=== PATIENT | female | born 1995 | race Caucasian/White ===

== ENCOUNTER 2024-02-06 14:45 | Outpatient (OUT) | payer BC, MEDICAID, SELFPAY ==
--- NOTE | 2024-02-06 14:53 | US_ITS ---
[address] [address] Patient Name: NICHO DOHERTY MRN: [id number] date: 1995 Sex: F Assigned Patient Location: Current Patient Location: Accession/Order Number: [id number] Exam Date: 02/06/2024 15:00 Report Date: 02/07/2024 05:15 At the request of: JULIET KELLY Procedure: US OB transvaginal EXAMINATION: US OB transvaginal HISTORY: Amenorrhea COMPARISON: No relevant comparison available. FINDINGS: GESTATIONAL SAC: Present and normal appearing. YOLK SAC: Present and normal appearing. POLE: Present and normal appearing. CARDIAC: Present. UTERUS: Normal size and appearance. OVARIES: Right: Normal. Left: Not seen. CERVIX: Not evaluated. CUL-DE-SAC: Normal. OTHER: None. AGE BY LMP: 8 weeks 3 days DARLYN BY LMP: 09/14/2024 AGE BY US CRL: 8 weeks 3 days DARLYN BY US CRL: 09/14/2024 US/US OB transvaginal IMPRESSION: 1. Single live intrauterine . Electronically authenticated by: BISI LARA Date: 02/07/2024 05:15
== END 2024-02-06 14:46 | disposition home or self-care (01) ==
PROVIDERS: Visit Provider Midwife
DX: Z34.01 Encounter for supervision of normal first pregnancy, first trimester (principal); Z3A.08 8 weeks gestation of pregnancy; N91.2 Amenorrhea, unspecified
CPT/HCPCS: 76817

== ENCOUNTER 2024-05-01 16:03 | Outpatient (OUT) | payer MEDICAID, SELFPAY ==
--- NOTE | 2024-05-01 16:06 | US_ITS ---
[address] [address] Patient Name: NICHO DOHERTY MRN: [id number] date: 1995 Sex: F Assigned Patient Location: US Current Patient Location: Accession/Order Number: [id number] Exam Date: 05/01/2024 16:12 Report Date: 05/02/2024 07:54 At the request of: JULIET KELLY Procedure: US OB anatomy EXAMINATION: US OB anatomy, US OB cervical length HISTORY: RELATED CONDITION IN SECOND TRIMESTER O26.92 COMPARISON: No relevant comparison available. TECHNIQUE: Transabdominal sonographic examination was performed for obstetrical and evaluation. FINDINGS: Number: 1 Heart Rate: 152.54 bpm H.B. /min Amniotic Fluid Volume: Subjectively normal position: Cephalic presentation, longitudinal lie Placental Location: POSTERIOR, grade 0. The placental edge is 2.7 cm from the internal cervical os Cervix Length: 3.36 cm , closed Normal anatomy: Lateral ventricles, cerebellum, posterior fossa, nose, lips, orbits, four-chamber heart, RVOT, LVOT, diaphragm, stomach, kidneys, abdominal cord insertion, bladder, umbilical arteries, three-vessel cord, spine, extremities BIOMETRY: BPD: 5.01 cm; 21 weeks 1 day; 78.10 % HC: 18.69 cm; 21 weeks 0 days; 68.30 % AC: 16.53 cm; 21 weeks 4 days; 79.60 % FL: 3.61 cm; 21 weeks 3 days; 76.60 % EFW:425.30 g; 92.80 % FL/AC: 21.84 FL/BPD: 72.11 HC/AC: 1.13 GESTATIONAL AGE: Age by EDC: 20 weeks 3 days DARLYN by EDC: 2024-09-15 Age by current US: 21 weeks 2 days DARLYN by current US: 2024-09-09 US/US OB anatomy IMPRESSION: Low lying placenta, otherwise normal anatomy scan Closed cervix measuring 3.4 cm length *Reference: [employer] Practice Guideline for the performance of Obstetric Ultrasound Examinations, December 16, 2006. Electronically authenticated by: BRUCE QIU Date: 05/02/2024 07:54
--- NOTE | 2024-05-01 16:08 | US_ITS ---
[address] [address] Patient Name: NICHO DOHERTY MRN: [id number] date: 1995 Sex: F Assigned Patient Location: US Current Patient Location: Accession/Order Number: [id number] Exam Date: 05/01/2024 16:12 Report Date: 05/02/2024 07:54 At the request of: JULIET KELLY Procedure: US OB cervical length EXAMINATION: US OB anatomy, US OB cervical length HISTORY: RELATED CONDITION IN SECOND TRIMESTER O26.92 COMPARISON: No relevant comparison available. TECHNIQUE: Transabdominal sonographic examination was performed for obstetrical and evaluation. FINDINGS: Number: 1 Heart Rate: 152.54 bpm H.B. /min Amniotic Fluid Volume: Subjectively normal position: Cephalic presentation, longitudinal lie Placental Location: POSTERIOR, grade 0. The placental edge is 2.7 cm from the internal cervical os Cervix Length: 3.36 cm , closed Normal anatomy: Lateral ventricles, cerebellum, posterior fossa, nose, lips, orbits, four-chamber heart, RVOT, LVOT, diaphragm, stomach, kidneys, abdominal cord insertion, bladder, umbilical arteries, three-vessel cord, spine, extremities BIOMETRY: BPD: 5.01 cm; 21 weeks 1 day; 78.10 % HC: 18.69 cm; 21 weeks 0 days; 68.30 % AC: 16.53 cm; 21 weeks 4 days; 79.60 % FL: 3.61 cm; 21 weeks 3 days; 76.60 % EFW:425.30 g; 92.80 % FL/AC: 21.84 FL/BPD: 72.11 HC/AC: 1.13 GESTATIONAL AGE: Age by EDC: 20 weeks 3 days DARLYN by EDC: 2024-09-15 Age by current US: 21 weeks 2 days DARLYN by current US: 2024-09-09 US/US OB cervical length IMPRESSION: Low lying placenta, otherwise normal anatomy scan Closed cervix measuring 3.4 cm length *Reference: [employer] Practice Guideline for the performance of Obstetric Ultrasound Examinations, December 16, 2006. Electronically authenticated by: BRUCE QIU Date: 05/02/2024 07:54
--- OUTSIDE RECORDS SUMMARY | 2024-05-01 16:13 | XMS_ITS | CCD ---
Author Organization [facility] Care Team Providers Care Meter Repair Shop Supervisor Name Role Phone MISC, DOCTOR Consulting Unavailable MILENA WINTER Primary Care Unavailable MISC, DOCTOR Attending Unavailable MISC, DOCTOR Admitting Unavailable MAGGYMILENA LYMAN Primary Care Unavailable MAGGYMILENA LYMAN Consulting Unavailable MILENA WINTER Attending Unavailable MAGGY, MILENA Admitting Unavailable ROSIPEDGARDO VILCHISIN Consulting Unavailable ROSEDGARDO CALLAWAYIN Attending Unavailable ROSIPKO, JUAN CARLOS Admitting Unavailable Hedy Reyna DO Unavailable Marika Gudino MD Primary Care Provider NO PCP, NO PCP Primary Care Unavailable FABIOLA FRIAS Attending Unavailable Luci Arellano NP Unavailable LUCI ARELLANO Attending Unavailable LUCI ARELLANO Attending Unavailable JULIET CEE Attending Unavailable FLORJULIET Lovelace Attending Unavailable JULIET CEE Attending Unavailable JULIET CEE L Attending Unavailable Allergies Allergy Classification Reported Allergen(s) Allergy Type Date of Onset Reaction(s) Facility (15 sources) Penicillins; Translations: [PENICILLINS] Drug Intolerance 8 Fever, Hives, Itching, Swelling, Rash [facility] (14 sources) Sulfonamides (Antibiotic) Drug Intolerance 8 Hives [facility] (1 source) Sulfonamides (Antibiotic); Translations: [SULFA (SULFONAMIDE ANTIBIOTICS)] Propensity to adverse reactions to drug (disorder) 8 [facility] Medications Current Medications Medication Drug Class(es) Dates Sig (Normalized) Sig (Original) ferrous sulfate (11 sources) Start: 02-03-2024 take 1 tablet by mouth in the morning Ferrous Sulfate (IRON PO) Take 1 tablet by mouth in the morning. 02/03/2024 Active nitrofurantoin, macrocrystals 25 mg / nitrofurantoin, monohydrate 75 mg oral capsule (7 sources) Nitrofuran Antibacterial Start: 03-16-2024 End: 04-06-2024 take 1 capsule by mouth in the morning nitrofurantoin, macrocrystal-monohy drate, (Macrobid) 100 MG capsule Indications: Dysuria Take 1 capsule (100 mg) by mouth in the morning and 1 capsule (100 mg) before bedtime. Do all this for 7 days. 14 capsule 03/30/2024 04/06/2024 Active ondansetron 8 mg disintegrating oral tablet (11 sources) Serotonin-3 Receptor Antagonist Start: 03-05-2024 End: 04-04-2024 take 1 tablet by mouth every eight hours for nausea ondansetron ODT (Zofran-ODT) 8 MG disintegrating tablet Indications: Nausea/vomiting in Take 1 tablet (8 mg) by mouth every 8 (eight) hours if needed for nausea or vomiting 20 tablet 2 03/05/2024 04/04/2024 Active Start: 02-05-2024 End: 03-06-2024 take 1 tablet by mouth every eight hours for nausea ondansetron (Zofran) 8 MG tablet Indications: Nausea/vomiting in Take 1 tablet (8 mg) by mouth every 8 (eight) hours if needed for nausea or vomiting 20 tablet 2 02/05/2024 03/06/2024 Active phenazopyridine hydrochloride 100 mg oral tablet (2 sources) Start: 03-16-2024 End: 03-18-2024 phenazopyridine (Pyridium) 100 MG tablet Indications: Dysuria Take 1 tablet (100 mg) by mouth in the morning and 1 tablet (100 mg) at noon and 1 tablet (100 mg) in the evening. Take with meals. Do all this for 2 days. 6 tablet 03/16/2024 03/18/2024 Active promethazine hydrochloride 25 mg oral tablet (11 sources) Phenothiazine take 1 tablet by mouth every six hours as needed for nausea and vomiting promethazine (Phenergan) 25 MG tablet Take 25 mg by mouth every 6 (six) hours if needed for nausea or vomiting Active Completed/Discontinued Medications Medication Drug Class(es) Dates Sig (Normalized) Sig (Original) citalopram 40 mg oral tablet (3 sources) Serotonin Reuptake Inhibitor Start: 07-16-2023 End: 12-24-2023 take 1 tablet by mouth once daily citalopram (CeleXA) 40 MG tablet Indications: 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/HCC) Take 1 tablet (40 mg) by mouth Daily 90 tablet 07/16/2023 12/24/2023 Discontinued (Side effects) 24 hr venlafaxine 37.5 mg extended release oral capsule (4 sources) Serotonin and Norepinephrine Reuptake Inhibitor Start: 12-24-2023 End: 02-05-2024 take 1 capsule by mouth once daily venlafaxine XR (Effexor XR) 37.5 MG 24 hr capsule Indications: Generalized anxiety disorder (CMS/HCC) , 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/HCC) Take 1 capsule (37.5 mg) by mouth Daily Do not crush or chew. 90 capsule 12/24/2023 02/05/2024 Discontinued (Therapy completed) Problems Active Problems Problem Classification Problem Date Documented Da te Episodic/Chronic Anxiety disorders (20 sources) Anxiety; Translations: [Anxiety disorder, unspecified] Onset: 07-16-2023 07-16-2023 Chronic Genitourinary symptoms and ill-defined conditions (5 sources) Dysuria; Translations: [Dysuria] 03-16-2024 Episodic Immunizations and screening for infectious disease (4 sources) Contact with and (suspected) exposure to other viral communicable diseases; Translations: [CONTCT EXPS OTH VIRL COMMUNICABL DZ] Onset: 01-30-2020 Episodic Menstrual disorders (2 sources) Amenorrhea; Translations: [Amenorrhea, unspecified] 02-05-2024 Chronic Mood disorders (2 sources) Moderate recurrent major depression; Translations: [Major depressive disorder, recurrent, moderate] 12-24-2023 Chronic Other complications of (3 sources) Vomiting of , unspecified; Translations: [Unspecified vomiting of , unspecified as to episode of care or not applicable] Onset: 02-03-2024 02-05-2024 Episodic Other complications of (2 sources) Finding related to ; Translations: [ related conditions, unspecified, second trimester] 04-02-2024 Episodic Other and delivery including normal (6 sources) test positive; Translations: [Encounter for test, result positive] 02-05-2024 Episodic Unclassified (4 sources) CONTACT W/AND (SUSP) EXPOS COVID-19; Translations: [CONTACT W/AND (SUSP) EXPOS COVID-19] Onset: 04-19-2020 Unclassified (1 source) Vomiting During Onset: 02-03-2024 Unclassified (1 source) Vomiting, Early Onset: 02-03-2024 Urinary tract infections (2 sources) Escherichia coli urinary tract infection; Translations: [Urinary tract infection, site not specified] 03-16-2024 Episodic Past or Other Problems Problem Classification Problem Date Documented Da te Episodic/Chronic Mood disorders (14 sources) Mood disorders Onset: 07-16-2023 Resolved: 12-24-2023 07-16-2023 Unclassified (2 sources) Nausea/vomiting in 02-05-2024 Results Test Name Value Interpretation Reference Range Facility Urinalysis macro (dipstick) panel (U)on 03-16-2024 Bilirubin, UA Negative Negative - 4(70) +++ mg/dL [facility] Blood, UA Positive Negative - 50 Chau/mcL [facility] Clarity, UA Cloudy [facility] re Color, UA Yellow [facility] e Glucose, UA Negative Negative - 1999(110) ++++ mg/dL [facility] Interpretation and review of laboratory results Abnormal [facility] Ketones, UA Negative Negative - 160(16) ++++ mg/dL [facility] Leukocytes, UA Trace Negative - 500+++ Ceci/mcL [facility] Nitrite, UA Negative Negative - Positive [facility] pH, UA 7 5 - 9 [facility] Protein, UA Negative Negative - 1999(20) ++++ mg/dL [facility] Spec Grav, UA 1.01 1 - 1.03 [facility] Urobilinogen, UA 0.2 0.2 - 12 mg/dL [facility] HCG ( test) Ql (U)o n 02-05-2024 Interpretation and review of laboratory results Abnormal [facility] Preg Test, Ur Positive Negative [facility] CBC AND AUTO DIFFon 02-03-20 24 ABSOLUTE BASOPHIL 0.0 X10E9/L Normal 0.0-0.2 [facility] Comment on above: Performed By: #### C SCOTT HUERTA, , #### [facility] ([id number]) [address] [place] [address] 18559 ABSOLUTE NEUTROPHIL 7.3 X10E9/L High 1.5-6.6 [facility] Comment on above: Performed By: #### C DEANNA CMP, , #### [facility] ([id number]) [address] [place] [address] 83105 Basophils/100 WBC (Bld) 0.2 % Normal [facility] Comment on above: Performed By: #### C DEANNA CMP, , #### [facility] ([id number]) [address] [place] [address] 31443 Eosinophils (Bld) [#/Vol] 0.0 10*3/uL Normal 0.0-0.4 [facility] Comment on above: Performed By: #### C SCOTT HUERTA, , #### [facility] ([id number]) [address] [place] [address] 93579 Eosinophils/100 WBC (Bld) 0.1 % Normal [facility] Comment on above: Performed By: #### Erasmo HUERTA CMP, , #### [facility] ([id number]) [address] [place] [address] 41318 Erythrocyte distribution width (RBC) [Ratio] 13.0 % Normal 11.5-15.0 [facility] Comment on above: Performed By: #### C DEANNA CMP, , #### [facility] ([id number]) [address] [place] [address] 14166 Hematocrit (Bld) [Volume fraction] 43.3 % Normal 35-47 [facility] Comment on above: Performed By: #### C DEANNA CMP, , #### [facility] ([id number]) [address] [place] [address] 40020 Hemoglobin (Bld) [Mass/Vol] 15.0 g/dL Normal 11.7-15.5 [facility] Comment on above: Performed By: #### C DEANNA CMP, , #### [facility] ([id number]) [address] [place] [address] 62353 Lymphocytes (Bld) [#/Vol] 0.9 10*3/uL Low 1.0-3.5 [facility] Comment on above: Performed By: #### C DEANNA CMP, , #### [facility] ([id number]) [address] [place] [address] 42918 Lymphocytes/100 WBC (Bld) 9.9 % Normal [facility] Comment on above: Performed By: #### Erasmo HUERTA CMP, , #### [facility] ([id number]) [address] [place] [address] 54128 MCH (RBC) [Entitic mass] 30.9 pg Normal 27-34 [facility] Comment on above: Performed By: #### Erasmo HUERTA CMP, , #### [facility] ([id number]) [address] [place] [address] 13831 MCHC (RBC) [Mass/Vol] 34.7 g/dL Normal 32-36 [facility] Comment on above: Performed By: #### C DEANNA, CMP, , #### [facility] ([id number]) [address] [place] [address] 82098 MCV (RBC) [Entitic vol] 89 fL Normal 80-100 [facility] Comment on above: Performed By: #### C BCA, CMP, , #### [facility] ([id number]) [address] [place] [address] 76538 Monocytes (Bld) [#/Vol] 0.7 10*3/uL Normal 0-0.9 [facility] Comment on above: Performed By: #### C BCA, CMP, , #### [facility] ([id number]) [address] [place] [address] 74253 Monocytes/100 WBC (Bld) 8.0 % Normal [facility] Comment on above: Performed By: #### Erasmo BCA, CMP, , #### [facility] ([id number]) [address] [place] [address] 98563 Neutrophils/100 WBC (Bld) 81.8 % Normal [facility] Comment on above: Performed By: #### Erasmo BCA, CMP, , #### [facility] ([id number]) [address] [place] [address] 91971 Platelet mean volume (Bld) [Entitic vol] 10.4 fL Normal 7-12 [facility] Comment on above: Performed By: #### Erasmo BCA, CMP, , #### [facility] ([id number]) [address] [place] [address] 59717 Platelets (Bld) [#/Vol] 188 10*3/uL Normal 150-450 [facility] Comment on above: Performed By: #### Erasmo BCA, CMP, , #### [facility] ([id number]) [address] [place] [address] 73873 RBC COUNT 4.85 X10E12/L Normal 3.80-5.20 [facility] Comment on above: Performed By: #### C BCA, CMP, , #### [facility] ([id number]) [address] [place] [address] 91590 WBC (Bld) [#/Vol] 8.9 10*3/uL Normal 4.0-11.0 [facility] Comment on above: Performed By: #### C BCA, CMP, , #### [facility] ([id number]) [address] [place] [address] 18018 COMPREHENSIVE METABOLIC PANE Cedric 02-03-2024 Albumin [Mass/Vol] 4.8 g/dL Normal 3.2-5.3 [facility] Comment on above: Performed By: #### C BCA, CMP, , #### [facility] ([id number]) [address] [place] [address] 54166 ALP [Catalytic activity/Vol] 40 U/L Normal 39-130 [facility] Comment on above: Performed By: #### C BCA, CMP, , #### [facility] ([id number]) [address] [place] [address] 11765 ALT [Catalytic activity/Vol] 17 U/L Normal 0-31 [facility] Comment on above: Performed By: #### C BCA, CMP, , #### [facility] ([id number]) [address] [place] [address] 92644 Anion gap [Moles/Vol] 17 mmol/L High 5-15 [facility] Comment on above: Performed By: #### C BCA, CMP, , #### [facility] ([id number]) [address] [place] [address] 21271 AST [Catalytic activity/Vol] 18 U/L Normal 0-41 [facility] Comment on above: Performed By: #### C DEANNA, CMP, , #### [facility] ([id number]) [address] [place] [address] 17547 Bilirubin [Mass/Vol] 1.6 mg/dL High 0.3-1.2 [facility] Comment on above: Performed By: #### C BCA, CMP, , #### [facility] ([id number]) [address] [place] [address] 02916 Calcium [Mass/Vol] 9.7 mg/dL Normal 8.5-10.5 [facility] Comment on above: Performed By: #### C DEANNA, CMP, , #### [facility] ([id number]) [address] [place] [address] 89407 Chloride [Moles/Vol] 98 mmol/L Normal 98-109 [facility] Comment on above: Performed By: #### C DEANNA, CMP, , #### [facility] ([id number]) [address] [place] [address] 61695 CO2 [Moles/Vol] 18 mmol/L Low 22-32 [facility] Comment on above: Performed By: #### C BCA, CMP, , #### [facility] ([id number]) [address] [place] [address] 85369 Creatinine [Mass/Vol] 0.72 mg/dL Normal 0.40-1.00 [facility] Comment on above: Result Comment: METH OD TRACEABLE TO IDMS STANDARD Performed By: #### C BCA, CMP, , #### [facility] ([id number]) [address] [place] [address] 65191 eGFR (CKD-EPI) NON-RACE DEPENDENT >90 Normal >59 [facility] Comment on above: Result Comment: Reported eGFR is based on the CKD-EPI 2020 equation that does not use a race coefficient. Performed By: #### C SCOTT HUERTA, , #### [facility] ([id number]) [address] [place] [address] 92585 Glucose [Mass/Vol] 106 mg/dL High 65-99 [facility] Comment on above: Performed By: #### C SCOTT HUERTA, , #### [facility] ([id number]) [address] [place] [address] 26475 Potassium [Moles/Vol] 3.0 mmol/L Low 3.5-5.0 [facility] Comment on above: Performed By: #### C DEANNA, CMP, , #### [facility] ([id number]) [address] [place] [address] 75672 Protein [Mass/Vol] 8.3 g/dL High 6.0-8.0 [facility] Comment on above: Performed By: #### C DEANNA, CMP, , #### [facility] ([id number]) [address] [place] [address] 46647 Sodium [Moles/Vol] 133 mmol/L Low 134-146 [facility] Comment on above: Performed By: #### C DEANNA, CMP, , #### [facility] ([id number]) [address] [place] [address] 04897 Urea nitrogen [Mass/Vol] 14 mg/dL Normal 5-23 [facility] Comment on above: Performed By: #### C DEANNA, CMP, , #### [facility] ([id number]) [address] [place] [address] 05924 HCG ( test) Ql (U)o n 02-03-2024 Beta HCG ( test) Ql (U) Positive Abnormal NEG [facility] Comment on above: Performed By: #### 2 106-3 #### [facility] ([id number]) [address] [place] [address] 81408 HCG.beta subunit IA 3rd IS Q non 02-03-2024 HCG.beta subunit Qn 357700 m[IU]/mL Normal [facility] Comment on above: Result Comment: NEW REFERENCE RANGE WEEKS (SINCE LMP) MIU/mL 3 WEEKS 5 - 50 4 WEEKS 5 - 426 5 WEEKS 18 - 7,340 6 WEEKS 1,080 - 56,500 7-8 WEEKS 7,650 - 229,000 9-12 WEEKS 25,700 - 288,000 13-16 WEEKS 13,300 - 254,000 17-24 WEEKS 4,060 - 165,400 25-40 WEEKS 3,640 - 117,000 MALES AND NON- FEMALES - <5 MIU/mL This test has been FDA approved for use in only. Elevated levels are not necessarily diagnostic for trophoblastic or nontrophoblastic neoplasms. Performed By: #### C SCOTT HUERTA, , #### [facility] ([id number]) [address] [place] [address] 41394 MAGNESIUMon 02-03-2024 Magnesium [Mass/Vol] 1.8 mg/dL Normal 1.8-2.6 [facility] Comment on above: Performed By: #### C SCOTT HUERTA, , #### [facility] ([id number]) [address] [place] [address] 56285 URN MACROSCOPIC NURon 2023 BILIRUBIN SHARRI Small Abnormal NEG [facility] Comment on above: Performed By: #### N UM #### [facility] ([id number]) [address] [place] [address] 71930 BLOOD/HGB SHARRI Trace Abnormal NEG [facility] Comment on above: Performed By: #### N UM #### [facility] ([id number]) [address] [place] [address] [place] [address] GLUCOSE SHARRI Negative Normal NEG [facility] Comment on above: Performed By: #### N UM #### [facility] ([id number]) [address] [place] [address] [place] [address] KETONES SHARRI 80 mg/dL Abnormal NEG [facility] Comment on above: Performed By: #### N UM #### [facility] ([id number]) [address] [place] [address] 34588 LEUKOCYTE ESTERASE SHARRI Negative Normal NEG [facility] Comment on above: Performed By: #### N UM #### [facility] ([id number]) [address] [place] [address] [place] [address] NITRITE SHARRI Negative Normal NEG [facility] Comment on above: Performed By: #### N UM #### [facility] ([id number]) [address] [place] [address] 86124 PH SHARRI 5.5 Normal 5.0-8.5 [facility] Comment on above: Performed By: #### N UM #### [facility] ([id number]) [address] [place] [address] [place] [address] PROTEIN SHARRI >=300 Abnormal NEG [facility] Comment on above: Performed By: #### N UM #### [facility] ([id number]) [address] [place] [address] [place] [address] SPECIFIC GRAVITY SHARRI >=1.030 Normal 1.003-1.035 [facility] Comment on above: Performed By: #### N UM #### [facility] ([id number]) [address] [facility] [place] [address] UROBILINOGEN SHARRI 0.2 eu/dL Normal <1.1 [facility] Comment on above: Performed By: #### N UM #### [facility] ([id number]) [address] [facility] [place] [address] Cov[facility] PCR ([facility]on Covid-19 PCR NOT DETECTED Normal NOT DETECTED [facility] Comment on above: Result Comment: This test is not yet approved or cleared by the [place] FDA. When there are no FDA-approved or cleared tests available, and other criteria are met, FDA can make tests available under an emergency access mechanism called an Emergency Use Authorization (EUA). The EUA for this test is supported by the Sr. [employer] of Health and Human Service's (HHS's) declaration that circumstances exist to justify the emergency use of in vitro diagnostics for the detection and/or diagnosis of the virus that causes COVID-19. This EUA will remain in effect (meaning this test can be used) for the duration of the COVID-19 declaration justifying emergency of IVDs, unless it is terminated or revoked by FDA (after which the test may no longer be used). Performed By: #### C VDTB #### [facility] [address] [address] Itzel Cooper EUA Statement SEE BELOW Normal [facility] Comment on above: Result Comment: This test is not yet approved or cleared by the [place] FDA. When there are no FDA-approved or cleared tests available, and other criteria are met, FDA can make tests available under an emergency access mechanism called an Emergency Use Authorization (EUA). The EUA for this test is supported by the [place] of Health and Human Service?s (HHS?s) declaration that circumstances exist to justify the emergency use of in vitro diagnostics for the detection and/or diagnosis of the virus that causes COVID-19. This EUA will remain in effect (meaning this test can be used) for the duration of the COVID-19 declaration justifying emergency of IVDs, unless it is terminated or revoked by FDA (after which the test may no longer be used). When diagnostic testing is negative, the possibility of a false negative should be considered in the context of a patients recent exposures and the presence of clinical signs and symptoms consistent with SARS-CoV-2. Performed By: #### C VDTBH #### [facility] [address] [place] [address] Itzel Cooper COVID-19 PCRon 02-02-2020 SARS-CoV-2, SANDRA Not Detected Normal Not Detected [facility] Comment on above: Result Comment: This nucleic acid amplification test was developed and its performance characteristics determined by [employer]. Nucleic acid amplification tests include PCR and TMA. This test has not been FDA cleared or approved. This test has been authorized by FDA under an Emergency Use Authorization (EUA). This test is only authorized for the duration of time the declaration that circumstances exist justifying the authorization of the emergency use of in vitro diagnostic tests for detection of SARS-CoV-2 virus and/or diagnosis of COVID-19 infection under section 564(b)(1) of the Act, 21 U.S.C. 360bbb-3(b) (1), unless the authorization is terminated or revoked sooner. When diagnostic testing is negative, the possibility of a false negative result should be considered in the context of a patient's recent exposures and the presence of clinical signs and symptoms consistent with COVID-19. An individual without symptoms of COVID-19 and who is not shedding SARS-CoV-2 virus would expect to have a negative (not detected) result in this assay. Performed By: #### C VDPCR #### [facility] [address] [place] [address] Itzel Cooper COVID-19 PCRon 10-03-2019 SARS-CoV-2, SANDRA Not Detected Normal Not Detected [facility] Comment on above: Result Comment: This test was developed and its performance characteristics determined by [employer]. This test has not been FDA cleared or approved. This test has been authorized by FDA under an Emergency Use Authorization (EUA). This test is only authorized for the duration of time the declaration that circumstances exist justifying the authorization of the emergency use of in vitro diagnostic tests for detection of SARS-CoV-2 virus and/or diagnosis of COVID-19 infection under section 564(b)(1) of the Act, 21 U.S.C. 360bbb-3(b)(1), unless the authorization is terminated or revoked sooner. When diagnostic testing is negative, the possibility of a false negative result should be considered in the context of a patient's recent exposures and the presence of clinical signs and symptoms consistent with COVID-19. An individual without symptoms of COVID-19 and who is not shedding SARS-CoV-2 virus would expect to have a negative (not detected) result in this assay. Performed By: #### C VDPCR #### [facility] [address] [place] [address] Itzel Cooper Vital Signs Date Time Vital Sign Value Performing Clinician Hans hickman 04-02-2024 15:26-0500 Body mass index (BMI) [Ratio] 31.24 kg/m2 Juliet Floro CNM Work Phone: [facility] [facility] 04-02-2024 15:26-0500 Body weight 82.56 kg Juliet Floro CNM Work Phone: [facility] 04-02-2024 15:26-0500 Diastolic blood pressure 80 mm[Hg] Juliet Floro CNM Work Phone: [facility] 04-02-2024 15:26-0500 Systolic blood pressure 122 mm[Hg] Juliet Floro CNM Work Phone: [facility] 03-16-2024 15:53-0500 Body mass index (BMI) [Ratio] 30.38 kg/m2 Juliet Floro CNM Work Phone: [facility] 03-16-2024 15:53-0500 Body weight 80.29 kg Juliet Floro CNM Work Phone: [facility] 03-16-2024 15:53-0500 Diastolic blood pressure 80 mm[Hg] Juliet Floro CNM Work Phone: [facility] 03-16-2024 15:53-0500 Systolic blood pressure 130 mm[Hg] Juliet Floro CNM Work Phone: [facility] 02-05-2024 14:07-0500 Body mass index (BMI) [Ratio] 28.49 kg/m2 Juliet Cee CNM Work Phone: [facility] 02-05-2024 14:07-0500 Body weight 75.3 kg Juliet Cee CNM Work Phone: [facility] 02-05-2024 14:07-0500 Diastolic blood pressure 70 mm[Hg] Juliet Cee CNM Work Phone: [facility] 02-05-2024 14:07-0500 Systolic blood pressure 120 mm[Hg] Juliet Cee CNM Work Phone: [facility] 12-24-2023 17:32-0400 Body height 162.6 cm Luci Adan [employer] Work Phone: [facility] 12-24-2023 17:32-0400 Body mass index (BMI) [Ratio] 30.62 kg/m2 Luci Bocanegraesdras [employer] Work Phone: [facility] 12-24-2023 17:32-0400 Body weight 80.92 kg Luci Bocanegraesdras [employer] Work Phone: [facility] 12-24-2023 17:32-0400 Diastolic blood pressure 70 mm[Hg] Luci Adan [employer] Work Phone: [facility] 12-24-2023 17:32-0400 Heart rate 97 /min Luci Adan [employer] Work Phone: [facility] 12-24-2023 17:32-0400 SaO2% (BldA) [Mass fraction] 98 % Luci Adan [employer] Work Phone: [facility] 12-24-2023 17:32-0400 Systolic blood pressure 110 mm[Hg] Luci Bocanegraesdras [employer] Work Phone: [facility] Encounters Encounter Date Encounter Type Care Provider Facility Start: 04-02-2024 End: 04-02-2024 Subsequent care visit Juliet L Floro CNM Work Phone: [facility] Comment on above: Encounter for superv ision of other normal , second trimester (Primary Dx); History of section; related condition in second trimester Start: 04-02-2024 End: 04-02-2024 ambulatory JULIET L FLORO Not Available Start: 04-02-2024 End: 04-02-2024 Bamboo flowsheet Juliet L Floro CNM Work Phone: [facility] Start: 04-02-2024 End: 04-02-2024 Bamboo flowsheet Juliet L Floro CNM Work Phone: [facility] Start: 03-30-2024 End: 03-30-2024 Telephone encounter Juliet Polly Floro CNM Work Phone: [facility] Comment on above: Dysuria Start: 03-16-2024 End: 03-16-2024 Office outpatient visit 15 minutes Juliet L Floro CNM Work Phone: [facility] Comment on above: Dysuria (Primary Dx) ; E-coli UTI; Other microscopic hematuria Start: 03-16-2024 End: 03-16-2024 ambulatory JULIET L FLORO Not Available Start: 03-16-2024 End: 03-16-2024 Bamboo flowsheet Juliet L Floro CNM Work Phone: [facility] Start: 03-16-2024 End: 03-16-2024 Bamboo flowsheet Juliet L Floro CNM Work Phone: [facility] Start: 03-05-2024 End: 03-05-2024 ambulatory JULIET L FLORO Not Available Start: 03-05-2024 End: 03-05-2024 Bamboo flowsheet Juliet L Floro CNM Work Phone: [facility] Start: 03-05-2024 End: 03-05-2024 Bamboo flowsheet Juliet L Floro CNM Work Phone: [facility] Start: 02-05-2024 End: 02-05-2024 Office outpatient visit 15 minutes Juliet Cee CNM Work Phone: [facility] Comment on above: GA: 8w1d Start: 02-05-2024 End: 02-05-2024 ambulatory JULIETChen CEE Not Available Start: 02-03-2024 End: 02-03-2024 Emergency department patient visit NO PCP NO PCP [facility] Start: 12-24-2023 End: 12-24-2023 Office outpatient visit 25 minutes Luci Arellano [employer] Work Phone: [facility] Comment on above: Generalized anxiety disorder (CMS/HCC) (Primary Dx); 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/HCC) Start: 12-24-2023 End: 12-24-2023 ambulatory LUCI ARELLANO Not Available Start: 12-24-2023 End: 12-24-2023 Bamboo flowsheet Luci Arellano [employer] Work Phone: [facility] Start: 12-24-2023 End: 12-24-2023 Bamboo flowsheet Luci Arellano [employer] Work Phone: [facility] Start: 07-16-2023 End: 07-16-2023 ambulatory LUCI ARELLANO Not Available Start: 04-19-2020 End: 04-19-2020 Patient encounter procedure [facility] [place] Facility:[facility] Start: 01-30-2020 End: 01-31-2020 Patient encounter procedure MILENA WINTER Facility:[facility] Start: 10-01-2019 End: 10-02-2019 Patient encounter procedure JUAN CARLOS TA Facility:[facility] Procedures Date Procedure Procedure Detail Performing Clinician Start: 03-16-2024 Urnls dip stick/tabl et rgnt non-auto w/o micrscp Juliet Cee CNM Work Phone: Start: 02-05-2024 Urine test visual color cmprsn meths Juliet Cee CNM Work Phone: H/O: section History of section Juliet Cee [facility] Work Phone: Plan of Treatment Date Care Activity Detail Author Start: 04-27-2024 End: 04-27-2024 Patient encounter procedure 04/27/2024 3:30 PM EST Routine [facility] [address] [facility] [place] [id number] Juliet Cee, CNM [address] [place] [address] [facility] Start: 04-02-2024 End: 04-02-2024 Patient encounter procedure [facility] Comment on above: Arrived Start: 04-02-2024 End: 04-02-2025 US for US OB ANATOMY SINGLE W US OB CERVICAL LENGTH Imaging Routine related condition in second trimester Expected: 04/02/2024, Expires: 04/02/2025 [facility] Work Phone: Comment on above: Expected: 04/02/2024 , Expires: 04/02/2025 Start: 03-16-2024 End: 03-16-2024 Patient encounter procedure 03/16/2024 4:00 PM EST Routine [facility] [address] [place] [id number] Juliet Cee, CN [address] [place] [address] Arrived [facility] Comment on above: Arrived Start: 03-05-2024 End: 03-05-2024 Patient encounter procedure [facility] Comment on above: Arrived Start: 12-24-2023 End: 12-24-2023 Patient encounter procedure 12/24/2023 5:30 PM EDT Office Visit [facility] [address] [place] [id number] Luci Arellano, ESTHER [address] [place] [address] Arrived [facility] Comment on above: Arrived Start: 11-17-2023 Influenza vaccination Influenz a Vaccine (#1) [facility] Immunizations Immunization Date Immunization Notes Care Provider Gali kilpatrick 01-24-2018 tetanus toxoid, redu iraida diphtheria toxoid, and acellular pertussis vaccine, adsorbed Luci Arellano [employer] Work Phone: [facility] 11-14-2017 RHO(D) immune globul in- IV or IM Luci Arellano [employer] Work Phone: [facility] 07-26-2006 varicella virus vaccine Leidy h Adan [employer] Work Phone: [facility] 06-21-2000 diphtheria, tetanus toxoids and acellular pertussis vaccine, unspecified formulation Luci Arellano [employer] Work Phone: [facility] 06-21-2000 measles, mumps and rubella virus vaccine Luci Arellano [employer] Work Phone: [facility] 06-21-2000 poliovirus vaccine, inactivated Luci Arellano [employer] Work Phone: [facility] 09-21-1996 diphtheria, tetanus toxoids and acellular pertussis vaccine, unspecified formulation Luci Arellano [employer] Work Phone: [facility] 09-21-1996 haemophilus influenz ae type b vaccine, conjugate unspecified formulation Luci Arellano [employer] Work Phone: [facility] 09-21-1996 measles, mumps and rubella virus vaccine Luci Arellano [employer] Work Phone: [facility] 1995 DTP-Haemophilus influenzae type b conjugate vaccine Luci Arellano [employer] Work Phone: [facility] 1995 hepatitis B vaccine, pediatric or pediatric/adolescent dosage Luci Arellano [employer] Work Phone: [facility] 1995 trivalent poliovirus vaccine, live, oral Luci Arellano [employer] Work Phone: [facility] 1995 DTP-Haemophilus influenzae type b conjugate vaccine Luci Arellano [employer] Work Phone: [facility] 1995 trivalent poliovirus vaccine, live, oral Luci Arellano [employer] Work Phone: [facility] 1995 DTP-Haemophilus influenzae type b conjugate vaccine Luci Arellano [employer] Work Phone: [facility] 1995 hepatitis B vaccine, pediatric or pediatric/adolescent dosage Luci Arellano [employer] Work Phone: [facility] 1995 trivalent poliovirus vaccine, live, oral Luci Arellano [employer] Work Phone: [facility] 1995 hepatitis B vaccine, pediatric or pediatric/adolescent dosage Luci Arellano [employer] Work Phone: [facility] Healthcare Payers Date Payer Category Payer Medicaid [place]ICAID [id number] 2024 Medicaid [id number] 2022 [facility] [id number] 2022 Unknown BCBS BCBS [id number] 2022-Present [phone] [address] [place] [address] [id number] 1995 Unknown [id number] 593 1995 Unknown [id number] 593 1995 Unknown [id number] 593 1995 Unknown [id number] 1286 1995 Unknown [id number]. 1259 1995 Unknown [id number] [id number]. 1259 1995 Unknown [id number] [id number]. 1259 1995 Unknown [id number]. 1259 1995 Unknown [id number] [id number]. 1259 1995 Unknown [id number] 1259 1959 Unknown [id number] Social History Date Type Detail Facility Start: 07-16-2023 End: 02-05-2024 Tobacco smoking status ARIS Ex-smoker [facility] End: 03-18-2021 History of tobacco use Current smoker [facility] End: 03-18-2021 History of tobacco use Cigarette Smoker [facility] Start: 07-16-2023 Tobacco use and exposure Smoke less tobacco non-user [facility] Start: 07-16-2023 End: 02-05-2024 Alcoholic beverage intake Ex-drinker (finding) [facility] Start: 07-08-2023 End: 12-24-2023 History of Social function [facility] Start: 07-08-2023 End: 12-24-2023 Social connection and isolation panel [facility] Do you belong to any clubs or organizations such as zoroastrian groups, unions, fraternal or athletic groups, or school groups? No [facility] Are you now , , , , never or living with a partner? [facility] How often to you hav e a drink containing alcohol? Never [facility] How many standard dr inks containing alcohol do you have on a typical day? Patient does not drink [facility] How hard is it for y ou to pay for the very basics like food, housing, medical care, and heating Not very hard [facility] Do you feel stress - tense, restless, nervous, or anxious, or unable to sleep at night because your mind is troubled all the time - these days [OSQ] Very much [facility] (I/We) worried wheth er (my/our) food would run out before (I/we) got money to buy more. Never true [facility] Start: 07-16-2023 Tobacco Comment Vapes daily [facility] Start: 07-16-2023 Alcohol Comment caffiene intak e: 2 cans of soda daily [facility] Start: 1995 Sex assigned at Female [facility] Start: 07-08-2023 Gender identity Identifies as female gender (finding) [facility] Start: 07-08-2023 Sexual orientation Heterosexual (fin ding) [facility] Start: 02-05-2024 Tobacco use and exposure User of smo keless tobacco [facility] Start: 12-24-2023 [facility] Notes 12-24-2023 to 04-02-2024 Juliet Cee CNM - 04/02/2024 3:30 PM Harjit Cee CNM - 03/30/2024 5:11 PM ESTTelephone Encounter - Shanon Russell - 03/30/2024 8:11 AM Harjit Cee CNM - 03/16/2024 4:00 PM EST Note Date & Type Note Facility 04-02-2024 History of Presen t illness Narrative Subjective No chief complaint on file. Karlos Doherty is a 28 y.o. at 16w2d with a working estimated date of delivery of 09/15/2024, by Last Menstrual Period who presents for a routine visit. She denies vaginal bleeding, leakage of fluid, decreased movements, or contractions. OB History Para Term AB Living 3 1 1 1 1 SAB IAB Ectopic Multiple Live Births 1 1 # Outcome Date GA Lbr Campos/2nd Weight Sex Type Anes PTL Lv 3 Current 2 Term 02/05/18 39w5d 9 lb F Spinal N GERSON 1 SAB Her is complicated by: The following portions of the chart were reviewed this encounter and updated as appropriate: Objective Physical Exam weight: 182 lb Expected Total Weight Gain: 15 lb-25 lb Pregravid BMI: 28.48 BP: 122/80 Urine protein Urine glucose Labs: reviewed Imaging Assessment/Plan Diagnoses and all orders for this visit: Encounter for supervision of other normal , second trimester History of section related condition in second trimester - US OB ANATOMY SINGLE W US OB CERVICAL LENGTH; Future Continue vitamin. Labs reviewed. Rhogam GTT at 28 weeks Follow up in 4 weeks for a routine visit. documented in this encounter [facility] 03-30-2024 History of Presen t illness Narrative Patient has recurrent symptoms of UTI and had culture in February for enterococcus fecalis. Sent in RX for macrobid for 100 mg 1 po BID x10 days . Reculture 14 days after she finishes the antibiotic. documented in this encounter [facility] 03-30-2024 Telephone encount er Note Javier 8:07 Vm left request to have Neal Singh nurse return call. Attempted to call patient and had to lmom for patient to callback with more information. [facility] 03-30-2024 Miscellaneous Notes Formattin g of this note might be different from the original. Vm 8:07 Vm left request to have Neal Singh nurse return call. Attempted to call patient and had to lmom for patient to callback with more information. documented in this encounter [facility] 03-16-2024 History of Presen t illness Narrative Subjective No chief complaint on file. Karlos Doherty is a 28 y.o. at 13w6d with a working estimated date of delivery of 09/15/2024, by Last Menstrual Period who presents for a routine visit. She denies vaginal bleeding, leakage of fluid, decreased movements, or contractions. OB History Para Term AB Living 3 1 1 1 1 SAB IAB Ectopic Multiple Live Births 1 1 # Outcome Date GA Lbr Campos/2nd Weight Sex Type Anes PTL Lv 3 Current 2 Term 02/05/18 39w5d 9 lb F Spinal N GERSON 1 SAB Her is complicated by: burning with urination, spotting The following portions of the chart were reviewed this encounter and updated as appropriate: Objective Physical Exam weight: 177 lb Expected Total Weight Gain: 15 lb-25 lb Pregravid BMI: 28.48 BP: 130/80 Urine protein-negative Urine glucose-negative Labs: reviewed Imaging Assessment/Plan Diagnoses and all orders for this visit: Acute cystitis without hematuria - nitrofurantoin, macrocrystal-monohydrate, (Macrobid) 100 MG capsule; Take 1 capsule (100 mg) by mouth in the morning and 1 capsule (100 mg) before bedtime. Do all this for 7 days. - phenazopyridine (Pyridium) 100 MG tablet; Take 1 tablet (100 mg) by mouth in the morning and 1 tablet (100 mg) at noon and 1 tablet (100 mg) in the evening. Take with meals. Do all this for 2 days. Dysuria - nitrofurantoin, macrocrystal-monohydrate, (Macrobid) 100 MG capsule; Take 1 capsule (100 mg) by mouth in the morning and 1 capsule (100 mg) before bedtime. Do all this for 7 days. - phenazopyridine (Pyridium) 100 MG tablet; Take 1 tablet (100 mg) by mouth in the morning and 1 tablet (100 mg) at noon and 1 tablet (100 mg) in the evening. Take with meals. Do all this for 2 days. E-coli UTI Continue vitamin. Urine + positive for e coli on labs Dysuria, pain with urinating Follow up in 2 weeks for a routine visit. documented in this encounter [facility] 02-05-2024 History of Presen t illness Narrative Subjective Karlos Doherty is a 28 y.o. at 8w1d with a working estimated date of delivery of 09/15/2024, by Last Menstrual Period who presents for an initial visit. This is unplanned. Patient Care Team: Marika Gudino MD as PCP - General (Family Medicine) Luci Arellano NP as PCP - Briana Badillo OB History Para Term AB Living 3 1 1 1 1 SAB IAB Ectopic Multiple Live Births 1 1 # Outcome Date GA Lbr Campos/2nd Weight Sex Type Anes PTL Lv 3 Current 2 Term 02/05/18 39w5d 9 lb F Spinal N GERSON 1 SAB Her is complicated by: nausea and vomiting, previous C/S Patient referred by Gynecology History Last Pap 2017 The following portions of the chart were reviewed this encounter and updated as appropriate: Review of Systems Objective Physical Exam weight: 166 lb Expected Total Weight Gain: 15 lb-25 lb Pregravid BMI: 28.48 Urine protein Urine glucose Labs Assessment/Plan Diagnoses and all orders for this visit: Nausea/vomiting in - ondansetron (Zofran) 8 MG tablet; Take 1 tablet (8 mg) by mouth every 8 (eight) hours if needed for nausea or vomiting Amenorrhea - POCT , urine Patient came in today for extreme nausea and vomiting with . She has not has a dating US yet or w nurse new OB visit. I wanted to see her before sending in meds at the pharmacy for her. She is tearful and very stressed. She is going through a separation with her and has been estranged for several months. He is not the FOB of this baby. Support given and patient is reassured. She is vomiting several times a day and is very nauseated. She does desire some Zofran to help. RX sent to her pharmacy and she will also try remedies at home such as sprite, 7-up, teresa vanesa, crackers, soup, bouillon She is scheduled for dating US at [place] tomorrow and then will follow up with me in 4 weeks. documented in this encounter [facility] 12-24-2023 History of Presen t illness Narrative Images from the original note were not included. Karlos Doherty is a 28 y.o. female presents with chief complaint of Medication Problem HPI: HPI Presents to the office today, at last visit celexa was increased, she reports increased fatigue and feeling like she just wanted to sleep all the time so she went back to the 20mg dosage. She reports she still feels like she has a shorter fuse than usual. She does have a lot going on at home right. She and er are . She just got her own place, she does have two young kids, coparenting with him. Over the past 2 weeks, how often have you been bothered by any of the following problems? Little interest or pleasure in doing things: Not at all Feeling down, depressed, or hopeless: Several days Trouble falling or staying asleep, or sleeping too much: Nearly every day Feeling tired or having little energy: Nearly every day Poor appetite or overeating: Not at all Feeling bad about yourself - or that you are a failure or have let yourself or your family down: Nearly every day Trouble concentrating on things, such as reading the newspaper or watching television: Nearly every day Moving or speaking so slowly that other people could have noticed? Or the opposite - being so fidgety or restless that you have been moving around a lot more than usual.: Nearly every day Thoughts that you would be better off or hurting yourself in some way: Not at all Patient Health Questionnaire-9 Score: 16 Over the last 2 weeks, how often have you been bothered by any of the following problems? Feeling nervous, anxious, or on edge: Nearly every day Not being able to stop or control worrying: Nearly every day Worrying too much about different things: Nearly every day Trouble relaxing: Nearly every day Being so restless that it is hard to sit still: Nearly every day Becoming easily annoyed or irritable: Nearly every day Feeling afraid as if something awful might happen: Nearly every day ROGER-7 Total Score: 21 SUBJECTIVE: MEDICATIONS: Current Outpatient Medications Medication Instructions citalopram (CELEXA) 40 mg, Oral, Daily REVIEW OF SYMPTOMS: Review of Systems Psychiatric/Behavioral: Positive for sleep disturbance. The patient is nervous/anxious. OBJECTIVE: Visit Vitals BP 110/70 (BP Location: Left arm, Patient Position: Sitting, BP Cuff Size: Large adult) Pulse 97 Ht 5' 4 Wt 178 lb 6.4 oz SpO2 98% BMI 30.62 kg/m Smoking Status Former BSA 1.91 m Physical Exam Vitals reviewed. Constitutional: Appearance: Normal appearance. HENT: Head: Normocephalic and atraumatic. Mouth/Throat: Mouth: Mucous membranes are moist. Eyes: Pupils: Pupils are equal, round, and reactive to light. Cardiovascular: Rate and Rhythm: Normal rate and regular rhythm. Pulses: Normal pulses. Heart sounds: Normal heart sounds. Pulmonary: Effort: Pulmonary effort is normal. Breath sounds: Normal breath sounds. Musculoskeletal: Cervical back: Normal range of motion and neck supple. Right lower leg: No edema. Left lower leg: No edema. Skin: General: Skin is warm and dry. Capillary Refill: Capillary refill takes less than 2 seconds. Findings: No rash. Neurological: General: No focal deficit present. Mental Status: She is alert and oriented to person, place, and time. Psychiatric: Mood and Affect: Mood is depressed. Affect is tearful. ASSESSMENT AND PLAN: Assessment/Plan Diagnoses and all orders for this visit: Generalized anxiety disorder (CMS/HCC) - venlafaxine XR (Effexor XR) 37.5 MG 24 hr capsule; Take 1 capsule (37.5 mg) by mouth Daily Do not crush or chew. -Switch to effexor. Would like to get better control of her anxiety and she couldn't tolerate the higher doses of SSRI's. Recommend counseling, she is going to look into it at her work. Reviewed importance of healthy diet and exercise, stress management, and social support. 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/HCC) - venlafaxine XR (Effexor XR) 37.5 MG 24 hr capsule; Take 1 capsule (37.5 mg) by mouth Daily Do not crush or chew. documented in this encounter [facility] Evaluation note Diagnosis Generalized anxiety disorder (CMS/HCC)- Primary Generalized anxiety disorder 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/HCC) [facility] Diagnosis Nausea/vomiting in - Primary Unspecified vomiting of , unspecified as to episode of care Amenorrhea Absence of menstruation examination or test, positive result [facility]* Diagnosis Dysuria- Primary E-coli UTI Other microscopic hematuria [facility] Diagnosis Dysuria [facility] Diagnosis Encounter for supervision of other normal , second trimester- Primary History of section Other postprocedural status related condition in second trimester documented in this encounter [facility] Summary Purpose Family History No Family History Records FoundNo Family History Records FoundNo Family History Records Found Advance Directives No Advanced Directives Records FoundNo Advanced Directives Records FoundNo Advanced Directives Records Found Additional Source Comments INFORMATION SOURCE (unrecogn ized section and content) DATE CREATED AUTHOR 04/23/2020 [facility] DATE CREATED AUTHOR AUTHOR'S ORGANIZ ATION 02/05/2024 [facility] DATE CREATED AUTHOR AUTHOR'S ORGANIZ ATION 04/07/2024 [facility] d[facility] Specialists [facility] Care Teams (unrecognized sec tion and content) [employer] Super[employer] Relationship Specialty Start Date End Date Hedy Reyna DO [address] [place] [address] PCP - [place] Commercial 04/18/21 Marika Gudino MD [address] [place] [address] PCP - General Family Medicine 07/08/23 [employer] Supervisor Relationship Specialty Start Date End Date Hedy Reyna DO [address] [place] [address] PCP - [place] Commercial 04/18/21 Marika Gudino MD [address] [place] [address] PCP - General Family Medicine 07/08/23 [employer] Supervisor Relationship Specialty Start Date End Date Marika Gudino MD [address] [place] [address] PCP - General Family Medicine 07/08/23 Luci Arellano NP [address] [place] [address] PCP - [place] [employer] 12/17/23 [employer] Supervisor Relationship Specialty Start Date End Date Marika Gudino MD [address] [place] [address] PCP - General Family Medicine 07/08/23 Luci Arellano NP [address] [place] [address] PCP - [place] Commercial 12/17/23 [employer] Supervisor Relationship Specialty Start Date End Date Marika Gudino MD [address] [place] [address] PCP - General Family Medicine 07/08/23 Luci Arellano NP [address] [place] [address] PCP - [place] [employer] 12/17/23 [employer] Supervisor Relationship Specialty Start Date End Date Marika Gudino MD [address] [place] [address] PCP - General Family Medicine 07/08/23 Luci Arellano NP [address] [place] [address] PCP - [place] [employer] 12/17/23 [employer] Supervisor Relationship Specialty Start Date End Date Marika Gudino MD [address] [place] [address] PCP - General Family Medicine 07/08/23 Luci Arellano NP [address] [place] [address] PCP - [place] [employer] 12/17/23 [employer] Supervisor Relationship Specialty Start Date End Date Marika Gudino MD [address] [place] [address] PCP - General Family Medicine 07/08/23 Luci Arellano NP [address] [place] [address] PCP - [place] [employer] 12/17/23 [employer] Supervisor Relationship Specialty Start Date End Date Marika Gudino MD [address] [place] [address] PCP - General Family Medicine 07/08/23 Luci Arellano NP [address] [place] [address] PCP - Briana Badillo 12/17/23 Reason for Visit (unrecogniz ed section and content) Reason Comments Medication Problem Reason Comments Initial Visit FOR RECORDS PERTAINING TO PATIENTS WHO ARE OR HAVE BEEN ENROLLED IN A CHEMICAL DEPENDENCY/SUBSTANCEABUSE PROGRAM, SOME INFORMATION MAY BE OMITTED. This clinical summary was aggregated from multiple sources. Caution should be exercised in using it in the provision of clinical care. This summary normalizes information from multiple sources, and as a consequence, information in this document may materially change the coding, format and clinical context of patient data. In addition, data may be omitted in some cases. CLINICAL DECISIONS SHOULD BE BASED ON THE PRIMARY CLINICAL RECORDS. [employer] provides no warranty or guarantee of the accuracy or completeness of information in this document.
== END 2024-05-01 16:04 | disposition home or self-care (01) ==
LOC: US 16:03
PROVIDERS: PCP Nurse Practitioner Family; Visit Provider Midwife
DX: O44.42 Low lying placenta NOS or without hemorrhage, second trimester (principal); O26.92 Pregnancy related conditions, unspecified, second trimester; Z3A.20 20 weeks gestation of pregnancy
CPT/HCPCS: 76805; 76817

== ENCOUNTER 2024-07-16 07:38 | Outpatient (RCR) | payer OTHER, SELFPAY ==
[2024-07-16] MEDS: RHO(D) IMMUNE GLOBULIN 1,500 UNIT SYRINGE 1500 UNIT IM (09:43)
[2024-07-16 09:54] VITALS: BP 131/87; PULSE 103; TEMP 36.1; O2SAT 97
== END 2024-07-16 13:30 | disposition home or self-care (01) ==
LOC: LAB 07:38
PROVIDERS: PCP Nurse Practitioner Family; Visit Provider Midwife
DX: O26.893 Other specified pregnancy related conditions, third trimester (principal); Z67.91 Unspecified blood type, Rh negative
CPT/HCPCS: 36415; 86850; 86900; 86901; 96372; J2791

== ENCOUNTER 2024-08-25 16:06 | Outpatient (OUT) | payer OTHER, SELFPAY ==
[2024-08-25 16:30] LABS: Basophils Percent Auto 0.3 % (0.2-2.0); Eosinophils Percent Auto 0.1 % (0.9-7.0); Hematocrit 29.2 % (36.0-48.0); Hemoglobin 9.2 g/dL (12.0-16.0); Immature Granulocytes Abs Auto 0.08 10^3/uL (0.00-0.03); Immature Granulocytes Pct Auto 1.1 % (0.0-0.5); Lymphocytes Absolute Auto 1.1 10^3/uL (1.2-3.8); Lymphocytes Percent Auto 15.1 % (20.5-60.0); Mean Corpuscular HGB Conc 31.5 g/dL (29.9-35.2); Mean Corpuscular Volume 85.6 fL (81.0-99.0); Mean Platelet Volume 12.8 fL (9.5-13.5); Monocytes Absolute Auto 0.8 10^3/uL (0.3-0.8); Monocytes Percent Auto 10.9 % (1.7-12.0); Neutrophils Absolute Auto 5.4 10^3/uL (1.4-6.5); Neutrophils Percent Auto 72.5 % (43.0-75.0); Platelet Count 147 10^3/uL (150-450); Red Blood Count 3.41 10^6/uL (4.20-5.40); Red Cell Distribution Width 16.3 % (11.0-15.0); White Blood Count 7.4 10^3/uL (4.0-11.0)
[2024-08-25 16:34] LABS: Creatinine Urine Random 125.74 mg/dL (20.00-300.00); Total Protein Urine Random 50.4 mg/dL (<=11.9)
[2024-08-25 16:37] VITALS: BP 121/80; PULSE 114
[2024-08-25 16:46] VITALS: BP 122/85; PULSE 107
[2024-08-25 16:46] LABS: Alanine Aminotransferase 26 U/L (14-59); Albumin Globulin Ratio 0.6; Albumin Level 2.3 g/dL (3.4-5.0); Alkaline Phosphatase 200 U/L (46-116); Anion Gap 15.4; Aspartate Amino Transferase 22 U/L (15-37); BUN Creatinine Ratio 15.1; Bilirubin Total 0.2 mg/dL (0.2-1.0); Calcium 8.5 mg/dL (8.5-10.1); Carbon Dioxide 22.7 mmol/L (21.0-32.0); Chloride 103 mmol/L (98-107); Estimated GFR (African America >60 (>=60 mL/min/1.73m^2); Estimated GFR (Non-African Ame >60 (>=60 mL/min/1.73m^2); Globulin 3.8 g/dL; Glucose 84 mg/dL (74-106); Lactate Dehydrogenase 173 U/L (81-234); Potassium 4.1 mmol/L (3.5-5.1); Sodium 137 mmol/L (136-145); Total Protein 6.1 g/dL (6.4-8.2)
[2024-08-25 16:56] VITALS: BP 114/77; PULSE 115
[2024-08-25 17:06] VITALS: BP 119/70; PULSE 97
== END 2024-08-25 17:50 | disposition home or self-care (01) ==
LOC: FBCO 16:11 → FBC 16:12
PROVIDERS: PCP Nurse Practitioner Family; Visit Provider Midwife
DX: O26.893 Other specified pregnancy related conditions, third trimester (principal); Z3A.37 37 weeks gestation of pregnancy
CPT/HCPCS: 36415; 59025; 76818; 80053; 82570; 83615; 84156; 84550; 85025

== ENCOUNTER 2024-09-01 15:23 | Observation (INO) | payer OTHER, SELFPAY ==
--- OUTSIDE RECORDS SUMMARY | 2024-08-18 15:30 | XMS_ITS | Encounter Summary ---
Author Organization [facility] Address [address] [place] [address] Care Team Providers Care Field Care Coordinator Name Role Phone Marika Gudino MD Primary Care Provider [phone] Encounter Details Date Type Department Care Team (Latest Contact Info) Description 08/18/2024 3:30 PM EDT Routine [facility] [address] [place] [address] Joanie Cee, CNM [address] [place] [address] Encounter for supervision of other normal , third trimester ([facility]) (Primary Dx); screening for streptococcus B ([facility]); History of section; Vaping nicotine dependence, non-tobacco product Social History Tobacco Use Types Packs/Day Years Used Date Smoking Tobacco: Former Cigarettes Q uit: 2021 Smokeless Tobacco: Current Comments:Vapes daily Alcohol Use Standard Drinks/Week Comments Not Currently 0 (1 standard drink = 0.6 oz pure alcohol) caffiene intake: 2 cans of soda daily Social Connection and Isolat ion Panel [NHANES] Answer Date Recorded In a typical week, how many times do you talk on the phone with family, friends, or neighbors? More than three times a week 07/08/2023 How often do you get togethe r with friends or relatives? Once a week 07/08/2023 How often do you attend [facility] or restoration services? Never 07/08/2023 Do you belong to any clubs o r organizations such as evangelical groups, unions, fraternal or athletic groups, or school groups? No 07/08/2023 How often do you attend meet ings of the clubs or organizations you belong to? Never 07/08/2023 Are you , , di vorced, , never , or living with a partner? 07/08/2023 AUDIT-C Answer Date Recorded Q1: How often do you have a drink containing alcohol? Never 07/08/2023 Q2: How many drinks containi ng alcohol do you have on a typical day when you are drinking? Patient does not drink Q3: How often do you have si x or more drinks on one occasion? Never 07/08/2023 Overall Financial Resource Strain (CARDIA) Answe r Date Recorded How hard is it for you to pa y for the very basics like food, housing, medical care, and heating? Not very hard 07/08/2023 PHQ-2 Answer Date Recorded Patient Health Questionnaire-2 Score 1 12/24/2023 [facility] - Occupational Stress Questionnaire Answer Date Recorded Do you feel stress - tense, restless, nervous, or anxious, or unable to sleep at night because your mind is troubled all the time - these days? Very much 07/08/2023 Exercise Vital Sign Answer Date Recorde d On average, how many days pe r week do you engage in moderate to strenuous exercise (like a brisk walk)? 2 days 07/08/2023 On average, how many minutes do you engage in exercise at this level? 20 min 07/08/2023 Hunger Vital Sign Answer Date Recorded Within the past 12 months, y ou worried that your food would run out before you got the money to buy more. Never true 07/08/19 24 Within the past 12 months, t he food you bought just didn't last and you didn't have money to get more. Never true 07/08/2023 PRAPARE - Transportation Answer Date Re corded In the past 12 months, has l ack of transportation kept you from medical appointments or from getting medications? No 06/17 In the past 12 months, has l ack of transportation kept you from meetings, work, or from getting things needed for daily living? No 07/08/2023 Housing Stability Vital Sign Answer Robbi e Recorded In the last 12 months, was t here a time when you were not able to pay the mortgage or rent on time? No 07/08/2023 In the last 12 months, how many places have you lived? 1 07/08/2023 In the last 12 months, was t here a time when you did not have a steady place to sleep or slept in a senior living (including now)? No 07/08/2023 Estimated Date of Delivery Comme nts Yes 09/15/2024 Based on last me nstrual period of 12/10/2023 (Exact Date) Sex and Gender Information Value Date Recorded Sex Assigned at Female 07/08/2023 2:48 PM EDT Legal Sex Female 7:39 PM EDT Gender Identity Female 07/08/2023 2:48 PM EDT Sexual Orientation Straight 07/08/2023 2: 48 PM EDT documented as of this encounter Last Filed Vital Signs Vital Sign Reading Time Taken Comments Blood Pressure 120/80 08/18/2024 3:41 PM EDT Pulse - - Temperature - - Respiratory Rate - - Oxygen Saturation - - Inhaled Oxygen Concentration - - Weight 107 kg (236 lb) 08/18/2024 3:41 PM EDT Height - - Body Mass Index 40.51 12/24/2023 5:32 PM EDT documented in this encounter Progress Notes * Joanie Cee CNM - 08/18/2024 3:30 PM EDT Subjective No chief complaint on file. Karlos Guillen is a 29 y.o. at 36w0d with a working estimated date of delivery [...] GERSON 1 SAB Her is complicated by: No problems Objective Physical Exam Weight: 236 lb Expected Total Weight Gain: 15 lb-25 lb Pregravid BMI: 28.48 BP: 120/80 Urine protein-negative Urine glucose-negative Assessment/Plan Diagnoses and all orders for this visit: Encounter for supervision of other normal , third trimester screening for streptococcus B - CULTURE, GROUP B STREP WITH SUSCEPTIBLITY; Future History of section Vaping nicotine dependence, non-tobacco product Patient states she is vaping but she has cut down a lot Continue vitamin. Labs reviewed. GBS done today Expected mode of delivery Follow up in 1 week for a routine visit. documented in this encounter Plan of Treatment Upcoming Encounters Date Type Department Care Team (Late st Contact Info) Description 09/07/2024 2:30 PM EDT Routine [facility] [address] [place] [address] Joanie Cee CNM [address] [place] [address] documented as of this encounter Goals Goal Patient Goal Type Associated Problems Recent Progress Patient-Stated? Author Reminders Care Plan OB Reminders No Open Scheduling, Background documented as of this encounter Procedures Procedure Name Priority Date/Time Associated Diagnosis Comments CULTURE, GROUP B STREP WITH SUSCEPTIBLITY Routine 08/18/2024 4:45 PM EDT screening for streptococcus B ([facility]) documented in this encounter Results * CULTURE, GROUP B STREP WITH SUSCEPTIBLITY (08/18/2024 4:45 PM EDT) MICRO NUMBER [id number] [facility] SPECIMEN QUALITY Adequate [facility] SOURCE VAGINAL/ANOR ECTAL [facility] STATUS FINAL [facility] RESULT SEE NOTE [facility] Comment: No group B Streptococcus isolated COMMENT SEE NOTE [facility] Comment: Note per CDC guidelines optimal recovery is achieved by swabbing both the lower vagina and rectum (through the anal sphincter). 08/18/2024 4:45 PM EDT 08/18/2024 4:45 PM EDT Narrative Resulting Agency Comment Performing Organization Information Site ID: QPT Name: [facility] Address: [address] [place] [address] Director: Gianluca Cadet MD Joanie Cee CNM LAB BLOOD ORDERABLES Final R esult [facility] documented in this encounter Visit Diagnoses Diagnosis Encounter for supervision of other normal , third trimester ([facility])- Primary screening for streptococcus B ([facility]) screening for Streptococcus B History of section Other postprocedural status Vaping nicotine dependence, non-tobacco product documented in this encounter Additional Health Concerns Active Problems Noted Date Diagnosed Date OB Reminders 07/14/2024 Assessment Noted Time PHQ-9 Depression Total Score: 16 024 5:00 PM EDT documented as of this encounter Care Teams Field Care Coordinator Relationship Specialty Start Date End Date Marika Gudino MD [address] [place] [address] PCP - General Family Medicine 07/08/23 documented as of this encounter
--- OUTSIDE RECORDS SUMMARY | 2024-08-25 14:30 | XMS_ITS | Encounter Summary ---
Author Organization [facility] Address [address] [place] [address] Care Team Providers Care Occupational Therapist Rehab Manager Name Role Phone Marika Gudino MD Primary Care Provider [phone] Encounter Details Date Type Department Care Team (Latest Contact Info) Description 08/25/2024 2:30 PM EDT Routine [facility] [address] [place] [address] Joanie Cee, CNM [address] [place] [address] History of section (Primary Dx); Low hemoglobin; Encounter for supervision of other normal , third trimester ([facility]); Elevated blood pressure affecting in third trimester, antepartum ([facility]) Social History Tobacco Use Types Packs/Day Years [...] week 07/08/2023 How often do you attend [facility] or buddhism services? Never 07/08/2023 Do you belong to any clubs o r organizations such as christian groups, unions, fraternal or athletic groups, or [...] Recorded Patient Health Questionnaire-2 Score 1 12/24/2023 [facility] - Occupational [...] place to sleep or slept in a fci (including now)? No 07/08/2023 Estimated Date of [...] Sign Reading Time Taken Comments Blood Pressure 160/100 08/25/2024 2:29 PM EDT BP recheck 150/90 Pulse - - Temperature - - Respiratory Rate - - Oxygen Saturation - - Inhaled Oxygen Concentration - - Weight 110 kg (242 lb) 08/25/2024 2:29 PM EDT Height - - Body Mass Index 41.54 12/24/2023 5:32 PM EDT documented in this encounter Progress Notes * Joanie Cee CNM - 08/25/2024 2:30 PM EDT Subjective No chief complaint on file. Karlos Guillen is a 29 y.o. at 37w0d with a working estimated date of delivery [...] GERSON 1 SAB Her is complicated by: Leg/feet swelling, eye twitching, and high blood pressure Objective Physical Exam Weight: 242 lb Expected Total Weight Gain: 15 lb-25 lb Pregravid BMI: 28.48 BP: (!) 160/100, repeat BP 150/90 Patient denies headache, visual changes and no epigastric/flank pain, does have some lower extremity swelling. Will send her to [facility] for pre- eclampsia work up. Called hospital and spoke with WESLEY Casas and orders given. CBC, CMP, uric acid, LDH, urine protein creatinine ratio, uric acid, NST, BPP Dr [place] notified and report given. She is also a repeat C/S and we will evaluate blood pressure and labs. Urine protein Urine glucose Assessment/Plan Diagnoses and all orders for this visit: History of section Low hemoglobin Encounter for supervision of other normal , third trimester Elevated blood pressure affecting in third trimester, antepartum Continue vitamin. Labs reviewed. GBS taken. Expected mode of delivery Follow up in 1 week for a routine visit. documented in this encounter Plan of Treatment Upcoming Encounters Date Type Department Care Team (Late st Contact Info) Description 09/07/2024 2:30 PM EDT Routine [facility] [address] [place] [address] Joanie Cee CNM [address] [place], [place] [id number] documented as of this encounter Goals Goal Patient Goal Type Associated Problems Recent Progress Patient-Stated? Author Reminders Care Plan OB Reminders No Open Scheduling, Background documented as of this encounter Visit Diagnoses Diagnosis History of section- Primary Other postprocedural status Low hemoglobin Encounter for supervision of other normal , third trimester ([facility]) Elevated blood pressure affecting in third trimester, antepartum ([facility]) documented in this encounter Additional Health Concerns Active Problems Noted Date Diagnosed Date OB Reminders 07/14/2024 Assessment Noted Time PHQ-9 Depression Total Score: 16 12/23/ 024 5:00 PM EDT documented as of this encounter Care Teams Occupational Therapist Rehab Manager Relationship Specialty Start Date End Date Marika Gudino MD [address] [place] [address] PCP - General Family Medicine 07/08/23 documented as of this encounter
--- OUTSIDE RECORDS SUMMARY | 2024-09-01 14:30 | XMS_ITS | Encounter Summary ---
Author Organization [facility] Address [address] [place] [address] Care Team Providers Care Machine Welder Name Role Phone Marika Gudino MD Primary Care Provider [phone] Encounter Details Date Type Department Care Team (Latest Contact Info) Description 09/01/2024 2:30 PM EDT Routine [facility] [address] [place] [address] Joanie Cee, CNM [address] [place] [address] Elevated blood pressure affecting in third trimester, antepartum ([facility]) (Primary Dx) Social History Tobacco Use Types Packs/Day Years [...] week 07/08/2023 How often do you attend chur ch or denominational services? Never 07/08/2023 Do you belong to any clubs o r organizations such as advent groups, unions, fraternal or athletic groups, or [...] Recorded Patient Health Questionnaire-2 Score 1 12/24/2023 [facility] - Occupational Stress Questionnaire Answer Date [...] place to sleep or slept in a fpc (including now)? No 07/08/2023 Estimated Date of [...] PM EDT Routine [facility] [address] [place] [address] Joanie Cee, CNM [address] [place] [address] documented as of this encounter Goals Goal Patient Goal Type Associated Problems Recent Progress Patient-Stated? Author Reminders Care Plan OB Reminders No Open Scheduling, Background documented as of this encounter Visit Diagnoses Diagnosis Elevated blood pressure affecting in third trimester, antepartum ([facility])- Primary documented in this encounter Additional Health Concerns Active Problems Noted Date Diagnosed Date OB Reminders 07/14/2024 Assessment Noted Time PHQ-9 Depression Total Score: 16 024 5:00 PM EDT documented as of this encounter Care Teams Machine Welder Relationship Specialty Start Date End Date Marika Gudino MD [address] [place] [address] PCP - General Family Medicine 07/08/23 documented as of this encounter
--- OUTSIDE RECORDS SUMMARY | 2024-09-01 15:27 | XMS_ITS | Encounter Summary ---
Author Organization [facility] Address [address] [place] [address] Care Team Providers Care Flag Decorator Name Role Phone Marika Gudino MD Primary Care Provider [phone] Encounter Details Date Type Department Care Team (Late st Contact Info) Description 07/20/2024 Results Follow-Up [facility] [address] [place] [address] Joanie Cee, CNM [address] [place] [address] Social History Tobacco Use Types Packs/Day Years [...] often do you attend chur ch or yarsani services? Never 07/08/2023 Do you belong to any clubs o r organizations such as christianity groups, unions, fraternal or athletic groups, or [...] Recorded Patient Health Questionnaire-2 Score 1 12/24/2023 [facility] - Occupational Stress [...] place to sleep or slept in a chcf (including now)? No 07/08/2023 Estimated Date of Delivery Comme nts Yes 09/15/2024 Based on last me nstrual period of 12/10/2023 (Exact Date) Sex and Gender Information Value Date Recorded Sex Assigned at Female 07/08/2023 2:48 PM EDT Legal Sex Female 7:39 PM EDT Gender Identity Female 07/08/2023 2:48 PM EDT Sexual Orientation Straight 07/08/2023 2: 48 PM EDT documented as of this encounter Plan of Treatment Upcoming Encounters Date Type Department Care Team (Late st Contact Info) Description 09/07/2024 2:30 PM EDT Routine [facility] [address] [place] [address] Joanie Cee CNM [address] [place], [place] [id number] documented as of this encounter Goals Goal Patient Goal Type Associated Problems Recent Progress Patient-Stated? Author Reminders Care Plan OB Reminders No Open Scheduling, Background documented as of this encounter Visit Diagnoses Not on filedocumented in this encounter Additional Health Concerns Active Problems Noted Date Diagnosed Date OB Reminders 07/14/2024 Assessment Noted Time PHQ-9 Depression Total Score: 16 024 5:00 PM EDT documented as of this encounter Care Teams Flag Decorator Relationship Specialty Start Date End Date Marika Gudino MD [address] [place], [place] [id number] PCP - General Family Medicine 07/08/23 documented as of this encounter
--- OUTSIDE RECORDS SUMMARY | 2024-09-01 15:27 | XMS_ITS | Encounter Summary ---
Author Organization [facility] Address [address] [place] [address] Care Team Providers Care Camp Housekeeper Name Role Phone Marika Gudino MD Primary Care Provider [phone] Encounter Details Date Type Department Care Team (Late st Contact Info) Description 08/18/2024 Dannyo flowsheet [facility] [address] [place] [address] Joanie Cee, CNM [address] [place] [address] Social History Tobacco Use Types [...] often do you attend chur ch or pentecostalism services? Never 07/08/2023 Do you belong to any clubs o r organizations such as uatsdin groups, unions, fraternal or athletic groups, or [...] Patient Health Questionnaire-2 Score 1 12/24/2023 [facility] - Occupational [...] place to sleep or slept in a long term (including now)? No 07/08/2023 Estimated Date of [...] PM EDT Routine [facility] [address] [place] [address] Joanie Cee CNM [address] [place] [address] documented as of this encounter Goals Goal [...] documented as of this encounter Care Teams Camp Housekeeper Relationship Specialty Start Date End Date Marika Gudino MD [address] [place], [place] [id number] PCP - General Family Medicine 07/08/23 documented as of this encounter
--- OUTSIDE RECORDS SUMMARY | 2024-09-01 15:27 | XMS_ITS | Encounter Summary ---
Author Organization [facility] Address [address] [place] [address] Care Team Providers Care Tipple Supervisor Name Role Phone Marika Gudino MD Primary Care Provider [phone] Encounter Details Date Type Department Care Team (Late st Contact Info) Description 09/01/2024 Dannyo flowsheet [facility] OB [address] [place] [address] Joanie Cee, CNM [address] [place] [address] Social History Tobacco Use Types [...] often do you attend chur ch or buddhism services? Never 07/08/2023 Do you belong to any clubs o r organizations such as yarsani groups, unions, fraternal or athletic groups, or [...] Recorded Patient Health Questionnaire-2 Score 1 12/24/2023 [facility] of Occupat ional Health - Occupational Stress [...] in a correction (including now)? No 07/08/2023 Estimated Date of [...] PM EDT Routine [facility] OB [address] [place] [address] Joanie Cee CNM [address] [place] [address] documented as of this encounter Goals Goal [...] documented as of this encounter Care Teams Tipple Supervisor Relationship Specialty Start Date End Date Marika Gudino MD [address] [place], [place] [id number] PCP - General Family Medicine 07/08/23 documented as of this encounter
--- OUTSIDE RECORDS SUMMARY | 2024-09-01 15:27 | XMS_ITS | Encounter Summary ---
Author Organization [facility] Address [address] [place] [address] Care Team Providers Care Education Site Manager Name Role Phone Marika Gudino MD Primary Care Provider [phone] Encounter Details Date Type Department Care Team (Late st Contact Info) Description 08/25/2024 Clinisync Result Encounter [facility] External Department Unsolicited Joanie Cee, CNM [address] [place] [address] Social History Tobacco Use Types Packs/Day Years [...] often do you attend chur ch or orthodox services? Never 07/08/2023 Do you belong to any clubs o r organizations such as zoroastrian groups, unions, fraternal [...] Recorded Patient Health Questionnaire-2 Score 1 12/24/2023 [facility] of Occupat ional [facility] - Occupational Stress Questionnaire Answer Date Recorded [...] place to sleep or slept in a retirement (including now)? No 07/08/2023 Estimated Date of [...] PM EDT Routine [facility] OB [address] [place] [address] Joanie Cee, CNM [address] [place], [place] [id number] documented as of this encounter Goals Goal Patient Goal Type Associated Problems Recent Progress Patient-Stated? Author Reminders Care Plan OB Reminders No Open Scheduling, Background documented as of this encounter Procedures Procedure Name Priority Date/Time Associated Diagnosis Comments [facility] CMP (CMP) (FOR REMOTE [facility] USE) Routine 08/25/2024 4:23 PM EDT ALL URIC ACID Routine 08/25/2024 4:23 PM EDT ALL LDH Routine 08/25/2024 4:23 PM EDT ALL CBC WITH AUTO DIFF Routine 08/25/2024 4:23 PM EDT TBH URINE T PROTEIN CREAT RATIO Routine 08/25/2024 4:15 PM EDT documented in this encounter Results * ALL LDH (08/25/2024 4:23 PM EDT) LACTATE DEHYDROGENASE 173 81 - 234 U/L TBH 08/25/2024 4:23 PM EDT 08/25/2024 4:27 PM EDT Narrative CLINISYNC - 08/25/2024 4:51 PM EDT Joanie Polly Caroo CN CLINISYNC Final Result CLINISYNC [facility] * ALL URIC ACID (08/25/2024 4:23 PM EDT) URIC ACID 5.0 2.6 - 6.0 mg/dL TB 08/25/2024 4:23 PM EDT 08/25/2024 4:27 PM EDT Narrative CLINISYNC - 08/25/2024 4:51 PM EDT [facility] Final Result CLINISYNC [facility] * (ABNORMAL) [facility] CMP (CMP) (FOR REMOTE [facility] USE) (08/25/2024 4:23 PM EDT) SODIUM 137 136 - 145 mmol/L TBH POTASSIUM 4.1 3.5 - 5.1 mmol/L TBH CHLORIDE 103 98 - 107 mmol/L TBH CARBON DIOXIDE 22.7 21.0 - 32.0 mmol/L TBH ANION GAP 15.4 TBH GLUCOSE 84 74 - 106 mg/dL TBH BLOOD UREA NITROGEN 8.0 7.0 - 18.0 mg/dL TBH CREATININE 0.53(L) 0.55 - 1.02 mg/dL TBH TBH EGFR-AF [place] >60 >=60 mL/min/1. 73m 2 TBH TBH EGFR-NON AF [place] >60 >=60 mL/min/1. 73m 2 TBH BUN CREATININE RATIO 15.1 TBH CALCIUM 8.5 8.5 - 10.1 mg/dL TBH BILIRUBIN TOTAL 0.2 0.2 - 1.0 mg/dL TBH ASPARTATE AMINO TRANSFERASE 22 15 - 37 U/L TBH ALANINE AMINOTRANSFERASE 26 14 - 59 U/L TBH ALKALINE PHOSPHATASE 200(H) 46 - 116 U/L TBH TOTAL PROTEIN 6.1(L) 6.4 - 8.2 g/dL TBH ALBUMIN LEVEL 2.3(L) 3.4 - 5.0 g/dL TBH GLOBULIN 3.8 g/dL TBH ALBUMIN GLOBULIN RATIO 0.6 TBH 08/25/2024 4:23 PM EDT 08/25/2024 4:27 PM EDT Narrative CLINISYNC - 08/25/2024 4:51 PM EDT us Joanie Cee CNM CLINISYNC Final Result CLINISYNC [facility] * (ABNORMAL) ALL CBC WITH AUTO DIFF (08/25/2024 4:23 PM EDT) TB WBC 7.4 4.0 - 11.0 10 3/uL TBH TBH RBC 3.41(L) 4.20 - 5.40 10 6/uL TBH TBH HGB 9.2(L) 12.0 - 16.0 g/dL TBH TBH HCT 29.2(L) 36.0 - 48.0 % TBH TBH MCV 85.6 81.0 - 99.0 fL TBH TBH MCH 27.0 26.7 - 34.0 pg TBH TBH MCHC 31.5 29.9 - 35.2 g/dL TBH TBH RDW 16.3(H) 11.0 - 15.0 % TBH TBH PLT 147(L) 150 - 450 10 3/uL TBH TBH MPV 12.8 9.5 - 13.5 fL TBH NEUTROPHILS PERCENT AUTO 72.5 43.0 - 75.0 % TBH LYMPHOCYTES PERCENT AUTO 15.1(L) 20.5 - 60.0 % TBH MONOCYTES PERCENT AUTO 10.9 1.7 - 12.0 % TBH TBH EO % 0.1(L) 0.9 - 7.0 % TBH BASOPHILS PERCENT AUTO 0.3 0.2 - 2.0 % TBH IMMATURE GRANULOCYTES PCT AUTO 1.1(H) 0.0 - 0.5 % TBH NEUTROPHILS ABSOLUTE AUTO 5.4 1.4 - 6.5 10 3/uL TBH LYMPHOCYTES ABSOLUTE AUTO 1.1(L) 1.2 - 3.8 10 3/uL TBH MONOCYTES ABSOLUTE AUTO 0.8 0.3 - 0.8 10 3/uL TBH TBH EO # 0.0 0.0 - 0.7 10 3/uL TBH BASOPHILS ABSOLUTE AUTO 0.0 0.0 - 0.1 10 3/uL TBH IMMATURE GRANULOCYTES ABS AUTO 0.08(H) 0.00 - 0.03 10 3/uL TBH 08/25/2024 4:23 PM EDT 08/25/2024 4:27 PM EDT Narrative CLINISYNC - 08/25/2024 4:36 PM EDT Joanie LAZARO CLINISYNC Final Result CLINISYNC TBH * (ABNORMAL) TBH URINE T PROTEIN CREAT RATIO (08/25/2024 4:15 PM EDT) TOTAL PROTEIN URINE RANDOM 50.4(H) <=11.9 mg/dL TBH CREATININE URINE RANDOM 125.74 20.00 - 300.00 mg/dL TBH PROTEIN CREATININE RATIO URINE 0.40 TBH 08/25/2024 4:15 PM EDT 08/25/2024 4:27 PM EDT Narrative CLINISYNC - 08/25/2024 4:43 PM EDT Joanie LAZARO CLINISYNC Final Result CLINISYNC TBH documented in this encounter Visit Diagnoses Not on filedocumented in this encounter Additional Health Concerns Active Problems Noted Date Diagnosed Date OB Reminders 07/14/2024 Assessment Noted Time PHQ-9 Depression Total Score: 16 024 5:00 PM EDT documented as of this encounter Care Teams Education Site Manager Relationship Specialty Start Date End Date Marika Gudino MD [address] [place] [address] PCP - General Family Medicine 07/08/23 documented as of this encounter
--- OUTSIDE RECORDS SUMMARY | 2024-09-01 15:27 | XMS_ITS | Encounter Summary ---
Author Organization [facility] Address [address] [place] [address] Care Team Providers Care Folder Machine Adjuster Name Role Phone Marika Gudino MD Primary Care Provider [phone] Encounter Details Date Type Department Care Team (Late st Contact Info) Description 07/20/2024 Results Follow-Up [facility] [address] [place] [address] Joanie Cee, CNM [address] [place] [address] Social History Tobacco Use Types [...] any clubs o r organizations such as mu-ism groups, unions, fraternal or athletic groups, or [...] Recorded Patient Health Questionnaire-2 Score 1 12/24/2023 [facility] of Occupat ional Health - Occupational Stress [...] place to sleep or slept in a mcc (including now)? No 07/08/2023 Estimated Date of [...] PM EDT Routine [facility] OB [address] [place] [address] Joanie Cee CNM [address] [place], [place] [id number] documented as of this encounter Goals Goal [...] documented as of this encounter Care Teams Folder Machine Adjuster Relationship Specialty Start Date End Date Marika Gudino MD [address] [place], [place] [id number] PCP - General Family Medicine 07/08/23 documented as of this encounter
--- OUTSIDE RECORDS SUMMARY | 2024-09-01 15:27 | XMS_ITS | Encounter Summary ---
Author Organization [facility] Address [address] [place] [address] Care Team Providers Care Corporate Real Estate Specialist Name Role Phone Marika Gudino MD Primary Care Provider [phone] Encounter Details Date Type Department Care Team (Late st Contact Info) Description 08/25/2024 Dannyo flowsheet [facility] [address] [place] [address] Joanie Cee, CNM [address] [place] [address] Social History Tobacco Use Types [...] often do you attend chur ch or yazdanism services? Never 07/08/2023 Do you belong to any clubs o r organizations such as restorationism groups, unions, fraternal or athletic groups, or [...] Recorded Patient Health Questionnaire-2 Score 1 12/24/2023 [facility] of Occupat ional Health - Occupational [...] place to sleep or slept in a alf (including now)? No 07/08/2023 Estimated Date of [...] PM EDT Routine [facility] OB [address] [place] [address] Joanie Cee CNM [address] [place] [address] documented as of this encounter Goals Goal [...] documented as of this encounter Care Teams Corporate Real Estate Specialist Relationship Specialty Start Date End Date Marika Gudino MD [address] [place], [place] [id number] PCP - General Family Medicine 07/08/23 documented as of this encounter
--- OUTSIDE RECORDS SUMMARY | 2024-09-01 15:27 | XMS_ITS | Encounter Summary ---
Author Organization [facility] Address [address] [place] [address] Care Team Providers Care No Bake Molder Name Role Phone Marika Gudino MD Primary Care Provider [phone] Encounter Details Date Type Department Care Team (Late st Contact Info) Description 08/25/2024 Results Follow-Up [facility] OB [address] [place] [address] Joanie Cee, CNM [address] [place] [address] Social History Tobacco Use Types [...] often do you attend chur ch or methodist services? Never 07/08/2023 Do you belong to any clubs o r organizations such as bahai groups, unions, fraternal or athletic groups, or [...] place to sleep or slept in a custodial (including now)? No 07/08/2023 Estimated Date of [...] PM EDT Routine [facility] OB [address] [place] [address] Joanie Cee CNM [address] [place], [place] [phone] documented as of this encounter Goals Goal [...] documented as of this encounter Care Teams No Bake Molder Relationship Specialty Start Date End Date Marika Gudino MD [address] [place], [place] [phone] PCP - General Family Medicine 07/08/23 documented as of this encounter
--- OUTSIDE RECORDS SUMMARY | 2024-09-01 15:27 | XMS_ITS | Encounter Summary ---
Author Organization [facility] Address [address] [place] [address] Care Team Providers Care Rolled Oats Mill Operator Name Role Phone Marika Gudino MD Primary Care Provider [phone] Encounter Details Date Type Department Care Team (Late st Contact Info) Description 06/29/2024 Results Follow-Up [facility] OB [address] [place] [address] Marika Malloy MA Social History Tobacco Use Types Packs/Day Years [...] often do you attend chur ch or anabaptist services? Never 07/08/2023 Do you belong to any clubs o r organizations such as alevism groups, unions, fraternal or athletic groups, or [...] Recorded Patient Health Questionnaire-2 Score 1 12/24/2023 [facility] of Occupat ional Health - Occupational Stress [...] place to sleep or slept in a long-term (including now)? No 07/08/2023 Estimated Date of [...] PM EDT Routine [facility] OB [address] [place] [address] Joanie Cee, CNM [address] [place], [place] [id number] documented as of this encounter Visit Diagnoses Not on filedocumented in this encounter Additional Health Concerns Assessment Noted Time PHQ-9 Depression Total Score: 16 024 5:00 PM EDT documented as of this encounter Care Teams Rolled Oats Mill Operator Relationship Specialty Start Date End Date Marika Gudino MD [address] [place], [place] [id number] PCP - General Family Medicine 07/08/23 documented as of this encounter
--- OUTSIDE RECORDS SUMMARY | 2024-09-01 15:27 | XMS_ITS | Encounter Summary ---
Author Organization [facility] Address [address] [place] [address] Care Team Providers Care Roll Up Guider Operator Name Role Phone Marika Gudino MD Primary Care Provider [phone] Encounter Details Date Type Department Care Team (Late st Contact Info) Description 07/16/2024 Orders Only [facility] [address] [place] [address] Unallocated, Noms Provider, [address] [place], [place] [address] Social History Tobacco Use Types Packs/Day Years [...] often do you attend chur ch or mandaeism services? Never 07/08/2023 Do you belong to any clubs o r organizations such as protestant groups, unions, fraternal or athletic groups, or [...] Recorded Patient Health Questionnaire-2 Score 1 12/24/2023 [facility] of Occupat ional [facility] - Occupational Stress Questionnaire Answer Date [...] place to sleep or slept in a residential (including now)? No 07/08/2023 Estimated Date of [...] PM EDT Routine [facility] OB [address] [place] [address] Joanie Cee CNM [address] [place], [place] [phone] documented as of this encounter Goals Goal Patient Goal Type Associated Problems Recent Progress Patient-Stated? Author Reminders Care Plan OB Reminders No Open Scheduling, Background documented as of this encounter Procedures Procedure Name Priority Date/Time Associated Diagnosis Comments SCANNED LABS Routine 07/16/2024 11:28 AM EDT documented in this encounter Results * SCANNED LABS (07/16/2024 11:28 AM EDT) us Noms Provider Unallocated LAB CHG PERFORMABLE S Final Result documented in this encounter Visit Diagnoses Not on filedocumented in this encounter Additional Health Concerns Active Problems Noted Date Diagnosed Date OB Reminders 07/14/2024 Assessment Noted Time PHQ-9 Depression Total Score: 16 024 5:00 PM EDT documented as of this encounter Care Teams Roll Up Guider Operator Relationship Specialty Start Date End Date Marika Gudino MD [address] [place], [place] [phone] PCP - General Family Medicine 07/08/23 documented as of this encounter
--- OUTSIDE RECORDS SUMMARY | 2024-09-01 15:28 | XMS_ITS | Encounter Summary ---
Author Organization [facility] Address [address] [place] [address] Care Team Providers Care Wholesale Diamond Broker Name Role Phone Marika Gudino MD Primary Care Provider [phone] Encounter Details Date Type Department Care Team (Late st Contact Info) Description 07/08/2024 Orders Only [facility] OB [address] [place] [address] Joanie Cee, CNM [address] [place] [address] Social History Tobacco Use Types [...] often do you attend chur ch or restorationist services? Never 07/08/2023 Do you belong to any clubs o r organizations such as anabaptism groups, unions, fraternal or athletic groups, or [...] Recorded Patient Health Questionnaire-2 Score 1 12/24/2023 [facility] of Occupat ional [facility] - Occupational Stress Questionnaire Answer Date [...] PM EDT Routine [facility] OB [address] [place] [address] Joanie Cee CNM [address] [place] [address] documented as of this encounter Visit Diagnoses Not on filedocumented in this encounter Additional Health Concerns Assessment Noted Time PHQ-9 Depression Total Score: 16 024 5:00 PM EDT documented as of this encounter Care Teams Wholesale Diamond Broker Relationship Specialty Start Date End Date Marika Gudino MD [address] [place], [place] [phone] PCP - General Family Medicine 07/08/23 documented as of this encounter
--- OUTSIDE RECORDS SUMMARY | 2024-09-01 15:28 | XMS_ITS | Encounter Summary ---
Author Organization [facility] Address [address] [facility] [place] [address] Care Team Providers Care Psychiatric Mental Health Nurse Name Role Phone Hedy Reyna DO Unavailable [phone] Marika Gudino MD Primary Care Provider [phone] Maria Arellano NP Unavailable [phone] Encounter Details Date Type Department Care Team (Late st Contact Info) Description 08/05/2023 Abstract [facility] [address] [place] [address] Maria Arellano NP [address] [place] [address] Social History Tobacco Use Types Packs/Day Years Used Date Smoking Tobacco: Former Cigarettes Q uit: 2021 Smokeless Tobacco: Never Comments:Vapes daily Alcohol Use Standard Drinks/Week Comments [...] 07/08/2023 How often do you attend chur or tenriism services? Never 07/08/2023 Do you belong to any clubs o r organizations such as voodoo groups, unions, fraternal or athletic groups, or [...] Answer Date Recorded Patient Health Questionnaire-2 Score 3 07/16/2023 [facility] of Occupat ional [facility] - Occupational Stress Questionnaire Answer [...] in a fpc (including now)? No 07/08/2023 Comments Unknown Sex and Gender Information Value Date Recorded [...] PM EDT Routine [facility] OB [address] [place] [address] Joanie Cee, CNM [address] [place] [address] documented as of this encounter Visit Diagnoses Not on filedocumented in this encounter Additional Health Concerns Assessment Noted Time PHQ-9 Depression Total Score: 14 024 6:00 PM EDT documented as of this encounter Care Teams Psychiatric Mental Health Nurse Relationship Specialty Start Date End Date Hedy Reyna DO [address] [address] PCP - [facility] 04/18/21 Marika Gudino MD [facility] [place], [place] [id number] PCP - General Family Medicine 07/08/23 Maria Arellano NP [address] [place] [id number] PCP - [facility] 12/17/2303/17 documented as of this encounter
--- OUTSIDE RECORDS SUMMARY | 2024-09-01 15:28 | XMS_ITS | Encounter Summary ---
Author Organization [facility] Address [address] [place] [address] Care Team Providers Care Automobiles Salesperson Name Role Phone Marika Gudino MD Primary Care Provider [phone] Encounter Details Date Type Department Care Team (Late st Contact Info) Description 07/08/2024 Results Follow-Up [facility] OB [address] [place] [address] Joanie Cee, CNM [address] [place] [address] Social History Tobacco Use Types [...] often do you attend chur ch or jainism services? Never 07/08/2023 Do you belong to any clubs o r organizations such as gnosticist groups, unions, fraternal or athletic groups, or [...] Recorded Patient Health Questionnaire-2 Score 1 12/24/2023 [facility] of Occupat ional Health - Occupational [...] PM EDT Routine [facility] OB [address] [place] [address] Joanie Cee CNM [address] [place] [address] documented as of this encounter Visit Diagnoses Not on filedocumented in this encounter Additional Health Concerns Assessment Noted Time PHQ-9 Depression Total Score: 16 024 5:00 PM EDT documented as of this encounter Care Teams Automobiles Salesperson Relationship Specialty Start Date End Date Marika Gudino MD [address] [place], [place] [phone] PCP - General Family Medicine 07/08/23 documented as of this encounter
--- OUTSIDE RECORDS SUMMARY | 2024-09-01 15:28 | XMS_ITS | Encounter Summary ---
Author Organization [employer] Address [id number] [address] [place] [address] Care Team Providers Care Emergency Medical Technician Basic Name Role Phone No Pcp, No Pcp Primary Care Provider Unavailabl e Encounter Details Date Type Department Care Team (Late st Contact Info) Description 06/28/2020 Orders Only [facility] [address] [place] [address] Franchesca Kelly MA Social History Tobacco Use Types Packs/Day Years Used Date Smoking Tobacco: Every Day Cigarettes 0.5 10 Smokeless Tobacco: Never Alcohol Use Standard Drinks/Week Comments No 0 (1 standard drink = 0.6 oz pur e alcohol) Social Connection and Isolat ion Panel [NHANES] Answer Date Recorded In a typical week, how many times do you talk on the phone with family, friends, or neighbors? More than three times a week 04/25/2020 How often do you get togethe r with friends or relatives? More than three times a week 04/25/2020 How often do you attend chur ch or samaritan services? More than 4 times per year 04/25/2020 Do you belong to any clubs o r organizations such as yarsani groups, unions, fraternal or athletic groups, or school groups? No 04/25/2020 How often do you attend meet ings of the clubs or organizations you belong to? Never 04/25/2020 Are you , , di vorced, , never , or living with a partner? 04/25/2020 Overall Financial Resource Strain (CARDIA) Answe r Date Recorded How hard is it for you to pa y for the very basics like food, housing, medical care, and heating? Not hard at all 04/25/2020 PHQ-2 Answer Date Recorded Total Score 0 04/25/2020 [facility] of Occupat ional Health - Occupational Stress Questionnaire Answer Date Recorded Do you feel stress - tense, restless, nervous, or anxious, or unable to sleep at night because your mind is troubled all the time - these days? Not at all 04/25/2020 Exercise Vital Sign Answer Date Recorde d On average, how many days pe r week do you engage in moderate to strenuous exercise (like a brisk walk)? 5 days 04/25/2020 On average, how many minutes do you engage in exercise at this level? 60 min 04/25/2020 PRAPARE - Transportation Answer Date Re corded In the past 12 months, has l ack of transportation kept you from medical appointments or from getting medications? No 10/2020 In the past 12 months, has l ack of transportation kept you from meetings, work, or from getting things needed for daily living? No 04/25/2020 Childcare Answer Date Recorded Childcare Unknown 08/27/2018 Employment Answer Date Recorded Employment Unknown 08/27/2018 Purpose - Life Answer Date Recorded I have a purpose and direction in my life. Stron gly Agree 04/25/2020 Comments No Sex and Gender Information Value Date Recorded Sex Assigned at Not on file Legal Sex Female 11:51 AM EDT Gender Identity Not on file Sexual Orientation Not on file COVID-19 Exposure Response Date Recorded In the last month, have you been in contact with someone who was confirmed or suspected to have Coronavirus / COVID-19? No / Unsure 06/21/2020 9:26 AM EDT documented as of this encounter Plan of Treatment Not on file documented as of this encounter Goals Goal Patient Goal Type Associated Problems Recent Progress Patient-Stated? Author Discharge to home General Yes Hedy Hess, RN Note: Evaluation of progress towards goal: Discharge to home with and self care documented as of this encounter Visit Diagnoses Not on filedocumented in this encounter Additional Health Concerns Assessment Noted Time PHQ-9 Depression Total Score: 0 04/25/19 21 12:36 PM EST documented as of this encounter Care Teams Emergency Medical Technician Basic Relationship Specialty Start Date End Date No Pcp, [place] [address] PCP - General Family Medicine 02/03/24 documented as of this encounter
--- OUTSIDE RECORDS SUMMARY | 2024-09-01 15:28 | XMS_ITS | Clinical Summary ---
Author Organization [employer] Address [facility] [place]-[id number] [address] [place] [address] Care Team Providers Care Slate Splitter Name Role Phone No Pcp, No Pcp Primary Care Provider Unavailabl e Allergies Active Allergy Reactions Criticality Noted Date Comments Penicillins Hives Medium 06/11/2017 Sulfa (Sulfonamide Antibiotics) Hives Medium 05/17 Medications citalopram (CeleXA) 20 mg tablet Take 20 mg by mouth daily as needed (anxiety). Active promethazine (PHENERGAN) 25 mg tablet Take 1 tablet (25 mg total) by mouth every 6 (six) hours as needed for nausea or vomiting. 15 tablet 1 Active Additional Information Patient not taking.Reported on 02/03/2024 21-iron fu-folic acid ( COMPLETE) 14 mg iron- 400 mcg tablet Take 1 tablet by mouth in the morning. 30 tablet 4 Active promethazine (PHENERGAN) 25 mg tablet Take 1 tablet (25 mg total) by mouth every 6 (six) hours as needed for nausea or vomiting. 10 tablet 4 Active Active Problems Problem Noted Date Diagnosed Date Bilateral pulmonary infiltrates on CXR 1 Overview (04/25/2020): Added automatically from request for surgery [id number] Estimated Date of Delivery Comme nts Yes 09/08/2024 Resolved Problems Problem Noted Date Diagnosed Date Resolved Date Atypical pneumonia 04/24/2020 1 02/04/2018 06/02/2020 Hyperemesis gravidarum 06/11/201706/02 Immunizations Immunization Administration Dates Next Due Rho (D) Immune Globulin 02/07/2018(Deferred: - B jigna is B-),11/14/2017 Tdap 02/07/2018() Family History Medical History Relation Name Comments Crohn's disease Cousin Ulcerative colitis Mother Colon cancer Paternal Grandfather Colon cancer Paternal Uncle Relation Name Status Comments Cousin Mother Paternal Grandfather Paternal Uncle Social History Tobacco Use Types Packs/Day Years [...] often do you attend chur ch or muslim services? More than 4 times per year 04/25/2020 Do you belong to any clubs o r organizations such as faith groups, unions, fraternal or athletic groups, or [...] Answer Date Recorded Total Score 0 04/25/2020 [facility] - Occupational Stress [...] Employment Answer Date Recorded Employment Unknown 08/27/2018 Hunger Screening Answer Date Recorded Within the past 12 months we worried whether our food would run out before we got money to buy more. Never True 02/03/2024 Within the past 12 months th e food we bought just didn't last and we didn't have money to get more. Never True 02/03/2024 Purpose - Life Answer Date Recorded I have a purpose and direction in my life. Stron gly Agree 04/25/2020 Estimated Date of Delivery Comme nts Yes 09/08/2024 Sex and Gender Information Value Date Recorded Sex Assigned at Not on file Legal Sex Female 11:51 AM EDT Gender Identity Not on file Sexual Orientation Not on file Last Filed Vital Signs Vital Sign Reading Time Taken Comments Blood Pressure 130/88 02/03/2024 1:28 PM EST Pulse 100 02/03/2024 1:28 PM EST Temperature 36.8 C (98.2 F) 02/03/2024 9:34 AM EST Respiratory Rate 16 02/03/2024 1:28 PM EST Oxygen Saturation 100% 02/03/2024 1:28 PM EST Inhaled Oxygen Concentration - - Weight 72.8 kg (160 lb 9.6 oz) 02/03/2024 9:34 A M EST Height 160 cm (5' 3 ) 02/03/2024 9:34 AM EST Body Mass Index 28.45 02/03/2024 9:34 AM EST Plan of Treatment Health Maintenance Due Date Last Done Comments Tobacco Counseling 1995 Depression Screening 2007 Adult BMI Follow Up Plan 06/14/2013 Pap Smear 06/14/2016 COVID-19 Vaccine (2 - 4-2 5 season) 2023 08/08/2020 Influenza Vaccine 11/16/2024 02/29/2012 Adult BMI Screening 02/02/2025 02/03/2024 Tobacco Screening 02/02/2025 02/03/2024 DTaP,Tdap and Td Vaccines (7 - Td or Tdap) 01/25/2028 01/24/2018, 06/21/2000, 09/21/1996, Additional history exists Goals Goal Patient Goal Type Associated Problems Recent Progress Patient-Stated? Author Discharge to home General Yes Hedy Hess, RN Note: Evaluation of progress towards goal: Discharge to home with and self care Medical Devices Not on file Insurance [employer] MEDICAID [place] Advance Directives * Full Code (Latest Code Status on File) Date Activated Date Inactivated Comments 04/25/2020 2:02 AM 04/28/2020 3:34 PM * Full Code Date Activated Date Inactivated Comments 02/05/2018 9:54 AM 02/07/2018 7:02 PM * Full Code Date Activated Date Inactivated Comments 02/04/2018 8:48 PM 02/05/2018 9:54 AM * Full Code Date Activated Date Inactivated Comments 02/04/2018 8:20 PM 02/04/2018 8:48 PM * Full Code Date Activated Date Inactivated Comments 06/11/2017 6:17 PM 06/12/2017 6:41 PM Care Teams Slate Splitter Relationship Specialty Start Date End Date No Pcp, No Pcp JOJO [place] [id number] PCP - General Family Medicine 02/03/24
--- OUTSIDE RECORDS SUMMARY | 2024-09-01 15:28 | XMS_ITS | Encounter Summary ---
Author Organization [facility] Address [address] [facility] [place] [address] Care Team Providers Care Gasoline Truck Crane Operator Name Role Phone Hedy Reyna DO Unavailable [phone] Marika Gudino MD Primary Care Provider [phone] Maria Arellano NP Unavailable [phone] Encounter Details Date Type Department Care Team (Late st Contact Info) Description 07/17/2023 Abstract [facility] [address] [place] [address] Maria Arellano NP [address] [place] [address] Social History Tobacco Use Types [...] How often do you attend chur or holiness services? Never 07/08/2023 Do you belong to [...] Recorded Patient Health Questionnaire-2 Score 3 07/16/2023 [facility] ional [facility] - Occupational Stress Questionnaire Answer Date [...] place to sleep or slept in a half-way (including now)? No 07/08/2023 Comments Unknown Sex [...] PM EDT Routine [facility] OB [address] [place] [id number] Joanie Cee, CNM [address] [place] [address] documented as of this encounter Visit Diagnoses Not on filedocumented in this encounter Additional Health Concerns Assessment Noted Time PHQ-9 Depression Total Score: 14 024 6:00 PM EDT documented as of this encounter Care Teams Gasoline Truck Crane Operator Relationship Specialty Start Date End Date Hedy Reyna DO [address] [address] PCP - [place] [employer] 04/18/21 Marika Gudino MD [facility] [place], [place] [id number] PCP - General Family Medicine 07/08/23 Maria Arellano NP [address] [place] [id number] PCP - [place] [employer] 12/17/2303/17 documented as of this encounter
--- OUTSIDE RECORDS SUMMARY | 2024-09-01 15:28 | XMS_ITS | Encounter Summary ---
Author Organization [facility] Address [address] [facility] [place] [address] Care Team Providers Care Manager Of Investigations Name Role Phone Hedy Reyna DO Unavailable Marika Gudino MD Primary Care Provider [phone] Maria Arellano NP Unavailable [phone] Encounter Details Date Type Department Care Team (Late st Contact Info) Description 07/19/2023 Abstract [facility] [address] [place] [address] Maria Arellano NP [address] [place] [address] Social History Tobacco Use Types [...] How often do you attend chur or episcopal services? Never 07/08/2023 Do you belong to any clubs o r organizations such as oriental orthodox groups, unions, fraternal or athletic groups, or [...] Recorded Patient Health Questionnaire-2 Score 3 07/16/2023 [facility] Occupat ional [facility] - Occupational Stress Questionnaire Answer Date Recorded [...] place to sleep or slept in a group home (including now)? No 07/08/2023 Comments Unknown Sex [...] PM EDT Routine [facility] OB [address] [place] [id number] Joanie Cee, CNM [address] [place] [address] documented as of this encounter Visit Diagnoses Not on filedocumented in this encounter Additional Health Concerns Assessment Noted Time PHQ-9 Depression Total Score: 14 024 6:00 PM EDT documented as of this encounter Care Teams Manager Of Investigations Relationship Specialty Start Date End Date Hedy Reyna DO [address] [address] PCP - [place] [employer] 04/18/21 Marika Gudino MD [facility] [place], [place] [id number] PCP - General Family Medicine 07/08/23 Maria Arellano NP [address] [place] [id number] PCP - [place] [employer] 12/17/2303/17 documented as of this encounter
--- OUTSIDE RECORDS SUMMARY | 2024-09-01 15:28 | XMS_ITS | Encounter Summary ---
Author Organization [facility] Address [address] [place] [address] Care Team Providers Care Rigging Slinger Name Role Phone Marika Gudino MD Primary Care Provider [phone] Encounter Details Date Type Department Care Team (Late st Contact Info) Description 07/08/2024 Results Follow-Up [facility] OB [address] [place] [address] Joanie Cee, CNM [address] [place] [address] Social History Tobacco Use Types [...] often do you attend chur ch or sabianism services? Never 07/08/2023 Do you belong to any clubs o r organizations such as mandaeism groups, unions, fraternal or athletic groups, or [...] Recorded Patient Health Questionnaire-2 Score 1 12/24/2023 [facility]at ional [facility] - Occupational [...] PM EDT Routine [facility] OB [address] [place] [address] Joanie Cee CNM [address] [place] [address] documented as of this encounter Visit Diagnoses Not on filedocumented in this encounter Additional Health Concerns Assessment Noted Time PHQ-9 Depression Total Score: 16 024 5:00 PM EDT documented as of this encounter Care Teams Rigging Slinger Relationship Specialty Start Date End Date Marika Gudino MD [address] [place], [place] [phone] PCP - General Family Medicine 07/08/23 documented as of this encounter
--- OUTSIDE RECORDS SUMMARY | 2024-09-01 15:28 | XMS_ITS | Encounter Summary ---
Author Organization [facility] Address [address] [place] [address] Care Team Providers Care Type Rolling Machine Operator Name Role Phone Mariak Gudino MD Primary Care Provider [phone] Maria Arellano NP Unavailable [phone] Encounter Details Date Type Department Care Team (Late st Contact Info) Description 02/07/2024 Clinisync Result Encounter [facility] External Department Unsolicited Juliet Cee, CNM [address] [place] [address] Social History Tobacco Use Types Packs/Day Years [...] often do you attend chur ch or voodoo services? Never 07/08/2023 Do you belong to any clubs o r organizations such as latter day groups, unions, fraternal or athletic groups, or [...] Recorded Patient Health Questionnaire-2 Score 1 12/24/2023 [facility] Occupat ional Health - [...] Description 09/07/2024 2:30 PM EDT Routine [facility] [address] [place] [address] Juliet Cee CNM [address] [place] [address] documented as of this encounter Procedures Procedure Name Priority Date/Time Associated Diagnosis Comments US OB TRANSVAGINAL 02/07/2024 5: 15 AM EST documented in this encounter Results * US OB TRANSVAGINAL (02/07/2024 5:15 AM EST) Anatomical Region Laterality Modality Other 02/07/2024 5:15 AM EST Narrative 02/07/2024 5:18 [place] [address] Ultrasound Report Signed Patient: NICHO DOHERTY MR#: [id number] : 1995 Acct:[id number] Age/Sex: 28 / F ADM Date: 02/06/24 Loc: US Attending Dr: JULIET CEE APRN, CNM Ordering Physician: JULIET CEE APRN, CNM Date of Service: 02/06/24 Procedure(s): US OB transvaginal Accession Number(s): [id number] cc: JULIET CEE APRN, CNM; Physician,Non-Staff Rama The [address] [id number] Patient Name: NICHO DOHERTY MRN: [id number] date: 1995 Sex: F Assigned Patient Location: US Current Patient Location: Accession/Order Number: [id number] Exam Date: 02/06/2024 15:00 Report Date: 02/07/2024 05:15 At the request of: JULIET CEE Procedure: US OB transvaginal EXAMINATION: US OB transvaginal HISTORY: Amenorrhea COMPARISON: No relevant comparison available. FINDINGS: GESTATIONAL SAC: Present and normal appearing. YOLK SAC: Present and normal appearing. POLE: Present and normal appearing. CARDIAC: Present. UTERUS: Normal size and appearance. OVARIES: Right: Normal. Left: Not seen. CERVIX: Not evaluated. CUL-DE-SAC: Normal. OTHER: None. AGE BY LMP: 8 weeks 3 days DARLYN BY LMP: 09/14/2024 AGE BY US CRL: 8 weeks 3 days DARLYN BY US CRL: 09/14/2024 US/US OB transvaginal IMPRESSION: 1. Single live intrauterine . Electronically authenticated by: RENAN DURAN Date: 02/07/2024 05:15 Dictated By: Renan Duran M.D. Signed By: 02/07/24517 DD/ 4 TD/TT: Sales Promotion Coordinator: Procedure Note Radiology, Radiologist, MD - 02/07/[address] [address] Ultrasound Report Signed Patient: NICHO DOHERTY JMR#: [id number] : 1995Acct:[id number] Age/Sex: 28 / FADM Date: 02/06/24 Loc: US Attending Dr: JULIET CEE APRN, CNM Ordering Physician: JULIET CEE APRN, CNM Date of Service: 02/06/24 Procedure(s): US OB transvaginal Accession Number(s): [id number] cc: JULIET CEE APRN, CNM; Physician,Non-Staff Rama [address] [address] Patient Name: NICHO DOHERTY MRN: [id number] date: 1995 Sex: F Assigned Patient Location: US Current Patient Location: Accession/Order Number: [id number] Exam Date: 02/06/2024 15:00 Report Date: 02/07/2024 05:15 At the request of: JULIET CEE Procedure: US OB transvaginal EXAMINATION: US OB transvaginal HISTORY: Amenorrhea COMPARISON: No relevant comparison available. FINDINGS: GESTATIONAL SAC: Present and normal appearing. YOLK SAC: Present and normal appearing. POLE: Present and normal appearing. CARDIAC: Present. UTERUS: Normal size and appearance. OVARIES: Right: Normal. Left: Not seen. CERVIX: Not evaluated. CUL-DE-SAC: Normal. OTHER: None. AGE BY LMP: 8 weeks 3 days DARLYN BY LMP: 09/14/2024 AGE BY US CRL: 8 weeks 3 days DARLYN BY US CRL: 09/14/2024 US/US OB transvaginal IMPRESSION: 1. Single live intrauterine . Electronically authenticated by: RENAN DURAN Date: 02/07/2024 05:15 Dictated By: Renan Duran M.D. Signed By:02/07/24517 DD/ 4 TD/TT: Sales Promotion Coordinator: us Juliet Cee CNM [facility] Final Resu lt documented in this encounter Visit Diagnoses Not on filedocumented in this encounter Additional Health Concerns Assessment Noted Time PHQ-9 Depression Total Score: 16 024 5:00 PM EDT documented as of this encounter Care Teams Type Rolling Machine Operator Relationship Specialty Start Date End Date Marika Gudino MD [address] [place] [address] PCP - General Family Medicine 4/22/24 Maria Arellano NP [address] [place] [address] PCP - Briana Badillo 12/17/2303/17 documented as of this encounter
--- OUTSIDE RECORDS SUMMARY | 2024-09-01 15:28 | XMS_ITS | Encounter Summary ---
Author Organization [facility] Address [address] [place] [address] Care Team Providers Care Pellet Preparation Operator Name Role Phone Marika Gudino MD Primary Care Provider [phone] Encounter Details Date Type Department Care Team (Late st Contact Info) Description 07/08/2024 Results Follow-Up [facility] OB [address] [place] [address] Joanie Cee, CNM [address] [place] [address] Social History Tobacco Use Types [...] often do you attend chur ch or taoist services? Never 07/08/2023 Do you belong to [...] a group home (including now)? No 07/08/2023 Estimated Date of [...] PM EDT Routine [facility] OB [address] [place] [address] Joanie Cee CNM [address] [place] [address] documented as of this encounter Visit Diagnoses Not on filedocumented in this encounter Additional Health Concerns Assessment Noted Time PHQ-9 Depression Total Score: 16 024 5:00 PM EDT documented as of this encounter Care Teams Pellet Preparation Operator Relationship Specialty Start Date End Date Marika Gudino MD [address] [place], [place] [phone] PCP - General Family Medicine 07/08/23 documented as of this encounter
[2024-09-01 15:56] VITALS: BP 144/89; PULSE 104
[2024-09-01 15:59] LABS: Basophils Percent Auto 0.3 % (0.2-2.0); Eosinophils Percent Auto 0.3 % (0.9-7.0); Hematocrit 27.7 % (36.0-48.0); Hemoglobin 8.8 g/dL (12.0-16.0); Immature Granulocytes Pct Auto 1.4 % (0.0-0.5); Lymphocytes Percent Auto 13.8 % (20.5-60.0); Mean Corpuscular HGB Conc 31.8 g/dL (29.9-35.2); Mean Corpuscular Hemoglobin 27.2 pg (26.7-34.0); Mean Corpuscular Volume 85.8 fL (81.0-99.0); Mean Platelet Volume 12.6 fL (9.5-13.5); Monocytes Absolute Auto 0.8 10^3/uL (0.3-0.8); Monocytes Percent Auto 10.6 % (1.7-12.0); Neutrophils Absolute Auto 5.2 10^3/uL (1.4-6.5); Neutrophils Percent Auto 73.6 % (43.0-75.0); Platelet Count 143 10^3/uL (150-450); Red Blood Count 3.23 10^6/uL (4.20-5.40); Red Cell Distribution Width 16.4 % (11.0-15.0); White Blood Count 7.1 10^3/uL (4.0-11.0)
--- NOTE | 2024-09-01 16:04 | US_ITS ---
[address] [address] Patient Name: NICHO DOHERTY MRN: [id number] date: 1995 Sex: F Assigned Patient Location: [facility] Current Patient Location: [facility] Accession/Order Number: [id number] Exam Date: 09/01/2024 17:24 Report Date: 09/01/2024 17:26 At the request of: JULIET KELLY APRN, CNM Procedure: US OB BPP w non-stress US OB BPP w non-stress 09/01/2024 5:17 PM SIGNS AND SYMPTOMS: ^12/10/23 ^elevated BP \S.br\ PROTOCOL: Transabdominal sonographic images of the gravid uterus COMPARISON: 08/25/2024 FINDINGS: Estimated gestational age is 38 weeks and 0 days. heart rate is at 141 bpm. Amniotic fluid index is 22.7 cm with the deepest vertical pocket measuring 6.3 cm. Biophysical profile: movement: 2/2 tone: 2/2 breathing movements: 2/2 Amniotic fluid volume: 2/2 US/US OB BPP w non-stress IMPRESSION: Biophysical profile: 8/8 heart rate is at 141 bpm. Amniotic fluid index is 22.7 cm with the deepest vertical pocket measuring 6.3 cm. Impression dictated by: Obey James M.D. 09/01/2024 5:26 PM Dictation Location: [place] Electronically authenticated by: [id number] Y Date: 09/01/2024 17:26
[2024-09-01 16:16] LABS: Alanine Aminotransferase 30 U/L (14-59); Albumin Level 2.2 g/dL (3.4-5.0); Alkaline Phosphatase 202 U/L (46-116); Anion Gap 15.7; Aspartate Amino Transferase 27 U/L (15-37); BUN Creatinine Ratio 16.7; Bilirubin Total 0.2 mg/dL (0.2-1.0); Calcium 8.3 mg/dL (8.5-10.1); Carbon Dioxide 23.4 mmol/L (21.0-32.0); Chloride 101 mmol/L (98-107); Estimated GFR (African America >60 (>=60 mL/min/1.73m^2); Estimated GFR (Non-African Ame >60 (>=60 mL/min/1.73m^2); Glucose 85 mg/dL (74-106); Potassium 4.1 mmol/L (3.5-5.1); Sodium 136 mmol/L (136-145); Total Protein 5.9 g/dL (6.4-8.2)
[2024-09-01 16:17] LABS: Albumin Globulin Ratio 0.6; Globulin 3.7 g/dL
[2024-09-01 16:21] LABS: Lactate Dehydrogenase 189 U/L (81-234); Partial Thromboplastin Time 24.9 sec (22.3-36.2); Prothrombin Time 9.7 sec (9.0-11.6); Uric Acid 5.2 mg/dL (2.6-6.0)
[2024-09-01 16:25] LABS: INR <0.93
[2024-09-01 16:50] VITALS: BP 127/71; PULSE 89
[2024-09-01 16:57] VITALS: TEMP 36.7
[2024-09-01 17:43] VITALS: BP 132/73; PULSE 92
--- NOTE | 2024-09-01 18:26 | PC.NURSE ---
Mary Caro cnm in and talks with pt who begins to cry
--- NOTE | 2024-09-01 19:28 | PC.NURSE ---
Mary Cee speaks with ABIMAEL Longoria of [facility] regarding pt transfer
== END 2024-09-01 21:40 | disposition short-term general hospital (02) ==
PROVIDERS: Admitting Provider Midwife; PCP Nurse Practitioner Family; Visit Provider Midwife
DX: O16.3 Unspecified maternal hypertension, third trimester (principal); Z3A.38 38 weeks gestation of pregnancy
CPT/HCPCS: 36415; 76818; 80053; 83615; 84550; 85025; 85610; 85730; 86850; 86900; 86901; G0378; G0379

== ENCOUNTER 2024-09-09 16:17 | Observation (INO) | payer OTHER, SELFPAY ==
--- OUTSIDE RECORDS SUMMARY | 2024-09-01 14:30 | XMS_ITS | Encounter Summary ---
Author Organization [facility] Address [address] [place] [address] Care Team Providers Care Customer Service Leader Name Role Phone Marika Gudino MD Primary Care Provider [phone] Encounter Details Date Type Department Care Team (Latest Contact Info) Description 09/01/2024 2:30 PM EDT Routine [facility] [address] [place] [address] Joanie Cee, CNM [address] [place] [address] Elevated blood pressure affecting in third trimester, antepartum ([facility]) (Primary Dx); Edema of both lower extremities; History of section; Encounter for supervision of other normal , third trimester ([facility]) Social History Tobacco Use Types Packs/Day Years [...] week 07/08/2023 How often do you attend [facility] or confucianist services? Never 07/08/2023 Do you belong to any clubs o r organizations such as druze groups, unions, fraternal or athletic groups, or [...] Recorded Patient Health Questionnaire-2 Score 1 12/24/2023 [facility] - Occupational Stress Questionnaire Answer Date Recorded [...] place to sleep or slept in a correction (including now)? No 07/08/2023 Comments Yes Sex and Gender Information Value Date Recorded Sex Assigned at Female 07/08/2023 2:48 PM EDT Legal Sex Female 7:39 PM EDT Gender Identity Female 07/08/2023 2:48 PM EDT Sexual Orientation Straight 07/08/2023 2: 48 PM EDT documented as of this encounter Last Filed Vital Signs Vital Sign Reading Time Taken Comments Blood Pressure 140/84 09/01/2024 2:24 PM EDT Pulse - - Temperature - - Respiratory Rate - - Oxygen Saturation - - Inhaled Oxygen Concentration - - Weight 117 kg (257 lb) 09/01/2024 2:24 PM EDT Height - - Body Mass Index 44.11 12/24/2023 5:32 PM EDT documented in this encounter Plan of Treatment Upcoming Encounters Date Type Department Care Team (Late st Contact Info) Description 09/14/2024 12:30 PM EDT Office Visit [facility] [address] [place] [address] Maria Arellano NP [address] [place], [place] [id number] documented as of this encounter Goals Goal Patient Goal Type Associated Problems Recent Progress Patient-Stated? Author Reminders Care Plan OB Reminders No Open Scheduling, Background documented as of this encounter Visit Diagnoses Diagnosis Elevated blood pressure affecting in third trimester, antepartum ([facility])- Primary Edema of both lower extremities History of section Other postprocedural status Encounter for supervision of other normal , third trimester ([facility]) documented in this encounter Additional Health Concerns Active Problems Noted Date Diagnosed Date OB Reminders 07/14/2024 Assessment Noted Time PHQ-9 Depression Total Score: 16 024 5:00 PM EDT documented as of this encounter Care Teams Customer Service Leader Relationship Specialty Start Date End Date Marika Gudino MD [address] [place] [address] PCP - General Family Medicine 07/08/23 documented as of this encounter
--- OUTSIDE RECORDS SUMMARY | 2024-09-01 22:48 | XMS_ITS | Encounter Summary ---
Author Organization [facility] [employer] [facility] tem Address [facility] [id number] [address] [place] [address] Care Team Providers Care Sausage Tier Name Role Phone No Pcp, No Pcp Primary Care Provider Unavailabl e Reason for Referral * Misc (Routine) - Pending Review Specialty Diagnoses / Procedures Referred By Tobi swain Referred To Contact Procedures Discharge Follow-Up Doni Gray [facility] [address] [facility] [address] [address] Phone: tel: fax: Referral ID Status Reason Start Date Expiration Date V isits Requested Visits Authorized [id number] Pending Review 09/04/2024 09/04/2025 1 1 Reason for Visit * Auth/Cert (Routine) Specialty Diagnoses / Procedures Referred By Tobi swain Referred To Contact Diagnoses Elevated blood pressure reading Pre eclampsia Regulo Jain MD [address] [place] [address], [place] [address] Phone: tel: fax: Referral ID Status Reason Start Date Expiration Date Visits Re quested Visits Authorized [id number] 1 1 Encounter Details Date Type Department Care Team (Latest Contact Info) Description 09/01/2024 10:48 PM EDT - 09/04/2024 6:05 PM EDT Hospital Encounter [facility] [address] [place] [address] Regulo Jain MD [facility], [address] [address] Acute post-operative pain (Primary Dx) Discharge Disposition: Home Social History Tobacco Use Types Packs/Day Years Used Date Smoking Tobacco: Every Day Smokeless Tobacco: Never Tobacco Cessation:Ready to Q uit: Not Asked; Counseling Given: Not Answered Alcohol Use Standard Drinks/Week Comments No 0 [...] often do you attend chur ch or latter-day services? More than 4 times per year 04/25/2020 Do you belong to any clubs o r organizations such as restorationist groups, unions, fraternal or athletic groups, or [...] Answer Date Recorded Total Score 0 04/25/2020 [facility] [place] [facility] [employer] - Occupational Stress [...] on file Sexual Orientation Not on file documented as of this encounter Last Filed Vital Signs Vital Sign Reading Time Taken Comments Blood Pressure 136/87 09/04/2024 3:48 PM EDT Pulse 92 09/04/2024 3:48 PM EDT Temperature 37.1 C (98.8 F) 09/04/2024 3:48 PM EDT Respiratory Rate 17 09/04/2024 3:48 PM EDT Oxygen Saturation 96% 09/02/2024 6:00 PM EDT Inhaled Oxygen Concentration - - Weight 110.8 kg (244 lb 4.3 oz) 025 12:32 AM EDT Height 160 cm (5' 3 ) 09/01/2024 11:02 PM EDT Body Mass Index 43.27 09/01/2024 11:02 PM EDT documented in this encounter Discharge Summaries * Amena Joy MD - 09/04/2024 5:15 PM EDT Discharge Summary Reason for admission: RLTCS Principal diagnosis: Intrauterine at 38w1d Secondary diagnosis: 1. Aortic ductus diverticulum 2. ROGER/MDD 3. Ankylosing spondylitis 4. Vaping 5. Failed 1h, passed 3h 6. Rh neg s/p Rhogam 07/16/24 7. ALISA 8. Thrombocytopenia 9. H/o x1 (suspected macrosomia) c/b PPH d/t atony Procedures: RLTCS Hospital course: Karlos Guillen is a 29 y.o. who presented at 38w1d as a transfer from [place] dueto repeat CS with complicated by preE w/o SF, Aortic ductus diverticulum, Ankylosing spondylitis, Thrombocytopenia, ALISA, h/o CS complicated by PPH. Vascular surgery was consulted d/t the aortic ductus diverticulum and they recommended CTA chest, BP parameters of <140/90, and outpatientfollow up. She underwent a RLTCS. She delivered a viable female fetus weighing 4340 grams with apgars of 8 and9 at one and five minutes respectively. She underwent an uncomplicated post operative course and was discharged home on post operative day number 2 when she was tolerating a regular diet, ambulating without difficulty, passing flatus, voiding spontaneously, and pain was controlled using oral pain medications. Care treatment provided: 1. Surgery as outlined above. 2. Pain management. 3. Stool softeners. Laboratory Results: Hgb 9.1>8.1>8.2>7.7 PLT 122>109>115>126 Otherwise HELLP labs wnl UPCR 0.4 >0.51 Lab Results Component Value Date WBC 6.8 09/04/2024 HGB 7.0 (L) 09/04/2024 HCT 21.4 (L) 09/04/2024 MCV 84 09/04/2024 PLT 96 (L) 09/04/2024 Lab Results Component Value Date GLU 106 (H) 09/03/2024 CALCIUM 8.0 (L) 09/03/2024 K 4.1 09/03/2024 CO2 26 09/03/2024 BUN 10 09/03/2024 CREATININE 0.67 09/03/2024 Imaging: CTA chest 09/02/24: Redemonstration of the focal outpouching of the aorta, 1.7 cm in diameter and 0.7 cm in thickness, consistent with a ductus diverticulum; no evidence of acute aortic syndrome CTA chest 05/2020: ascending aorta is nonaneurysmal, previously identified focal outpouching of the aortic arch just distal to the subclavian artery, likely thought to be a prominent ductus diverticulum CTA chest 04/2020: small age indeterminate ulcer like projection along the lateral aspect of the aortic arch distal to the subclavian takeoff. 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 Condition of patient at discharge: Stable, good. Special instructions to the patient family: 1. Pelvic rest for 6 weeks. 2. Please call if fever greater than 100.4, chills, malodorous vaginal discharge, or other signs ofinfection. 3. Please call if chest pain, shortness of breath, asymmetrical leg swelling or calf tenderness develops. 4. Please call if bleeding through more than 1 pad per hour. 5. No driving while taking narcotic pain medications. Recommendations for follow-up care: 1. Please follow up with OB in 1 week for incision check. 2. Please follow up with OB in 4-6 weeks for routine visit. Disposition: Home Amena Joy MD 09/04/24 5:15 PM ObGyn Resident, PGY-2 Cosigned by Cindy Soto MD at 09/05/2024 10:25 AM EDT Associated attestation - Cindy Soto MD - 09/05/2024 10:25 AM EDT Attending Attestation: I saw the patient. I participated and was physically present during the critical/peters portions of the service. I was directly involved in the management and treatment plan of the patient. I reviewed the resident's note. Additional Notes/Findings: I am administratively signing this discharge summary. Cindy Soto MD MPH 09/05/2024 10:25 AM documented in this encounter Discharge Instructions * Discharge Instructions* Lakisha Wayne RN - 09/04/2024 5:26 PM EDT Discharge Instructions Vaginal Bleeding Vaginal drainage, lochia , will last 2-3 weeks after your baby was born Use the bandar bottle filled with warm water each time you use the bathroom, pat dry. Continue this until your drainage stops. Always wipe from front to back after you urinate or have a bowel movement Change your sanitary pad every 2-4 hours Notify your doctor/CNM if you experience any of the following: Clots larger than a plum If you are saturating a bandar pad greater than one pad an hour Any foul smelling vaginal drainage Abdominal Cramping Cramping gets stronger with each baby. You may try a heating pad Bathing/Showering Take a shower each day unless you were told not to To help with episiotomy discomfort you may sit in a clean tub of warm water Stitches in your perineum will dissolve over 6 weeks, for comfort you may: Use a sitz bath Bandar bottle Dermoplast (use each time after bandar care) Tucks (use each time after bandar care) Tucks and Dermoplast spray may also help with hemorrhoid discomfort (use each time after bandar care) Sexual [place] No tampons, douching, or sexual intercourse until after you see your doctor You may need to use a water-soluble lubricant such as KY Jelly for dryness Talk to your doctor/CNM regarding control and which method would be best for you Talk to your doctor/CNM regarding the use of a long acting, but reversible, control method It is recommended to space pregnancies apart by at least 18 months, this is for the safety of future outcomes Notify your doctor if you have: Any vaginal burning or itching Any burning or pain when urinating, or inability to urinate A temperature greater than 100.4 degrees Fahrenheit or severe chills Pain in calf or leg Nausea or vomiting, dizziness or fainting If you have not had a bowel movement in 5 days Diet: Drink 8-12 glasses of water each day Make sure you eat a balanced diet, especially high in fiber (whole grains, raw vegetables, etc.) If drink 8 oz. of liquid every time you nurse your baby Continue to take your vitamins as prescribed by your doctor Abdominal Incision / Tubal Ligation Care: Wash your incision with soap and water and be sure to rinse and dry well If you had allen they will be removed by your doctor/CNM If you had sutures they will dissolve on their own For ease of movement hold a pillow against the incision: When you get up from a lying or sitting position When you laugh or cough Notify your doctor/CNM for any of the following: Redness Drainage Open areas around your incision Breast Care: To help with discomfort: Feed your baby frequently to avoid engorgement Apply warm compresses to breast before feeding Apply cold compresses to breast after feeding Wear a supportive nursing bra 24 hours a day Do not put soap on your nipples Allow nipples to air dry after feeding Bottle feeding: To help with discomfort: Use cold compresses Wear a tight fitting bra 24 hours a day Notify your doctor/CNM: For swelling, redness, or tenderness in one area of your breast Blues / Depression: Blues : Usually occurs within 3-5 days after delivery Normally goes away on its own Depression: Can also occur within days of delivery, or within a year Warning Signs: Increased crying for no obvious reason Lack of patience Being irritable Being restless Not being able to sleep Not wanting to eat Anxiety Notify your doctor/CNM: If you experience any of the warning signs If you are having any violent thoughts If you are having thoughts of harming yourself or your baby Sibling / Family Adjustment: Each family member will take different amounts of time to adjust to the new baby Be patient and offer lots of love and comfort Offer some individual attention to other children Exercise / Activity: Get plenty of rest Take catnaps while baby is sleeping during the day No heavy cleaning or other housework for the first couple of weeks Lift nothing heavier than your baby for 2 weeks No driving for one week Do not drive while taking narcotics You may start walking and stretching in 2 weeks No strenuous exercises like jogging, aerobics, etc. until after you have seen your doctor/CNM You may start Kegel exercises now * Attachments The following attachments cannot be sent through Care Everywhere. * Opioids for Short-Term Treatment of Pain ED ([place]an) * Preeclampsia ([place]) documented in this encounter Medications at Time of Discharge 21-iron fu-folic acid ( COMPLETE) 14 mg iron- 400 mcg tablet Take 1 tablet by mouth in the morning. 30 tablet 02/03/2024 acetaminophen (TYLENOL EXTRA STRENGTH) 500 mg tablet Take 2 tablets (1,000 mg total) by mouth every 8 (eight) hours. 60 tablet 09/04/2024 citalopram (CeleXA) 20 mg tablet Take 20 mg by mouth daily as needed (anxiety). docusate sodium (COLACE) 100 mg capsule Take 1 capsule (100 mg total) by mouth in the morning and 1 capsule (100 mg total) before bedtime. 60 capsule 09/04/2024 ferrous sulfate 325 (65 FE) mg EC tablet Take 1 tablet (325 mg total) by mouth in the morning and 1 tablet (325 mg total) at noon and 1 tablet (325 mg total) in the evening. Take with meals. 30 tablet 1 09/04/2024 ibuprofen (MOTRIN) 800 mg tabletIndications :Acute post-operative pain Take 1 tablet (800 mg total) by mouth every 8 (eight) hours. 30 tablet 09/04/2024 oxyCODONE (ROXICODONE) 5 mg immediate release tabletIndications :Acute post-operative pain Take 1 tablet (5 mg total) by mouth every 6 (six) hours as needed for pain for up to 5 days. Max Daily Amount: 20 mg 20 tablet 09/04/2024 09/09/2024 documented as of this encounter Progress Notes * Amena Joy MD - 09/04/2024 6:21 AM EDT [facility] Daily Progress Note Subjective: Karlos Guillen is a 29 y.o. POD#2 Repeat low transverse ceserean section @ 38w1d. Patient reports she is doing well. Pain is controlled with oral medications. Lochia minimal. Pimentel catheter removed, urinating without difficulty. She has had flatus, and has not had a BM. She is ambulating without difficulty. She is . Baby doing well. Pt has been sleeping off and on, but sleep is improving. Denies fever, chills, nausea, vomiting, headache, changes in vision, or RUQ pain. Objective: Temp: [36.6 ??C (97.9 ??F)-37.3 ??C (99.1 ??F)] 36.9 ??C (98.4 ??F) Pulse: [74-96] 96 Resp: [16-20] 20 Blood Pressure : (122-146)/(75-94) 146/94 O2 Device: None (Room air) Vitals: 09/03/24 1933 09/04/24 0025 09/04/24 0032 09/04/24 0434 BP: 140/75 134/88 146/94 Pulse: 90 89 96 Resp: 17 18 20 Temp: 36.6 ??C (97.9 ??F) 36.8 ??C (98.2 ??F) 36.9 ??C (98.4 ??F) TempSrc: Oral Oral Oral SpO2: Weight: 110.8 kg (244 lb 4.3 oz) Height: Intake/Output Summary (Last 24 hours) at 09/04/2024 0641 Last data filed at 09/03/2024 1500 Gross per 24 hour Intake 250 ml Output -- Net 250 ml Lab Results Component Value Date WBC 9.8 09/03/2024 HGB 7.7 (L) 09/03/2024 HCT 23.4 (L) 09/03/2024 MCV 83 09/03/2024 PLT 126 (L) 09/03/2024 Lab Results Component Value Date GLU 106 (H) 09/03/2024 CALCIUM 8.0 (L) 09/03/2024 SODIUM 133 (L) 09/03/2024 K 4.1 09/03/2024 CO2 26 09/03/2024 BUN 10 09/03/2024 CREATININE 0.67 09/03/2024 Rubella: No results found for: RUBELLAIMMU Physical Exam: General: alert, well appearing, in no apparent distress Abdomen: soft and appropriately tender Incision: clean, dry, intact Ext: no redness or tenderness in the calves or thighs, +2 edema Assessment/Plan: Karlos Guillen is a 29 y.o. female POD#1 RLTCS @ 38w1d. Recovering well. Anticipate discharge today. complications 1. Aortic ductus diverticulum -s/p vascular sx recs: BP<140/90, f/u outpatient - most recent BP 146/96* 2. ROGER/MDD 3. Ankylosing spondylitis 4. Vaping 5. Failed 1h, passed 3h 6. Rh neg s/p Rhogam 07/16/24 7. ALISA -Hgb 9.1>8.1>8.2>7.7 8. Thrombocytopenia -PLT 122>109>115>126 9. H/o x1 (suspected macrosomia) c/b PPH d/t atony 10.preE w/o SF -BP mostly <140/90 - not on meds - PLT 122>109>115>126 - HELLP labs otherwise wnl UPCR 0.4 >0.51 Routine post op care: - Encourage incentive spirometry and ambulating with assistance. Continue regular diet. INT IV. Continue PO Roxicodone prn for pain control. - B negative - PP contraception: plans to follow up with primary Director Financial Analysis for counseling - DVT ppx: Jordyn Barrios, MPH MS3 09/04/24 Resident Attestation I have seen and evaluated the patient, and have also reviewed the documentation above. I have repeated and performed the peters portions of the physical exam and concur with the student's findings. I agree with the plan as noted above with any changes made as necessary. Amena Joy MD Director Financial Analysis Resident PGY-2 09/04/24 7:23 AM Cosigned by Cindy Soto MD at 09/04/2024 3:06 PM EDT Associated attestation - Cindy Soto MD - 09/04/2024 3:06 PM EDT Attending Attestation: I saw the patient. I participated and was physically present during the critical/peters portions of the service. I was directly involved in the management and treatment plan of the patient. I reviewed the resident's note. Additional Notes/Findings: 29 y.o. POD#2 s/p RLTCS at 38w1d for preeclampsia without severe features. Patient Vitals for the past 24 hrs: BP Temp Temp src Pulse Resp Weight 09/04/24 1155 133/86 36.4 ??C (97.5 ??F) Oral 97 17 -- 09/04/24 0817 131/80 37 ??C (98.6 ??F) Oral 82 18 -- 09/04/24 0434 146/94 36.9 ??C (98.4 ??F) Oral 96 20 -- 09/04/24 0032 -- -- -- -- -- 110.8 kg (244 lb 4.3 oz) 09/04/24 0025 134/88 36.8 ??C (98.2 ??F) Oral 89 18 -- 09/03/24 1933 140/75 36.6 ??C (97.9 ??F) Oral 90 17 -- 09/03/24 1520 132/87 37.3 ??C (99.1 ??F) Oral 93 18 -- Routine postop care. BP is elevated today. Will continue to monitor. Cindy Soto MD MPH 09/04/2024 3:06 PM * Amena Joy MD - 09/03/2024 6:48 AM EDT [facility] Daily Progress Note Subjective: Karlos Guillen is a 29 y.o. POD#1 Repeat low transverse ceserean section @ 38w1d. Patient reports doing well. Pain is controlled with oral medications. Lochia minimal. Pimentel catheterremoved, urinating without difficulty.. She has not had flatus, and has not had a BM. She is ambulating without difficulty. She is . Baby doing well. Denies fever, chills, nausea, vomiting, headache, changes in vision, or RUQ pain. Objective: Temp: [36.3 ??C (97.3 ??F)-37.4 ??C (99.3 ??F)] 36.5 ??C (97.7 ??F) Pulse: [67-102] 89 Resp: [14-23] 18 Blood Pressure : (113-142)/(66-93) 133/80 SpO2: [93 %-97 %] 96 % O2 Device: None (Room air) Vitals: 09/02/24 1950 09/03/24 0020 09/03/24 0334 09/03/24 033 BP: 128/80 128/82 133/80 Pulse: 75 76 89 Resp: Temp: 36.4 ??C (97.5 ??F) 36.4 ??C (97.5 ??F) 36.5 ??C (97.7 ??F) TempSrc: Oral Oral Oral SpO2: Weight: 110.1 kg (242 lb 11.6 oz) Height: Intake/Output Summary (Last 24 hours) at 09/03/2024 0649 Last data filed at 09/03/2024 0500 Gross per 24 hour Intake 5090.42 ml Output 2825 ml Net 2265.42 ml Lab Results Component Value Date WBC 5.2 09/02/2024 HGB 8.2 (L) 09/02/2024 HCT 24.5 (L) 09/02/2024 MCV 81 09/02/2024 PLT 115 (L) 09/02/2024 Lab Results Component Value Date GLU 85 09/02/2024 CALCIUM 8.0 (L) 09/02/2024 SODIUM 136 09/02/2024 K 4.1 09/02/2024 CO2 21 (L) 09/02/2024 BUN 9 09/02/2024 CREATININE 0.55 09/02/2024 Rubella: No results found for: RUBELLAIMMU Physical Exam: General: alert, well appearing, in no apparent distress Abdomen: soft and appropriately tender Incision: clean, dry, intact Ext: no redness or tenderness in the calves or thighs, +2 edema Assessment/Plan: Karlos Guillen is a 29 y.o. female POD#1 RLTCS @ 38w1d. Doing well. complications 1. Aortic ductus diverticulum -s/p vascular sx recs: BP<140/90, f/u outpatient 2. ROGER/MDD 3. Ankylosing spondylitis 4. Vaping 5. Failed 1h, passed 3h 6. Rh neg s/p Rhogam 07/16/24 7. ALISA -Hgb 9.1>8.1>8.2>7.7 8. Thrombocytopenia -PLT 122>109>115>126 9. H/o x1 (suspected macrosomia) c/b PPH d/t atony 10.preE w/o SF -BP <140/90 - not on meds - PLT 122>109>115>126 - HELLP labs otherwise wnl UPCR 0.4 >0.51 Routine post op care: - Encourage incentive spirometry and ambulating with assistance. Continue regular diet. INT IV. Continue PO Roxicodone prn for pain control. - B negative - PP contraception: plans to follow up with primary Director Financial Analysis for counseling - DVT ppx: SCDs Amena Joy MD 09/03/24 6:49 AM ObGyn Resident, PGY-2 Cosigned by Regulo Jain MD at 09/03/2024 3:27 PM EDT Associated attestation - Regulo Jain MD - 09/03/2024 3:27 PM EDT Attending Attestation: I saw the patient. I performed the critical/peters portions of the service. I was directly involved inthe management and treatment plan of the patient. I reviewed the resident's note. . Additional Notes/Findings: Results from last 7 days Lab Units 09/03/24 0622 09/02/24 1237 09/02/24 0602 WBC x10E9/L 9.8 5.2 5.7 HEMOGLOBIN g/dL 7.7* 8.2* 8.1* HEMATOCRIT % 23.4* 24.5* 24.8* PLATELETS X10E9/L 126* 115* 109* Results from last 7 days Lab Units 09/03/24 0622 09/02/24 1237 09/02/24 0602 POTASSIUM mmol/L 4.1 4.1 3.5 CHLORIDE mmol/L 101 105 103 CO2 mmol/L 26 21* 23 BUN mg/dL 10 9 10 CREATININE mg/dL 0.67 0.55 0.58 CALCIUM mg/dL 8.0* 8.0* 8.1* ALK PHOS U/L 156* 165* 165* ALT U/L 18 15 18 AST U/L 23 21 22 No issues overnight Assessment 1. Postop day 1 repeat 38 weeks doing well 2. Anemia secondary to acute blood loss stable 3. Preeclampsia severe features blood pressures less than 140/90 Plan Treat blood pressures greater than 140/90 Trend hemoglobin Possible discharge tomorrow * Michael Shoemaker PA-C - 09/02/2024 12:[address] Surgery Note Contacted regarding recommendations for further imaging and clearance for vaginal delivery in a 29 y/o female at 39 weeks gestation with pre-eclampsia having history of abnormal aorta in 05/2020. Radiology report from imaging at that time demonstrated abnormal finding of outpouching distal to the subclavian artery. From my review, she was seen by Dr. Fonseca at that time for monitoring of this. Case briefly discussed with Dr. Arita and given the location of the abnormality and prior evaluation, recommendation is for Vascular Surgery evaluation with regard to any additional imaging and comment on clearance for delivery. Discussed with to Dr. Justice with PROPOSAL REVIEW ANALYST. Michael Shoemaker PA-C 09/02/24 0033 documented in this encounter H&P Notes * Carla Justice MD - 09/02/2024 12:01 AM EDT OBSTETRICS HISTORY AND PHYSICAL [place] Guill[place] is a 29 y.o.female. Estimated Date of Delivery: 09/15/24 38w1d who presents as a transport from [place] for management of preeclampsia without severe features and aortic ductus diverticulum. Briefly, patient presents to the outside hospital for rule out of preeclampsia due to elevated blood pressures in the office and UPCR 0.4. She states she did not have any blood pressure issues this until last week. She had an elevated blood pressure in the office on 08/25/24 and again yesterday. Due to new protein in her urine, she was evaluated in OB triage and per patient, her blood pressures were all less than 140/90. Patient also has this history of aortic ulcer/ductus diverticulumnoted in 2020. Therefore, she was transferred to [facility] for further evaluation and management. Upon arrival to [facility], patient was hemodynamically stable. Her initial blood pressures were in the 140s over 90s systolic followed by normotensive blood pressures. Patient reports she has amild headache but denies any visual changes, chest pain, shortness of breath, palpitations, right upper quadrant/epigastric pain. Denies contractions, leakage of fluid, vaginal bleeding. Reports active movement. Per patient, she has not seen vascular surgery since May 2020. Per chart review, an aortic ulcer was incidentally found on CTA of chest in April 2020 during her admission for pneumonia. Repeat CTA chest in May 2020 showed a focal outpouching of the aortic arch distal to the subclavian arterythat was thought to be a prominent ductus diverticulum. Patient was lost to follow-up after that. She states she has been asymptomatic. is complicated by: 1. Aortic ductus diverticulum 2. ROGER/MDD 3. Ankylosing spondylitis 4. Vaping 5. Failed 1h, passed 3h 6. Rh neg s/p Rhogam 07/16/24 7. ALISA 8. Thrombocytopenia 9. H/o x1 (suspected macrosomia) c/b PPH d/t atony OB History Para Term AB Living 3 1 1 1 1 SAB IAB Ectopic Multiple Live Births 1 0 1 # Outcome Date GA Lbr Campos/2nd Weight Sex Type Anes PTL Lv 3 Current 2 Term 02/05/18 39w5d 4.082 kg F Spinal N GERSON 1 SAB Patient Active Problem List Diagnosis Date Noted Elevated blood pressure reading 09/01/2024 Bilateral pulmonary infiltrates on CXR 04/24/2020 Medications Prior to Admission Medication Sig Dispense Refill Last Dose/Taking 21-iron fu-folic acid ( COMPLETE) 14 mg iron- 400 mcg tablet Take 1 tablet by mouth in the morning. 30 tablet 0 09/01/2024 citalopram (CeleXA) 20 mg tablet Take 20 mg by mouth daily as needed (anxiety). (Patient not taking: Reported on 09/01/2024) More than a month promethazine (PHENERGAN) 25 mg tablet Take 1 tablet (25 mg total) by mouth every 6 (six) hours as needed for nausea or vomiting. (Patient not taking: Reported on 02/03/2024) 15 tablet 0 promethazine (PHENERGAN) 25 mg tablet Take 1 tablet (25 mg total) by mouth every 6 (six) hours as needed for nausea or vomiting. (Patient not taking: Reported on 09/01/2024) 10 tablet 0 More than a month MEDICAL HX Past Medical History: Diagnosis Date Ankylosing spondylitis (CMS-HCC) Anxiety Ulcer of aorta SURGICAL HX Past Surgical History: Procedure Laterality Date N/A 02/05/2018 Performed by Julia Dunbar MD at [facility] OR COLONOSCOPY with bx's N/A 06/21/2020 Performed by Sterling Champion MD at [facility] ENDOSCOPY GANGLION CYST EXCISION Left MEDS Current Facility-Administered Medications Medication Dose Route Frequency Provider Last Rate Last Admin acetaminophen (TYLENOL) tablet 650 mg 650 mg oral Q4H PRN Carla Q MD Vinh carboprost (HEMABATE) injection 250 mcg 250 mcg intramuscular Once PRN Carla Q MD Vinh lactated ringers bolus 500 mL intravenous PRN Carla Q MD Vinh lactated ringers bolus 500 mL intravenous PRN Carla Q MD Vinh lactated ringers infusion 999 mL/hr intravenous Continuous PRN Carla Q MD Vinh lactated ringers infusion 125 mL/hr intravenous Continuous Carla Q MD Vinh lactated ringers infusion 250 mL/hr intravenous Continuous PRN Carla Q MD Vinh oxytocin (PITOCIN) infusion 30 units/500 mL in lactated ringers (0.06 units/mL premix) 42 gena-units/min intravenous Continuous PRN Carla Q MD Vinh And lactated ringers infusion 83 mL/hr intravenous Continuous PRN Carla Q MD Vinh lactated ringers infusion 125 mL/hr intravenous Continuous Carla Q MD Vinh lidocaine PF (XYLOCAINE) 10 mg/mL (1 %) injection 100 mg 10 mL infiltration PRN Carla Q MD Vinh methylergonovine (METHERGINE) injection 200 mcg 200 mcg intramuscular Once PRN Carla Jazmine Justice MD miSOPROStoL (CYTOTEC) tablet 800 mcg 800 mcg sublingual Once PRN Acrla Q MD Vinh ondansetron (PF) (ZOFRAN) injection 4 mg 4 mg intravenous Q4H PRN Carla Jazmine Justice MD oxytocin (PITOCIN) bolus from bag solution 10 Units 10 Units intravenous Once PRN Carla Jazmine Justice MD oxytocin (PITOCIN) injection 10 Units 10 Units intramuscular Once PRN Carla Q MD Vinh sodium chloride 0.9 % flush 3 mL 3 mL intravenous PRN Carla Q MD Vinh sodium chloride 0.9 % flush 3 mL 3 mL intravenous Q12H ANGÉLICA Carla Q MD Vinh 3 mL at 09/01/24 2300 tranexamic acid (CYKLOKAPRON) injection 1,000 mg 1,000 mg intravenous Q30 Min PRN Carla Q MD Vinh ALLERGIES Allergies Allergen Reactions Penicillins Hives Sulfa (Sulfonamide Antibiotics) Hives FAMILY HX Family History Problem Relation Age of Onset Ulcerative colitis Mother Colon cancer Paternal Uncle Colon cancer Paternal Grandfather Crohn's disease Cousin SOCIAL HX Social History Tobacco Use Smoking status: Every Day Smokeless tobacco: Never Vaping Use Vaping status: Every Day Substances: Nicotine Substance Use Topics Alcohol use: No Drug use: Yes Types: Marijuana Comment: none today Vital signs in last 24 hours: Vitals: 09/02/24 0200 BP: 133/81 Pulse: 112 Resp: 16 Temp: SpO2: PHYSICAL EXAM General: alert, appears stated age, and cooperative HEENT: Normocephalic, atraumatic Lungs: CTAB Heart: RRR Abdomen: Ext: Soft, nontender to palpation over RUQ/epigastric pain, nondistended, gravid 1+ pitting edema BLE, DTR 2+, no clonus FHT: Baseline Rate A: 135 bpm, moderate variability, accels present, decels absent LABS Recent Results (from the past 36 hours) [facility] Collection Time: 09/01/24 11:11 PM Result Value Ref Range Extra Tube Auto Resulted CBC auto differential Collection Time: 09/01/24 11:13 PM Result Value Ref Range WBC 6.8 4 - 11 x10E9/L RBC Count 3.35 (L) 3.8 - 5.2 X10E12/L Hemoglobin 9.1 (L) 11.7 - 15.5 g/dL Hematocrit 27.6 (L) 35 - 47 % MCV 82 80 - 100 fL MCH 27.1 27 - 34 pg MCHC 32.9 32 - 36 g/dL RDW 17.3 (H) 11.5 - 15 % Platelet Count 122 (L) 150 - 450 X10E9/L MPV 10.6 7 - 12 fL Neutrophils Relative 76.1 % Lymphocytes Relative 14.9 % Monocytes Relative 8.7 % Eosinophils Relative 0.1 % Basophils Relative 0.2 % Neutrophils Absolute (A) 5.2 1.5 - 6.6 10*3/uL Lymphocytes Absolute 1.0 1.0 - 3.5 10*3/uL Monocytes Absolute 0.6 0.0 - 0.9 10*3/uL Eosinophils Absolute 0.0 0.0 - 0.4 10*3/uL Basophils Absolute 0.0 0.0 - 0.2 10*3/uL Differential Type AUTOMATED DIFFERENTIAL Comprehensive metabolic panel Collection Time: 09/01/24 11:13 PM Result Value Ref Range SODIUM 137 134 - 146 mmol/L POTASSIUM 4.0 3.5 - 5.0 mmol/L CHLORIDE 104 98 - 109 mmol/L CARBON DIOXIDE 24 22 - 32 mmol/L ANION GAP 9 5 - 15 mmol/L BLOOD UREA NITROGEN 8 5 - 23 mg/dL CREATININE 0.62 0.40 - 1.00 mg/dL GLUCOSE 72 65 - 99 mg/dL CALCIUM 8.4 (L) 8.5 - 10.5 mg/dL TOTAL PROTEIN 5.3 (L) 6.0 - 8.0 g/dL ALBUMIN 3.1 (L) 3.2 - 5.3 g/dL ALKALINE PHOSPHATASE 176 (H) 39 - 130 U/L AST 23 <=41 U/L ALT 19 <=31 U/L BILIRUBIN,TOTAL 0.5 0.3 - 1.2 mg/dL EGFR Non-Race Dependent >90 >=60 ml/min/1.73sq.m LDH Collection Time: 09/01/24 11:13 PM Result Value Ref Range LDH 167 100 - 235 U/L Uric acid Collection Time: 09/01/24 11:13 PM Result Value Ref Range URIC ACID 5.8 2.6 - 7.2 mg/dL Type and screen(includes indirect trupti) Collection Time: 09/01/24 11:13 PM Result Value Ref Range ABO B RH Negative Antibody Screen Positive Antibody ID Collection Time: 09/01/24 11:13 PM Result Value Ref Range Antibody ID Passive D Antibody, Patient Received RHIG ASSESSMENT/PLAN Karlos Guillen is a 29 y.o.female. Estimated Date of Delivery: 09/15/24 38w1d who presents as a transport from [place] for management of preeclampsia without severe features and aortic ductus diverticulum. Preeclampsia without Severe Features - New diagnosis, UPCR 0.4 @ OSH - Repeat HELLP labs - Admission BP: 140/82, 140/82, 137/86, 136/83, 124/83, 133/81 - MALDONADO improved with Tylenol - Maternal medicine consulted for transport - Given gestational age and new diagnosis of preeclampsia without severe features, would recommend proceeding with delivery today after evaluation of aortic ductus diverticulum 2. Thrombocytopenia - New diagnosis - PLT 122 - Repeat CBC in AM 3. Aortic Ductus Diverticulum - Diagnosed incidentally in 2020 on CTA chest, initially thought to be aortic ulcer - Lost to follow-up in 2020 - Pt has been asymptomatic - Vascular surgery consulted for evaluation - Will obtain stat repeat CTA chest prior to delivery per vascular surg recs 4. H/o Section c/b PPH d/t atony - In G2 for suspected macrosomia, required 2U pRBC - Desires delivery via repeat section, scheduled for 1400 today 5. Routine antepartum care - Continuous monitoring overnight - NPO at 0600 for - Rh neg s/p Rhogam 07/16/24 Carla Justice MD ObGyn Resident, PGY-3 Cosigned by Juana Griffin DO at 09/02/2024 7:20 AM EDT Associated attestation - Juana Griffin DO - 09/02/2024 7:20 AM EDT Attending Attestation: I saw the patient. I participated and was physically present during the critical/peters portions of the service. I was directly involved in the management and treatment plan of the patient. I reviewed the resident's note. Additional Notes/Findings: 20 y/o at 38w1d who presents as a transport from [place] for management of preeclampsia without severe features and aortic ductus diverticulum. Delivery is indicated and she desires repeat Will consult vascular surgery for recommendations for imaging prior to Juana Griffin DO documented in this encounter Consult Notes * Gisella Smalls DO - 09/02/2024 7:59 AM EDTAssociated Order(s): IP CONSULT TO MATERNAL MEDICINE MATERNAL MEDICINE CONSULT No chief complaint on file. Subjective: Karlos Guillen is a 29 y.o.female. Estimated Date of Delivery: 09/15/24 38w1d . She is being admitted for preeclampsia without severe features complicated by aortic ductus diverticulum.She presented for routine visit found to have elevated blood pressures any UPCR 0.4. She reported blood pressures at home of 140s over 90s And was asymptomatic. She was transported for preeclampsia without severe features complicated by aortic ulcer/ ductus diverticulum noted since 2020. CTA chest in May 2020 showed a focal outpouching of the aortic arch distal to the subclavian arterythat was thought to be a prominent ductus diverticulum. Patient was lost to follow-up with vascularsurgery since 2020. Patient had mild headache on arrival to [facility], otherwise hemodynamically stable. This morning she reports her headache was improved. Pt denies blurry vision, shortness of breath, chest pain, RUQ pain, lower extremity swelling. She reports movement, denies contractions, leakage of fluid, vaginal bleeding. Her current obstetrical history is significant for: 1. Aortic ductus diverticulum 2. ROGER/MDD 3. Ankylosing spondylitis 4. Vaping 5. Failed 1h, passed 3h 6. Rh neg s/p Rhogam 07/16/24 7. Iron-deficiency anemia 8. Thrombocytopenia 9. H/o x1 10. Preeclampsia without severe features REVIEW OF SYSTEMS: 14 point ROS is negative except as noted above. Patient Active Problem List Diagnosis Date Noted Elevated blood pressure reading 09/01/2024 Bilateral pulmonary infiltrates on CXR 04/24/2020 Medications Prior to Admission Medication Sig Dispense Refill Last Dose/Taking 21-iron fu-folic acid ( COMPLETE) 14 mg iron- 400 mcg tablet Take 1 tablet by mouth in the morning. 30 tablet 0 09/01/2024 citalopram (CeleXA) 20 mg tablet Take 20 mg by mouth daily as needed (anxiety). (Patient not taking: Reported on 09/01/2024) More than a month promethazine (PHENERGAN) 25 mg tablet Take 1 tablet (25 mg total) by mouth every 6 (six) hours as needed for nausea or vomiting. (Patient not taking: Reported on 02/03/2024) 15 tablet 0 promethazine (PHENERGAN) 25 mg tablet Take 1 tablet (25 mg total) by mouth every 6 (six) hours as needed for nausea or vomiting. (Patient not taking: Reported on 09/01/2024) 10 tablet 0 More than a month OB History Para Term AB Living 3 1 1 1 1 SAB IAB Ectopic Multiple Live Births 1 0 1 # Outcome Date GA Lbr Campos/2nd Weight Sex Type Anes PTL Lv 3 Current 2 Term 02/05/18 39w5d 4.082 kg F Spinal N GERSON 1 SAB MEDICAL HX Past Medical History: Diagnosis Date Ankylosing spondylitis (CMS-HCC) Anxiety Ulcer of aorta SURGICAL HX Past Surgical History: Procedure Laterality Date N/A 02/05/2018 Performed by Julia Dunbar MD at [facility] OR COLONOSCOPY with bx's N/A 06/21/2020 Performed by Sterling Champion MD at [facility] ENDOSCOPY GANGLION CYST EXCISION Left MEDS Current Facility-Administered Medications Medication Dose Route Frequency Provider Last Rate Last Admin acetaminophen (TYLENOL) tablet 650 mg 650 mg oral Q4H PRN Carla Q MD Vinh carboprost (HEMABATE) injection 250 mcg 250 mcg intramuscular Once PRN Carla Q MD Vinh lactated ringers bolus 500 mL intravenous PRN Carla Q MD Vinh lactated ringers bolus 500 mL intravenous PRN Carla Q MD Vinh lactated ringers infusion 999 mL/hr intravenous Continuous PRN Carla Q MD Vinh lactated ringers infusion 125 mL/hr intravenous Continuous Carla Q MD Vinh lactated ringers infusion 250 mL/hr intravenous Continuous PRN Carla Q MD Vinh oxytocin (PITOCIN) infusion 30 units/500 mL in lactated ringers (0.06 units/mL premix) 42 gena-units/min intravenous Continuous PRN Carla Q MD Vinh And lactated ringers infusion 83 mL/hr intravenous Continuous PRN Carla Q MD Vinh lactated ringers infusion 125 mL/hr intravenous Continuous Carla Q MD Vinh 125 mL/hr at 09/02/24 0700 Rate Verify at 09/02/24 0700 lidocaine PF (XYLOCAINE) 10 mg/mL (1 %) injection 100 mg 10 mL infiltration PRN Carla Q MD Vinh methylergonovine (METHERGINE) injection 200 mcg 200 mcg intramuscular Once PRN Carla Jazmine Justice MD miSOPROStoL (CYTOTEC) tablet 800 mcg 800 mcg sublingual Once PRN Carla Q MD Vinh ondansetron (PF) (ZOFRAN) injection 4 mg 4 mg intravenous Q4H PRN Carla Jazmine Justice MD oxytocin (PITOCIN) bolus from bag solution 10 Units 10 Units intravenous Once PRN Carla Q MD Vinh oxytocin (PITOCIN) injection 10 Units 10 Units intramuscular Once PRN Carla Q MD Vinh sodium chloride 0.9 % flush 10 mL 10 mL intravenous PRN Regulo Jain MD 10 mL at 09/02/24 0454 sodium chloride 0.9 % flush 3 mL 3 mL intravenous PRN Carla Jazmine Justice MD sodium chloride 0.9 % flush 3 mL 3 mL intravenous Q12H ANGÉLICA Carla Jazmine Justice MD 3 mL at 09/01/24 2300 tranexamic acid (CYKLOKAPRON) injection 1,000 mg 1,000 mg intravenous Q30 Min PRN Carla Q MD Vinh ALLERGIES Allergies Allergen Reactions Penicillins Hives Sulfa (Sulfonamide Antibiotics) Hives FAMILY HX Family History Problem Relation Age of Onset Ulcerative colitis Mother Colon cancer Paternal Uncle Colon cancer Paternal Grandfather Crohn's disease Cousin SOCIAL HX Social History Tobacco Use Smoking status: Every Day Smokeless tobacco: Never Vaping Use Vaping status: Every Day Substances: Nicotine Substance Use Topics Alcohol use: No Drug use: Yes Types: Marijuana Comment: none today VITAL SIGNS IN LAST 24H Vitals: 09/02/24 0700 BP: 133/90 Pulse: 102 Resp: 16 Temp: 36.9 ??C (98.4 ??F) SpO2: Temp: [36.9 ??C (98.4 ??F)-37 ??C (98.6 ??F)] 36.9 ??C (98.4 ??F) Pulse: [85-113] 102 Resp: [16] 16 Blood Pressure : (119-140)/(74-90) 133/90 SpO2: [99 %] 99 % LABS Recent Results (from the past 36 hours) [facility] Collection Time: 09/01/24 11:11 PM Result Value Ref Range Extra Tube Auto Resulted CBC auto differential Collection Time: 09/01/24 11:13 PM Result Value Ref Range WBC 6.8 4 - 11 x10E9/L RBC Count 3.35 (L) 3.8 - 5.2 X10E12/L Hemoglobin 9.1 (L) 11.7 - 15.5 g/dL Hematocrit 27.6 (L) 35 - 47 % MCV 82 80 - 100 fL MCH 27.1 27 - 34 pg MCHC 32.9 32 - 36 g/dL RDW 17.3 (H) 11.5 - 15 % Platelet Count 122 (L) 150 - 450 X10E9/L MPV 10.6 7 - 12 fL Neutrophils Relative 76.1 % Lymphocytes Relative 14.9 % Monocytes Relative 8.7 % Eosinophils Relative 0.1 % Basophils Relative 0.2 % Neutrophils Absolute (A) 5.2 1.5 - 6.6 10*3/uL Lymphocytes Absolute 1.0 1.0 - 3.5 10*3/uL Monocytes Absolute 0.6 0.0 - 0.9 10*3/uL Eosinophils Absolute 0.0 0.0 - 0.4 10*3/uL Basophils Absolute 0.0 0.0 - 0.2 10*3/uL Differential Type AUTOMATED DIFFERENTIAL Comprehensive metabolic panel Collection Time: 09/01/24 11:13 PM Result Value Ref Range SODIUM 137 134 - 146 mmol/L POTASSIUM 4.0 3.5 - 5.0 mmol/L CHLORIDE 104 98 - 109 mmol/L CARBON DIOXIDE 24 22 - 32 mmol/L ANION GAP 9 5 - 15 mmol/L BLOOD UREA NITROGEN 8 5 - 23 mg/dL CREATININE 0.62 0.40 - 1.00 mg/dL GLUCOSE 72 65 - 99 mg/dL CALCIUM 8.4 (L) 8.5 - 10.5 mg/dL TOTAL PROTEIN 5.3 (L) 6.0 - 8.0 g/dL ALBUMIN 3.1 (L) 3.2 - 5.3 g/dL ALKALINE PHOSPHATASE 176 (H) 39 - 130 U/L AST 23 <=41 U/L ALT 19 <=31 U/L BILIRUBIN,TOTAL 0.5 0.3 - 1.2 mg/dL EGFR Non-Race Dependent >90 >=60 ml/min/1.73sq.m LDH Collection Time: 09/01/24 11:13 PM Result Value Ref Range LDH 167 100 - 235 U/L Uric acid Collection Time: 09/01/24 11:13 PM Result Value Ref Range URIC ACID 5.8 2.6 - 7.2 mg/dL Syphilis Total (Unknown Syphilis Status) Collection Time: 09/01/24 11:13 PM Result Value Ref Range SYPHILIS TOTAL <0.2 <=0.8 AI Type and screen(includes indirect trupti) Collection Time: 09/01/24 11:13 PM Result Value Ref Range ABO B RH Negative Antibody Screen Positive Ferritin Collection Time: 09/01/24 11:13 PM Result Value Ref Range FERRITIN 4 (L) 11 - 307 ng/mL Vitamin B12 Collection Time: 09/01/24 11:13 PM Result Value Ref Range VITAMIN B12 165 (L) 180 - 914 pg/mL Folate Collection Time: 09/01/24 11:13 PM Result Value Ref Range FOLIC ACID 8.4 >5.8 ng/mL Antibody ID Collection Time: 09/01/24 11:13 PM Result Value Ref Range Antibody ID Passive D Antibody, Patient Received RHIG Passive D Antibody, Patient Received RHIG Drug Screen, Urine Collection Time: 09/02/24 1:23 AM Specimen: Urine Result Value Ref Range AMPHETAMINE/METHAMP Negative Negative COCAINE METABOLITE Negative Negative ECSTASY Negative Negative METHADONE Negative Negative OPIATES Negative Negative OXYCODONE Negative Negative PHENCYCLIDINE Negative Negative CANNABINOIDS Negative Negative Urine Barbiturates Negative Negative BENZODIAZEPINES Negative Negative Fentanyl, Urine Qualitative Collection Time: 09/02/24 1:23 AM Specimen: Urine Result Value Ref Range FENTANYL, URINE QUAL. Negative Negative Urinalysis Collection Time: 09/02/24 1:23 AM Specimen: Urine Result Value Ref Range COLOR Yellow Yellow, Colorless TURBIDITY Hazy (A) Clear SPECIFIC GRAVITY 1.019 1.003 - 1.035 NITRITE Negative Negative PH,URINE 6.5 5.0 - 8.5 LEUKOCYTE ESTERASE Large (A) Negative PROTEIN 50 mg/dL (A) Negative KETONES (URINE) 60 mg/dL (A) Negative UROBILINOGEN <1.1 eu/dL <1.1 eu/dL BILIRUBIN (URINE) Negative Negative BLOOD/HGB Negative Negative MUCOUS Present (A) None R.B.CELLS 1 0 - 5 SQUAMOUS EPITHELIUM 7 (H) 0 - 5 TRANSITIONAL EPITH <1 (H) <=0 W.B.CELLS 5 0 - 5 GLUCOSE (URINE) Negative Negative Protein creat ratio Collection Time: 09/02/24 1:23 AM Specimen: Urine Result Value Ref Range URINE PROTEIN, RANDOM (MG/L) 640 (HH) <120 mg/L URINE CREATININE,RDM 125.69 mg/dL U/PRO/HEAD BUTLER RATIO CALC 0.51 (H) <=0.20 CBC auto differential Collection Time: 09/02/24 6:02 AM Result Value Ref Range WBC 5.7 4 - 11 x10E9/L RBC Count 2.98 (L) 3.8 - 5.2 X10E12/L Hemoglobin 8.1 (L) 11.7 - 15.5 g/dL Hematocrit 24.8 (L) 35 - 47 % MCV 83 80 - 100 fL MCH 27.2 27 - 34 pg MCHC 32.8 32 - 36 g/dL RDW 17.4 (H) 11.5 - 15 % Platelet Count 109 (L) 150 - 450 X10E9/L MPV 10.7 7 - 12 fL Neutrophils Relative 72.6 % Lymphocytes Relative 17.6 % Monocytes Relative 9.2 % Eosinophils Relative 0.3 % Basophils Relative 0.3 % Neutrophils Absolute (A) 4.2 1.5 - 6.6 10*3/uL Lymphocytes Absolute 1.0 1.0 - 3.5 10*3/uL Monocytes Absolute 0.5 0.0 - 0.9 10*3/uL Eosinophils Absolute 0.0 0.0 - 0.4 10*3/uL Basophils Absolute 0.0 0.0 - 0.2 10*3/uL Differential Type AUTOMATED DIFFERENTIAL Comprehensive metabolic panel Collection Time: 09/02/24 6:02 AM Result Value Ref Range SODIUM 134 134 - 146 mmol/L POTASSIUM 3.5 3.5 - 5.0 mmol/L CHLORIDE 103 98 - 109 mmol/L CARBON DIOXIDE 23 22 - 32 mmol/L ANION GAP 8 5 - 15 mmol/L BLOOD UREA NITROGEN 10 5 - 23 mg/dL CREATININE 0.58 0.40 - 1.00 mg/dL GLUCOSE 117 (H) 65 - 99 mg/dL CALCIUM 8.1 (L) 8.5 - 10.5 mg/dL TOTAL PROTEIN 5.4 (L) 6.0 - 8.0 g/dL ALBUMIN 2.9 (L) 3.2 - 5.3 g/dL ALKALINE PHOSPHATASE 165 (H) 39 - 130 U/L AST 22 <=41 U/L ALT 18 <=31 U/L BILIRUBIN,TOTAL 0.3 0.3 - 1.2 mg/dL EGFR Non-Race Dependent >90 >=60 ml/min/1.73sq.m Immunization History Administered Date(s) Administered COVID-19 Vaccine, vector-nr, [id number], PF, 0.5mL 08/08/2020 Rho (D) Immune Globulin 11/14/2017 LAB REVIEW ABO/Rh: Lab Results Component Value Date ABOINTEP B 09/01/2024 RHINTEP Negative 09/01/2024 Group B Strep: Lab Results Component Value Date EXTGBS Negative 01/10/2018 Rubella: No results found for: RUBELLAIMMU Hepatitis B Surface Antigen: No results found for: HEPBSAG HIV:No results found for: HIV1X2 RPR (VDRL): No results found for: SYPHILIS One hour GTT:No results found for: LABGLUC Three Hour GTT: Lab Results Component Value Date GLUF 78 11/20/2017 [id number] 184 (H) 11/20/2017 [id number] 150 (H) 11/20/2017 [id number] 119 (H) 11/20/2017 PHYSICAL EXAM Physical Exam Constitutional: Appearance: Normal appearance. Eyes: Extraocular Movements: Extraocular movements intact. Cardiovascular: Rate and Rhythm: Normal rate and regular rhythm. Heart sounds: Normal heart sounds. Pulmonary: Effort: Pulmonary effort is normal. Breath sounds: Normal breath sounds. No rales. Abdominal: Palpations: Abdomen is soft. Tenderness: There is no abdominal tenderness. Comments: Gravid Musculoskeletal: General: Normal range of motion. Cervical back: Normal range of motion. Right lower leg: Edema present. Left lower leg: Edema present. Comments: DTR 2+, +2 edema bilaterally up to knees Neurological: Mental Status: She is alert and oriented to person, place, and time. Psychiatric: Mood and Affect: Mood normal. Behavior: Behavior normal. FHT: Baseline Rate A: 135 bpm Mimbres: irregular Imaging: CTA chest 09/02/24: Redemonstration of the focal outpouching of the aorta, 1.7 cm in diameter and 0.7 cm in thickness, consistent with a ductus diverticulum; no evidence of acute aortic syndrome CTA chest 05/2020: ascending aorta is nonaneurysmal, previously identified focal outpouching of the aortic arch just distal to the subclavian artery, likely thought to be a prominent ductus diverticulum CTA chest 04/2020: small age indeterminate ulcer like projection along the lateral aspect of the aortic arch distal to the subclavian takeoff. 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 female with Estimated Date of Delivery: 09/15/24 at 38w1d who presents with preeclampsia without severe features in the setting of aortic ductus diverticulum Patient Active Problem List Diagnosis Bilateral pulmonary infiltrates on CXR Elevated blood pressure reading Preeclampsia with/without severe features - BP: overall normotensive overnight - asymptomatic - BP meds: none indicated at this time - plt 122>101, HELLP labs wnl 2. Aortic ductus diverticulum - CTA chest 09/02: IMPRESSION: No acute thoracic findings. Redemonstration of the focal outpouching of the aorta, consistent with a ductus diverticulum. No evidence of acute aortic syndrome - cardiology and vascular surgery consulted, appreciate recommendations 3. ROGER/MDD - continue Celexa 4. Ankylosing spondylitis - no medications - we will make anesthesia aware 5. Failed 1h, passed 3h 6. Iron-deficiency anemia - ferritin 4 - Restart PO iron after delivery 7. Gestational Thrombocytopenia - plt 122>101 8. H/o x1 - plan for delivery today 9. Routine antepartum care - Rh neg s/p Rhogam 07/16/24 Plan for delivery today for preeclampsia without severe features. Gisella Smalls DO Director Financial Analysis Resident, PGY-1 Cosigned by Dav Hall MD at 09/02/2024 10:26 AM EDT Associated attestation - Dav Hall MD - 09/02/2024 10:26 AM EDT Maternal- Medicine Attending: We discussed Karlos Guillen case at morning resident checkout and OB inpatient attending round. I have reviewed the patient's records then I have seen and examined this patient and discussed her history, physical exam, and assessment/plan with the residents, as well as coordination of care with her care team. I was directly involved in the management and treatment plan of the patient. I reviewed the resident's note. Additional Notes/Findings: Results from last 7 days Lab Units 09/02/24 0602 09/01/24 2313 WBC x10E9/L 5.7 6.8 HEMOGLOBIN g/dL 8.1* 9.1* HEMATOCRIT % 24.8* 27.6* PLATELETS X10E9/L 109* 122* Results from last 7 days Lab Units 09/02/24 0602 09/01/24 2313 POTASSIUM mmol/L 3.5 4.0 CHLORIDE mmol/L 103 104 CO2 mmol/L 23 24 BUN mg/dL 10 8 CREATININE mg/dL 0.58 0.62 CALCIUM mg/dL 8.1* 8.4* ALK PHOS U/L 165* 176* ALT U/L 18 19 AST U/L 22 23 Preeclampsia without severe features Aortic ductus diverticulum stable appearance on CT angiogram Ankylosing spondylitis not on medications Iron-deficiency anemia with a history of hemorrhage Thrombocytopenia History of 1 prior Appreciate cardiology and vascular surgery recommendations We will review with the vascular team recommendations for blood pressure goal less than 140/90 or less than 130/80. Due to the presence of aortic ductus diverticulum beta malathi medications such as labetalol should be considered for blood pressure control The patient is scheduled for a section 2:00 p.m. today Monitors strictly intake and output and trend her HELLP labs Reviewed with the patient long-term risks of aortic ductus diverticulum and she will need to have close follow-up Risk of preeclampsia recurrence also discussed and increased risk of future complications in another Save spacing reviewed the patient is undecided regarding contraception She is at risk of hemorrhage please ensure the patient is cross- matched and has 2 IVs Please repeat HELLP labs if the patient develops signs and symptoms of severe preeclampsia initiatemagnesium sulfate for seizure prophylaxis All questions and concerns the patient had were answered I personally spent over half of a total 80 minutes in counseling and discussion with the patient and coordination of care as described above. Dav Hall MD, FACOG (she/hers) Maternal- Medicine [facility] [address] [place] [address] This document was created with Voiceit technology. Though I make every effort to review the dictation as it is transcribed, on occasion the spoken word can be misinterpreted by the technology leading to inappropriate words, phrases, or sentences. This note is addressed to the requesting provider as a consultation for clinical guidance. Specificmedical abbreviations are occasionally used and those are generally approved by the [place]?Board of?Obstetrics and?Gynecology?as well as?[place]???s abbreviations. The above plan of care was based solely on the diagnoses for which a consultation was requested. ?More frequent testing may be indicated based on her other medical/obstetrical conditions. The management of other or medical conditions is beyond the scope of requested consultation and will c ontinue to be followed by the primary media production manager or primary care provider. * Abhishek Keyes MD - 09/02/2024 1:01 AM EDTAssociated Order(s): IP CONSULT TO VASCULAR SURGERY Images from the original note were not included. Vascular Consultation Note Chief Complaint Known ductus diverticulum Assessment/Plan Karlos Guillen is a 29 y.o. White or female who w/ PMH of ankylosing spondylitis, prior and known ductus diverticulum who presents to rule out pre-eclampsia. Vascular Surgery consulted for evaluation of previously noted ductus diverticulum. Would ideally obtain repeat CTA Chest to evaluate previously noted ductus diverticulum, however, given that patient is and asymptomatic at this time, would defer decision to OBGYN service Will discuss further plan of care once imaging completed History and Present Illness Karlos Guillen is a 29 y.o. White or female who w/ PMH of ankylosing spondylitis, prior and known ductus diverticulum who presents to rule out pre-eclampsia. She wasnoted to be hypertensive at her recent office visit with elevated urine protein. Patient had an incidental finding on CTA Chest in 2020 of ductus diverticulum during workup for pneumonia. She was scheduled for outpatient follow-up for monitoring but this was not completed. Vascular Surgery was consulted for evaluation of this finding from 2020. On evaluation, patient denies any current or recent chest, abdominal or back pain. She states that her blood pressure is generally well controlled, however, it has intermittently been elevated during her . She is planned for later today. Noted to be vitally stable with SBP below 140. SpO2 99% on RA. Denies any changes to upper or lower extremity motor or sensory function. Past Medical History Past Medical History: Diagnosis Date Ankylosing spondylitis ([facility]) Anxiety Ulcer of aorta Past Surgical History Past Surgical History: Procedure Laterality Date N/A 02/05/2018 Performed by Julia Dunbar MD at [facility] OR COLONOSCOPY with bx's N/A 06/21/2020 Performed by Sterling Champion MD at [facility] ENDOSCOPY GANGLION CYST EXCISION Left Allergies Allergies Allergen Reactions Penicillins Hives Sulfa (Sulfonamide Antibiotics) Hives Current Medications sodium chloride, 3 mL, intravenous, Q12H [facility] Current Infusions lactated ringer's, 999 mL/hr lactated ringer's, 125 mL/hr lactated ringer's, 250 mL/hr oxytocin, 42 gena-units/min AND lactated ringer's, 83 mL/hr Home Medications Medications Prior to Admission Medication Sig Dispense Refill Last Dose/Taking 21-iron fu-folic acid ( COMPLETE) 14 mg iron- 400 mcg tablet Take 1 tablet by mouth in the morning. 30 tablet 0 09/01/2024 citalopram (CeleXA) 20 mg tablet Take 20 mg by mouth daily as needed (anxiety). (Patient not taking: Reported on 09/01/2024) More than a month promethazine (PHENERGAN) 25 mg tablet Take 1 tablet (25 mg total) by mouth every 6 (six) hours as needed for nausea or vomiting. (Patient not taking: Reported on 02/03/2024) 15 tablet 0 promethazine (PHENERGAN) 25 mg tablet Take 1 tablet (25 mg total) by mouth every 6 (six) hours as needed for nausea or vomiting. (Patient not taking: Reported on 09/01/2024) 10 tablet 0 More than a month Social History Social History Socioeconomic History Marital status: Spouse name: Not on file Number of children: Not on file Years of education: Not on file Highest education level: Not on file Occupational History Not on file Tobacco Use Smoking status: Every Day Smokeless tobacco: Never Vaping Use Vaping status: Every Day Substances: Nicotine Substance and Sexual Activity Alcohol use: No Drug use: Yes Types: Marijuana Comment: none today Sexual activity: Defer Other Topics Concern Not on file Social History Narrative Not on file Social Drivers of Health Financial Resource Strain: Low Risk (07/08/2023) Received from [facility] Overall Financial Resource Strain (CARDIA) Difficulty of Paying Living Expenses: Not very hard Food Insecurity: No Food Insecurity (02/03/2024) Hunger Screening Food Insecurity - Worry: Never True Food Insecurity - Inability: Never True Transportation Needs: No Transportation Needs (07/08/2023) Received from [facility] PRAPARE - Transportation Lack of Transportation (Medical): No Lack of Transportation (Non-Medical): No Physical Activity: Insufficiently Active (07/08/2023) Received from [facility] Exercise Vital Sign Days of Exercise per Week: 2 days Minutes of Exercise per Session: 20 min Stress: Stress Concern Present (07/08/2023) Received from [facility] [place] [employer] - Occupational Stress Questionnaire Feeling of Stress : Very much Social Connections: Moderately Isolated (07/08/2023) Received from [facility] Social Connection and Isolation Panel [NHANES] Frequency of Communication with Friends and Family: More than three times a week Frequency of Social Gatherings with Friends and Family: Once a week Attends Nondenominational Services: Never Active Member of Clubs or Organizations: No Attends Club or Organization Meetings: Never Marital Status: Interpersonal Safety: Unknown (05/09/2023) Received from [facility] [place] Safety & Environment Fear of Current or Ex-Partner: Not on file Emotionally Abused: Not on file Physically Abused: Not on file Sexually Abused: Not on file Physically or Sexually Abused: Not on file Housing Instability: Low Risk (07/08/2023) Received from [facility] Housing Stability Vital Sign Unable to Pay for Housing in the Last Year: No Number of Places Lived in the Last Year: 1 Unstable Housing in the Last Year: No Primary Care Physician NO PCP, NO PCP Family Histroy Family History Problem Relation Age of Onset Ulcerative colitis Mother Colon cancer Paternal Uncle Colon cancer Paternal Grandfather Crohn's disease Cousin Review Of Systems All 14 points were reviewed and were negative except for what mentioned in the history of presenting illness. Objective Vital signs: Vitals: 09/01/24 2300 09/01/24 2302 09/01/24 2315 09/01/24 2330 BP: 140/82 137/86 136/83 Pulse: 90 Resp: Temp: TempSrc: SpO2: Weight: 116.1 kg (256 lb) Height: 160 cm (5' 3 ) Temperature Range Last 24 Hours : Temp: 37 ??C (98.6 ??F) Temp Av ??C (98.6 ??F) Min: 37 ??C (98.6 ??F) Max: 37 ??C (98.6 ??F) Admit Weight: 116.1 kg (256 lb) Body mass index is 45.35 kg/m??. Last Weights: Wt Readings from Last 3 Encounters: 09/01/24 116.1 kg (256 lb) 02/03/24 72.8 kg (160 lb 9.6 oz) 07/29/22 79.4 kg (175 lb) I/O's:No intake or output data in the 24 hours ending 09/02/24 0001 Physical Exam General: Alert, NAD HEENT: NC, atraumatic Neck: supple, no tracheal deviation CV: Normotensive, no tachycardia Lungs: Nonlabored, maintaining saturation on room air Abd: Soft, nontender, nondistended Skin: Warm, dry, capillary refill < 2 sec Neuro / MSK: b/l LE edema Vascular Exam Vascular: RLE Pulses: DP: 2+, palpable PT: 2+, palpable LLE Pulses: DP: 2+, palpable PT: 2+, palpable Labs Results from last 7 days Lab Units 09/01/24 2313 WBC x10E9/L 6.8 HEMOGLOBIN g/dL 9.1* HEMATOCRIT % 27.6* PLATELETS X10E9/L 122* MONOS PCT AUTO % 8.7 EOS PCT AUTO % 0.1 Results from last 7 days Lab Units 09/01/24 2313 SODIUM mmol/L 137 POTASSIUM mmol/L 4.0 CO2 mmol/L 24 BUN mg/dL 8 CREATININE mg/dL 0.62 GLUCOSE mg/dL 72 Cultures Microbiology Results (last 21 days) Procedure Component Value - Date/Time Urine Culture Urine, Clean Catch Midstream [[id number]] Lab Status: No result Specimen: Urine, Clean Catch Midstream Recent Studies No results found. Abhishek Keyes, PGY2 Vascular Surgery Cosigned by Alfredo Payton DO at 09/07/2024 7:27 AM EDT Associated attestation - Alfredo Payton DO - 09/07/2024 7:27 AM EDT I reviewed the resident's note and discussed the case with the resident. This specific service willnot be billed. Additional findings/notes: Patient will follow up post hospitalization as an outpatient. documented in this encounter Nursing Notes * Lakisha Wayen RN - 09/04/2024 7:06 PM EDT AVS and discharge instructions reviewed with the patient. AVS signed and copy given to patient. Shedenies further questions at time of discharge. Declines wheelchair, escorted downstairs by RN. Discharged to home in stable condition at 1805 documented in this encounter Miscellaneous Notes * Plan of Care - Amie Rdz RN - 09/03/2024 9:09 PM EDT Problem: Pain Goal: Patient goal is pain score less than 4, able to rest, and participant in treatment plan as appropriate Description: INTERVENTIONS: 1. Encourage patient or legal communications representative to report early pain and ask for pain medicine when needed 2. Assess pain using appropriate pain scale and include the scale used when documenting 3. Administer analgesics based on type and severity of pain and evaluate response within appropriate time frame 4. Implement non-pharmacological measures as appropriate and evaluate response 5. Consider cultural and social influences on pain and pain management 6. Notify LIP if interventions ineffective or patient reports new pain 7. Monitor vital signs including pulse ox, end-tidal CO2 based on pain intervention 8. Reassess pain per policy 9. Teach patient or legal communications representative interventions for comforting Outcome: Progressing Note: Evaluation of progress towards goal: Patient verbalizes pain maintained with pain medication ordered. Problem: Safety Goal: Patient will be injury free during hospitalization Description: INTERVENTIONS: 1. Assess patient's risk for falls and implement fall prevention plan of care per policy 2. Provide and maintain a safe environment 3. Proper use of double Identifiers 4. Medication administration using the 5 rights 5. Hand hygiene 6. Specimens are labeled at the bedside 7. Instruct patient/ patient communications representative about use of safety devices 8. Include patient/ patient communications representative in decisions related to safety Outcome: Progressing Note: Evaluation of progress towards goal: Safety maintained. Medications given using five rights. Fall risk precautions in place. Problem: Infection Goal: Absence of infection during hospitalization Description: INTERVENTIONS 1. Assess and monitor for signs and symptoms of infection. 2. Monitor lab/diagnostic results. 3. Monitor all insertion sites i.e., indwelling lines, tubes and drains. 4. Monitor endotracheal (as able) and nasal secretions for changes in amount and color. 5. Administer medications as ordered. 6. Instruct and encourage patient and family to use good hand hygiene technique. 7. Identify and instruct patient/patient communications representative in use of appropriate isolation precautionsfor identified infection/symptoms. 8. Provide and discuss with patient/patient communications representative on educational MDRO sheet. 9. Encourage and monitor nutritional status daily and consult logistics solution manager if indicated. 10. Implement neutropenic guidelines as needed. Outcome: Progressing Note: Evaluation of progress towards goal: No signs/symptoms of infection noted. Please see vitals in flowsheet. Problem: Knowledge Deficit Goal: Patient/patient communications representative demonstrates understanding of disease process, treatment plan,medications, and discharge instructions Description: INTERVENTIONS 1. Complete learning assessment and assess knowledge base 2. Provide teaching at level of understanding 3. Provide teaching via preferred learning method(s) Outcome: Progressing Note: Evaluation of progress towards goal: Patient voices and demonstrates understanding of self care. Asks appropriate questions as they arise. Problem: Discharge Planning Goal: Discharge to post-acute care, other facility, or home with appropriate resources Description: Patient's goal is: INTERVENTIONS 1. Conduct assessment to determine patient/family and health care team treatment goals, and need for post-acute services based on payer coverage, community resources, and patient preferences, and barriers to discharge 2. Coordinate with Social work, Care Navigation, and Utilization Review to arrange appropriate level of services according to patient's needs based on patient preference and payer coverage in collaboration with the physician and health care team 3. Address psychosocial, clinical, and financial barriers to discharge as identified in assessment in conjunction with the patient/family and health care team 4. Consult appropriate ancillary services (i.e.. PT/OT/ST, etc) as needed 5. Communicate with and update the patient/family, physician, and health care team regarding progress on the discharge plan 6. Identify discharge learning needs (meds, wound care, etc). 7. Arrange for needed discharge transportation as appropriate Outcome: Progressing Note: Evaluation of progress towards goal: Anticipate discharge home with instructions, voices understanding of instructions given. Problem: Moderate - High Risk Fall Score Description: [place]ak Fall Score of =/> 25 or indicated by [facility] Assessment Goal: Patient should be free from fall Description: Interventions: 1. [place] to environment 2. Hourly rounds addressing the 4 P's (Pain, Positioning, Possessions, Potty) 3. Clear area of hazards (spills, clutter, electrical cords, unnecessary equipment) 4. Place equipment (bed & TV controls, call light, phone, urinal) within reach 5. Encourage patient to wear glasses and hearing aides as appropriate 6. Maintain bed in lowest position 7. Lock wheels on bed/wheelchair 8. Provide adequate lighting, including night light 9. Assess need for additional bedding, food/fluids, pain med's prior to sleep/routinely 10. Provide gripper slippers or personal non-skid footwear 11. Teach patient and patient communications representative to maintain environment for safety and engage in all aspects of fall prevention program 12. Remind patient to call for help before getting out of bed 13. Initiate bed/chair/exit alarms supportive devices as appropriate, (chair wedge, no-skid floor mat, raised edge mattress, hip protectors) 14. Locate patient bed assignment for optimal visualization 15. Evaluate and identify Safe Patient Handling Equipment needs 16. Provide supervision when out of bed or chair 17. Utilize gait belt as needed to assist with ambulation 18. Place adaptive equipment (cane, walker) within reach 19. Request patient communications representative bring adaptive equipment/mobility aids from home or obtain and provide as needed 20. Consult pharmacy regarding effects of med's affecting mobility, cognition, and alternatives 21. Obtain physician order for PT if risk factors associated with mobility are present 22. Obtain physician order for OT as appropriate 23. Utilize diversional activities 24. Educate patient and patient communications representative how to maintain a safe environment during visitationtimes (notify nurse prior to leaving bedside) 25. Consider appropriateness of medical or non-medical service representative 26. Set up voiding schedule as appropriate (every 2 hours) Outcome: Progressing Note: Evaluation of progress towards goal: Patient free from falls, safety maintained. Problem: Hypertension during Goal: Patient will understand hypertension during Description: INTERVENTION 1. Educate patient about signs and symptoms of hypertension in Outcome: Progressing Note: Evaluation of progress towards goal: pt understanding of HTN Goal: Patient will verbalize decreased headache Description: INTERVENTION 1. Assess headache pain Outcome: Progressing Note: Evaluation of progress towards goal: no headache reported Problem: Potential for Compromised Skin Integrity Goal: Skin integrity is maintained or improved Description: Patient's goal is: INTERVENTIONS 1. Perform initial skin assessment on admission and as needed 2. Turn patient every 2 hours and PRN 3. Relieve pressure to bony prominences 4. Avoid shearing 5. Keep skin clean and dry 6. Alternate a full bath with partial baths for elderly 7. Apply lotion/moisturizer on skin 8. Monitor patient's hygiene practices 9. Float heels 10. Collaborate with interdisciplinary team and initiate plans and interventions as needed Outcome: Progressing Note: Evaluation of progress towards goal: Skin intact, no skin breakdown noted. Goal: Patient's nutritional intake is adequate Description: Patient's goal is: INTERVENTIONS 1. Assess and monitor food intake and supplements, patient food preferences, nausea, vomiting, labs, oral cavity (gums, teeth, tongue, mucosa), proper denture fit, and cultural beliefs 2. Monitor for signs of hypoglycemia and hyperglycemia 3. Collaborate with interdisciplinary team and initiate plan and interventions as ordered 4. Monitor patient's weight 5. Assist patient with meals/food selection 6. Assist patient with eating 7. Allow adequate time for meals 8. Provide pleasant environment during mealtime 9. Increase social contact during mealtimes 10. Plan activities to conserve energy 11. Encourage/perform oral hygiene as appropriate 12. Encourage patient to take dietary supplement as ordered 13. Collaborate with clinical logistics solution manager 14. Include patient/ patient's communications representative in decisions related to nutrition Outcome: Progressing Note: Evaluation of progress towards goal: Patient has adequate intake. Tolerating diet as ordered. Problem: Urinary Incontinence Goal: Perineal skin integrity is maintained or improved Description: INTERVENTIONS 1. Assess genitourinary system, perineal skin, labs (urinalysis), and history of incontinence to include past management, aggravating, and alleviating factors 2. Keep skin clean and dry 3. Apply skin protectant 4. Develop skin care regimen 5. Provide privacy when changing patients incontinence device to maintain their dignity 6. Consider placing an indwelling catheter 7. Collaborate with interdisciplinary team and initiate plans and interventions as needed Outcome: Progressing Note: Evaluation of progress towards goal: Perineal skin integrity maintained, bandar care encouragedevery 3-4 hours to keep skin clean and dry Problem: Care Goal: Patient vital signs are stable Description: INTERVENTIONS 1. Assess vital signs - 2. Turn, cough, & deep breathe Outcome: Progressing Note: Evaluation of progress towards goal: vital signs WNL, lung sounds clear, no redness or tenderness in calves Goal: Dressing intact until removed with any drainage marked Description: INTERVENTIONS 1. Check dressing Outcome: Progressing Note: Evaluation of progress towards goal: Incision SHILPI, no dressing in place. No drainage noted. Goal: Fundus firm at midline Description: INTERVENTIONS 1. Assess fundus Outcome: Progressing Note: Evaluation of progress towards goal: Fundus firm at midline Problem: Optimal Supply and Comfortable Goal: Adequate feeds Description: INTERVENTIONS 1. Offer breast at least 8-12 times in first 24 hours 2. After first day, baby should feed at least 8-12 times in 24 hours. Wake baby at least every 3 hours to feed 3. Offer both breasts 4. Keep baby actively feeding at breast by using breast compressions or stimulating baby. Undressbaby for feeds Outcome: Progressing Note: Evaluation of progress towards goal: bottle feeding Additional Comments: * Note - Sarah Jim RN - 09/03/2024 1:25 PM EDT Feeding plan handout given to parents and reviewed. Pump set up and instructions reviewed for pumping. Follow feeding plan guidelines as stated below. Discussed that it is common for babies to need time to learn the skill of . Encouraged to follow the feeding plan below to ensure baby is getting enough milk and stimulate/protect mother's milk supply. Written feeding plan provided. Patient verbally understands teaching. If your baby is greater than 24 hours old and is not going well: Offer the breast every 1-3 hours. If baby does not take a full feed at breast, move to step 2. Supplement baby with pumped milk or formula using paced bottle feeding (see below for supplement amount) Pump for 15-20 minutes with double electric breast pump Baby's Age (Hours) Average Intake (Per Feed) <24 2-10 mls 24-48 5-15 mls 48-72 15-30 mls 72-96 30-60 mls Patient educated that this feeding plan is meant to be short term: it is a bridge to protect milk supply and feed the baby while they get bigger, stronger, and more effective at . Encouraged to make an outpatient appointment after discharge with by calling [phone]. Parents feeding baby through two feeds with one bottle. Educated the provided formula bottles are good for one hour after opening and must discard the unused portion. Parents verbalize understanding.Encouraged to call with any questions. * Plan of Care - Zeenat White RN - 09/03/2024 10:56 AM EDT Problem: Pain Goal: Patient goal is pain score less than 4, able to rest, and participant in treatment plan as appropriate Description: INTERVENTIONS: 1. Encourage patient or legal communications representative to report early pain and ask for pain medicine when needed 2. Assess pain using appropriate pain scale and include the scale used when documenting 3. Administer analgesics based on type and severity of pain and evaluate response within appropriate time frame 4. Implement non-pharmacological measures as appropriate and evaluate response 5. Consider cultural and social influences on pain and pain management 6. Notify LIP if interventions ineffective or patient reports new pain 7. Monitor vital signs including pulse ox, end-tidal CO2 based on pain intervention 8. Reassess pain per policy 9. Teach patient or legal communications representative interventions for comforting Outcome: Progressing Note: Evaluation of progress towards goal: Patient displays adequate comfort level. PO pain medication given as needed per orders. Problem: Safety Goal: Patient will be injury free during hospitalization Description: INTERVENTIONS: 1. Assess patient's risk for falls and implement fall prevention plan of care per policy 2. Provide and maintain a safe environment 3. Proper use of double Identifiers 4. Medication administration using the 5 rights 5. Hand hygiene 6. Specimens are labeled at the bedside 7. Instruct patient/ patient communications representative about use of safety devices 8. Include patient/ patient communications representative in decisions related to safety Outcome: Progressing Note: Evaluation of progress towards goal: Patient has remained free from injury and falls. Call light within reach. Problem: Infection Goal: Absence of infection during hospitalization Description: INTERVENTIONS 1. Assess and monitor for signs and symptoms of infection. 2. Monitor lab/diagnostic results. 3. Monitor all insertion sites i.e., indwelling lines, tubes and drains. 4. Monitor endotracheal (as able) and nasal secretions for changes in amount and color. 5. Administer medications as ordered. 6. Instruct and encourage patient and family to use good hand hygiene technique. 7. Identify and instruct patient/patient communications representative in use of appropriate isolation precautionsfor identified infection/symptoms. 8. Provide and discuss with patient/patient communications representative on educational MDRO sheet. 9. Encourage and monitor nutritional status daily and consult logistics solution manager if indicated. 10. Implement neutropenic guidelines as needed. Outcome: Progressing Note: Evaluation of progress towards goal: no s/s of infection present Problem: Knowledge Deficit Goal: Patient/patient communications representative demonstrates understanding of disease process, treatment plan,medications, and discharge instructions Description: INTERVENTIONS 1. Complete learning assessment and assess knowledge base 2. Provide teaching at level of understanding 3. Provide teaching via preferred learning method(s) Outcome: Progressing Note: Evaluation of progress towards goal: Patient demonstrates understanding of routine bandar and care. Will provide education as needed Problem: Discharge Planning Goal: Discharge to post-acute care, other facility, or home with appropriate resources Description: Patient's goal is: INTERVENTIONS 1. Conduct assessment to determine patient/family and health care team treatment goals, and need for post-acute services based on payer coverage, community resources, and patient preferences, and barriers to discharge 2. Coordinate with Social work, Care Navigation, and Utilization Review to arrange appropriate level of services according to patient's needs based on patient preference and payer coverage in collaboration with the physician and health care team 3. Address psychosocial, clinical, and financial barriers to discharge as identified in assessment in conjunction with the patient/family and health care team 4. Consult appropriate ancillary services (i.e.. PT/OT/ST, etc) as needed 5. Communicate with and update the patient/family, physician, and health care team regarding progress on the discharge plan 6. Identify discharge learning needs (meds, wound care, etc). 7. Arrange for needed discharge transportation as appropriate Outcome: Progressing Note: Evaluation of progress towards goal: Discharge needs are being identified. Problem: Moderate - High Risk Fall Score Description: Novak Fall Score of =/> [address] [facility] Assessment Goal: Patient should be free from fall Description: Interventions: 1. [place] to environment 2. Hourly rounds addressing the 4 P's (Pain, Positioning, Possessions, Potty) 3. Clear area of hazards (spills, clutter, electrical cords, unnecessary equipment) 4. Place equipment (bed & TV controls, call light, phone, urinal) within reach 5. Encourage patient to wear glasses and hearing aides as appropriate 6. Maintain bed in lowest position 7. Lock wheels on bed/wheelchair 8. Provide adequate lighting, including night light 9. Assess need for additional bedding, food/fluids, pain med's prior to sleep/routinely 10. Provide gripper slippers or personal non-skid footwear 11. Teach patient and patient communications representative to maintain environment for safety and engage in all aspects of fall prevention program 12. Remind patient to call for help before getting out of bed 13. Initiate bed/chair/exit alarms supportive devices as appropriate, (chair wedge, no-skid floor mat, raised edge mattress, hip protectors) 14. Locate patient bed assignment for optimal visualization 15. Evaluate and identify Safe Patient Handling Equipment needs 16. Provide supervision when out of bed or chair 17. Utilize gait belt as needed to assist with ambulation 18. Place adaptive equipment (cane, walker) within reach 19. Request patient communications representative bring adaptive equipment/mobility aids from home or obtain and provide as needed 20. Consult pharmacy regarding effects of med's affecting mobility, cognition, and alternatives 21. Obtain physician order for PT if risk factors associated with mobility are present 22. Obtain physician order for OT as appropriate 23. Utilize diversional activities 24. Educate patient and patient communications representative how to maintain a safe environment during visitationtimes (notify nurse prior to leaving bedside) 25. Consider appropriateness of medical or non-medical service representative 26. Set up voiding schedule as appropriate (every 2 hours) Outcome: Progressing Note: Evaluation of progress towards goal: safety maintained Problem: Hypertension during Goal: Patient will understand hypertension during Description: INTERVENTION 1. Educate patient about signs and symptoms of hypertension in Outcome: Progressing Note: Evaluation of progress towards goal: will provide education as needed Goal: Patient will verbalize decreased headache Description: INTERVENTION 1. Assess headache pain Outcome: Progressing Note: Evaluation of progress towards goal: patient denies MAL[place]O Problem: Potential for Compromised Skin Integrity Goal: Skin integrity is maintained or improved Description: Patient's goal is: INTERVENTIONS 1. Perform initial skin assessment on admission and as needed 2. Turn patient every 2 hours and PRN 3. Relieve pressure to bony prominences 4. Avoid shearing 5. Keep skin clean and dry 6. Alternate a full bath with partial baths for elderly 7. Apply lotion/moisturizer on skin 8. Monitor patient's hygiene practices 9. Float heels 10. Collaborate with interdisciplinary team and initiate plans and interventions as needed Outcome: Progressing Note: Evaluation of progress towards goal: skin integrity maintained Goal: Patient's nutritional intake is adequate Description: Patient's goal is: INTERVENTIONS 1. Assess and monitor food intake and supplements, patient food preferences, nausea, vomiting, labs, oral cavity (gums, teeth, tongue, mucosa), proper denture fit, and cultural beliefs 2. Monitor for signs of hypoglycemia and hyperglycemia 3. Collaborate with interdisciplinary team and initiate plan and interventions as ordered 4. Monitor patient's weight 5. Assist patient with meals/food selection 6. Assist patient with eating 7. Allow adequate time for meals 8. Provide pleasant environment during mealtime 9. Increase social contact during mealtimes 10. Plan activities to conserve energy 11. Encourage/perform oral hygiene as appropriate 12. Encourage patient to take dietary supplement as ordered 13. Collaborate with clinical logistics solution manager 14. Include patient/ patient's communications representative in decisions related to nutrition Outcome: Progressing Note: Evaluation of progress towards goal: nutritional intake is adequate Problem: Urinary Incontinence Goal: Perineal skin integrity is maintained or improved Description: INTERVENTIONS 1. Assess genitourinary system, perineal skin, labs (urinalysis), and history of incontinence to include past management, aggravating, and alleviating factors 2. Keep skin clean and dry 3. Apply skin protectant 4. Develop skin care regimen 5. Provide privacy when changing patients incontinence device to maintain their dignity 6. Consider placing an indwelling catheter 7. Collaborate with interdisciplinary team and initiate plans and interventions as needed Outcome: Progressing Note: Evaluation of progress towards goal: perineal skin integrity maintained Problem: Care Goal: Patient vital signs are stable Description: INTERVENTIONS 1. Assess vital signs - 2. Turn, cough, & deep breathe Outcome: Progressing Note: Evaluation of progress towards goal: vitals and assessment wnl at this time. Will assess per protocol Goal: Dressing intact until removed with any drainage marked Description: INTERVENTIONS 1. Check dressing Outcome: Progressing Note: Evaluation of progress towards goal: incision is CDI Goal: Fundus firm at midline Description: INTERVENTIONS 1. Assess fundus Outcome: Progressing Note: Evaluation of progress towards goal: fundus is firm and midline. Will assess per protocol Problem: Optimal Supply and Comfortable Goal: Adequate feeds Description: INTERVENTIONS 1. Offer breast at least 8-12 times in first 24 hours 2. After first day, baby should feed at least 8-12 times in 24 hours. Wake baby at least every 3 hours to feed 3. Offer both breasts 4. Keep baby actively feeding at breast by using breast compressions or stimulating baby. Undressbaby for feeds Outcome: Progressing Note: Evaluation of progress towards goal: encouraged to latch q2-3h. Feeding plan started Additional Comments: * Note - Roseanne Ivory RN - 09/03/2024 10:40 AM EDT The parents state baby hasn't had a good feeding at breast or more than just a few drops of colostrum since 0200 today. This LC assisted the patient with getting baby latched in the side lying position on mom's right breast. The patient states she didn't make any milk for her first child. Educationdone with the parents that the patient might have a low milk supply with this child as well. This LC started baby on a feeding plan and started the parents supplementing baby with formula due to the mother's history of no milk coming in with her first child. Education done with both parents to supplement baby with 15 mL of formula after she breastfeeds. Taught them to go back and forth from breast to bottle to encourage baby to suckle longer on the breast. Swallows were noted at the breast during this feeding and baby was suckling vigorously on the breast. The patient knows to pump her breasts for 15-20 minutes every 2-3 hours. Feeding plan as follows: Mother to attempt to breastfeed baby as well as possible every 3 hours. May use the bottle as a teaser to get baby awake and onto the breast. Supplement baby with at least 15 mL of pumped milk and or formula if baby doesn't breastfeed for atleast 10-15 minutes on one breast. In order not to supplement baby, baby must have a good feeding with several periods of active suckling and swallowing during the feeding. Mother to pump her breasts for 15 minutes every 3 hours Hold baby skin to skin often. * Plan of Care - Opal Lopez RN - 09/03/2024 12:35 AM EDT Problem: Optimal Supply and Comfortable Goal: Adequate feeds Description: INTERVENTIONS 1. Offer breast at least 8-12 times in first 24 hours 2. After first day, baby should feed at least 8-12 times in 24 hours. Wake baby at least every 3 hours to feed 3. Offer both breasts 4. Keep baby actively feeding at breast by using breast compressions or stimulating baby. Undressbaby for feeds Outcome: Progressing Note: Evaluation of progress towards goal: See LC note Additional Comments: * Note - Opal Lopez RN - 09/03/2024 12:34 AM EDT Met patient at bedside. Discussed current goals with and education given along with support handout/warmline contact information given. Referred pt to [employer] brochurein yellow admission folder for additional feeding instructions and information. Discussed typical feeding patterns. Encouraged skin to skin as much as possible and to offer breast at least 8-12x/day. Reviewed hand expression and spoon feeding if baby is sleepy or pt is having difficulty latching baby. Recommendations for pacifier use/rationale discussed. Pt has quality breast pump for home use. Mom will only produce the amount of breastmilk that her baby demands. It is true that hormones drive the production of very early breastmilk, called colostrum. However, in order to keep producing breastmilk, your baby needs to keep sucking from the breast. The overall level of milk production varies based on the babys amount of sucking and how much milk is actually removed. Encouraged to keeping a feeding diary. Reviewed frequency of feeds, early feeding cues and wet/soiled diapers needed daily. Pt states understanding, denies questions/concerns at this time. Encouraged to call out for LC for any further needs. * Plan of Care - Amie Rdz RN - 09/02/2024 10:09 PM EDT Problem: Care Goal: Patient vital signs are stable Description: INTERVENTIONS 1. Assess vital signs - 2. Turn, cough, & deep breathe Outcome: Progressing Note: Evaluation of progress towards goal: Vital signs WNL Problem: Care Goal: Dressing intact until removed with any drainage marked Description: INTERVENTIONS 1. Check dressing Outcome: Progressing Note: Evaluation of progress towards goal: Dressing intact, no drainage present Additional Comments: * Plan of Care - Amie Rdz RN - 09/02/2024 10:06 PM EDT Problem: Pain Goal: Patient goal is pain score less than 4, able to rest, and participant in treatment plan as appropriate Description: INTERVENTIONS: 1. Encourage patient or legal communications representative to report early pain and ask for pain medicine when needed 2. Assess pain using appropriate pain scale and include the scale used when documenting 3. Administer analgesics based on type and severity of pain and evaluate response within appropriate time frame 4. Implement non-pharmacological measures as appropriate and evaluate response 5. Consider cultural and social influences on pain and pain management 6. Notify LIP if interventions ineffective or patient reports new pain 7. Monitor vital signs including pulse ox, end-tidal CO2 based on pain intervention 8. Reassess pain per policy 9. Teach patient or legal communications representative interventions for comforting Outcome: Progressing Note: Evaluation of progress towards goal: Patient verbalizes pain maintained with pain medication ordered. Problem: Safety Goal: Patient will be injury free during hospitalization Description: INTERVENTIONS: 1. Assess patient's risk for falls and implement fall prevention plan of care per policy 2. Provide and maintain a safe environment 3. Proper use of double Identifiers 4. Medication administration using the 5 rights 5. Hand hygiene 6. Specimens are labeled at the bedside 7. Instruct patient/ patient communications representative about use of safety devices 8. Include patient/ patient communications representative in decisions related to safety Outcome: Progressing Note: Evaluation of progress towards goal: Safety maintained. Medications given using five rights. Fall risk precautions in place. Problem: Infection Goal: Absence of infection during hospitalization Description: INTERVENTIONS 1. Assess and monitor for signs and symptoms of infection. 2. Monitor lab/diagnostic results. 3. Monitor all insertion sites i.e., indwelling lines, tubes and drains. 4. Monitor endotracheal (as able) and nasal secretions for changes in amount and color. 5. Administer medications as ordered. 6. Instruct and encourage patient and family to use good hand hygiene technique. 7. Identify and instruct patient/patient communications representative in use of appropriate isolation precautionsfor identified infection/symptoms. 8. Provide and discuss with patient/patient communications representative on educational MDRO sheet. 9. Encourage and monitor nutritional status daily and consult logistics solution manager if indicated. 10. Implement neutropenic guidelines as needed. Outcome: Progressing Note: Evaluation of progress towards goal: No signs/symptoms of infection noted. Please see vitals in flowsheet. Problem: Knowledge Deficit Goal: Patient/patient communications representative demonstrates understanding of disease process, treatment plan,medications, and discharge instructions Description: INTERVENTIONS 1. Complete learning assessment and assess knowledge base 2. Provide teaching at level of understanding 3. Provide teaching via preferred learning method(s) Outcome: Progressing Note: Evaluation of progress towards goal: Patient voices and demonstrates understanding of self care. Asks appropriate questions as they arise. Problem: Discharge Planning Goal: Discharge to post-acute care, other facility, or home with appropriate resources Description: Patient's goal is: INTERVENTIONS 1. Conduct assessment to determine patient/family and health care team treatment goals, and need for post-acute services based on payer coverage, community resources, and patient preferences, and barriers to discharge 2. Coordinate with Social work, Care Navigation, and Utilization Review to arrange appropriate level of services according to patient's needs based on patient preference and payer coverage in collaboration with the physician and health care team 3. Address psychosocial, clinical, and financial barriers to discharge as identified in assessment in conjunction with the patient/family and health care team 4. Consult appropriate ancillary services (i.e.. PT/OT/ST, etc) as needed 5. Communicate with and update the patient/family, physician, and health care team regarding progress on the discharge plan 6. Identify discharge learning needs (meds, wound care, etc). 7. Arrange for needed discharge transportation as appropriate Outcome: Progressing Note: Evaluation of progress towards goal: Anticipate discharge home with instructions, voices understanding of instructions given. Problem: Moderate - High Risk Fall Score Description: Novak Fall Score of =/> [address] [facility] Assessment Goal: Patient should be free from fall Description: Interventions: 1. [place] to environment 2. Hourly rounds addressing the 4 P's (Pain, Positioning, Possessions, Potty) 3. Clear area of hazards (spills, clutter, electrical cords, unnecessary equipment) 4. Place equipment (bed & TV controls, call light, phone, urinal) within reach 5. Encourage patient to wear glasses and hearing aides as appropriate 6. Maintain bed in lowest position 7. Lock wheels on bed/wheelchair 8. Provide adequate lighting, including night light 9. Assess need for additional bedding, food/fluids, pain med's prior to sleep/routinely 10. Provide gripper slippers or personal non-skid footwear 11. Teach patient and patient communications representative to maintain environment for safety and engage in all aspects of fall prevention program 12. Remind patient to call for help before getting out of bed 13. Initiate bed/chair/exit alarms supportive devices as appropriate, (chair wedge, no-skid floor mat, raised edge mattress, hip protectors) 14. Locate patient bed assignment for optimal visualization 15. Evaluate and identify Safe Patient Handling Equipment needs 16. Provide supervision when out of bed or chair 17. Utilize gait belt as needed to assist with ambulation 18. Place adaptive equipment (cane, walker) within reach 19. Request patient communications representative bring adaptive equipment/mobility aids from home or obtain and provide as needed 20. Consult pharmacy regarding effects of med's affecting mobility, cognition, and alternatives 21. Obtain physician order for PT if risk factors associated with mobility are present 22. Obtain physician order for OT as appropriate 23. Utilize diversional activities 24. Educate patient and patient communications representative how to maintain a safe environment during visitationtimes (notify nurse prior to leaving bedside) 25. Consider appropriateness of medical or non-medical service representative 26. Set up voiding schedule as appropriate (every 2 hours) Outcome: Progressing Note: Evaluation of progress towards goal: Patient free from falls, safety maintained. Problem: Hypertension during Goal: Patient will understand hypertension during Description: INTERVENTION 1. Educate patient about signs and symptoms of hypertension in Outcome: Progressing Note: Evaluation of progress towards goal: pt understands HTN Goal: Patient will verbalize decreased headache Description: INTERVENTION 1. Assess headache pain Outcome: Progressing Note: Evaluation of progress towards goal: pt reports no headache Problem: Potential for Compromised Skin Integrity Goal: Skin integrity is maintained or improved Description: Patient's goal is: INTERVENTIONS 1. Perform initial skin assessment on admission and as needed 2. Turn patient every 2 hours and PRN 3. Relieve pressure to bony prominences 4. Avoid shearing 5. Keep skin clean and dry 6. Alternate a full bath with partial baths for elderly 7. Apply lotion/moisturizer on skin 8. Monitor patient's hygiene practices 9. Float heels 10. Collaborate with interdisciplinary team and initiate plans and interventions as needed Outcome: Progressing Note: Evaluation of progress towards goal: Skin intact, no skin breakdown noted. Goal: Patient's nutritional intake is adequate Description: Patient's goal is: INTERVENTIONS 1. Assess and monitor food intake and supplements, patient food preferences, nausea, vomiting, labs, oral cavity (gums, teeth, tongue, mucosa), proper denture fit, and cultural beliefs 2. Monitor for signs of hypoglycemia and hyperglycemia 3. Collaborate with interdisciplinary team and initiate plan and interventions as ordered 4. Monitor patient's weight 5. Assist patient with meals/food selection 6. Assist patient with eating 7. Allow adequate time for meals 8. Provide pleasant environment during mealtime 9. Increase social contact during mealtimes 10. Plan activities to conserve energy 11. Encourage/perform oral hygiene as appropriate 12. Encourage patient to take dietary supplement as ordered 13. Collaborate with clinical logistics solution manager 14. Include patient/ patient's communications representative in decisions related to nutrition Outcome: Progressing Note: Evaluation of progress towards goal: Patient has adequate intake. Tolerating diet as ordered. Problem: Urinary Incontinence Goal: Perineal skin integrity is maintained or improved Description: INTERVENTIONS 1. Assess genitourinary system, perineal skin, labs (urinalysis), and history of incontinence to include past management, aggravating, and alleviating factors 2. Keep skin clean and dry 3. Apply skin protectant 4. Develop skin care regimen 5. Provide privacy when changing patients incontinence device to maintain their dignity 6. Consider placing an indwelling catheter 7. Collaborate with interdisciplinary team and initiate plans and interventions as needed Outcome: Progressing Note: Evaluation of progress towards goal: Perineal skin integrity maintained, bandar care encouragedevery 3-4 hours to keep skin clean and dry Additional Comments: * Plan of Care - CHRIS Hernandez - 09/02/2024 2:59 PM EDT Images from the original note were not included. [facility] [place] [facility] Karlos Guillen Jonny 29 y.o. female that vascular is following for a known ductus diverticulum.Patient admitted to the hospital with preeclampsia and we will be undergoing a today. No intervention warranted at this time for the ductus diverticulum, we recommend to maintain systolic blood pressure less than 140. Outpatient follow-up appointment scheduled with vascular surgery already. No further Vascular management indicated or planned at this time. Vascular service will sign off. Please reconsult/call if additional questions, concerns, or issues develop requiring further Vascular service input. S Hernandez 09/02/24 [id number] * Plan of Care - Gisella Smalls DO - 09/02/2024 2:47 PM EDT Spoke with vascular surgery, and they recommend BP <140/90. Gisella Smalls DO PROPOSAL REVIEW ANALYST resident, PGY1 * Op Note - Amena Joy MD - 09/02/2024 2:38 PM EDT Operative Note - Delivery Date of operation: 09/02/24 PREOPERATIVE DIAGNOSIS: Mcclelland intrauterine at 38w1d Aortic ductus diverticulum ORGER/MDD Ankylosing spondylitis Vaping Failed 1h, passed 3h Rh neg s/p Rhogam 07/16/24 ALISA Thrombocytopenia H/o x1 (suspected macrosomia) c/b PPH d/t atony POSTOPERATIVE DIAGNOSIS: same as preop PROCEDURE: RLTCS SURGEON: Dr. Soto SCHEDULER MAINTENANCE: Amena Joy MD ANESTHESIA: Spinal IV FLUIDS: 1000 mL URINE OUTPUT: 125 mL ESTIMATED BLOOD LOSS: 600 mL DRAINS: Pimentel catheter to gravity. SPECIMENS: Cord blood, cord gases, placenta DISPOSITION: Stable to recovery room. FINDINGS: Normal appearing uterus, tubes and ovaries. Viable female , weighing 4340 grams with apgars of 8 and 9 at 1 and 5 minutes respectively. INDICATIONS FOR THE PROCEDURE: Ms. Karlos Guillen is a 29 y.o. at 38w1d with history of prior CS who presented as a transport due to preE w/o SF and aortic ductus diverticulum. The decision was made to proceed with a repeat . The patient was informed of the risks andbenefits of the procedure. Risks included, but were not limited to, bleeding, infection, injury to internal organs, blood clots, risk of anesthesia, injury to baby, hysterectomy, and even . The patient expressed understanding of the risks involved. All questions were answered and the patient consented to the procedure. DESCRIPTION OF THE PROCEDURE: The patient was taken to the operating room where a time out was performed to confirm correct patient and correct procedure using two patient identifiers. Spinal anesthesia was adequately establishedand Ancef 2g IV were administered once for prophylaxis. The patient was then placed in the dorsal supine position with a left tilt of the hips. A warm blanket was positioned to help maintain control of core body temperature. The patient was then prepped and draped in the usual sterile fashion for aPfannensteil skin incision. An incision was made in the skin with the surgical scalpel and sharp dissection was carried out over the subsequent layers of tissue including the fascia, followed by the Bovie electrocautery for hemostasis. The fascia was incised at the midline and the fascial incision was extended bilaterally bluntly. The rectus muscles were then divided at midline and the peritoneumwas entered bluntly at its superior margin taking care to avoid the bladder. The peritoneal openingwas extended laterally using blunt dissection. A bladder blade was placed in the abdomen. A transverse incision was made in the lower uterine segment using the scalpel. The uterine incision was extended bilaterally using blunt dissection. The amniotic sac was entered and the amniotic fluid was noted to be clear. Surgeon's hand was placed into the uterine cavity. The head was identified and delivered through the uterine incision with the assistance of fundal pressure. The was examine d for nuchal cord and no nuchal cord was identified. The was then delivered with traction and the assistance of fundal pressure. The infant's oral passages were bulb suctioned. After one minute, the cord was clamped and cut. The was passed off the table to the nurses for further care.Cord segment and cord blood were obtained for analysis and routine blood testing. Oxytocin was thenadministered by IV infusion to enhance uterine contraction. The placenta was delivered spontaneously and found to be intact with a 3-vessel cord. The uterus was exteriorized and cleared of all clots and remaining products of conception. The uterine incision was reapproximated using 0-Vicryl in a running locked fashion. Non-hemostatic areas were reinforced with 0-Vicryl in a figure of eight stitches. The lower uterine segment was examined for any points of bleeding. Hemostasis was confirmed. Theuterus was replaced into the abdomen and the pericolic gutters were cleared of all clots. The muscles and overlying fascia were examined for bleeding. Nonhemostatic areas were cauterized with the Bovie. Excellent hemostasis was confirmed. The fascia was reapproximated using 0-PDS in a running nonlocked fashion. The subcutaneous tissues were examined and nonhemostatic areas were cauterized with the Bovie. The subcutaneous space was closed with 3-0 Vicryl. Finally, the skin was reapproximated using 4-0 Monocryl. All needle, sponge, and instrument counts were reported to be correct x 3 at the end of the procedue. The RF scan was complete. The patient tolerated the procedure well and was transferred to the recovery room in a stable condition. Amena Joy MD Cosigned by Cindy Soto MD at 09/02/2024 11:39 PM EDT Associated attestation - Cindy Soto MD - 09/02/2024 11:39 PM EDT Attending Attestation: I saw the patient. I participated and was physically present during the critical/peters portions of the service. I was directly involved in the management and treatment plan of the patient. I reviewed the resident's note. Additional Notes/Findings: I was present for the entire procedure. The resident and I performed the procedure. Cindy Soto MD [facility] 09/02/2024 11:28 PM * Plan of Care - Cee Coronel RN - 09/02/2024 7:40 AM EDT Problem: Pain Goal: Patient goal is pain score less than 4, able to rest, and participant in treatment plan as appropriate Description: INTERVENTIONS: 1. Encourage patient or legal communications representative to report early pain and ask for pain medicine when needed 2. Assess pain using appropriate pain scale and include the scale used when documenting 3. Administer analgesics based on type and severity of pain and evaluate response within appropriate time frame 4. Implement non-pharmacological measures as appropriate and evaluate response 5. Consider cultural and social influences on pain and pain management 6. Notify LIP if interventions ineffective or patient reports new pain 7. Monitor vital signs including pulse ox, end-tidal CO2 based on pain intervention 8. Reassess pain per policy 9. Teach patient or legal communications representative interventions for comforting Outcome: Progressing Note: Evaluation of progress towards goal: Patient verbalizes tolerable level of pain at this time.Pain medications will be given as needed. Problem: Safety Goal: Patient will be injury free during hospitalization Description: INTERVENTIONS: 1. Assess patient's risk for falls and implement fall prevention plan of care per policy 2. Provide and maintain a safe environment 3. Proper use of double Identifiers 4. Medication administration using the 5 rights 5. Hand hygiene 6. Specimens are labeled at the bedside 7. Instruct patient/ patient communications representative about use of safety devices 8. Include patient/ patient communications representative in decisions related to safety Outcome: Progressing Note: Evaluation of progress towards goal: Safe environment maintained. Medications administered using 5 rights. Fall prevention plan implemented as needed. Problem: Infection Goal: Absence of infection during hospitalization Description: INTERVENTIONS 1. Assess and monitor for signs and symptoms of infection. 2. Monitor lab/diagnostic results. 3. Monitor all insertion sites i.e., indwelling lines, tubes and drains. 4. Monitor endotracheal (as able) and nasal secretions for changes in amount and color. 5. Administer medications as ordered. 6. Instruct and encourage patient and family to use good hand hygiene technique. 7. Identify and instruct patient/patient communications representative in use of appropriate isolation precautionsfor identified infection/symptoms. 8. Provide and discuss with patient/patient communications representative on educational MDRO sheet. 9. Encourage and monitor nutritional status daily and consult logistics solution manager if indicated. 10. Implement neutropenic guidelines as needed. Outcome: Progressing Note: Evaluation of progress towards goal: Patient is free from signs and symptoms of infection. Problem: Knowledge Deficit Goal: Patient/patient communications representative demonstrates understanding of disease process, treatment plan,medications, and discharge instructions Description: INTERVENTIONS 1. Complete learning assessment and assess knowledge base 2. Provide teaching at level of understanding 3. Provide teaching via preferred learning method(s) Outcome: Progressing Note: Evaluation of progress towards goal: Teaching provided as needed at patient's level of understanding. Problem: Discharge Planning Goal: Discharge to post-acute care, other facility, or home with appropriate resources Description: Patient's goal is: INTERVENTIONS 1. Conduct assessment to determine patient/family and health care team treatment goals, and need for post-acute services based on payer coverage, community resources, and patient preferences, and barriers to discharge 2. Coordinate with Social work, Care Navigation, and Utilization Review to arrange appropriate level of services according to patient's needs based on patient preference and payer coverage in collaboration with the physician and health care team 3. Address psychosocial, clinical, and financial barriers to discharge as identified in assessment in conjunction with the patient/family and health care team 4. Consult appropriate ancillary services (i.e.. PT/OT/ST, etc) as needed 5. Communicate with and update the patient/family, physician, and health care team regarding progress on the discharge plan 6. Identify discharge learning needs (meds, wound care, etc). 7. Arrange for needed discharge transportation as appropriate Outcome: Progressing Note: Evaluation of progress towards goal: Appropriate consults done as needed. Discharge learning needs identified. Problem: Moderate - High Risk Fall Score Description: Novak Fall Score of =/> [address] [facility] Assessment Goal: Patient should be free from fall Description: Interventions: 1. Thornton to environment 2. Hourly rounds addressing the 4 P's (Pain, Positioning, Possessions, Potty) 3. Clear area of hazards (spills, clutter, electrical cords, unnecessary equipment) 4. Place equipment (bed & TV controls, call light, phone, urinal) within reach 5. Encourage patient to wear glasses and hearing aides as appropriate 6. Maintain bed in lowest position 7. Lock wheels on bed/wheelchair 8. Provide adequate lighting, including night light 9. Assess need for additional bedding, food/fluids, pain med's prior to sleep/routinely 10. Provide gripper slippers or personal non-skid footwear 11. Teach patient and patient communications representative to maintain environment for safety and engage in all aspects of fall prevention program 12. Remind patient to call for help before getting out of bed 13. Initiate bed/chair/exit alarms supportive devices as appropriate, (chair wedge, no-skid floor mat, raised edge mattress, hip protectors) 14. Locate patient bed assignment for optimal visualization 15. Evaluate and identify Safe Patient Handling Equipment needs 16. Provide supervision when out of bed or chair 17. Utilize gait belt as needed to assist with ambulation 18. Place adaptive equipment (cane, walker) within reach 19. Request patient communications representative bring adaptive equipment/mobility aids from home or obtain and provide as needed 20. Consult pharmacy regarding effects of med's affecting mobility, cognition, and alternatives 21. Obtain physician order for PT if risk factors associated with mobility are present 22. Obtain physician order for OT as appropriate 23. Utilize diversional activities 24. Educate patient and patient communications representative how to maintain a safe environment during visitationtimes (notify nurse prior to leaving bedside) 25. Consider appropriateness of medical or non-medical service representative 26. Set up voiding schedule as appropriate (every 2 hours) Outcome: Progressing Note: Evaluation of progress towards goal: Patient understands fall prevention plan. Problem: Hypertension during Goal: Patient will understand hypertension during Description: INTERVENTION 1. Educate patient about signs and symptoms of hypertension in Outcome: Progressing Note: Evaluation of progress towards goal: b/p q 1 hour wnl at this time Goal: Patient will verbalize decreased headache Description: INTERVENTION 1. Assess headache pain Outcome: Progressing Note: Evaluation of progress towards goal: no H/A at this time Additional Comments: * Plan of Care - Juana Deal RN - 09/02/2024 4:22 AM EDT Problem: Pain Goal: Patient goal is pain score less than 4, able to rest, and participant in treatment plan as appropriate Description: INTERVENTIONS: 1. Encourage patient or legal communications representative to report early pain and ask for pain medicine when needed 2. Assess pain using appropriate pain scale and include the scale used when documenting 3. Administer analgesics based on type and severity of pain and evaluate response within appropriate time frame 4. Implement non-pharmacological measures as appropriate and evaluate response 5. Consider cultural and social influences on pain and pain management 6. Notify LIP if interventions ineffective or patient reports new pain 7. Monitor vital signs including pulse ox, end-tidal CO2 based on pain intervention 8. Reassess pain per policy 9. Teach patient or legal communications representative interventions for comforting Outcome: Progressing Note: Evaluation of progress towards goal: Patient verbalizes tolerable level of pain at this time.Pain medications will be given as needed. Problem: Safety Goal: Patient will be injury free during hospitalization Description: INTERVENTIONS: 1. Assess patient's risk for falls and implement fall prevention plan of care per policy 2. Provide and maintain a safe environment 3. Proper use of double Identifiers 4. Medication administration using the 5 rights 5. Hand hygiene 6. Specimens are labeled at the bedside 7. Instruct patient/ patient communications representative about use of safety devices 8. Include patient/ patient communications representative in decisions related to safety Outcome: Progressing Note: Evaluation of progress towards goal: Safe environment maintained. Medications administered using 5 rights. Fall prevention plan implemented as needed. Problem: Infection Goal: Absence of infection during hospitalization Description: INTERVENTIONS 1. Assess and monitor for signs and symptoms of infection. 2. Monitor lab/diagnostic results. 3. Monitor all insertion sites i.e., indwelling lines, tubes and drains. 4. Monitor endotracheal (as able) and nasal secretions for changes in amount and color. 5. Administer medications as ordered. 6. Instruct and encourage patient and family to use good hand hygiene technique. 7. Identify and instruct patient/patient communications representative in use of appropriate isolation precautionsfor identified infection/symptoms. 8. Provide and discuss with patient/patient communications representative on educational MDRO sheet. 9. Encourage and monitor nutritional status daily and consult logistics solution manager if indicated. 10. Implement neutropenic guidelines as needed. Outcome: Progressing Note: Evaluation of progress towards goal: Patient is free from signs and symptoms of infection. Problem: Knowledge Deficit Goal: Patient/patient communications representative demonstrates understanding of disease process, treatment plan,medications, and discharge instructions Description: INTERVENTIONS 1. Complete learning assessment and assess knowledge base 2. Provide teaching at level of understanding 3. Provide teaching via preferred learning method(s) Outcome: Progressing Note: Evaluation of progress towards goal: Teaching provided as needed at patient's level of understanding. Problem: Discharge Planning Goal: Discharge to post-acute care, other facility, or home with appropriate resources Description: Patient's goal is: INTERVENTIONS 1. Conduct assessment to determine patient/family and health care team treatment goals, and need for post-acute services based on payer coverage, community resources, and patient preferences, and barriers to discharge 2. Coordinate with Social work, Care Navigation, and Utilization Review to arrange appropriate level of services according to patient's needs based on patient preference and payer coverage in collaboration with the physician and health care team 3. Address psychosocial, clinical, and financial barriers to discharge as identified in assessment in conjunction with the patient/family and health care team 4. Consult appropriate ancillary services (i.e.. PT/OT/ST, etc) as needed 5. Communicate with and update the patient/family, physician, and health care team regarding progress on the discharge plan 6. Identify discharge learning needs (meds, wound care, etc). 7. Arrange for needed discharge transportation as appropriate Outcome: Progressing Note: Evaluation of progress towards goal: Appropriate consults done as needed. Discharge learning needs identified. Problem: Moderate - High Risk Fall Score Description: Novak Fall Score of =/> [address] [facility] Assessment Goal: Patient should be free from fall Description: Interventions: 1. Thornton to environment 2. Hourly rounds addressing the 4 P's (Pain, Positioning, Possessions, Potty) 3. Clear area of hazards (spills, clutter, electrical cords, unnecessary equipment) 4. Place equipment (bed & TV controls, call light, phone, urinal) within reach 5. Encourage patient to wear glasses and hearing aides as appropriate 6. Maintain bed in lowest position 7. Lock wheels on bed/wheelchair 8. Provide adequate lighting, including night light 9. Assess need for additional bedding, food/fluids, pain med's prior to sleep/routinely 10. Provide gripper slippers or personal non-skid footwear 11. Teach patient and patient communications representative to maintain environment for safety and engage in all aspects of fall prevention program 12. Remind patient to call for help before getting out of bed 13. Initiate bed/chair/exit alarms supportive devices as appropriate, (chair wedge, no-skid floor mat, raised edge mattress, hip protectors) 14. Locate patient bed assignment for optimal visualization 15. Evaluate and identify Safe Patient Handling Equipment needs 16. Provide supervision when out of bed or chair 17. Utilize gait belt as needed to assist with ambulation 18. Place adaptive equipment (cane, walker) within reach 19. Request patient communications representative bring adaptive equipment/mobility aids from home or obtain and provide as needed 20. Consult pharmacy regarding effects of med's affecting mobility, cognition, and alternatives 21. Obtain physician order for PT if risk factors associated with mobility are present 22. Obtain physician order for OT as appropriate 23. Utilize diversional activities 24. Educate patient and patient communications representative how to maintain a safe environment during visitationtimes (notify nurse prior to leaving bedside) 25. Consider appropriateness of medical or non-medical service representative 26. Set up voiding schedule as appropriate (every 2 hours) Outcome: Progressing Note: Evaluation of progress towards goal: Patient understands fall prevention plan. Problem: Hypertension during Goal: Patient will understand hypertension during Description: INTERVENTION 1. Educate patient about signs and symptoms of hypertension in Outcome: Progressing Note: Evaluation of progress towards goal: Questions answered and pt verbalizes understanding. Goal: Patient will verbalize decreased headache Description: INTERVENTION 1. Assess headache pain Outcome: Progressing Note: Evaluation of progress towards goal: Meds given and pt reports decreased headache. Additional Comments: * Plan of Care - [facility] Jazmine Justice MD - 09/01/2024 11:51 PM EDT Patient has a history of aortic ulcer/ductus diverticulum in 2020. Vascular surgery was consulted for evaluation and clearance of vaginal delivery. They recommended consulting CT surgery. Reviewed case with CT surgery PA tong carrier including CTA chest in 2020. Findings involve the descending aorta andpatient is an established patient of Dr. Fonseca. He recommended re-consulting vascular surgery. documented in this encounter Plan of Treatment Upcoming Encounters Date Type Department Care Team (Late st Contact Info) Description 09/02/2025 10:20 AM EDT Office Visit [facility] [address] [place] [address] Catarino Fonseca MD [address] [place] [address] Pending Results Name Type Priority Associated Diagnoses Date /Time Surgical Pathology Pathology and Cytology Routine 09/02/2024 4:03 PM EDT Scheduled Orders Name Type Priority Associated Diagnoses Order Schedule Surgical Pathology Pathology and Cytology Routine Once for 1 Occurrences starting 09/02/2024 until 09/02/2024, 1 completed documented as of this encounter Goals Goal Patient Goal Type Associated Problems Recent Progress Patient-Stated? Author Discharge to home General Yes Hedy Hess, RN Note: Evaluation of progress towards goal: Discharge to home with and self care documented as of this encounter Procedures Procedure Name Priority Date/Time Associated Diagnosis Comments CBC WITH AUTO DIFFERENTIAL Routine 09/04/2024 6:30 AM EDT EXTRA TUBES PST TOP Routine 09/04/2024 6 :28 AM EDT EXTRA TUBES Routine 09/04/2024 6:28 AM EDT EXTRA TUBES PST TOP Routine 09/03/2024 6 :22 AM EDT EXTRA TUBES Routine 09/03/2024 6:22 AM EDT CBC WITH AUTO DIFFERENTIAL Routine 09/03/2024 6:22 AM EDT COMPREHENSIVE METABOLIC PANEL STAT Add-on 09/03/2024 6:22 AM EDT RHOGAM NOT ELIGIBLE Routine 09/02/2024 7 :31 PM EDT REPEAT 09/02/2024 2:38 PM EDT S/P CBC WITH AUTO DIFFERENTIAL Routine 09/02/2024 12:37 PM EDT COMPREHENSIVE METABOLIC PANEL Routine 09/02/2024 12:37 PM EDT LDH STAT Add-on 09/02/2024 6:02 AM EDT CBC WITH AUTO DIFFERENTIAL Routine 09/02/2024 6:02 AM EDT URIC ACID STAT Add-on 09/02/2024 6:02 AM EDT COMPREHENSIVE METABOLIC PANEL Routine 09/02/2024 6:[address] CTA CHEST STAT 09/02/2024 5:16 AM EDT PROTEIN CREAT RATIO STAT 09/02/2024 1 :23 AM EDT FENTANYL, URINE QUALITATIVE STAT 09/02/2024 1:23 AM EDT DRUG SCREEN, URINE STAT 09/02/2024 1: 23 AM EDT URINALYSIS STAT 09/02/2024 1:23 AM EDT URINE CULTURE STAT 09/02/2024 1:23 AM EDT CLINICAL PATHOLOGY REVIEW Routine 09/01/2024 11:13 PM EDT SYPHILIS TOTAL(UNKNOWN SYPHILIS STATUS) STAT 09/01/2024 11:13 PM EDT LDH STAT 09/01/2024 11:13 PM EDT ANTIBODY ID Routine 09/01/2024 11:13 PM EDT CBC WITH AUTO DIFFERENTIAL STAT 09/01/2024 11:13 PM EDT TYPE AND SCREEN Routine 09/01/2024 11:13 PM EDT URIC ACID STAT 09/01/2024 11:13 PM EDT FOLATE Add-On 09/01/2024 11:13 PM EDT FERRITIN Add-On 09/01/2024 11:13 PM EDT VITAMIN B12 Add-On 09/01/2024 11:13 PM EDT COMPREHENSIVE METABOLIC PANEL STAT 09/01/2024 11:13 PM EDT EXTRA TUBES PST TOP Routine 09/01/2024 1 1:11 PM EDT EXTRA TUBES Routine 09/01/2024 11:11 PM EDT CROSSMATCH RBC Routine 09/01/2024 11:00 PM EDT documented in this encounter Results * (ABNORMAL) CBC auto differential (09/04/2024 6:30 AM EDT) [facility] Signature WBC 6.8 4 - 11 x10E9/L 09/04/2024 8:23 AM EDT [facility] RBC Count 2.55(L) 3.8 - 5.2 X10E12/L 09/04/2024 8:23 AM EDT [facility] Hemoglobin 7.0(L) 11.7 - 15.5 g/dL 09/04/2024 8:23 AM EDT [facility] Hematocrit 21.4(L) 35 - 47 % 09/04[facility]24 [facility] MCV 84 80 - 100 fL 09/04/2024 8:23 AM EDT [facility] MCH 27.6 27 - 34 pg 09/04/2024 8:23 AM [facility] MCHC 32.9 32 - 36 g/dL 09/04/2024 8:23 AM [facility] RDW 18.6(H) 11.5 - 15 % 09/04/2024 8:23 AM T [facility] Platelet Count 96(L) 150 - 450 X10E9/L 09/04/2024 8:23 AM T [facility] MPV 9.8 7 - 12 fL 09/04/2024 8:23 AM [facility] Neutrophils % 82 % 09/04/2024 8:23 AM [facility] Comment:This is an appended report. These results have been appended to a previously preliminary verified report. Lymphocytes % 12 % 09/04/2024 8:23 AM T [facility] Comment:This is an appended report. These results have been appended to a previously preliminary verified report. Monocytes % 6 % 09/04/2024 8:23 AM T [facility] Comment:This is an appended report. These results have been appended to a previously preliminary verified report. Neutrophils Absolute (M) 5.6 1.5 - 6.6 10*3/uL 09/04/2024 8:23 AM T [facility] Comment:This is an appended report. These results have been appended to a previously preliminary verified report. Lymphocytes Absolute 0.8(L) 1.0 - 3.5 10*3/uL 09/04/2024 8:23 AM EDT [facility] Comment:This is an appended report. These results have been appended to a previously preliminary verified report. Monocytes Absolute 0.4 0.0 - 0.9 10*3/uL 09/04/2024 8:23 AM T [facility] Comment:This is an appended report. These results have been appended to a previously preliminary verified report. Polychromasia 1+ 09/04/2024 8:23 AM EDT [facility] Comment:This is an appended report. These results have been appended to a previously preliminary verified report. Differential Type MANUAL DIFFERENTIAL 09/04/2024 8:23 AM EDT [facility] Comment:This is an appended report. These results have been appended to a previously preliminary verified report. Blood Venous blood / Unknown Venipuncture / Unknown 09/04/2024 6:30 AM EDT 09/04/2024 6:31 AM EDT us Amena Joy MD LAB BLOOD ORDERABLES Final Resul t [facility] [address] [place] [address], [place] [phone] * PST TOP (09/04/2024 6:28 AM EDT) Extra Tube Auto Resulted 09/04/2024 8:02 AM EDT [facility] Blood Venous blood / Unknown 09/04/2024 6:28 AM EDT 09/04/2024 6:50 AM EDT Regulo Jain MD LAB BLOOD ORDERABLES Final Res ult [facility] [address] [address] [place] [address], [place] [phone] * (ABNORMAL) Comprehensive metabolic panel (09/03/2024 6:22 AM EDT) SODIUM 133(L) 134 - 146 mmol/L 09/03/2024 8:43 AM EDT [facility] POTASSIUM 4.1 3.5 - 5.0 mmol/L 09/03/2024 8:43 AM EDT [facility] CHLORIDE 101 98 - 109 mmol/L 09/03/2024 8:43 AM EDT [facility] CARBON DIOXIDE 26 22 - 32 mmol/L 09/03/2024 8:43 AM EDT [facility] ANION GAP 6 5 - 15 mmol/L 09/03/2024 8:43 AM EDT [facility] BLOOD UREA NITROGEN 10 5 - 23 mg/dL 09/03/2024 8:43 AM T [facility] CREATININE 0.67 0.40 - 1.00 mg/dL 09/03/2024 8:43 AM T [facility] Comment:METHOD TRACEABLE TO [facility] STANDARD GLUCOSE 106(H) 65 - 99 mg/dL 09/03/2024 8:43 AM EDT [facility] CALCIUM 8.0(L) 8.5 - 10.5 mg/dL 09/03/2024 8:43 AM T [facility] TOTAL PROTEIN 5.2(L) 6.0 - 8.0 g/dL 09/03/2024 8:43 AM T [facility] ALBUMIN 2.8(L) 3.2 - 5.3 g/dL 09/03/2024 8:43 AM T [facility] ALKALINE PHOSPHATASE 156(H) 39 - 130 U/L 09/03/2024 8:43 AM T [facility] AST 23 <=41 U/L 09/03/2024 8:43 AM T [facility] ALT 18 <=31 U/L 09/03/2024 8:43 AM T [facility] BILIRUBIN,TOTAL 0.3 0.3 - 1.2 mg/dL 09/03/2024 8:43 AM T [facility] EGFR Non-Race Dependent >90 >=60 ml/min/1.7 3sq.m 09/03/2024 8:43 AM [facility] Comment: Reported eGFR is based on the CKD-EPI 2020 equation that does not use a race coefficient. Blood Venous blood / Unknown 09/03/2024 6:22 AM EDT 09/03/2024 6:40 AM EDT [facility] Q Vinh TODD LAB BLOOD ORDERABLES Final Resul t [facility] [address] [place] [address], * PST TOP (09/03/2024 6:22 AM EDT) Extra Tube Auto Resulted 09/03/2024 8:01 AM EDT [facility] Blood Venous blood / Unknown 09/03/2024 6:22 AM EDT 09/03/2024 6:40 AM EDT us Regulo Jain MD LAB BLOOD ORDERABLES Final Res ult [facility] [address] [place] [address], * (ABNORMAL) CBC auto differential (09/03/2024 6:22 AM EDT) [facility] WBC 9.8 4 - 11 x10E9/L 09/03/2024 6:54 AM EDT [facility] RBC Count 2.83(L) 3.8 - 5.2 X10E12/L 09/03/2024 6:54 AM EDT [facility] Hemoglobin 7.7(L) 11.7 - 15.5 g/dL 09/03/2024 6:54 AM EDT [facility] Hematocrit 23.4(L) 35 - 47 % 09/03/2024 6:54 AM EDT [facility] MCV 83 80 - 100 fL 09/03/2024 6:54 AM EDT [facility] MCH 27.2 27 - 34 pg 09/03/2024 6:54 AM EDT [facility] MCHC 32.9 32 - 36 g/dL 09/03/2024 6:54 AM EDT [facility] RDW 17.3(H) 11.5 - 15 % 09/03/2024 6:54 AM EDT [facility] Platelet Count 126(L) 150 - 450 X10E9/L 09/03/2024 6:54 AM EDT [facility] MPV 10.5 7 - 12 fL 09/03/2024 6:54 AM EDT [facility] Neutrophils % 76.5 % 09/03/2024 6:54 AM EDT [facility] Lymphocytes % 11.7 % 09/03/2024 6:54 AM EDT [facility] Monocytes % 11.4 % 09/03/2024 6:54 AM EDT [facility] Eosinophils % 0.1 % 09/03/2024 6:54 AM EDT [facility] Basophils % 0.3 % 09/03/2024 6:54 AM EDT [facility] Neutrophils Absolute (A) 7.5(H) 1.5 - 6.6 10*3/uL 09/03/2024 6:54 AM EDT [facility] Lymphocytes Absolute 1.1 1.0 - 3.5 10*3/uL 09/03/2024 6:54 AM EDT [facility] Monocytes Absolute 1.1(H) 0.0 - 0.9 10*3/uL 09/03/2024 6:54 AM EDT [facility] Eosinophils Absolute 0.0 0.0 - 0.4 10*3/uL 09/03/2024 6:54 AM EDT [facility] Basophils Absolute 0.0 0.0 - 0.2 10*3/uL 09/03/2024 6:54 AM EDT [facility] Differential Type AUTOMATED DIFFERENTIAL 09/03/2024 6:54 AM EDT [facility] Blood Venous blood / Unknown Venipuncture / Unknown 09/03/2024 6:22 AM EDT 09/03/2024 6:22 AM EDT us Amena Joy MD LAB BLOOD ORDERABLES Final Resul t [facility] [address] [place] [address], * Rhogam Not Eligible (09/02/2024 7:31 PM EDT) [id number] Not eligible for RhoGAM 09/02/2024 7:31 PM EDT [facility] 09/02/2024 7:31 PM EDT us Amena Joy MD LAB ORDERABLES Final Result [facility] [address] [place] [address], * (ABNORMAL) Comprehensive metabolic panel (09/02/2024 12:37 PM EDT) Pathologist [facility] SODIUM 136 134 - 146 mmol/L 09/02/2024 1:23 PM EDT [facility] POTASSIUM 4.1 3.5 - 5.0 mmol/L 09/02/2024 1:23 PM EDT [facility] CHLORIDE 105 98 - 109 mmol/L 09/02/2024 1:23 PM EDT [facility] CARBON DIOXIDE 21(L) 22 - 32 mmol/L 09/02/2024 1:23 PM EDT [facility] ANION GAP 10 5 - 15 mmol/L 09/02/2024 1:23 PM EDT [facility] BLOOD UREA NITROGEN 9 5 - 23 mg/dL 09/02/2024 1:23 PM EDT [facility] CREATININE 0.55 0.40 - 1.00 mg/dL 09/02/2024 1:23 PM EDT [facility] Comment:METHOD TRACEABLE TO [facility] STANDARD GLUCOSE 85 65 - 99 mg/dL 09/02/2024 1:23 PM EDT [facility] CALCIUM 8.0(L) 8.5 - 10.5 mg/dL 09/02/2024 1:23 PM EDT [facility] TOTAL PROTEIN 5.3(L) 6.0 - 8.0 g/dL 09/02/2024 1:23 PM EDT [facility] ALBUMIN 2.9(L) 3.2 - 5.3 g/dL 09/02/2024 1:23 PM EDT [facility] ALKALINE PHOSPHATASE 165(H) 39 - 130 U/L 09/02/2024 1:23 PM EDT [facility] AST 21 <=41 U/L 09/02/2024 1:23 PM EDT [facility] ALT 15 <=31 U/L 09/02/2024 1:23 PM EDT [facility] BILIRUBIN,TOTAL 0.3 0.3 - 1.2 mg/dL 09/02/2024 1:23 PM EDT [facility] EGFR Non-Race Dependent >90 >=60 ml/min/1.7 3sq.m 09/02/2024 1:23 PM EDT [facility] Comment: Reported eGFR is based on the CKD-EPI 2020 equation that does not use a race coefficient. Blood Venous blood / Unknown Venipuncture / Unknown 09/02/2024 12:37 PM EDT 09/02/2024 12:37 PM EDT us Gisella Smalls DO LAB BLOOD ORDERABLES Final Result [facility] [address] [place] [address], * (ABNORMAL) CBC auto differential (09/02/2024 12:37 PM EDT) WBC 5.2 4 - 11 x10E9/L 09/02/2024 1:07 PM EDT [facility] RBC Count 3.02(L) 3.8 - 5.2 X10E12/L 09/02/2024 1:07 PM EDT [facility] Hemoglobin 8.2(L) 11.7 - 15.5 g/dL 09/02/2024 1:07 PM EDT [facility] Hematocrit 24.5(L) 35 - 47 % 09/02/2024 1:07 PM EDT [facility] MCV 81 80 - 100 fL 09/02/2024 1:07 PM EDT [facility] MCH 27.0 27 - 34 pg 09/02/2024 1:07 PM EDT [facility] MCHC 33.4 32 - 36 g/dL 09/02/2024 1:07 PM EDT [facility] RDW 17.6(H) 11.5 - 15 % 09/02/2024 1:07 PM EDT [facility] Platelet Count 115(L) 150 - 450 X10E9/L 09/02/2024 1:07 PM EDT [facility] MPV 10.6 7 - 12 fL 09/02/2024 1:07 PM EDT [facility] Neutrophils % 72.1 % 09/02/2024 1:07 PM EDT [facility] Lymphocytes % 16.8 % 09/02/2024 1:07 PM EDT [facility] Monocytes % 10.7 % 09/02[facility]24 [facility] Eosinophils % 0.2 % 09/02/2024 1:07 PM EDT [facility] Basophils % 0.2 % 09/02/2024 1:07 PM EDT [facility] Neutrophils Absolute (A) 3.8 1.5 - 6.6 10*3/uL 09/02/2024 1:07 PM [facility] Lymphocytes Absolute 0.9(L) 1.0 - 3.5 10*3/uL 09/02/2024 1:07 PM [facility] Monocytes Absolute 0.6 0.0 - 0.9 10*3/uL 09/02/2024 1:07 PM [facility] Eosinophils Absolute 0.0 0.0 - 0.4 10*3/uL 09/02/2024 1:07 PM [facility] Basophils Absolute 0.0 0.0 - 0.2 10*3/uL 09/02/2024 1:07 PM [facility] Differential Type AUTOMATED DIFFERENTIAL 09/02/2024 1:07 PM [facility] Blood Venous blood / Unknown Venipuncture / Unknown 09/02/2024 12:37 PM EDT 09/02/2024 12:37 PM EDT Gisella Smalls DO LAB BLOOD ORDERABLES Final Result [facility] [address] [place] [address], * Uric acid (09/02/2024 6:02 AM EDT) URIC ACID 5.8 2.6 - 7.2 mg/dL 09/02/2024 8:40 AM EDT [facility] Blood Venous blood / Unknown Venipuncture / Unknown 09/02/2024 6:02 AM EDT 09/02/2024 6:02 AM EDT Carla Justice MD LAB BLOOD ORDERABLES Final Resul t [facility] [address] [place] [address], * LDH (09/02/2024 6:02 AM EDT) LDH 185 100 - 235 U/L 09/02/2024 8:40 AM EDT [facility] Blood Venous blood / Unknown Venipuncture / Unknown 09/02/2024 6:02 AM EDT 09/02/2024 6:02 AM EDT Carla Justice MD LAB BLOOD ORDERABLES Final Resul t [facility] [address] [place] [address], * (ABNORMAL) Comprehensive metabolic panel (09/02/2024 6:02 AM EDT) SODIUM 134 134 - 146 mmol/L 09/02/2024 6:59 AM [facility] POTASSIUM 3.5 3.5 - 5.0 mmol/L 09/02/2024 6:59 AM [facility] CHLORIDE 103 98 - 109 mmol/L 09/02/2024 6:59 AM [facility] CARBON DIOXIDE 23 22 - 32 mmol/L 09/02/2024 6:59 AM [facility] ANION GAP 8 5 - 15 mmol/L 09/02/2024 6:59 AM [facility] BLOOD UREA NITROGEN 10 5 - 23 mg/dL 09/02/2024 6:59 AM [facility] CREATININE 0.58 0.40 - 1.00 mg/dL 09/02/2024 6:59 AM [facility] Comment:METHOD TRACEABLE TO [facility] STANDARD GLUCOSE 117(H) 65 - 99 mg/dL 09/02/2024 6:59 AM [facility] CALCIUM 8.1(L) 8.5 - 10.5 mg/dL 09/02/2024 6:59 AM [facility] TOTAL PROTEIN 5.4(L) 6.0 - 8.0 g/dL 09/02/2024 6:59 AM [facility] ALBUMIN 2.9(L) 3.2 - 5.3 g/dL 09/02/2024 6:59 AM [facility] ALKALINE PHOSPHATASE 165(H) 39 - 130 U/L 09/02/2024 6:59 AM [facility] AST 22 <=41 U/L 09/02/2024 6:59 AM [facility] ALT 18 <=31 U/L 09/02/2024 6:59 AM [facility] BILIRUBIN,TOTAL 0.3 0.3 - 1.2 mg/dL 09/02/2024 6:59 AM [facility] EGFR Non-Race Dependent >90 >=60 ml/min/1.7 3sq.m 09/02/2024 6:59 AM [facility] Comment: Reported eGFR is based on the CKD-EPI 2020 equation that does not use a race coefficient. Blood Venous blood / Unknown Venipuncture / Unknown 09/02/2024 6:02 AM EDT 09/02/2024 6:02 AM EDT us Carla Q Vu LAB BLOOD ORDERABLES Final Resul t [facility] [address] [place] [address], * (ABNORMAL) CBC auto differential (09/02/2024 6:02 AM EDT) WBC 5.7 4 - 11 x10E9/L 09/02/2024 6:41 AM EDT [facility] RBC Count 2.98(L) 3.8 - 5.2 X10E12/L 09/02/2024 6:41 AM EDT [facility] Hemoglobin 8.1(L) 11.7 - 15.5 g/dL 09/02/2024 6:41 AM EDT [facility] Hematocrit 24.8(L) 35 - 47 % 09/02/2024 6:41 AM EDT [facility] MCV 83 80 - 100 fL 09/02/2024 6:41 AM EDT [facility] MCH 27.2 27 - 34 pg 09/02/2024 6:41 AM EDT [facility] MCHC 32.8 32 - 36 g/dL 09/02/2024 6:41 AM EDT [facility] RDW 17.4(H) 11.5 - 15 % 09/02/2024 6:41 AM EDT [facility] Platelet Count 109(L) 150 - 450 X10E9/L 09/02/2024 6:41 AM EDT [facility] MPV 10.7 7 - 12 fL 09/02/2024 6:41 AM EDT [facility] Neutrophils % 72.6 % 09/02/2024 6:41 AM EDT [facility] Lymphocytes % 17.6 % 09/02/2024 6:41 AM EDT [facility] Monocytes % 9.2 % 09/02/2024 6:41 AM EDT [facility] Eosinophils % 0.3 % 09/02/2024 6:41 AM EDT [facility] Basophils % 0.3 % 09/02/2024 6:41 AM EDT [facility] Neutrophils Absolute (A) 4.2 1.5 - 6.6 10*3/uL 09/02/2024 6:41 AM EDT [facility] Lymphocytes Absolute 1.0 1.0 - 3.5 10*3/uL 09/02/2024 6:41 AM EDT [facility] Monocytes Absolute 0.5 0.0 - 0.9 10*3/uL 09/02/2024 6:41 AM EDT [facility] Eosinophils Absolute 0.0 0.0 - 0.4 10*3/uL 09/02/2024 6:41 AM EDT [facility] Basophils Absolute 0.0 0.0 - 0.2 10*3/uL 09/02/2024 6:41 AM EDT [facility] Differential Type AUTOMATED DIFFERENTIAL 09/02/2024 6:41 AM EDT [facility] Blood Venous blood / Unknown Venipuncture / Unknown 09/02/2024 6:02 AM EDT 09/02/2024 6:02 AM EDT us [facility] Q Vinh TODD LAB BLOOD ORDERABLES Final Resul t [facility] [address] [place] [address], * CT angiogram chest (09/02/2024 5:16 AM EDT) Anatomical Region Laterality Modality Lung, Body, Chest, Vascular, Body Covera N/A Computed Tomography 09/02/2024 5:20 AM EDT Narrative 09/02/2024 5:[address] CTA CHEST HISTORY: Ductus arteriosus, preeclampsia COMPARISON: 06/13/2020 TECHNIQUE: Contiguous axial images are obtained of the Chest with 200 mL of Omnipaque 350 IV contrast. Coronal and sagittal reconstructions were performed and reviewed. Sagittal and coronal reformatted images with 3-D Maximum intensity projection reconstructions constructed under concurrent physician supervision on a separate workstation. Automatic exposure control was utilized. All CT scans at this facility use dose modulation, iterative reconstruction, and/or weight based dosing when appropriate to reduce radiation dose to as low as reasonably achievable. FINDINGS: MEDIASTINUM: The visualized thyroid is unremarkable. No mediastinal lymphadenopathy. No hilar lymphadenopathy. AXILLA: No axillary lymphadenopathy. HEART: The heart size is within normal limits. No significant pericardial effusion. No significant coronary artery calcifications. Thoracic aorta is nonaneurysmal. Small focal outpouching smooth contour just distal to the left subclavian artery is again visualized, consistent with a ductus diverticulum. This measures up to 1.7 cm in diameter and 0.7 cm in thickness. No evidence of dissection or penetrating ulcer. No significant atherosclerotic plaque. LUNGS: The trachea and proximal airways are unremarkable. Lungs are unremarkable. No focal consolidation, pleural effusions, or pneumothorax. ABDOMEN: Partial visualization of anterior abdominal soft tissue, likely uterus. BONES: No acute osseous abnormality. IMPRESSION: * No acute thoracic findings. * Redemonstration of the focal outpouching of the aorta, consistent with a ductus diverticulum. No evidence of acute aortic syndrome. Approved by Resident Enrico Patterson MD on 09/02/2024 5:20 AM IGiuseppe MD have personally reviewed the image(s) and agree with and/or edited the report Finalized by Giuseppe Suh MD on 09/02/2024 5:33 AM Procedure Note Giuseppe Suh MD - 09/02/2024 CT CTA CHEST HISTORY: Ductus arteriosus, preeclampsia COMPARISON: 06/13/2020 TECHNIQUE: Contiguous axial images are obtained of the Chest with 200 mLof Omnipaque 350 IV contrast. Coronal and sagittal reconstructions wereperformed and reviewed. Sagittal and coronal reformatted images with 3-DMaximum intensity projection reconstructions constructed under concurrent physician supervision on a separate workstation. Automatic exposurecontrol was utilized. All CT scans at this facility use dose modulation,iterative reconstruction, and/or weight based dosing when appropriate toreduce radiation dose to as low as reasonably achievable. FINDINGS: MEDIASTINUM: The visualized thyroid is unremarkable. No mediastinallymphadenopathy. No hilar lymphadenopathy. AXILLA: No axillary lymphadenopathy. HEART: The heart size is within normal limits. No significant pericardialeffusion. No significant coronary artery calcifications. Thoracic aorta isnonaneurysmal. Small focal outpouching smooth contour just distal to theleft subclavian artery is again visualized, consistent with a ductus diverticulum. This measures up to 1.7 cm in diameter and 0.7 cm inthickness. No evidence of dissection or penetrating ulcer. No significantatherosclerotic plaque. LUNGS: The trachea and proximal airways are unremarkable. Lungs areunremarkable. No focal consolidation, pleural effusions, or pneumothorax. ABDOMEN: Partial visualization of anterior abdominal soft tissue, likelyuterus. BONES: No acute osseous abnormality. IMPRESSION: * No acute thoracic findings. * Redemonstration of the focal outpouching of the aorta, consistent witha ductus diverticulum. No evidence of acute aortic syndrome. Approved by Resident Enrico Patterson MD on 09/02/2024 5:20 AM I, Giuseppe Suh MD have personally reviewed the image(s) and agree withand/or edited the report Finalized by Giuseppe Suh MD on 09/02/2024 5:33 AM [facility] Q Vu IMG CT ORDERABLES Final Result * (ABNORMAL) Protein creat ratio (09/02/2024 1:23 AM EDT) URINE PROTEIN, RANDOM (MG/L) 640(HH) <120 mg/L 09/02/2024 2:40 AM EDT [facility] URINE CREATININE,RDM 125.69 mg/dL 09/02/2024 2:40 AM EDT [facility] U/PRO/HEAD BUTLER RATIO CALC 0.51(H) <=0.20 09/02/2024 2:40 AM EDT [facility] Urine Urine specimen collection, clean catch / Unknown 09/02/2024 1:23 AM EDT 09/02/2024 1:43 AM EDT Narrative [facility] - 09/02/2024 2:40 AM EDT Nephrotic Syndrome is associated with ratios >3.5 [facility] Jazmine Justice MD URINE ORDERABLES Final Result [facility] [address] [place] [address], * Urine Culture Urine, Clean Catch Midstream (09/02/2024 1:23 AM EDT) CULTURE RESULTS 10-50,000 ORGANISMS/mL NORMAL UROGENITAL ASHLEY 09/03/2024 8:06 AM EDT [facility] Urine Urine specimen collection, clean catch / Unknown 09/02/2024 1:23 AM EDT 09/02/2024 1:48 AM EDT [facility] Jazmine Justice MD MICROBIOLOGY - GENERAL ORDERABLE S Final Result [facility] [address] [place] [address], * (ABNORMAL) Urinalysis (09/02/2024 1:23 AM EDT) COLOR Yellow Yellow, Colorless 09/02/2024 2:39 AM EDT [facility] TURBIDITY Hazy(A) Clear 09/02/2024 2:39 AM EDT [facility] SPECIFIC GRAVITY 1.019 1.003 - 1.035 09/02/2024 2:39 AM EDT [facility] NITRITE Negative Negative 09/02/2024 2:39 AM EDT [facility] PH,URINE 6.5 5.0 - 8.5 09/02/2024 2:39 AM EDT [facility] LEUKOCYTE ESTERASE Large(A) Negative 09/02/2024 2:39 AM EDT [facility] PROTEIN 50 mg/dL(A) Negative 09/02/2024 2:39 AM EDT [facility] KETONES (URINE) 60 mg/dL(A) Negative 09/03/19 2:39 AM EDT [facility] UROBILINOGEN <1.1 eu/dL <1.1 eu/dL 09/02/2024 2:39 AM EDT [facility] BILIRUBIN (URINE) Negative Negative 09/02/2024 2:39 AM EDT [facility] BLOOD/HGB Negative Negative 09/02/2024 2:39 AM EDT [facility] MUCOUS Present(A) None 09/02/2024 2:39 AM EDT [facility] R.B.CELLS 1 0 - 5 09/02/2024 2:39 AM EDT [facility] SQUAMOUS EPITHELIUM 7(H) 0 - 5 09/02/2024 2:39 AM EDT [facility] TRANSITIONAL EPITH <1(H) <=0 09/02/2024 2:39 AM EDT [facility] W.B.CELLS 5 0 - 5 09/02/2024 2:39 AM EDT [facility] GLUCOSE (URINE) Negative Negative 2:39 AM EDT [facility] Urine 09/02/2024 1:23 AM EDT 09/02/2024 1:48 AM EDT Narrative [facility] - 09/02/2024 2:39 AM EDT Urine received without preservative. Delays in transport may affect results. Interpret with caution. A clinical correlation is recommended. us Carla Q Vu URINE ORDERABLES Final Result [facility] [address] [place] [address], * Fentanyl, Urine Qualitative (09/02/2024 1:23 AM EDT) FENTANYL, URINE QUAL. Negative Negative 09/02/2024 2:36 AM EDT [facility] Urine Urine / Unknown 09/02/2024 1 :23 AM EDT 09/02/2024 1:43 AM EDT Narrative [facility] - 09/02/2024 2:36 AM EDT Fentanyl screening cutoff = 5ng/ml This report is intended for use in clinical monitoring or management of patients. [facility] Q Vinh TODD URINE ORDERABLES Final Result [facility] [address] [place] [address], * Drug Screen, Urine (09/02/2024 1:23 AM EDT) AMPHETAMINE/METHAMP Negative Negative 09/02 2:37 AM EDT [facility] Comment:AMPH/METH screening cut off = 1000 ng/mL COCAINE METABOLITE Negative Negative 2024 2:37 AM EDT [facility] Comment:Cocaine screening cu t off value = 300 ng/mL ECSTASY Negative Negative 09/02/2024 2:37 AM EDT [facility] Comment:Ecstasy screening cu t off value = 500 ng/mL METHADONE Negative Negative 09/02/2024 2:37 AM EDT [facility] Comment:Methadone screening cut off value = 300 ng/mL. OPIATES Negative Negative 09/02/2024 2:37 AM EDT [facility] Comment: Opiates screening cut off value = 300 ng/mL This test is used for the detection of codeine, hydrocodone (>1000 ng/mL), morphine and hydromorphone (>900 ng/mL) in urine. OXYCODONE Negative Negative 09/02/2024 2:37 AM EDT [facility] Comment: Oxycodone screening cut off value = 300 ng/mL This test is used for the detection of oxycodone and oxymorphone in urine. PHENCYCLIDINE Negative Negative 09/02/2024 2:37 AM EDT [facility] Comment:Phencyclidine screen ing cut off value = 25 ng/mL CANNABINOIDS Negative Negative 09/02/2024 2:37 AM EDT [facility] Comment:Cannabinoids/THC scr eening cut off value = 50 ng/mL Urine Barbiturates Negative Negative 2024 2:37 AM EDT [facility] Comment:Barbiturates screeni ng cut off value = 200 ng/mL BENZODIAZEPINES Negative Negative 2:37 AM EDT [facility] Comment:Benzodiazepines scre ening cut off value = 200 ng/mL Urine Urine / Unknown 09/02/2024 1 :23 AM EDT 09/02/2024 1:43 AM EDT [facility] Center[facility] Q Vu URINE ORDERABLES Final Result [facility] 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 It is a clinically significant antibody that can cause hemolytic transfusion reaction and hemolytic disease of the fetus and . Per [facility], [place], the patient received Rh immunoglobulin (RhIG) on 07/16/2024. Per [facility], her last negative antibody screen was on 03/05/2025. As there is no record of a negative antibody screen closer to the date of RhIG administration, the possibility of alloanti-D should be considered. Please evaluate the patient for risk factors for alloimmunization; if none are present, her anti-D may be interpreted as passive immunization. She should be given prophylactic RhIG as indicated by established protocols. Repeat testing at approximately 6 months after the last dose of RhIG may be helpful in establishing the origin of the patient's anti-D (active vs. passive immunization), since passive anti-D typically disappears after 6 months. 09/08/2024 11:37 AM EDT [facility] Alena COLLINS Blood Venous blood / Unknown 09/01/2024 11:13 PM EDT 09/02/2024 7:31 AM EDT Regulo Jain MD PATHOLOGY/CYTOLOGY ORDERABLES Final Result [facility] [address] [place] [address], [place] * Antibody ID (09/01/2024 11:13 PM EDT) Antibody ID Passive D Antibody, Patient Received RHIG Passive D Antibody, Patient Received RHIG 09/02/2024 7:29 AM EDT [facility] Comment:See Clinical Patholo gy Review Blood Venous blood / Unknown Venipuncture / Unknown 09/01/2024 11:13 PM EDT 09/01/2024 11:13 PM EDT [facility] TEST ORDERABLES Edite d Result - Final Performing Organization Address City/[facility]/ZIP Co de Phone Number [facility] [address] [place] [address], [facility] [address] [place] [address], [place] * Folate (09/01/2024 11:13 PM EDT) FOLIC ACID 8.4 >5.8 ng/mL 09/02/2024 5:43 AM EDT [facility] Blood Venous blood / Unknown Venipuncture / Unknown 09/01/2024 11:13 PM EDT 09/01/2024 11:13 PM EDT [facility] Jazmine Justice MD LAB BLOOD ORDERABLES Final Resul t [facility] [address] [place] [address], [place] [phone] * (ABNORMAL) Vitamin B12 (09/01/2024 11:13 PM EDT) VITAMIN B12 165(L) 180 - 914 pg/mL 09/02/2024 5:44 AM EDT [facility] Blood Venous blood / Unknown Venipuncture / Unknown 09/01/2024 11:13 PM EDT 09/01/2024 11:13 PM EDT [facility] Q Vinh TODD LAB BLOOD ORDERABLES Final Resul t Performing Organization Address City/[facility]/ZIP Co de Phone Number [facility] [address] [place] [address], [place] [phone] * (ABNORMAL) Ferritin (09/01/2024 11:13 PM EDT) FERRITIN 4(L) 11 - 307 ng/mL 09/02/2024 5:39 AM EDT [facility] Blood Venous blood / Unknown Venipuncture / Unknown 09/01/2024 11:13 PM EDT 09/01/2024 11:13 PM EDT [facility] Jazmine Justice MD LAB BLOOD ORDERABLES Final Resul t [facility] [address] [place] [address], [place] [phone] * Type and screen(includes indirect trupti) (09/01/2024 11:13 PM EDT) ABO B 09/02/2024 2:07 AM EDT [facility] RH Negative 09/02/2024 2:07 AM EDT [facility] Antibody Screen Positive 09/02/2024 2:07 AM EDT [facility] Blood Venous blood / Unknown Venipuncture / Unknown 09/01/2024 11:13 PM EDT 09/01/2024 11:13 PM EDT Carla Justice MD BLOOD BANK TEST ORDERABLES Edite d Result - Final Performing Organization Address City/[facility]/ZIP Co de Phone Number [facility] KARINA [address] [place] [address], [facility] [address] [place] [address], * Syphilis Total (Unknown Syphilis Status) (09/01/2024 11:13 PM EDT) SYPHILIS TOTAL <0.2 <=0.8 AI 09/02/2024 6:23 AM EDT [facility] Blood Venous blood / Unknown Venipuncture / Unknown 09/01/2024 11:13 PM EDT 09/01/2024 11:13 PM EDT Narrative [facility] - 09/02/2024 6:23 AM EDT NON REACTIVE No serologic evidence of infection to Treponema pallidum. Repeat testing may be considered in patients with suspected acute or primary syphilis in 2 to 4 weeks. Carla Justice MD LAB BLOOD ORDERABLES Final Resul t Performing Organization Address City/[facility]/ZIP Co de Phone Number [facility] [address] [place] [address], * Uric acid (09/01/2024 11:13 PM EDT) URIC ACID 5.8 2.6 - 7.2 mg/dL 09/01/2024 11:53 PM EDT [facility] Blood Venous blood / Unknown Venipuncture / Unknown 09/01/2024 11:13 PM EDT 09/01/2024 11:13 PM EDT [facility] Jazmine Justice MD LAB BLOOD ORDERABLES Final Resul t [facility] [address] [place] [address], * LDH (09/01/2024 11:13 PM EDT) Pathologist [facility] LDH 167 100 - 235 U/L 09/01/2024 11:53 PM EDT [facility] Blood Venous blood / Unknown Venipuncture / Unknown 09/01/2024 11:13 PM EDT 09/01/2024 11:13 PM EDT [facility] Q Vu LAB BLOOD ORDERABLES Final Resul t [facility] [address] [place] [address], * (ABNORMAL) Comprehensive metabolic panel (09/01/2024 11:13 PM EDT) [facility] SODIUM 137 134 - 146 mmol/L 09/01/2024 11:53 PM EDT [facility] POTASSIUM 4.0 3.5 - 5.0 mmol/L 09/01/2024 11:53 PM EDT [facility] CHLORIDE 104 98 - 109 mmol/L 09/01/2024 11:53 PM EDT [facility] CARBON DIOXIDE 24 22 - 32 mmol/L 09/01/2024 11:53 PM EDT [facility] ANION GAP 9 5 - 15 mmol/L 09/01/2024 11:53 PM EDT [facility] BLOOD UREA NITROGEN 8 5 - 23 mg/dL 09/01/2024 11:53 PM EDT [facility] CREATININE 0.62 0.40 - 1.00 mg/dL 09/01/2024 11:53 PM EDT [facility] Comment:METHOD TRACEABLE TO IDMS STANDARD GLUCOSE 72 65 - 99 mg/dL 09/01/2024 11:53 PM EDT [facility] CALCIUM 8.4(L) 8.5 - 10.5 mg/dL 09/01/2024 11:53 PM EDT [facility] TOTAL PROTEIN 5.3(L) 6.0 - 8.0 g/dL 09/01/2024 11:53 PM EDT [facility] ALBUMIN 3.1(L) 3.2 - 5.3 g/dL 09/01/2024 11:53 PM EDT [facility] ALKALINE PHOSPHATASE 176(H) 39 - 130 U/L 09/01/2024 11:53 PM EDT [facility] AST 23 <=41 U/L 09/01/2024 11:53 PM EDT [facility] ALT 19 <=31 U/L 09/01/2024 11:53 PM EDT [facility] BILIRUBIN,TOTAL 0.5 0.3 - 1.2 mg/dL 09/01/2024 11:53 PM EDT [facility] EGFR Non-Race Dependent >90 >=60 ml/min/1.7 3sq.m 09/01/2024 11:53 PM EDT [facility] Comment: Reported eGFR is based on the CKD-EPI 2020 equation that does not use a race coefficient. Blood Venous blood / Unknown Venipuncture / Unknown 09/01/2024 11:13 PM EDT 09/01/2024 11:13 PM EDT us Carla Q Vinh TODD LAB BLOOD ORDERABLES Final Resul t [facility] [address] [place] [address], * (ABNORMAL) CBC auto differential (09/01/2024 11:13 PM EDT) WBC 6.8 4 - 11 x10E9/L 09/01/2024 11:35 PM EDT [facility] RBC Count 3.35(L) 3.8 - 5.2 X10E12/L 09/01/2024 11:35 PM EDT [facility] Hemoglobin 9.1(L) 11.7 - 15.5 g/dL 09/01/2024 11:35 PM EDT [facility] Hematocrit 27.6(L) 35 - 47 % 09/01/2024 11:35 PM EDT [facility] MCV 82 80 - 100 fL 09/01/2024 11:35 PM EDT [facility] MCH 27.1 27 - 34 pg 09/01/2024 11:35 PM EDT [facility] MCHC 32.9 32 - 36 g/dL 09/01/2024 11:35 PM EDT [facility] RDW 17.3(H) 11.5 - 15 % 09/01/2024 11:35 PM EDT [facility] Platelet Count 122(L) 150 - 450 X10E9/L 09/01/2024 11:35 PM EDT [facility] MPV 10.6 7 - 12 fL 09/01/2024 11:35 PM EDT [facility] Neutrophils % 76.1 % 09/01/2024 11:35 PM EDT [facility] Lymphocytes % 14.9 % 09/01/2024 11:35 PM EDT [facility] Monocytes % 8.7 % 09/01/2024 11:35 PM EDT [facility] Eosinophils % 0.1 % 09/01/2024 11:35 PM EDT [facility] Basophils % 0.2 % 09/01/2024 11:35 PM EDT [facility] Neutrophils Absolute (A) 5.2 1.5 - 6.6 10*3/uL 09/01/2024 11:35 PM EDT [facility] Lymphocytes Absolute 1.0 1.0 - 3.5 10*3/uL 09/01/2024 11:35 PM EDT [facility] Monocytes Absolute 0.6 0.0 - 0.9 10*3/uL 09/01/2024 11:35 PM EDT [facility] Eosinophils Absolute 0.0 0.0 - 0.4 10*3/uL 09/01/2024 11:35 PM EDT [facility] Basophils Absolute 0.0 0.0 - 0.2 10*3/uL 09/01/2024 11:35 PM EDT [facility] Differential Type AUTOMATED DIFFERENTIAL 09/01/2024 11:35 PM EDT [facility] Blood Venous blood / Unknown Venipuncture / Unknown 09/01/2024 11:13 PM EDT 09/01/2024 11:13 PM EDT Carla Jazmine Justice MD LAB BLOOD ORDERABLES Final Resul t [facility] [address] [place] [address], [place] [phone] * PST TOP (09/01/2024 11:11 PM EDT) Extra Tube Auto Resulted 09/02/2024 1:01 AM EDT [facility] Blood Venous blood / Unknown 09/01/2024 11:11 PM EDT 09/01/2024 11:25 PM EDT Regulo Jain MD LAB BLOOD ORDERABLES Final Res ult [facility] [address] [place] [address], [place] [phone] * Crossmatch RBC:Number of Units: 2 (09/01/2024 11:00 PM EDT) Blood component type [id number] [facility] Unit number [id number] TO [facility] Unit ABO B [facility] Unit [facility] Crossmatch Compatible [facility] Status of unit /RELEASED [facility] Expiration Date [facility] BB Type Barcode 1700 [facility] Blood component type [id number] [facility] Unit number [id number] TO [facility] Unit ABO B [facility] Unit [facility] Crossmatch Compatible [facility] Status of unit /RELEASED [facility] Expiration Date [id number] [facility] BB Type Barcode 1700 [facility] Blood 09/01/2024 11:0 0 PM EDT 09/02/2024 12:17 AM EDT us Suze Haddad DO BLOOD BANK PRODUCT ORDERABLE S Edited Result - Final [facility] [address] [place] [address], documented in this encounter Visit Diagnoses Diagnosis Elevated blood pressure reading- Primary Elevated blood pressure reading without diagnosis of hypertension Acute post-operative pain documented in this encounter Admitting Diagnoses Diagnosis Elevated blood pressure reading Elevated blood pressure reading without diagnosis of hypertension documented in this encounter Administered Medications Inactive Administered Medications - up to 3 most recent administrations Medication Order MAR Action Action Date Dose Rate Site acetaminophen (TYLENOL EXTRA STRENGTH) tablet 1,000 mg 1,000 mg, oral, Once, On Sat09/02/24 at 0145, For 1 dose Given 09/02/2024 1:45 AM EDT 1,000 mg acetaminophen (TYLENOL EXTRA STRENGTH) tablet 1,000 mg 1,000 mg, oral, Once, On Sat09/02/24 at 0930, For 1 dose, L&D Pre-Delivery Given 09/02/2024 12:07 PM EDT 1,000 mg acetaminophen (TYLENOL EXTRA STRENGTH) tablet 1,000 mg 1,000 mg, oral, Every 8 hours, First dose on Sat09/02/24 at 2030, , Alternate administration every 4 hours with ketorolac or ibuprofen Given 09/04/2024 2:55 PM EDT 1,000 mg Given 09/04/2024 4:27 AM EDT 1,000 mg Given 09/03/2024 8:31 PM EDT 1,000 mg carboprost (HEMABATE) injection 250 mcg 250 mcg, intramuscular, Once as needed, hemorrhage management, Starting on Sat09/02/24 at 1905, For 1 dose, , Administer as directed by provider for Hemorrhage management. DO NOT ADMINISTER IV. Contraindicated if patient has a history of asthma or cardiovascular disease ceFAZolin (ANCEF) IVPB 1999 mg/50 mL in iso-osmotic dextrose (40 mg/mL premix) 2,000 mg, intravenous, at 100 mL/hr, Administer over 30 Minutes, Once, On Sat09/02/24 at 0930, For 1 dose, L&D Pre-Delivery, Initiate within 1 hour of incision Look-alike/sound-alike medication - verify indication for use., Indication: Surgical prophylaxis Rate/Dose Verify 09/02/2024 2:35 PM EDT 100 mL/hr New Bag 09/02/2024 2:34 PM EDT 2,000 mg 100 mL/hr docusate sodium (COLACE) capsule 100 mg 100 mg, oral, 2 times daily, First dose on Sat09/02/24 at 2100, , Look-alike/sound-alike medication - verify indication for use. Given 09/04/2024 9:03 AM EDT 100 mg Given 09/03/2024 8:31 PM EDT 100 mg Given 09/03/2024 8:51 AM EDT 100 mg furosemide (LASIX) injection 20 mg 20 mg, intravenous, Every 24 hours, First dose on Coco 09/03/24 at 0830, Look-alike/sound-alike medication - verify indication for use. IVP rate = 20 mg/min Given 09/04/2024 9:04 AM EDT 20 mg Given 09/03/2024 8:51 AM EDT 20 mg ibuprofen (MOTRIN) tablet 800 mg 800 mg, oral, Every 8 hours, First dose on Coco 09/03/24 at 1915, , Alternate administration every 4 hours with acetaminophen Look-alike/sound-alike medication - verify indication for use. Take/Give with food or milk. Given 09/04/2024 9:03 AM EDT 800 mg Given 09/04/2024 12:25 AM EDT 800 mg iohexoL (OMNIPAQUE) 350 mg iodine/mL injection 100 mL 100 mL, intravenous, Once in imaging, contrast, Starting on Sat09/02/24 at 0448, For 1 dose, VESICANT (RED) Given 09/02/2024 4:50 AM EDT 100 mL ketorolac (TORADOL) injection 30 mg 30 mg, intravenous, Every 8 hours, First dose on 09/02/24 at 1915, For 24 hours, , Alternate administration every 4 hours with acetaminophen Look-alike/sound-alike medication - verify indication for use. Duration of therapy is not to exceed 5 days. Maximum recommended dose + 120mg/24 hours. Given 09/03/2024 5:06 PM EDT 30 mg Given 09/03/2024 8:52 AM EDT 30 mg Given 09/03/2024 12:22 AM EDT 30 mg lactated ringers bolus 1,000 mL, intravenous, at 984 mL/hr, Administer over 61 Minutes, Once, On Sat09/02/24 at 0930, For 1 dose, L&D Pre-Delivery, On fluid-restricted patients, such as pre-eclampsia, consult physician regarding IV rate Bolus from Existing Bag 09/02/2024 2:00 PM EDT 1,000 mL 984 mL/hr lactated ringers infusion 83 mL/hr, intravenous, Continuous PRN, post-delivery hemostasis, Starting on Sat09/01/24 at 2259, For 1 day, Administer for 4 hours. Administer with Oxytocin bolus and infusion Rate/Dose Verify 09/02/2024 6:00 PM EDT 83 mL/hr Rate/Dose Verify 09/02/2024 5:00 PM EDT 83 mL/h r Rate/Dose Verify 09/02/2024 4:30 PM EDT 83 mL/h r lactated ringers infusion 125 mL/hr, intravenous, Continuous, Starting on Sat09/02/24 at 0600, For 1 day Rate/Dose Verify 09/02/2024 2:30 PM EDT 125 mL/hr Rate/Dose Verify 09/02/2024 2:00 PM EDT 125 mL/ hr New Bag 09/02/2024 1:49 PM EDT 125 mL/hr 125 mL/hr methylergonovine (METHERGINE) injection 200 mcg 200 mcg, intramuscular, Once as needed, hemorrhage treatment, Starting on Sat09/02/24 at 1905, For 1 dose, , For hemorrhage treatment, administer as directed by provider for Hemorrhage management. DO NOT ADMINISTER IV. Contraindicated if patient has a hypersensitivity of Systolic BP greater than 140 or Diastolic BP greater than 90. Look-alike/sound-alike medication - verify indication for use. miSOPROStoL (CYTOTEC) tablet 800 mcg 800 mcg, sublingual, Once as needed, hemorrhage treatment, Starting on Sat09/02/24 at 1905, For 1 dose, , Administer as directed by provider for Hemorrhage management. Use only if Hypertensive and Asthmatic. Look-alike/sound-alike medication - verify indication for use. ondansetron (PF) (ZOFRAN) injection 4 mg 4 mg, intravenous, Every 8 hours PRN, nausea, vomiting, Starting on Sat09/02/24 at 2059, Intravenous administration preferred to be given over 2-5 minutes. Given 09/02/2024 9:49 PM EDT 4 mg oxyCODONE (ROXICODONE) immediate release tablet 5 mg 5 mg, oral, Every 4 hours PRN, moderate pain - pain scale 4-6, breakthrough pain, Starting on Sat09/02/24 at 1627, , Look-alike/sound-alike medication - verify indication for use. Immediate release. Given 09/04/2024 9:04 AM EDT 5 mg Given 09/02/2024 5:49 PM EDT 5 mg oxytocin (PITOCIN) bolus from bag solution 10 Units 10 Units, intravenous, Administer over 30 Minutes, Once as needed, post-delivery hemostasis, Starting on Sat09/02/24 at 1905, For 1 dose, , Administer via programmable pump with lactated ringers solution oxytocin (PITOCIN) infusion 30 units/500 mL in lactated ringers (0.06 units/mL premix) 42 gena-units/min (42 mL/hr), intravenous, Continuous PRN, for post-delivery hemostasis, Starting on Sat09/01/24 at 2259, Administer for 4 hours. Administer via programmable pump with lactated ringers solution 1 mL/hour = 1 gena-unit/min Rate/Dose Verify 09/02/2024 6:00 PM EDT 42 gena-units/min 42 mL/hr Rate/Dose Verify 09/02/2024 5:00 PM EDT 42 gena-units/min 42 mL/hr Rate/Dose Verify 09/02/2024 4:30 PM EDT 42 gena-units/min 42 mL/hr oxytocin (PITOCIN) infusion 30 units/500 mL in lactated ringers (0.06 units/mL premix) 42 gena-units/min (42 mL/hr), intravenous, Continuous PRN, for post-delivery hemostasis, Starting on Sat09/02/24 at 1905, , Administer for 4 hours. Administer via programmable pump with lactated ringers solution 1 mL/hour = 1 gena-unit/min oxytocin (PITOCIN) injection 10 Units 10 Units, intramuscular, Once as needed, hemorrhage treatment, Starting on Sat09/02/24 at 1905, For 1 dose, , administer as directed by provider for Hemorrhage management polyethylene glycol (GLYCOLAX) packet 17 g 17 g, oral, Daily, First dose on Sat09/02/24 at 1915, , Look-alike/sound-alike medication - verify indication for use. Dissolve 1 packet (17 gm) in 8 ounces of water, juice, soda, coffee or tea. Given 09/04/2024 9:03 AM EDT 17 g Given 09/03/2024 8:52 AM EDT 17 g simethicone (MYLICON) chewable tablet 80 mg 80 mg, oral, 4 times daily before meals and at bedtime as needed, flatulence, abdominal discomfort caused by gas and distension, Starting on Sat09/02/24 at 1905, , Maximum dose 500 mg daily Given 09/03/2024 3:18 PM EDT 80 mg sodium chloride 0.9 % flush 10 mL 10 mL, intravenous, As needed, line care, Starting on Sat09/02/24 at 0448 Given 09/02/2024 4:54 AM EDT 10 mL sodium chloride 0.9 % flush 3 mL 3 mL, intravenous, Every 12 hours scheduled, First dose on Sat09/01/24 at 2300, Given 09/01/2024 11: 00 PM EDT 3 mL sodium chloride 0.9 % radiology injection 80 mL, intravenous, Once in imaging, pre/post contrast, Starting on Sat09/02/24 at 0448, For 1 dose Given 09/02/2024 4:54 AM EDT 80 mL sodium citrate-citric acid (BICITRA) 500-334 mg/5 mL solution 30 mL 30 mL, oral, Once, On Sat09/02/24 at 0930, For 1 dose, L&D Pre-Delivery, Within one hour prior to transfer to surgical suite Look-alike/sound-alike medication - verify indication for use. Given 09/02/2024 2:33 PM EDT 30 mL tranexamic acid (CYKLOKAPRON) injection 1,000 mg 1,000 mg, intravenous, Administer over 10 Minutes, Every 30 min PRN, hemostasis/ post- hemorrhage, Starting on Sat09/02/24 at 1905, For 2 doses, , As directed by provider for hemostasis/ hemorrhage management. Give slow IV push over 10 minutes, may repeat one time in 30 minutes after initial dose documented in this encounter Active and Recently Administered Medications Times are shown in EDT. Scheduled Medication Order 09/02/2024 09/03/2024 09/04/2024 acetaminophen (TYLENOL EXTRA STRENGTH) tablet 1,000 mg (COMPLETED) 1,000 mg, oral, Once, On Sat09/02/24 at 0145, For 1 dose 0145 (Given - Provider: Juana Deal RN) acetaminophen (TYLENOL EXTRA STRENGTH) tablet 1,000 mg (COMPLETED) 1,000 mg, oral, Once, On Sat09/02/24 at 0930, For 1 dose, L&D Pre-Delivery 1207 (Given - Provider: Cee Coronel RN)1400 (Hold - Provider: Cee Coronel RN - Reason: Other - Comment: given at 1207) acetaminophen (TYLENOL EXTRA STRENGTH) tablet 1,000 mg 1,000 mg, oral, Every 8 hours, First dose on Sat09/02/24 at 2030, , Alternate administration every 4 hours with ketorolac or ibuprofen 2043 (Given - Provider: Amie Rdz RN) 0440 (Given - Provider: Amie Rdz RN)1322 (Given - Provider: Zeenat White RN)203 (Given - Provider: Amie Rdz RN) 0427 (Given - Provider: Amie Rdz RN)1301 (Not Given - Provider: Lakisha Wayne RN - Reason: Other - Comment: pt sleeping)1455 (Given - Provider: Lakisha Wayne, WESLEY) ceFAZolin (ANCEF) IVPB 2000 mg/50 mL in iso-osmotic dextrose (40 mg/mL premix) (COMPLETED) 2,000 mg, intravenous, at 100 mL/hr, Administer over 30 Minutes, Once, On Sat09/02/24 at 0930, For 1 dose, L&D Pre-Delivery, Initiate within 1 hour of incision Look-alike/sound-alike medication - verify indication for use., Indication: Surgical prophylaxis 1434 (New Bag - Provider: Cee Coronel, RN)1435 (Rate/Dose Verify - Provider: Cee Coronel, RN)1504 (Stop Bag - Provider: Cee Coronel, RN) docusate sodium (COLACE) capsule 100 mg 100 mg, oral, 2 times daily, First dose on Sat09/02/24 at 2100, , Look-alike/sound-alike medication - verify indication for use. 2100 (Not Given - Provider: Amie Rdz RN - Reason: Nausea) 0851 (Given - Provider: Zeenat White RN)203 (Given - Provider: Amie Rdz RN) 0903 (Given - Provider: Lakisha Wayne, RN) furosemide (LASIX) injection 20 mg 20 mg, intravenous, Every 24 hours, First dose on Coco 09/03/24 at 0830, Look-alike/sound-alike medication - verify indication for use. IVP rate = 20 mg/min 0851 (Given - Provider: Zeenat White RN) 0904 (Given - Provider: Lakisha Wayne, WESLEY) ibuprofen (MOTRIN) tablet 800 mg(Linked Group 1) 800 mg, oral, Every 8 hours, First dose on Coco 09/03/24 at 1915, , Alternate administration every 4 hours with acetaminophen Look-alike/sound-alike medication - verify indication for use. Take/Give with food or milk. 0025 (Given - Provider: Amie dRz RN)0903 (Given - Provider: Lakisha Wayne, WESLEY)1700 (Due - Provider: Lakisha Wayne, RN) ketorolac (TORADOL) injection 30 mg (COMPLETED)(Linked Group 1) 30 mg, intravenous, Every 8 hours, First dose on 09/02/24 at 1915, For 24 hours, , Alternate administration every 4 hours with acetaminophen Look-alike/sound-alike medication - verify indication for use. Duration of therapy is not to exceed 5 days. Maximum recommended dose + 120mg/24 hours. 0022 (Given - Provider: Amie Rdz RN)0852 (Given - Provider: Zeenat White RN)1706 (Given - Provider: Zeenat White RN) lactated ringers bolus (COMPLETED)(Linked Group 2) 1,000 mL, intravenous, at 984 mL/hr, Administer over 61 Minutes, Once, On Sat09/02/24 at 0930, For 1 dose, L&D Pre-Delivery, On fluid-restricted patients, such as pre-eclampsia, consult physician regarding IV rate 1400 (Bolus from Existing Bag - Provider: Cee Coronel RN) polyethylene glycol (GLYCOLAX) packet 17 g 17 g, oral, Daily, First dose on Sat09/02/24 at 1915, , Look-alike/sound-alike medication - verify indication for use. Dissolve 1 packet (17 gm) in 8 ounces of water, juice, soda, coffee or tea. 1915 (Not Given - Provider: Amie Rdz RN - Reason: Patient/family refused) 0852 (Given - Provider: Zeenat White RN) 0903 (Given - Provider: Lakisha Wayne RN) sodium citrate-citric acid (BICITRA) 500-334 mg/5 mL solution 30 mL (COMPLETED) 30 mL, oral, Once, On Sat09/02/24 at 0930, For 1 dose, L&D Pre-Delivery, Within one hour prior to transfer to surgical suite Look-alike/sound-alike medication - verify indication for use. 1433 (Given - Provider: Cee Coronel RN) Continuous Medication Order 09/02/2024 09/03/2024 09/04/2024 lactated ringers infusion (CANCELED) 125 mL/hr, intravenous, Continuous, Starting on Sat09/02/24 at 0600, For 1 day 0608 (New Bag - Provider: Juana Deal RN)0608 (Rate/Dose Verify - Provider: Cee Coronel RN)0700 (Rate/Dose Verify - Provider: Cee Coronel RN)0900 (Rate/Dose Verify - Provider: Cee Coronel, WESLEY)1000 (Rate/Dose Verify - Provider: Cee Coronel RN)1002 (Paused - Provider: Cee Coronel RN)1004 (Restarted - Provider: Cee Coronel RN)1100 (Rate/Dose Verify - Provider: Cee Coronel RN)1200 (Rate/Dose Verify - Provider: Cee Coronel RN)1300 (Rate/Dose Verify - Provider: Cee Coronel RN)1345 (Stop Bag - Provider: Cee Coronel RN)1346 (Stop Bag - Provider: Cee Coronel RN)1349 (Stop Bag - Provider: Cee Coronel RN)1349 (New Bag - Provider: Trev Recio RN)1400 (Rate/Dose Verify - Provider: Cee Coronel RN)1430 (Rate/Dose Verify - Provider: Cee Coronel RN)1432 (Stop Bag - Provider: Cee Coronel RN)1435 (Stop Bag - Provider: Cee Coronel RN) PRN Medication Order 09/02/2024 09/03/2024 09/04/2024 bisacodyL (DULCOLAX) suppository 10 mg 10 mg, rectal, Once as needed, constipation, no relief from docusate or senna/docusate, Starting on Coco 09/03/24 at 0000, For 1 dose, , Start 2nd day Look-alike/sound-alike medication - verify indication for use. carboprost (HEMABATE) injection 250 mcg 250 mcg, intramuscular, Once as needed, hemorrhage management, Starting on 09/02/24 at 1905, For 1 dose, , Administer as directed by provider for Hemorrhage management. DO NOT ADMINISTER IV. Contraindicated if patient has a history of asthma or cardiovascular disease carboprost (HEMABATE) injection 250 mcg 250 mcg, intramuscular, Once as needed, hemorrhage management, Starting on 09/02/24 at 1905, For 1 dose, , Administer as directed by provider for Hemorrhage management. DO NOT ADMINISTER IV. Contraindicated if patient has a history of asthma or cardiovascular disease diphth,pertus(acell),tetan us (BOOSTRIX) injection 0.5 mL 0.5 mL, intramuscular, During hospitalization, immunization, Starting on 09/02/24 at 1905, For 1 dose, , Give before discharge, if patient not vaccinated during this For use in children, adolescents, and adults 7 years of age and older. hydrocortisone (ANUSOL-HC) 2.5 % rectal cream 1 Application 1 Application, rectal, As needed, hemorrhoids, Starting on Sat09/02/24 at 1905, , May keep at bedside, Indications: hemorrhoids iohexoL (OMNIPAQUE) 350 mg iodine/mL injection 100 mL (COMPLETED) 100 mL, intravenous, Once in imaging, contrast, Starting on Sat09/02/24 at 0448, For 1 dose, VESICANT (RED) 0450 (Given - Provider: MINAL Cook) lactated ringers infusion ()(Linked Group 3) 83 mL/hr, intravenous, Continuous PRN, post-delivery hemostasis, Starting on Sat09/01/24 at 2259, For 1 day, Administer for 4 hours. Administer with Oxytocin bolus and infusion 1615 (Associate Pump - Provider: Cee Coronel RN)1630 (Rate/Dose Verify - Provider: Cee Coronel RN)1700 (Rate/Dose Verify - Provider: Cee Coronel RN)1800 (Rate/Dose Verify - Provider: Cee Coronel RN)1948 (Stop Bag - Provider: Amie Rdz RN) measles, mumps and rubella vaccine (M-M-R II) injection 0.5 mL 0.5 mL, subcutaneous, During hospitalization, immunization, If Rubella titer Not Immune or Equivocal before discharge, Starting on Sat09/02/24 at 1905, For 1 dose, , Indications: zosulym-sdhnm-iiaioir vaccination methylergonovine (METHERGINE) injection 200 mcg 200 mcg, intramuscular, Once as needed, hemorrhage treatment, Starting on Sat09/02/24 at 1905, For 1 dose, , For hemorrhage treatment, administer as directed by provider for Hemorrhage management. DO NOT ADMINISTER IV. Contraindicated if patient has a hypersensitivity of Systolic BP greater than 140 or Diastolic BP greater than 90. Look-alike/sound-alike medication - verify indication for use. methylergonovine (METHERGINE) injection 200 mcg 200 mcg, intramuscular, Once as needed, hemorrhage treatment, Starting on Sat09/02/24 at 1905, For 1 dose, , For hemorrhage treatment, administer as directed by provider for Hemorrhage management. DO NOT ADMINISTER IV. Contraindicated if patient has a hypersensitivity of Systolic BP greater than 140 or Diastolic BP greater than 90. Look-alike/sound-alike medication - verify indication for use. miSOPROStoL (CYTOTEC) tablet 800 mcg 800 mcg, sublingual, Once as needed, hemorrhage treatment, Starting on Sat09/02/24 at 1905, For 1 dose, , Administer as directed by provider for Hemorrhage management. Use only if Hypertensive and Asthmatic. Look-alike/sound-alike medication - verify indication for use. miSOPROStoL (CYTOTEC) tablet 800 mcg 800 mcg, sublingual, Once as needed, hemorrhage treatment, Starting on Sat09/02/24 at 1905, For 1 dose, , Administer as directed by provider for Hemorrhage management. Use only if Hypertensive and Asthmatic. Look-alike/sound-alike medication - verify indication for use. modified lanolin (LANSINOH) 100 % cream cream 1 Application 1 Application, topical, As needed, sore/cracked nipples, Starting on Sat09/02/24 at 1905, , May keep at bedside ondansetron (PF) (ZOFRAN) injection 4 mg 4 mg, intravenous, Every 8 hours PRN, nausea, vomiting, Starting on Sat09/02/24 at 2059, Intravenous administration preferred to be given over 2-5 minutes. 2148 (Given - Provider: Amie Rdz RN) oxyCODONE (ROXICODONE) immediate release tablet 10 mg 10 mg, oral, Every 4 hours PRN, severe pain - pain scale 7-10, breakthrough pain, Starting on Sat09/02/24 at 1627, , Look-alike/sound-alike medication - verify indication for use. Immediate release. oxyCODONE (ROXICODONE) immediate release tablet 5 mg 5 mg, oral, Every 4 hours PRN, moderate pain - pain scale 4-6, breakthrough pain, Starting on Sat09/02/24 at 1627, , Look-alike/sound-alike medication - verify indication for use. Immediate release. 174 (Given - Provider: Cee Coronel RN) 09 (Given - Provider: Lakisha Wayne RN) oxytocin (PITOCIN) bolus from bag solution 10 Units 10 Units, intravenous, Administer over 30 Minutes, Once as needed, post-delivery hemostasis, Starting on Sat09/02/24 at 1905, For 1 dose, , Administer via programmable pump with lactated ringers solution oxytocin (PITOCIN) infusion 30 units/500 mL in lactated ringers (0.06 units/mL premix)(Linked Group 3) 42 gena-units/min (42 mL/hr), intravenous, Continuous PRN, for post-delivery hemostasis, Starting on Sat09/01/24 at 2259, Administer for 4 hours. Administer via programmable pump with lactated ringers solution 1 mL/hour = 1 gena-unit/min 1346 (Not Given - Provider: Cee Coronel RN - Reason: Other - Comment: pulled for delivery)1615 (Associate Pump - Provider: Cee Coronel RN)1630 (Rate/Dose Verify - Provider: Cee Coronel RN)1700 (Rate/Dose Verify - Provider: Cee Coronel RN)1800 (Rate/Dose Verify - Provider: Cee Coronel RN)1948 (Stop Bag - Provider: Amie Rdz RN) oxytocin (PITOCIN) infusion 30 units/500 mL in lactated ringers (0.06 units/mL premix)(Linked Group 4) 42 gena-units/min (42 mL/hr), intravenous, Continuous PRN, for post-delivery hemostasis, Starting on Sat09/02/24 at 1905, , Administer for 4 hours. Administer via programmable pump with lactated ringers solution 1 mL/hour = 1 gena-unit/min oxytocin (PITOCIN) injection 10 Units 10 Units, intramuscular, Once as needed, hemorrhage treatment, Starting on Sat09/02/24 at 1905, For 1 dose, , administer as directed by provider for Hemorrhage management oxytocin (PITOCIN) injection 10 Units 10 Units, intramuscular, Once as needed, hemorrhage treatment, Starting on Sat09/02/24 at 1905, For 1 dose, , administer as directed by provider for Hemorrhage management rho(D) immune globulin (RHOGAM) injection 300 mcg 300 mcg, intramuscular, Once as needed, if blood bank indicates criteria are met, Starting on Sat09/02/24 at 1905, For 1 dose, , If prescribed intramuscularly: Adults, teens and children greater than or equal to 3 years: administer in the deltoid (preferred) or anterolateral thigh. Do NOT administer in the gluteal muscle. This item is provided by blood bank. simethicone (MYLICON) chewable tablet 80 mg 80 mg, oral, 4 times daily before meals and at bedtime as needed, flatulence, abdominal discomfort caused by gas and distension, Starting on Sat09/02/24 at 1905, , Maximum dose 500 mg daily 1515 (Not Given - Provider: Zeenat White RN - Reason: Other - Comment: dropped on floor)1518 (Given - Provider: Zeenat White RN) sodium chloride 0.9 % flush 10 mL (CANCELED) 10 mL, intravenous, As needed, line care, Starting on Sat09/02/24 at 0448 0454 (Given - Provider: MINAL Cook) sodium chloride 0.9 % radiology injection (COMPLETED) 80 mL, intravenous, Once in imaging, pre/post contrast, Starting on Sat09/02/24 at 0448, For 1 dose 0454 (Given - Provider: MINAL Cook) tranexamic acid (CYKLOKAPRON) injection 1,000 mg 1,000 mg, intravenous, Administer over 10 Minutes, Every 30 min PRN, hemostasis/ post- hemorrhage, Starting on Sat09/02/24 at 1905, For 2 doses, , As directed by provider for hemostasis/ hemorrhage management. Give slow IV push over 10 minutes, may repeat one time in 30 minutes after initial dose tranexamic acid (CYKLOKAPRON) injection 1,000 mg 1,000 mg, intravenous, Administer over 10 Minutes, Every 30 min PRN, hemostasis/ post- hemorrhage, Starting on Sat09/02/24 at 1905, For 2 doses, , As directed by provider for hemostasis/ hemorrhage management. Give slow IV push over 10 minutes, may repeat one time in 30 minutes after initial dose varicella virus vaccine live (VARIVAX) injection 0.5 mL 0.5 mL, subcutaneous, During hospitalization, immunization, if no evidence of immunity (less than 0.9 is considered negative), Starting on Sat09/02/24 at 1905, For 1 dose, , Before discharge. Obtain Varicella Antibody Screen if titer unavailable or unknown. Look-alike/sound-alike medication - verify indication for use. Linked Groups Order Group 1: ketorolac (TORADOL) injection 30 mg (COMPLETED)Jump to med 30 mg, intravenous, Every 8 hours, First dose on Sat09/02/24 at 1915, For 24 hours, , Alternate administration every 4 hours with acetaminophen Look-alike/sound-alike medication - verify indication for use. Duration of therapy is not to exceed 5 days. Maximum recommended dose + 120mg/24 hours. Followed by ibuprofen (MOTRIN) tablet 800 mgJump to med 800 mg, oral, Every 8 hours, First dose on Coco 09/03/24 at 1915, , Alternate administration every 4 hours with acetaminophen Look-alike/sound-alike medication - verify indication for use. Take/Give with food or milk. Group 2: lactated ringers bolus (COMPLETED)Jump to med 1,000 mL, intravenous, at 984 mL/hr, Administer over 61 Minutes, Once, On Sat09/02/24 at 0930, For 1 dose, L&D Pre-Delivery, On fluid-restricted patients, such as pre-eclampsia, consult physician regarding IV rate Followed by lactated ringers infusion (CANCELED) 125 mL/hr, intravenous, Continuous, Starting on Sat09/02/24 at 0930, For 1 day, L&D Pre-Delivery Group 3: oxytocin (PITOCIN) infusion 30 units/500 mL in lactated ringers (0.06 units/mL premix)Jump to med 42 gena-units/min (42 mL/hr), intravenous, Continuous PRN, for post-delivery hemostasis, Starting on Sat09/01/24 at 2259, Administer for 4 hours. Administer via programmable pump with lactated ringers solution 1 mL/hour = 1 gena-unit/min And lactated ringers infusion ()Jump to med 83 mL/hr, intravenous, Continuous PRN, post-delivery hemostasis, Starting on Sat09/01/24 at 2259, For 1 day, Administer for 4 hours. Administer with Oxytocin bolus and infusion Group 4: oxytocin (PITOCIN) infusion 30 units/500 mL in lactated ringers (0.06 units/mL premix)Jump to med 42 gena-units/min (42 mL/hr), intravenous, Continuous PRN, for post-delivery hemostasis, Starting on Sat09/02/24 at 1905, , Administer for 4 hours. Administer via programmable pump with lactated ringers solution 1 mL/hour = 1 gena-unit/min And lactated ringers infusion () 83 mL/hr, intravenous, Continuous PRN, post-delivery hemostasis, Starting on Sat09/02/24 at 1905, For 1 day, , Administer for 4 hours. Administer with Oxytocin bolus and infusion documented in this encounter Additional Health Concerns Assessment Noted Time PHQ-9 Depression Total Score: 0 04/25/19 21 12:36 PM EST documented as of this encounter Care Teams [place] [facility] Relationship Specialty Start Date End Date No Pcp, No Pcp DunhamJOJO alonso [id number] PCP - General Family Medicine 02/03/24 documented as of this encounter
--- OUTSIDE RECORDS SUMMARY | 2024-09-02 14:00 | XMS_ITS | Encounter Summary ---
Author Organization [facility] tem Address [id number] [address] [place] [address] Care Team Providers Care Business Teacher Name Role Phone No Pcp, No Pcp Primary Care Provider Unavailabl e Reason for Visit * Auth/Cert (Routine) Specialty Diagnoses / Procedures Referred By Contac t Referred To Contact Diagnoses Elevated blood pressure reading Pre eclampsia Regulo Jain MD [address] [place] [address], [address] [place] [address] Phone: tel: fax: Referral ID Status Reason Start Date Expiration Date Visits Re quested Visits Authorized [id number] 1 1 Encounter Details Date Type Department Care Team (Late st Contact Info) Description 09/02/2024 2:00 PM EDT - 09/02/2024 3:00 PM EDT Surgery [facility] - Labor [address] [facility] [place] [id number] Cindy Soto MD [address] [place] [address], [address] [place] [address] REPEAT Surgery Details Date/Time Status Location OR Service Patient Class Case Class Case Type Trauma Case? 09/02/2024 2:00 PM Posted [facility] C Obstetrics Inpatient OB Scheduled Panel 1 Procedure LRB Anes Op Region Wound Class Comments REPEAT N/A Abdomen Clean Contami nated Surgeon Surgeon Role Service Panel Cindy Soto MD Primary Obstetrics 1 documented in this encounter Social History Tobacco Use Types Packs/Day Years [...] you attend chur ch or denominational services? More than 4 times per year 04/25/2020 Do you belong to any clubs o r organizations such as congregational groups, unions, fraternal or athletic groups, or [...] Answer Date Recorded Total Score 0 04/25/2020 [facility] - Occupational [...] Sign Reading Time Taken Comments Blood Pressure 130/83 09/02/2024 2:00 PM EDT Pulse 99 09/02/2024 2:00 PM EDT Temperature 36.7 C (98.1 F) 09/02/2024 12:00 PM EDT Respiratory Rate 18 09/02/2024 2:00 PM EDT Oxygen Saturation 99% 09/01/2024 10:53 PM EDT Inhaled Oxygen Concentration - - Weight 116.1 kg (256 lb) 09/01/2024 11:02 PM EDT Height 160 cm (5' 3 ) 09/01/2024 11:02 PM EDT Body Mass Index 43.27 09/01/2024 11:02 PM EDT documented in this encounter Discharge Summaries * Amena Joy MD - 09/04/2024 5:15 PM EDT Discharge Summary Reason for admission: [facility] Principal diagnosis: Intrauterine at 38w1d Secondary diagnosis: 1. Aortic ductus diverticulum 2. ROGER/MDD 3. Ankylosing spondylitis 4. Vaping 5. Failed 1h, passed 3h 6. Rh neg s/p Rhogam 07/16/24 7. ALISA 8. Thrombocytopenia 9. H/o x1 (suspected macrosomia) c/b PPH d/t atony Procedures: [facility] Hospital course: Karlos Guillen is a 29 y.o. who presented at 38w1d as a transfer from [place] dueto repeat CS with complicated by preE [...] (use each time after bandar care) Sexual Katie No tampons, douching, or sexual intercourse until [...] Opioids for Short-Term Treatment of Pain ED (Brazilian) * Preeclampsia (Brazilian) documented in this encounter Medications at Time [...] 134/88 146/94 Pulse: 90 89 96 Resp: Temp: 36.6 ??C (97.9 ??F) 36.8 ??C [...] contraception: plans to follow up with primary Home Appraiser for counseling - DVT ppx: SCDs Moses Barrios, MPH MS3 09/04/24 Resident Attestation I have seen and evaluated the patient, and have also reviewed the documentation above. I have repeated and performed the peters portions of the physical exam and concur with the student's findings. I agree with the plan as noted above with any changes made as necessary. Amena Joy MD Home Appraiser Resident PGY-2 09/04/24 7:23 AM Cosigned by [...] Joy MD - 09/03/2024 6:48 AM EDT OBGYN Daily Progress Note Subjective: Karlos Guillen is [...] Vitals: 09/02/24 1950 09/03/24 0020 09/03/24 0334 09/03/24338 BP: 128/80 128/82 133/80 Pulse: 75 76 89 Resp: 18 20 18 Temp: 36.4 ??C (97.5 ??F) 36.4 ??C [...] contraception: plans to follow up with primary Home Appraiser for counseling - DVT ppx: SCDs Amena [...] delivery. Discussed with to Dr. Justice with [employer]. Michael Shoemaker PA-C 09/02/24 0033 documented in this encounter H&P Notes * Carla Justice MD - 09/02/2024 12:01 AM EDT OBSTETRICS HISTORY AND PHYSICAL Karlosjessica Guillen is a 29 y.o.female. Estimated Date of Delivery: 09/15/24 38w1d who presents as a transport from [place] for management of preeclampsia without severe features [...] in 2020. Therefore, she was transferred to [facility] for further evaluation and management. Upon arrival to [facility], patient was hemodynamically stable. Her initial [...] Past Medical History: Diagnosis Date Ankylosing spondylitis ([facility]) Anxiety Ulcer of aorta SURGICAL HX Past Surgical History: Procedure Laterality Date N/A 02/05/2018 Performed by Julia Dunbar MD at [facility] OR COLONOSCOPY with bx's N/A 06/21/2020 Performed by Sterling Champion MD at [facility] ENDOSCOPY GANGLION CYST EXCISION Left MEDS Current [...] mcg 200 mcg intramuscular Once PRN Carla Q MD Vinh miSOPROStoL (CYTOTEC) tablet 800 mcg 800 mcg sublingual Once PRN Carla Q MD Vinh ondansetron (PF) (ZOFRAN) injection 4 mg 4 mg intravenous Q4H PRN Carla Q MD Vinh oxytocin (PITOCIN) bolus from bag solution 10 [...] Recent Results (from the past 36 hours) PST TOP Collection Time: 09/01/24 11:11 PM Result Value [...] 38w1d who presents as a transport from [place] for management of preeclampsia without severe features [...] 38w1d who presents as a transport from [place] for management of preeclampsia without severe features [...] Patient had mild headache on arrival to [facility], otherwise hemodynamically stable. This morning she [...] 02/05/2018 Performed by Julia Dunbar MD at [facility] OR COLONOSCOPY with bx's N/A 06/21/2020 Performed by Sterling Champion MD at [facility] ENDOSCOPY GANGLION CYST EXCISION Left MEDS Current [...] mg 4 mg intravenous Q4H PRN Carla Q MD Vinh oxytocin (PITOCIN) bolus from bag solution 10 [...] Recent Results (from the past 36 hours) PST TOP Collection Time: 09/01/24 11:11 PM Result Value [...] (HH) <120 mg/L URINE CREATININE,RDM 125.69 mg/dL U/PRO/ROCKET MOTOR MECHANIC RATIO CALC 0.51 (H) <=0.20 CBC auto [...] Results Component Value Date GLUF 78 11/20/2017 [id number] 184 (H) 11/20/2017 [id number] 150 (H) 11/20/2017 [id number] 119 (H) 11/20/2017 PHYSICAL EXAM Physical Exam [...] normal. FHT: Baseline Rate A: 135 bpm [place]: irregular Imaging: CTA chest 09/02/24: Redemonstration of [...] preeclampsia without severe features. Gisella Smalls DO Home Appraiser Resident, PGY-1 Cosigned by Dav Hall MD [...] Dav Hall MD, FACOG (she/hers) Maternal- Medicine [facility] [address] [facility] [address] [place] [address] This document was created with [employer] technology. Though I make every effort to review the dictation as it is transcribed, on occasion the spoken word can be misinterpreted by the technology leading to inappropriate words, phrases, or sentences. This note is addressed to the requesting provider as a consultation for clinical guidance. Specificmedical abbreviations are occasionally used and those are generally approved by the [place]?Board of?Obstetrics and?Gynecology?as well as?[place]???s abbreviations. The above plan of care was based solely on the diagnoses for which a consultation was requested. ?More frequent testing may be indicated based on her other medical/obstetrical conditions. The management of other or medical conditions is beyond the scope of requested consultation and will c ontinue to be followed by the primary highway design engineer or primary care provider. * Abhishek Keyes [...] Past Medical History: Diagnosis Date Ankylosing spondylitis ([facility]) Anxiety Ulcer of aorta Past Surgical History Past Surgical History: Procedure Laterality Date N/A 02/05/2018 Performed by Julia Dunbar MD at [facility] OR COLONOSCOPY with bx's N/A 06/21/2020 Performed by Sterling Champion MD at [facility] ENDOSCOPY GANGLION CYST EXCISION Left Allergies Allergies Allergen Reactions Penicillins Hives Sulfa (Sulfonamide Antibiotics) Hives Current Medications sodium chloride, 3 mL, intravenous, Q12H ANGÉLICA Current Infusions lactated ringer's, 999 mL/hr lactated ringer's, 125 mL/hr lactated ringer's, 250 mL/hr oxytocin, 42 gnea-units/min AND lactated ringer's, 83 mL/hr Home Medications [...] Resource Strain: Low Risk (07/08/2023) Received from [facility] Overall Financial Resource Strain (CARDIA) Difficulty of Paying Living Expenses: Not very hard Food Insecurity: No Food Insecurity (02/03/2024) Hunger Screening Food Insecurity - Worry: Never True Food Insecurity - Inability: Never True Transportation Needs: No Transportation Needs (07/08/2023) Received from [facility] PRAPARE - Transportation Lack of Transportation (Medical): No Lack of Transportation (Non-Medical): No Physical Activity: Insufficiently Active (07/08/2023) Received from [facility] Exercise Vital Sign Days of Exercise per Week: 2 days Minutes of Exercise per Session: 20 min Stress: Stress Concern Present (07/08/2023) Received from [facility] [employer] [place] [facility] - Occupational Stress Questionnaire Feeling of Stress : Very much Social Connections: Moderately Isolated (07/08/2023) Received from [facility] Social Connection and Isolation Panel [NHANES] Frequency of Communication with Friends and Family: More than three times a week Frequency of Social Gatherings with Friends and Family: Once a week Attends Judaism Services: Never Active Member of Clubs or Organizations: No Attends Club or Organization Meetings: Never Marital Status: Interpersonal Safety: Unknown (05/09/2023) Received from [facility] [place] Safety & Environment Fear of Current or Ex-Partner: Not on file Emotionally Abused: Not on file Physically Abused: Not on file Sexually Abused: Not on file Physically or Sexually Abused: Not on file Housing Instability: Low Risk (07/08/2023) Received from [facility] Housing Stability Vital Sign Unable to Pay [...] Date/Time Urine Culture Urine, Clean Catch Midstream [[id number]] Lab Status: No result Specimen: Urine, Clean [...] in this encounter Nursing Notes * Lakisha Wayne RN - 09/04/2024 7:06 PM EDT AVS [...] Description: INTERVENTIONS: 1. Encourage patient or legal enrollment representative to report early pain and ask [...] per policy 9. Teach patient or legal enrollment representative interventions for comforting Outcome: Progressing Note: [...] at the bedside 7. Instruct patient/ patient enrollment representative about use of safety devices 8. Include patient/ patient enrollment representative in decisions related to safety Outcome: [...] hygiene technique. 7. Identify and instruct patient/patient enrollment representative in use of appropriate isolation precautionsfor identified infection/symptoms. 8. Provide and discuss with patient/patient enrollment representative on educational MDRO sheet. 9. Encourage and monitor nutritional status daily and consult saw maker if indicated. 10. Implement neutropenic guidelines as needed. Outcome: Progressing Note: Evaluation of progress towards goal: No signs/symptoms of infection noted. Please see vitals in flowsheet. Problem: Knowledge Deficit Goal: Patient/patient enrollment representative demonstrates understanding of disease process, treatment [...] Score of =/> 25 or indicated by [facility] Rehab Assessment Goal: Patient should be free from fall Description: Interventions: 1. [place] to environment 2. Hourly rounds addressing the [...] non-skid footwear 11. Teach patient and patient enrollment representative to maintain environment for safety and [...] (cane, walker) within reach 19. Request patient enrollment representative bring adaptive equipment/mobility aids from home or obtain and provide as needed 20. Consult pharmacy regarding effects of med's affecting mobility, cognition, and alternatives 21. Obtain physician order for PT if risk factors associated with mobility are present 22. Obtain physician order for OT as appropriate 23. Utilize diversional activities 24. Educate patient and patient enrollment representative how to maintain a safe environment during visitationtimes (notify nurse prior to leaving bedside) 25. Consider appropriateness of medical or non-medical attendant 26. Set up voiding schedule as appropriate [...] supplement as ordered 13. Collaborate with clinical saw maker 14. Include patient/ patient's enrollment representative in decisions related to nutrition Outcome: [...] Progressing Note: Evaluation of progress towards goal: infant bottle feeding Additional Comments: * Note - [...] outpatient appointment after discharge with by calling [phone]. Parents feeding baby through two feeds with [...] Description: INTERVENTIONS: 1. Encourage patient or legal enrollment representative to report early pain and ask [...] per policy 9. Teach patient or legal enrollment representative interventions for comforting Outcome: Progressing Note: [...] at the bedside 7. Instruct patient/ patient enrollment representative about use of safety devices 8. Include patient/ patient enrollment representative in decisions related to safety Outcome: [...] hygiene technique. 7. Identify and instruct patient/patient enrollment representative in use of appropriate isolation precautionsfor identified infection/symptoms. 8. Provide and discuss with patient/patient enrollment representative on educational MDRO sheet. 9. Encourage and monitor nutritional status daily and consult saw maker if indicated. 10. Implement neutropenic guidelines as needed. Outcome: Progressing Note: Evaluation of progress towards goal: no s/s of infection present Problem: Knowledge Deficit Goal: Patient/patient enrollment representative demonstrates understanding of disease process, treatment [...] Score of =/> 25 or indicated by [facility] Rehab Assessment Goal: Patient should be free from fall Description: Interventions: 1. [place] to environment 2. Hourly rounds addressing the [...] non-skid footwear 11. Teach patient and patient enrollment representative to maintain environment for safety and [...] (cane, walker) within reach 19. Request patient enrollment representative bring adaptive equipment/mobility aids from home or obtain and provide as needed 20. Consult pharmacy regarding effects of med's affecting mobility, cognition, and alternatives 21. Obtain physician order for PT if risk factors associated with mobility are present 22. Obtain physician order for OT as appropriate 23. Utilize diversional activities 24. Educate patient and patient enrollment representative how to maintain a safe environment during visitationtimes (notify nurse prior to leaving bedside) 25. Consider appropriateness of medical or non-medical attendant 26. Set up voiding schedule as appropriate [...] supplement as ordered 13. Collaborate with clinical saw maker 14. Include patient/ patient's enrollment representative in decisions related to nutrition Outcome: [...] Description: INTERVENTIONS: 1. Encourage patient or legal enrollment representative to report early pain and ask [...] per policy 9. Teach patient or legal enrollment representative interventions for comforting Outcome: Progressing Note: [...] at the bedside 7. Instruct patient/ patient enrollment representative about use of safety devices 8. Include patient/ patient enrollment representative in decisions related to safety Outcome: [...] hygiene technique. 7. Identify and instruct patient/patient enrollment representative in use of appropriate isolation precautionsfor identified infection/symptoms. 8. Provide and discuss with patient/patient enrollment representative on educational MDRO sheet. 9. Encourage and monitor nutritional status daily and consult saw maker if indicated. 10. Implement neutropenic guidelines as needed. Outcome: Progressing Note: Evaluation of progress towards goal: No signs/symptoms of infection noted. Please see vitals in flowsheet. Problem: Knowledge Deficit Goal: Patient/patient enrollment representative demonstrates understanding of disease process, treatment [...] be free from fall Description: Interventions: 1. [place] to environment 2. Hourly rounds addressing the [...] non-skid footwear 11. Teach patient and patient enrollment representative to maintain environment for safety and [...] (cane, walker) within reach 19. Request patient enrollment representative bring adaptive equipment/mobility aids from home or obtain and provide as needed 20. Consult pharmacy regarding effects of med's affecting mobility, cognition, and alternatives 21. Obtain physician order for PT if risk factors associated with mobility are present 22. Obtain physician order for OT as appropriate 23. Utilize diversional activities 24. Educate patient and patient enrollment representative how to maintain a safe environment during visitationtimes (notify nurse prior to leaving bedside) 25. Consider appropriateness of medical or non-medical attendant 26. Set up voiding schedule as appropriate [...] supplement as ordered 13. Collaborate with clinical saw maker 14. Include patient/ patient's enrollment representative in decisions related to nutrition Outcome: [...] from the original note were not included. [facility] Karlos Guillen 29 y.o. female that vascular is following [...] they recommend BP <140/90. Gisella Smalls DO [employer] resident, PGY1 * Op Note - Amena Joy MD - 09/02/2024 2:38 PM EDT Operative Note - Delivery Date of operation: 09/02/24 PREOPERATIVE DIAGNOSIS: [place] intrauterine at 38w1d Aortic ductus diverticulum ROGER/MDD Ankylosing spondylitis Vaping Failed 1h, passed 3h Rh neg s/p Rhogam 07/16/24 ALISA Thrombocytopenia H/o x1 (suspected macrosomia) c/b PPH d/t atony POSTOPERATIVE DIAGNOSIS: same as preop PROCEDURE: RLTCS SURGEON: Dr. Soto PANEL COVERER: Amena Joy MD ANESTHESIA: Spinal IV FLUIDS: 1000 mL URINE OUTPUT: 125 mL ESTIMATED BLOOD LOSS: 600 mL DRAINS: Pimentel catheter to gravity. SPECIMENS: Cord blood, cord gases, placenta DISPOSITION: Stable to recovery room. FINDINGS: Normal appearing uterus, tubes and ovaries. Viable female infant, weighing 4340 grams with apgars of 8 [...] and no nuchal cord was identified. The infant was then delivered with traction and the assistance of fundal pressure. The 's oral passages were bulb suctioned. After one [...] I performed the procedure. Cindy Soto MD MPH 09/02/2024 11:28 PM * Plan of Care - Cee Coronel RN - 09/02/2024 7:40 AM EDT Problem: Pain Goal: Patient goal is pain score less than 4, able to rest, and participant in treatment plan as appropriate Description: INTERVENTIONS: 1. Encourage patient or legal enrollment representative to report early pain and ask [...] per policy 9. Teach patient or legal enrollment representative interventions for comforting Outcome: Progressing Note: [...] at the bedside 7. Instruct patient/ patient enrollment representative about use of safety devices 8. Include patient/ patient enrollment representative in decisions related to safety Outcome: [...] hygiene technique. 7. Identify and instruct patient/patient enrollment representative in use of appropriate isolation precautionsfor identified infection/symptoms. 8. Provide and discuss with patient/patient enrollment representative on educational MDRO sheet. 9. Encourage and monitor nutritional status daily and consult saw maker if indicated. 10. Implement neutropenic guidelines as needed. Outcome: Progressing Note: Evaluation of progress towards goal: Patient is free from signs and symptoms of infection. Problem: Knowledge Deficit Goal: Patient/patient enrollment representative demonstrates understanding of disease process, treatment [...] Score of =/> 25 or indicated by [facility] Rehab Assessment Goal: Patient should be free from fall Description: Interventions: 1. [place] to environment 2. Hourly rounds addressing the [...] non-skid footwear 11. Teach patient and patient enrollment representative to maintain environment for safety and [...] (cane, walker) within reach 19. Request patient enrollment representative bring adaptive equipment/mobility aids from home or obtain and provide as needed 20. Consult pharmacy regarding effects of med's affecting mobility, cognition, and alternatives 21. Obtain physician order for PT if risk factors associated with mobility are present 22. Obtain physician order for OT as appropriate 23. Utilize diversional activities 24. Educate patient and patient enrollment representative how to maintain a safe environment during visitationtimes (notify nurse prior to leaving bedside) 25. Consider appropriateness of medical or non-medical attendant 26. Set up voiding schedule as appropriate [...] Description: INTERVENTIONS: 1. Encourage patient or legal enrollment representative to report early pain and ask [...] per policy 9. Teach patient or legal enrollment representative interventions for comforting Outcome: Progressing Note: [...] at the bedside 7. Instruct patient/ patient enrollment representative about use of safety devices 8. Include patient/ patient enrollment representative in decisions related to safety Outcome: [...] hygiene technique. 7. Identify and instruct patient/patient enrollment representative in use of appropriate isolation precautionsfor identified infection/symptoms. 8. Provide and discuss with patient/patient enrollment representative on educational MDRO sheet. 9. Encourage and monitor nutritional status daily and consult saw maker if indicated. 10. Implement neutropenic guidelines as needed. Outcome: Progressing Note: Evaluation of progress towards goal: Patient is free from signs and symptoms of infection. Problem: Knowledge Deficit Goal: Patient/patient enrollment representative demonstrates understanding of disease process, treatment [...] be free from fall Description: Interventions: 1. [place] to environment 2. Hourly rounds addressing the [...] non-skid footwear 11. Teach patient and patient enrollment representative to maintain environment for safety and [...] (cane, walker) within reach 19. Request patient enrollment representative bring adaptive equipment/mobility aids from home or obtain and provide as needed 20. Consult pharmacy regarding effects of med's affecting mobility, cognition, and alternatives 21. Obtain physician order for PT if risk factors associated with mobility are present 22. Obtain physician order for OT as appropriate 23. Utilize diversional activities 24. Educate patient and patient enrollment representative how to maintain a safe environment during visitationtimes (notify nurse prior to leaving bedside) 25. Consider appropriateness of medical or non-medical attendant 26. Set up voiding schedule as appropriate [...] Additional Comments: * Plan of Care - Carla Justice MD - 09/01/2024 11:51 PM EDT Patient has a history of aortic ulcer/ductus diverticulum in 2020. Vascular surgery was consulted for evaluation and clearance of vaginal delivery. They recommended consulting CT surgery. Reviewed case with CT surgery PA lead simulation modeling engineer including CTA chest in 2020. Findings involve the descending aorta andpatient is an established patient of Dr. Fonseca. He recommended re-consulting vascular surgery. documented in this encounter Plan of Treatment Upcoming Encounters Date Type Department Care Team (Late st Contact Info) Description 09/02/2025 10:20 AM EDT Office Visit [facility] [address] [place] [address] Catarino Fonseca MD [address], [address] [place], [place] [phone] Pending Results Name Type Priority Associated Diagnoses [...] CBC auto differential (09/04/2024 6:30 AM EDT) WBC 6.8 4 - 11 x10E9/L 09/04/2024 8:23 AM EDT [facility] RBC Count 2.55(L) 3.8 - 5.2 X10E12/L 09/04/2024 8:23 AM EDT [facility] Hemoglobin 7.0(L) 11.7 - 15.5 g/dL 09/04/2024 8:23 AM EDT [facility] Hematocrit 21.4(L) 35 - 47 % 09/04/2024 8:23 AM EDT [facility] MCV 84 80 - 100 fL 09/04/2024 8:23 AM EDT [facility] MCH 27.6 27 - 34 pg 09/04/2024 8:23 AM EDT [facility] MCHC 32.9 32 - 36 g/dL 09/04/2024 8:23 AM [facility] RDW 18.6(H) 11.5 - 15 % 09/04/2024 8:23 AM [facility] Platelet Count 96(L) 150 - 450 X10E9/L 09/04/2024 8:23 AM [facility] MPV 9.8 7 - 12 fL 09/04/2024 8:23 AM [facility] Neutrophils % 82 % 09/04/2024 8:23 AM [facility] Comment:This is an appended report. These results have been appended to a previously preliminary verified report. Lymphocytes % 12 % 09/04/2024 8:23 AM [facility] Comment:This is an appended report. These results have been appended to a previously preliminary verified report. Monocytes % 6 % 09/04/2024 8:23 AM [facility] Comment:This is an appended report. These results have been appended to a previously preliminary verified report. Neutrophils Absolute (M) 5.6 1.5 - 6.6 10*3/uL 09/04/2024 8:23 AM [facility] Comment:This is an appended report. These results have been appended to a previously preliminary verified report. Lymphocytes Absolute 0.8(L) 1.0 - 3.5 10*3/uL 09/04/2024 8:23 AM [facility] Comment:This is an appended report. These results have been appended to a previously preliminary verified report. Monocytes Absolute 0.4 0.0 - 0.9 10*3/uL 09/04/2024 8:23 AM [facility] Comment:This is an appended report. These results have been appended to a previously preliminary verified report. Polychromasia 1+ 09/04/2024 8:23 AM [facility] Comment:This is an appended report. These results have been appended to a previously preliminary verified report. Differential Type MANUAL DIFFERENTIAL 09/04/2024 8:23 AM [facility] Comment:This is an appended report. These results have been appended to a previously preliminary verified report. Blood Venous blood / Unknown Venipuncture / Unknown 09/04/2024 6:30 AM EDT 09/04/2024 6:31 AM EDT us Amena Joy MD LAB BLOOD ORDERABLES Final Resul t [facility] [address] [place] [address], [place] [phone] * PST TOP (09/04/2024 6:28 AM EDT) Extra Tube Auto Resulted 09/04/2024 8:02 AM EDT [facility] Blood Venous blood / Unknown 09/04/2024 6:28 AM EDT 09/04/2024 6:50 AM EDT Regulo Jain MD LAB BLOOD ORDERABLES Final Res ult [facility] [address] [place] [address], [place] [phone] * (ABNORMAL) Comprehensive metabolic panel (09/03/2024 6:22 AM EDT) SODIUM 133(L) 134 - 146 mmol/L 09/03/2024 8:43 AM EDT [facility] POTASSIUM 4.1 3.5 - 5.0 mmol/L 09/03/2024 8:43 AM EDT [facility] CHLORIDE 101 98 - 109 mmol/L 09/03/2024 8:43 AM EDT [facility] CARBON DIOXIDE 26 22 - 32 mmol/L 09/03/2024 8:43 AM EDT [facility] ANION GAP 6 5 - 15 mmol/L 09/03/2024 8:43 AM EDT [facility] BLOOD UREA NITROGEN 10 5 - 23 mg/dL 09/03/2024 8:43 AM EDT [facility] CREATININE 0.67 0.40 - 1.00 mg/dL 09/03/2024 8:43 AM EDT [facility] Comment:METHOD TRACEABLE TO IDMS STANDARD GLUCOSE 106(H) 65 - 99 mg/dL 09/03/2024 8:43 AM EDT [facility] CALCIUM 8.0(L) 8.5 - 10.5 mg/dL 09/03/2024 8:43 AM EDT [facility] TOTAL PROTEIN 5.2(L) 6.0 - 8.0 g/dL 09/03/2024 8:43 AM EDT [facility] ALBUMIN 2.8(L) 3.2 - 5.3 g/dL 09/03/2024 8:43 AM EDT [facility] ALKALINE PHOSPHATASE 156(H) 39 - 130 U/L 09/03/2024 8:43 AM EDT [facility] AST 23 <=41 U/L 09/03/2024 8:43 AM EDT [facility] ALT 18 <=31 U/L 09/03/2024 8:43 AM EDT [facility] BILIRUBIN,TOTAL 0.3 0.3 - 1.2 mg/dL 09/03/2024 8:43 AM EDT [facility] EGFR Non-Race Dependent >90 >=60 ml/min/1.7 3sq.m 09/03/2024 8:43 AM EDT [facility] Comment: Reported eGFR is based on the CKD-EPI 2020 equation that does not use a race coefficient. Blood Venous blood / Unknown 09/03/2024 6:22 AM EDT 09/03/2024 6:40 AM EDT us Carla Q Vinh TODD LAB BLOOD ORDERABLES Final Resul t [facility] [address] [place] [address], [place] [phone] * PST TOP (09/03/2024 6:22 AM EDT) Extra Tube Auto Resulted 09/03/2024 8:01 AM EDT [facility] Blood Venous blood / Unknown 09/03/2024 6:22 AM EDT 09/03/2024 6:40 AM EDT us Regulo Jain MD LAB BLOOD ORDERABLES Final Res ult [facility] [address] [place] [address], [place] [phone] * (ABNORMAL) CBC auto differential (09/03/2024 6:22 AM EDT) WBC 9.8 4 - 11 x10E9/L 09/03/2024 6:54 AM EDT [facility] RBC Count 2.83(L) 3.8 - 5.2 X10E12/L 09/03/2024 6:54 AM EDT [facility] Hemoglobin 7.7(L) 11.7 - 15.5 g/dL 09/03/2024 6:54 AM EDT [facility] Hematocrit 23.4(L) 35 - 47 % 09/03/2024 6:54 AM EDT [facility] MCV 83 80 - 100 fL 09/03/2024 6:54 AM EDT [facility] MCH 27.2 27 - 34 pg 09/03/2024 6:54 AM EDT [facility] MCHC 32.9 32 - 36 g/dL 09/03/2024 6:54 AM EDT [facility] RDW 17.3(H) 11.5 - 15 % 09/03/2024 6:54 AM EDT [facility] Platelet Count 126(L) 150 - 450 X10E9/L 09/03/2024 6:54 AM EDT [facility] MPV 10.5 7 - 12 fL 09/03/2024 6:54 AM EDT [facility] Neutrophils % 76.5 % 09/03/2024 6:54 AM EDT [facility] Lymphocytes % 11.7 % 09/03/2024 6:54 AM EDT [facility] Monocytes % 11.4 % 09/03/2024 6:54 AM EDT [facility] Eosinophils % 0.1 % 09/03/2024 6:54 AM EDT [facility] Basophils % 0.3 % 09/03/2024 6:54 AM EDT [facility] Neutrophils Absolute (A) 7.5(H) 1.5 - 6.6 10*3/uL 09/03/2024 6:54 AM EDT [facility] Lymphocytes Absolute 1.1 1.0 - 3.5 10*3/uL 09/03/2024 6:54 AM EDT [facility] Monocytes Absolute 1.1(H) 0.0 - 0.9 10*3/uL 09/03/2024 6:54 AM EDT [facility] Eosinophils Absolute 0.0 0.0 - 0.4 10*3/uL 09/03/2024 6:54 AM EDT [facility] Basophils Absolute 0.0 0.0 - 0.2 10*3/uL 09/03/2024 6:54 AM EDT [facility] Differential Type AUTOMATED DIFFERENTIAL 09/03/2024 6:54 AM EDT [facility] Blood Venous blood / Unknown Venipuncture / Unknown 09/03/2024 6:22 AM EDT 09/03/2024 6:22 AM EDT us Amena Joy MD LAB BLOOD ORDERABLES Final Resul t [facility] [address] [place] [address], * Rhogam Not Eligible (09/02/2024 7:31 PM EDT) [id number] Not eligible for RhoGAM 09/02/2024 7:31 PM EDT [facility] 09/02/2024 7:31 PM EDT us Amena Joy MD LAB ORDERABLES Final Result [facility] [address] [place] [address], * (ABNORMAL) Comprehensive metabolic panel (09/02/2024 12:37 PM EDT) SODIUM 136 134 - 146 mmol/L 09/02/2024 1:23 PM EDT [facility] POTASSIUM 4.1 3.5 - 5.0 mmol/L 09/02/2024 1:23 PM EDT [facility] CHLORIDE 105 98 - 109 mmol/L 09/02/2024 1:23 PM EDT [facility] CARBON DIOXIDE 21(L) 22 - 32 mmol/L 09/02/2024 1:23 PM EDT [facility] ANION GAP 10 5 - 15 mmol/L 09/02/2024 1:23 PM EDT [facility] BLOOD UREA NITROGEN 9 5 - 23 mg/dL 09/02/2024 1:23 PM EDT [facility] CREATININE 0.55 0.40 - 1.00 mg/dL 09/02/2024 1:23 PM EDT [facility] Comment:METHOD TRACEABLE TO IDUT STANDARD GLUCOSE 85 65 - 99 mg/dL 09/02/2024 1:23 PM EDT [facility] CALCIUM 8.0(L) 8.5 - 10.5 mg/dL 09/02/2024 1:23 PM EDT [facility] TOTAL PROTEIN 5.3(L) 6.0 - 8.0 g/dL 09/02/2024 1:23 PM EDT [facility] ALBUMIN 2.9(L) 3.2 - 5.3 g/dL 09/02/2024 1:23 PM EDT [facility] ALKALINE PHOSPHATASE 165(H) 39 - 130 U/L 09/02/2024 1:23 PM EDT [facility] AST 21 <=41 U/L 09/02/2024 1:23 PM EDT [facility] ALT 15 <=31 U/L 09/02/2024 1:23 PM EDT [facility] BILIRUBIN,TOTAL 0.3 0.3 - 1.2 mg/dL 09/02/2024 1:23 PM EDT [facility] EGFR Non-Race Dependent >90 >=60 ml/min/1.7 3sq.m 09/02/2024 1:23 PM EDT [facility] Comment: Reported eGFR is based on the CKD-EPI 2020 equation that does not use a race coefficient. Blood Venous blood / Unknown Venipuncture / Unknown 09/02/2024 12:37 PM EDT 09/02/2024 12:37 PM EDT us Gisella Smalls DO LAB BLOOD ORDERABLES Final Result [facility] [address] [place] [address], [place] [phone] * (ABNORMAL) CBC auto differential (09/02/2024 12:37 PM EDT) WBC 5.2 4 - 11 x10E9/L 09/02/2024 1:07 PM EDT [facility] RBC Count 3.02(L) 3.8 - 5.2 X10E12/L 09/02/2024 1:07 PM EDT [facility] Hemoglobin 8.2(L) 11.7 - 15.5 g/dL 09/02/2024 1:07 PM EDT [facility] Hematocrit 24.5(L) 35 - 47 % 09/02/2024 1:07 PM EDT [facility] MCV 81 80 - 100 fL 09/02/2024 1:07 PM EDT [facility] MCH 27.0 27 - 34 pg 09/02/2024 1:07 PM EDT [facility] MCHC 33.4 32 - 36 g/dL 09/02/2024 1:07 PM EDT [facility] RDW 17.6(H) 11.5 - 15 % 09/02/2024 1:07 PM EDT [facility] Platelet Count 115(L) 150 - 450 X10E9/L 09/02/2024 1:07 PM EDT [facility] MPV 10.6 7 - 12 fL 09/02/2024 1:07 PM EDT [facility] Neutrophils % 72.1 % 09/02/2024 1:07 PM EDT [facility] Lymphocytes % 16.8 % 09/02/2024 1:07 PM EDT [facility] Monocytes % 10.7 % 09/02/2024 1:07 PM EDT [facility] Eosinophils % 0.2 % 09/02/2024 1:07 PM EDT [facility] Basophils % 0.2 % 09/02/2024 1:07 PM EDT [facility] Neutrophils Absolute (A) 3.8 1.5 - 6.6 10*3/uL 09/02/2024 1:07 PM EDT [facility] Lymphocytes Absolute 0.9(L) 1.0 - 3.5 10*3/uL 09/02/2024 1:07 PM EDT [facility] Monocytes Absolute 0.6 0.0 - 0.9 10*3/uL 09/02/2024 1:07 PM EDT [facility] Eosinophils Absolute 0.0 0.0 - 0.4 10*3/uL 09/02/2024 1:07 PM EDT [facility] Basophils Absolute 0.0 0.0 - 0.2 10*3/uL 09/02/2024 1:07 PM EDT [facility] Differential Type AUTOMATED DIFFERENTIAL 09/02/2024 1:07 PM EDT [facility] Blood Venous blood / Unknown Venipuncture / Unknown 09/02/2024 12:37 PM EDT 09/02/2024 12:37 PM EDT us Gisella Smalls DO LAB BLOOD ORDERABLES Final Result [facility] [address] [place] [address], * Uric acid (09/02/2024 6:02 AM EDT) URIC ACID 5.8 2.6 - 7.2 mg/dL 09/02/2024 8:40 AM EDT [facility] Blood Venous blood / Unknown Venipuncture / Unknown 09/02/2024 6:02 AM EDT 09/02/2024 6:02 AM EDT Carla Justice MD LAB BLOOD ORDERABLES Final Resul t Performing Organization Address City/[facility]/ZIP Co de Phone Number [facility] [address] [place] [address], * LDH (09/02/2024 6:02 AM EDT) Pathologist [facility] LDH 185 100 - 235 U/L 09/02/2024 8:40 AM EDT [facility] Blood Venous blood / Unknown Venipuncture / Unknown 09/02/2024 6:02 AM EDT 09/02/2024 6:02 AM EDT Carla Justice MD LAB BLOOD ORDERABLES Final Resul t [facility] [address] [place] [address], * (ABNORMAL) Comprehensive metabolic panel (09/02/2024 6:02 AM EDT) SODIUM 134 134 - 146 mmol/L 09/02/2024 6:59 AM EDT [facility] POTASSIUM 3.5 3.5 - 5.0 mmol/L 09/02/2024 6:59 AM EDT [facility] CHLORIDE 103 98 - 109 mmol/L 09/02/2024 6:59 AM EDT [facility] CARBON DIOXIDE 23 22 - 32 mmol/L 09/02/2024 6:59 AM T [facility] ANION GAP 8 5 - 15 mmol/L 09/02/2024 6:59 AM T [facility] BLOOD UREA NITROGEN 10 5 - 23 mg/dL 09/02/2024 6:59 AM [facility] CREATININE 0.58 0.40 - 1.00 mg/dL 09/02/2024 6:59 AM [facility] Comment:METHOD TRACEABLE TO IDUT STANDARD GLUCOSE 117(H) 65 - 99 mg/dL 09/02/2024 6:59 AM [facility] CALCIUM 8.1(L) 8.5 - 10.5 mg/dL 09/02/2024 6:59 AM [facility] TOTAL PROTEIN 5.4(L) 6.0 - 8.0 g/dL 09/02/2024 6:59 AM [facility] ALBUMIN 2.9(L) 3.2 - 5.3 g/dL 09/02/2024 6:59 AM [facility] ALKALINE PHOSPHATASE 165(H) 39 - 130 U/L 09/02/2024 6:59 AM T [facility] AST 22 <=41 U/L 09/02/2024 6:59 AM [facility] ALT 18 <=31 U/L 09/02/2024 6:59 AM [facility] BILIRUBIN,TOTAL 0.3 0.3 - 1.2 mg/dL 09/02/2024 6:59 AM [facility] EGFR Non-Race Dependent >90 >=60 ml/min/1.7 3sq.m 09/02/2024 6:59 AM [facility] Comment: Reported eGFR is based on the CKD-EPI 2020 equation that does not use a race coefficient. Blood Venous blood / Unknown Venipuncture / Unknown 09/02/2024 6:02 AM EDT 09/02/2024 6:02 AM EDT [facility] Q Vinh TODD LAB BLOOD ORDERABLES Final Resul t [facility] [address] [place] [address], * (ABNORMAL) CBC auto differential (09/02/2024 6:02 AM EDT) WBC 5.7 4 - 11 x10E9/L 09/02/2024 6:41 AM EDT [facility] RBC Count 2.98(L) 3.8 - 5.2 X10E12/L 09/02/2024 6:41 AM EDT [facility] Hemoglobin 8.1(L) 11.7 - 15.5 g/dL 09/02/2024 6:41 AM EDT [facility] Hematocrit 24.8(L) 35 - 47 % 09/02/2024 6:41 AM EDT [facility] MCV 83 80 - 100 fL 09/02/2024 6:41 AM EDT [facility] MCH 27.2 27 - 34 pg 09/02/2024 6:41 AM EDT [facility] MCHC 32.8 32 - 36 g/dL 09/02/2024 6:41 AM EDT [facility] RDW 17.4(H) 11.5 - 15 % 09/02/2024 6:41 AM EDT [facility] Platelet Count 109(L) 150 - 450 X10E9/L 09/02/2024 6:41 AM EDT [facility] MPV 10.7 7 - 12 fL 09/02/2024 6:41 AM EDT [facility] Neutrophils % 72.6 % 09/02/2024 6:41 AM EDT [facility] Lymphocytes % 17.6 % 09/02/2024 6:41 AM EDT [facility] Monocytes % 9.2 % 09/02/2024 6:41 AM EDT [facility] Eosinophils % 0.3 % 09/02/2024 6:41 AM EDT [facility] Basophils % 0.3 % 09/02/2024 6:41 AM EDT [facility] Neutrophils Absolute (A) 4.2 1.5 - 6.6 10*3/uL 09/02/2024 6:41 AM EDT [facility] Lymphocytes Absolute 1.0 1.0 - 3.5 10*3/uL 09/02/2024 6:41 AM EDT [facility] Monocytes Absolute 0.5 0.0 - 0.9 10*3/uL 09/02/2024 6:41 AM EDT [facility] Eosinophils Absolute 0.0 0.0 - 0.4 10*3/uL 09/02/2024 6:41 AM EDT [facility] Basophils Absolute 0.0 0.0 - 0.2 10*3/uL 09/02/2024 6:41 AM EDT [facility] Differential Type AUTOMATED DIFFERENTIAL 09/02/2024 6:41 AM EDT [facility] Blood Venous blood / Unknown Venipuncture / Unknown 09/02/2024 6:02 AM EDT 09/02/2024 6:02 AM EDT [facility] Q Vu LAB BLOOD ORDERABLES Final Resul t [facility] [address] [place] [address], * CT angiogram chest (09/02/2024 5:16 AM [...] Giuseppe Suh MD on 09/02/2024 5:33 AM [facility] Q Vinh TODD IMG CT ORDERABLES Final Result * (ABNORMAL) Protein creat ratio (09/02/2024 1:23 AM EDT) URINE PROTEIN, RANDOM (MG/L) 640(HH) <120 mg/L 09/02/2024 2:40 AM EDT [facility] URINE CREATININE,RDM 125.69 mg/dL 09/02/2024 2:40 AM EDT [facility] U/PRO/ROCK[employer] RATIO CALC 0.51(H) <=0.20 09/02/2024 2:40 AM EDT [facility] Urine Urine specimen collection, clean catch / Unknown 09/02/2024 1:23 AM EDT 09/02/2024 1:43 AM EDT Narrative [facility] - 09/02/2024 2:40 AM EDT Nephrotic Syndrome is associated with ratios >3.5 [facility] Q Vinh TODD URINE ORDERABLES Final Result [facility] [address] [place] [address], * Urine Culture Urine, Clean Catch Midstream (09/02/2024 1:23 AM EDT) CULTURE RESULTS 10-50,000 ORGANISMS/mL NORMAL UROGENITAL ASHLEY 09/03/2024 8:06 AM EDT [facility] Urine Urine specimen collection, clean catch / Unknown 09/02/2024 1:23 AM EDT 09/02/2024 1:48 AM EDT [facility] Q Vinh TODD MICROBIOLOGY - GENERAL ORDERABLE S Final Result Performing Organization Address City/[facility]/ZIP Co de Phone Number [facility] [address] [place] [address], * (ABNORMAL) Urinalysis (09/02/2024 1:23 AM EDT) COLOR Yellow Yellow, Colorless 09/02/2024 2:39 AM EDT [facility] TURBIDITY Hazy(A) Clear 09/02/2024 2:39 AM EDT [facility] SPECIFIC GRAVITY 1.019 1.003 - 1.035 09/02/2024 2:39 AM EDT [facility] NITRITE Negative Negative 09/02/2024 2:39 AM EDT [facility] PH,URINE 6.5 5.0 - 8.5 09/02/2024 2:39 AM EDT [facility] LEUKOCYTE ESTERASE Large(A) Negative 09/02/2024 2:39 AM EDT [facility] PROTEIN 50 mg/dL(A) Negative 09/02/2024 2:39 AM EDT [facility] KETONES (URINE) 60 mg/dL(A) Negative 09/03/19 25 2:39 AM EDT [facility] UROBILINOGEN <1.1 eu/dL <1.1 eu/dL 09/02/2024 2:39 AM EDT [facility] BILIRUBIN (URINE) Negative Negative 09/02/2024 2:39 AM EDT [facility] BLOOD/HGB Negative Negative 09/02/2024 2:39 AM EDT [facility] MUCOUS Present(A) None 09/02/2024 2:39 AM EDT [facility] R.B.CELLS 1 0 - 5 09/02/2024 2:39 AM EDT [facility] SQUAMOUS EPITHELIUM 7(H) 0 - 5 09/02/2024 2:39 AM EDT [facility] TRANSITIONAL EPITH <1(H) <=0 09/02/2024 2:39 AM EDT [facility] W.B.CELLS 5 0 - 5 09/02/2024 2:39 AM EDT [facility] GLUCOSE (URINE) Negative Negative 2:39 AM EDT [facility] Urine 09/02/2024 1:23 AM EDT 09/02/2024 1:48 AM EDT Narrative [facility] - 09/02/2024 2:39 AM EDT Urine received without preservative. Delays in transport may affect results. Interpret with caution. A clinical correlation is recommended. us Carla Q Vu URINE ORDERABLES Final Result [facility] [address] [place] [address], * Fentanyl, Urine Qualitative (09/02/2024 1:23 AM EDT) FENTANYL, URINE QUAL. Negative Negative 09/02/2024 2:36 AM EDT [facility] Urine Urine / Unknown 09/02/2024 1 :23 AM EDT 09/02/2024 1:43 AM EDT Narrative [facility] - 09/02/2024 2:36 AM EDT Fentanyl screening cutoff = 5ng/ml This report is intended for use in clinical monitoring or management of patients. us Carla Q Vu URINE ORDERABLES Final Result [facility] [address] [place] [address], * Drug Screen, Urine (09/02/2024 1:23 AM EDT) AMPHETAMINE/METHAMP Negative Negative 09/02 2:37 AM EDT [facility] Comment:AMPH/METH screening cut off = 1000 ng/mL COCAINE METABOLITE Negative Negative 2024 2:37 AM EDT [facility] Comment:Cocaine screening cu t off value = 300 ng/mL ECSTASY Negative Negative 09/02/2024 2:37 AM EDT [facility] Comment:Ecstasy screening cu t off value = 500 ng/mL METHADONE Negative Negative 09/02/2024 2:37 AM EDT [facility] Comment:Methadone screening cut off value = 300 ng/mL. OPIATES Negative Negative 09/02/2024 2:37 AM EDT [facility] Comment: Opiates screening cut off value = 300 ng/mL This test is used for the detection of codeine, hydrocodone (>1000 ng/mL), morphine and hydromorphone (>900 ng/mL) in urine. OXYCODONE Negative Negative 09/02/2024 2:37 AM EDT [facility] Comment: Oxycodone screening cut off value = 300 ng/mL This test is used for the detection of oxycodone and oxymorphone in urine. PHENCYCLIDINE Negative Negative 09/02/2024 2:37 AM EDT [facility] Comment:Phencyclidine screen ing cut off value = 25 ng/mL CANNABINOIDS Negative Negative 09/02/2024 2:37 AM EDT [facility] Comment:Cannabinoids/THC scr eening cut off value = 50 ng/mL Urine Barbiturates Negative Negative 2024 2:37 AM EDT [facility] Comment:Barbiturates screeni ng cut off value = 200 ng/mL BENZODIAZEPINES Negative Negative 2:37 AM EDT [facility] Comment:Benzodiazepines scre ening cut off value = 200 ng/mL Urine Urine / Unknown 09/02/2024 1 :23 AM EDT 09/02/2024 1:43 AM EDT Carla Q Vu URINE ORDERABLES Final Result [facility] [address] [place] [address], * Clinical Pathology Review (09/01/2024 11:13 PM EDT) Case Report Clinical Pathology Report Case: [id number] Authorizing Provider: Regulo Jain MD Collected: 09/01/2024 2313 Ordering Location: [facility] Received: 09/02/2024 0731 - Labor Pathologist: Sol Vides MD Specimen: Blood, Venous 09/08/2024 11:37 AM EDT [facility] Blood [facility] Observations Anti-D is present, directed against the major antigen of the Rh blood group system. It is a clinically significant antibody that can cause hemolytic transfusion reaction and hemolytic disease of the fetus and . Per [facility], [place], the patient received Rh immunoglobulin (RhIG) on 07/16/2024. Per [facility], her last negative antibody screen was [...] after 6 months. 09/08/2024 11:37 AM EDT [facility] Blood Venous blood / Unknown 09/01/2024 11:13 PM EDT 09/02/2024 7:31 AM EDT Regulo Jain MD PATHOLOGY/CYTOLOGY ORDERABLES Final Result [facility] [address] [place] [address], [place] * Antibody ID (09/01/2024 11:13 PM EDT) Antibody ID Passive D Antibody, Patient Received RHIG Passive D Antibody, Patient Received RHIG 09/02/2024 7:29 AM EDT [facility] Comment:See Clinical Patholo gy Review Blood Venous blood / Unknown Venipuncture / Unknown 09/01/2024 11:13 PM EDT 09/01/2024 11:13 PM EDT Carla Justice MD BLOOD BANK TEST ORDERABLES Edite d Result - Final Performing Organization Address City/[facility]/ZIP Co de Phone Number [facility] [address] [place] [address], [facility] [address] [place] [address], [place] * Folate (09/01/2024 11:13 PM EDT) FOLIC ACID 8.4 >5.8 ng/mL 09/02/2024 5:43 AM EDT [facility] Blood Venous blood / Unknown Venipuncture / Unknown 09/01/2024 11:13 PM EDT 09/01/2024 11:13 PM EDT Carla Justice MD LAB BLOOD ORDERABLES Final Resul t [facility] [address] [place] [address], * (ABNORMAL) Vitamin B12 (09/01/2024 11:13 PM EDT) Pathologist [facility] VITAMIN B12 165(L) 180 - 914 pg/mL 09/02/2024 5:44 AM EDT [facility] Blood Venous blood / Unknown Venipuncture / Unknown 09/01/2024 11:13 PM EDT 09/01/2024 11:13 PM EDT Carla Justice MD LAB BLOOD ORDERABLES Final Resul t [facility] [address] [place] [address], [place] [phone] * (ABNORMAL) Ferritin (09/01/2024 11:13 PM EDT) Pathologist [facility] FERRITIN 4(L) 11 - 307 ng/mL 09/02/2024 5:39 AM EDT [facility] Blood Venous blood / Unknown Venipuncture / Unknown 09/01/2024 11:13 PM EDT 09/01/2024 11:13 PM EDT Carla Justice MD LAB BLOOD ORDERABLES Final Resul t Performing Organization Address [place]/[facility] Co de Phone Number [facility] [address] [place] [address], [place] [phone] * Type and screen(includes indirect trupti) (09/01/2024 11:13 PM EDT) Pathologist [facility] ABO B 09/02/2024 2:07 AM EDT [facility] RH Negative 09/02/2024 2:07 AM EDT [facility] Antibody Screen Positive 09/02/2024 2:07 AM EDT [facility] Blood Venous blood / Unknown Venipuncture / Unknown 09/01/2024 11:13 PM EDT 09/01/2024 11:13 PM EDT Carla Justice MD BLOOD BANK TEST ORDERABLES Edite d Result - Final [facility] BB - [address] [place] [address], [facility] [address] [place] [address], [place] * Syphilis Total (Unknown Syphilis Status) (09/01/2024 11:13 PM EDT) Pathologist [facility] SYPHILIS TOTAL <0.2 <=0.8 AI 09/02/2024 6:23 AM EDT [facility] Blood Venous blood / Unknown Venipuncture / Unknown 09/01/2024 11:13 PM EDT 09/01/2024 11:13 PM EDT Narrative [facility] - 09/02/2024 6:23 AM EDT NON REACTIVE No serologic evidence of infection to Treponema pallidum. Repeat testing may be considered in patients with suspected acute or primary syphilis in 2 to 4 weeks. [facility] Vinh TODD LAB BLOOD ORDERABLES Final Resul t [facility] [address] [place] [address], * Uric acid (09/01/2024 11:13 PM EDT) [facility] URIC ACID 5.8 2.6 - 7.2 mg/dL 09/01/2024 11:53 PM EDT [facility] Blood Venous blood / Unknown Venipuncture / Unknown 09/01/2024 11:13 PM EDT 09/01/2024 11:13 PM EDT [facility] Q Vinh TODD LAB BLOOD ORDERABLES Final Resul t [facility] [address] [place] [address], * LDH (09/01/2024 11:13 PM EDT) [facility] LDH 167 100 - 235 U/L 09/01/2024 11:53 PM EDT [facility] Blood Venous blood / Unknown Venipuncture / Unknown 09/01/2024 11:13 PM EDT 09/01/2024 11:13 PM EDT us Carla Q Vinh TODD LAB BLOOD ORDERABLES Final Resul t [facility] [address] [place] [address], * (ABNORMAL) Comprehensive metabolic panel (09/01/2024 11:13 PM EDT) SODIUM 137 134 - 146 mmol/L 09/01/2024 11:53 PM EDT [facility] POTASSIUM 4.0 3.5 - 5.0 mmol/L 09/01/2024 11:53 PM EDT [facility] CHLORIDE 104 98 - 109 mmol/L 09/01/2024 11:53 PM EDT [facility] CARBON DIOXIDE 24 22 - 32 mmol/L 09/01/2024 11:53 PM EDT [facility] ANION GAP 9 5 - 15 mmol/L 09/01/2024 11:53 PM EDT [facility] BLOOD UREA NITROGEN 8 5 - 23 mg/dL 09/01/2024 11:53 PM EDT [facility] CREATININE 0.62 0.40 - 1.00 mg/dL 09/01/2024 11:53 PM EDT [facility] Comment:METHOD TRACEABLE TO IDMS STANDARD GLUCOSE 72 65 - 99 mg/dL 09/01/2024 11:53 PM EDT [facility] CALCIUM 8.4(L) 8.5 - 10.5 mg/dL 09/01/2024 11:53 PM EDT [facility] TOTAL PROTEIN 5.3(L) 6.0 - 8.0 g/dL 09/01/2024 11:53 PM EDT [facility] ALBUMIN 3.1(L) 3.2 - 5.3 g/dL 09/01/2024 11:53 PM EDT [facility] ALKALINE PHOSPHATASE 176(H) 39 - 130 U/L 09/01/2024 11:53 PM EDT [facility] AST 23 <=41 U/L 09/01/2024 11:53 PM EDT [facility] ALT 19 <=31 U/L 09/01/2024 11:53 PM EDT [facility] BILIRUBIN,TOTAL 0.5 0.3 - 1.2 mg/dL 09/01/2024 11:53 PM EDT [facility] EGFR Non-Race Dependent >90 >=60 ml/min/1.7 3sq.m 09/01/2024 11:53 PM EDT [facility] Comment: Reported eGFR is based on the CKD-EPI 2020 equation that does not use a race coefficient. Blood Venous blood / Unknown Venipuncture / Unknown 09/01/2024 11:13 PM EDT 09/01/2024 11:13 PM EDT [facility] Q Vu LAB BLOOD ORDERABLES Final Resul t [facility] [address] [place] [address], * (ABNORMAL) CBC auto differential (09/01/2024 11:13 PM EDT) WBC 6.8 4 - 11 x10E9/L 09/01/2024 11:35 PM EDT [facility] RBC Count 3.35(L) 3.8 - 5.2 X10E12/L 09/01/2024 11:35 PM EDT [facility] Hemoglobin 9.1(L) 11.7 - 15.5 g/dL 09/01/2024 11:35 PM EDT [facility] Hematocrit 27.6(L) 35 - 47 % 09/01/2024 11:35 PM EDT [facility] MCV 82 80 - 100 fL 09/01/2024 11:35 PM EDT [facility] MCH 27.1 27 - 34 pg 09/01/2024 11:35 PM EDT [facility] MCHC 32.9 32 - 36 g/dL 09/01/2024 11:35 PM EDT [facility] RDW 17.3(H) 11.5 - 15 % 09/01/2024 11:35 PM EDT [facility] Platelet Count 122(L) 150 - 450 X10E9/L 09/01/2024 11:35 PM EDT [facility] MPV 10.6 7 - 12 fL 09/01/2024 11:35 PM EDT [facility] Neutrophils % 76.1 % 09/01/2024 11:35 PM EDT [facility] Lymphocytes % 14.9 % 09/01/2024 11:35 PM T [facility] Monocytes % 8.7 % 09/01/2024 11:35 PM T [facility] Eosinophils % 0.1 % 09/01/2024 11:35 PM T [facility] Basophils % 0.2 % 09/01/2024 11:35 PM EDT [facility] Neutrophils Absolute (A) 5.2 1.5 - 6.6 10*3/uL 09/01/2024 11:35 PM T [facility] Lymphocytes Absolute 1.0 1.0 - 3.5 10*3/uL 09/01/2024 11:35 PM T [facility] Monocytes Absolute 0.6 0.0 - 0.9 10*3/uL 09/01/2024 11:35 PM EDT [facility] Eosinophils Absolute 0.0 0.0 - 0.4 10*3/uL 09/01/2024 11:35 PM EDT [facility] Basophils Absolute 0.0 0.0 - 0.2 10*3/uL 09/01/2024 11:35 PM [facility] Differential Type AUTOMATED DIFFERENTIAL 09/01/2024 11:35 PM [facility] Blood Venous blood / Unknown Venipuncture / Unknown 09/01/2024 11:13 PM EDT 09/01/2024 11:13 PM EDT us Carla Justice MD LAB BLOOD ORDERABLES Final Resul t [facility] [address] [place] [address], * PST TOP (09/01/2024 11:11 PM EDT) Extra Tube Auto Resulted 09/02/2024 1:01 AM EDT [facility] Blood Venous blood / Unknown 09/01/2024 11:11 PM EDT 09/01/2024 11:25 PM EDT Regulo Jain MD LAB BLOOD ORDERABLES Final Res ult [facility] [address] [place] [address], [place] [phone] * Crossmatch RBC:Number of Units: 2 (09/01/2024 11:00 PM EDT) Blood component type [id number] [facility] Unit number [id number] [facility] Unit ABO B [facility] Unit [facility] Crossmatch Compatible [facility] Status of unit /RELEASED [facility] Expiration Date [facility] BB Type Barcode 1700 [facility] Blood component type [id number] [facility] Unit number [id number] [facility] Unit ABO B [facility] Unit [facility] Crossmatch Compatible [facility] Status of unit /RELEASED [facility] Expiration Date [facility] BB Type Barcode 1700 [facility] Blood 09/01/2024 11:0 0 PM EDT 09/02/2024 12:17 AM EDT us Suze Haddad DO BLOOD BANK PRODUCT ORDERABLE S Edited Result - Final [facility] [address] [place] [address], [place] documented in this encounter Visit Diagnoses Diagnosis Elevated blood pressure reading- Primary Elevated blood pressure reading without diagnosis of hypertension Acute post-operative pain S/P documented in this encounter Admitting Diagnoses Diagnosis [...] a history of asthma or cardiovascular disease docusate sodium (COLACE) capsule 100 mg 100 mg, oral, 2 times daily, First dose on Sat09/02/24 at 2100, , Look-alike/sound-alike medication - verify indication for use. Given 09/04/2024 9:03 AM EDT 100 mg Given 09/03/2024 8:31 PM EDT 100 mg Given 09/03/2024 8:51 AM EDT 100 mg furosemide (LASIX) injection 20 mg 20 mg, intravenous, Every 24 hours, First dose on Sat09/03/24 at 0830, Look-alike/sound-alike medication - verify indication [...] Given 09/04/2024 12:25 AM EDT 800 mg methylergonovine (METHERGINE) injection 200 mcg 200 mcg, [...] Given 09/03/2024 3:18 PM EDT 80 mg tranexamic acid (CYKLOKAPRON) injection 1,000 mg 1,000 [...] Rdz RN)1322 (Given - Provider: Zeenat White RN)2031 (Given - Provider: Amie Rdz RN) 0427 (Given - Provider: Amie Rdz RN)1301 (Not Given - Provider: Lakisha Wayne, [place] - Reason: Other - Comment: pt sleeping)1455 [...] prophylaxis 1434 (New Bag - Provider: Cee Coronel RN)1435 (Rate/Dose Verify - Provider: Cee Coronel RN)1504 (Stop Bag - Provider: Cee Coronel RN) docusate sodium (COLACE) capsule 100 mg 100 mg, oral, 2 times daily, First dose on 09/02/24 at 2100, , Look-alike/sound-alike medication - verify indication for use. 2100 (Not Given - Provider: Amie Rdz RN - Reason: Nausea) 0851 (Given - Provider: Zeenat White RN)203 (Given - Provider: Amie Rdz RN) 0903 (Given - Provider: Lakisha Wayne RN) furosemide (LASIX) injection 20 mg 20 mg, intravenous, Every 24 hours, First dose on Coco 09/03/24 at 0830, Look-alike/sound-alike medication - verify indication for use. IVP rate = 20 mg/min 0851 (Given - Provider: Zeenat White RN) 0904 (Given - Provider: Lakisha Wayne RN) ibuprofen (MOTRIN) tablet 800 mg(Linked Group 1) 800 mg, oral, Every 8 hours, First dose on Coco 09/03/24 at 1915, , Alternate administration every 4 hours with acetaminophen Look-alike/sound-alike medication - verify indication for use. Take/Give with food or milk. 0025 (Given - Provider: Amie Rdz RN)0903 (Given - Provider: Lakisha Wayne RN)1700 (Due - Provider: Lakisha Wayne RN) ketorolac (TORADOL) injection 30 mg (COMPLETED)(Linked [...] Amie Rdz RN)0852 (Given - Provider: Zeenat White, [place])1706 (Given - Provider: Zeenat White RN) lactated [...] of water, juice, soda, coffee or tea. 1914 (Not Given - Provider: Amie Rdz RN - Reason: Patient/family refused) 08 (Given - Provider: Zeenat White, [place]) 09 (Given - Provider: Lakisha Wayne RN) sodium [...] Coronel RN)0900 (Rate/Dose Verify - Provider: Cee Coronel RN)1000 (Rate/Dose Verify - Provider: Cee Coronel RN)1002 [...] Coronel RN)1349 (New Bag - Provider: Trev Recio, [place]LEY)1400 (Rate/Dose Verify - Provider: Cee Coronel RN)1430 [...] Application, rectal, As needed, hemorrhoids, Starting on Wed 25 at 1905, , May keep at bedside, [...] at 1905, For 1 dose, , Indications: benabqf-ahydy-xqizikf vaccination methylergonovine (METHERGINE) injection 200 mcg 200 [...] preferred to be given over 2-5 minutes. 214 (Given - Provider: Amie Rdz RN) oxyCODONE [...] 174 (Given - Provider: Cee Coronel RN) 0904 (Given - Provider: Lakisha Wayne RN) oxytocin [...] This item is provided by blood bank. donato (MYLICON) chewable tablet 80 mg 80 mg, [...] documented as of this encounter Care Teams Business Teacher Relationship Specialty Start Date End Date No Pcp, No Pcp JOJO Stovall [id number] PCP - General Family Medicine 02/03/24 documented as of this encounter
--- OUTSIDE RECORDS SUMMARY | 2024-09-02 14:38 | XMS_ITS | Encounter Summary ---
Author Organization [facility] tem Address [id number] [address] [place] [address] Care Team Providers Care Drum Drier Operator Name Role Phone No Pcp, No Pcp Primary Care Provider Unavailabl e Reason for Visit * Auth/Cert (Routine) Specialty Diagnoses / Procedures Referred By Contac t Referred To Contact Diagnoses Elevated blood pressure reading Pre eclampsia Regulo Jain MD [address] [facility], [address] [address] Phone: tel: fax: Referral ID Status Reason Start Date Expiration Date Visits Re quested Visits Authorized [id number] 1 1 Encounter Details Date Type Department Care Team (Late st Contact Info) Description 09/02/2024 2:38 PM EDT Anesthesia Event [facility] - Labor [address] [place] [phone] Gil Garnica MD [address], [place] [id number] Duglas Longoria SRNA Anesthesia Record Procedure Summary Procedure Name Responsible Anesthesiologist Anesthesia Start Time Anesthesia Stop Time REPEAT (Abdomen) Gil Garnica MD 09/02/24 1438 09/02/24 1612 Events Date Time Event Comment 09/02/2024 1438 An Start 1438 An Start Data 1450 Block Placed 1452 Patient Ready for Surgeon 1455 Position 1511 Baby Delivered 1605 an stop data 1605 Transport/Transfer From the OR 1611 Handoff to RN Transported to :PACU, Spontaneous Ventilation, O2 per Room Air, Pt. Tolerated procedure well, vital signs stable and document on nursing record Care transferred to receiving RN 1612 An Stop Meds Name Total phenylephrine (TALIA-SYNEPHRIN E) 4 mg in sodium chloride 0.9 % 20 mL (0.2 mg/mL) infusion 870 mcg ondansetron PF (ZOFRAN) 2 mg/mL injectio n 8 mg famotidine (PEPCID) injection 20 mg / 2 mL 20 mg dexAMETHasone (DECADRON) injection 4 mg/ mL 5 mg dexmedeTOMIDine (PRECEDEX) i nfusion 80 mcg/20 mL in sodium chloride 0.9% (4 mcg/mL premix) 8 mcg ketorolac (TORADOL) injection 30 mg/mL 3 0 mg morphine PF (DURAMORPH) injection 0.1 mg fentaNYL (SUBLIMAZE) injection 10 mcg cwkgfczopet-xiodihpa-koquw(P F) (MARCAINE SPINAL) 0.75 % (7.5 mg/mL) injection 1.6 mL oxytocin infusion 30 units/5 00 mL in lactated ringers (60 gena-units/mL premix) 186.8 mL lactated ringers infusion 2,000 mL * Agents Name Sevoflurane Inspired Sevoflurane * Blood No blood administrations on file. Lines, Drains, and Airways Type Details Placement Removal Wound 09/02/24; 1523; Inci donta; Abdomen; N/A; PAD ABS PRFR FLM 8X3IN DRSG CRD PLSTR CTTN STRL LF RPL [id number] (x1), PAD ABD 10X8IN ABS NWVN SFT HDRPHB BCK CLU STRL LF RPL [id number] (x1) 09/02/24 1523 by Cee Coronel RN Peripheral IV Placement Date: 08/16 10/09; Existing LDA Placed by: Other Facility; Catheter Size: 20 G; Orientation: Anterior, Right; Location: Forearm; Removal Date: 09/03/24; Removal Time: 1710; Removal Reason: Leaking 09/01/24 0000 by Juana Deal RN 09/03/24 1711 by Zeenat White RN Peripheral IV Placement Date: 08/16 11/09; Placement Time: 0945; Catheter Size: 18 G; Orientation: Anterior, Left; Location: Forearm; Site Prep: Chlorhexadine and isopropyl alcohol; Technique: Ultrasound guidance; Inserted by: abhishek melo rn; Insertion Attempts: 1; Patient Tolerance: Tolerated well; Removal Date: 09/04/24; Removal Time: 180; Removal Reason: Patient discharged 09/02/24 0945 by Karolyn Melo RN 09/04/241804 by Lakisha Wayne RN Urethral Catheter Placement Date: 08/16 11/09; Placement Time: 1455; Inserted by: Justine harvey rn; Removal Date: 09/03/24; Removal Time: 1909/02/24 145 by Cee Coronel RN 09/03/24 0020 by Amie Rdz RN documented in this encounter Social History Tobacco Use Types Packs/Day Years Used Date Smoking Tobacco: Every Day Smokeless Tobacco: Never Alcohol Use Standard Drinks/Week [...] often do you attend chur ch or yazidi services? More than 4 times per year 04/25/2020 Do you belong to any clubs o r organizations such as yazidi groups, unions, fraternal or athletic groups, or [...] Answer Date Recorded Total Score 0 04/25/2020 [facility] of Occupat ional Health - Occupational Stress [...] on file documented as of this encounter OR Notes * Anesthesia Postprocedure Evaluation - Gil Garnica MD - 09/02/2024 4:53 PM EDT ANESTHESIA POST-EVALUATION [facility] Procedure Summary Date: 09/02/24 Room / Location: [facility] LD OR C / [place] LD OR Anesthesia Start: 1438 Anesthesia Stop: 1611 Procedure: REPEAT (Abdomen) Diagnosis: S/P (Rpt C/S, pre-e) Surgeons: Cindy Soto MD Responsible Provider: Gil Garnica MD Anesthesia Type: spinal ASA Status: 3 Vitals: 09/02/24 1645 BP: 120/89 Pulse: 76 Resp: 18 Temp: SpO2: 97% Patient Evaluated: OB Patient Participation: Complete - patient participated Patient Level of Consciousness: Awake Pain Management: Adequate Airway Patency: Patent Anesthetic Complications: No Cardiovascular Status: Hemodynamically Stable Respiratory Status: Stable/Baseline and Nonlabored Ventilation Post-op Hydration: Euvolemic Final Anesthesia Type: spinal Does patient meet criteria to D/C from PACU?: Yes Is patient sedated pharmacologically at PACU D/C?: No No notable events documented. * Anesthesia Postprocedure Evaluation - ITALIA Craig - 09/02/2024 4:12 PM EDT ANESTHESIA POST-EVALUATION [facility] Procedure Summary Date: 09/02/24 Room / Location: [facility] LD OR C / [place] LD OR Anesthesia Start: 8 Anesthesia Stop: Procedure: REPEAT (Abdomen) Diagnosis: S/P (Rpt C/S, pre-e) Surgeons: Cindy Soto MD Responsible Provider: Gil Garnica MD Anesthesia Type: spinal ASA Status: 3 Vitals: 09/02/24 1611 BP: 118/71 Pulse: 73 Resp: 17 Temp: 36.3 ??C (97.3 ??F) SpO2: 97% Patient Evaluated: PACU Patient Participation: Complete - patient participated Patient Level of Consciousness: Awake Pain Management: Adequate Multimodal Analgesia: multimodal analgesia used between 6 hours prior to anesthesia start to PACU discharge Airway Patency: Patent Anesthetic Complications: No Cardiovascular Status: Hemodynamically Stable Respiratory Status: Stable/Baseline, Nonlabored Ventilation and Nasal Cannula Post-op Hydration: Euvolemic Final Anesthesia Type: spinal No notable events documented. * Anesthesia Procedure Notes - ITALIA Craig - 09/02/2024 3:06 PM EDT Associated Order(s): Spinal Block Spinal Block Patient Location: OR Start Time: 09/02/2024 2:46 PM End Time: 09/02/2024 2:50 PM Reason for Block: Primary Anesthetic IV In situ: Peripheral General Information and Staff: Service Provider: Gil Garnica MD TAP AND DIE MAKER TECHNICIAN: RC Hardy Student: ITALIA Craig Placed by: Lanette K Natarajan, SHAREHOLDER-TAP AND DIE MAKER TECHNICIAN Checklist: Patient Identified, IV Checked, Site Marked, Risks and Benefits Discussed, Surgical Consent, Monitors and Equipment Checked, Pre-op Evaluation and Timeout Performed Fire Risk Assessment Score: 0 Patient Positioning and Technique: Patient Position: Sitting Prep: Chlorhexidine Monitoring: Heart Rate, Continuous Pulse Ox and Blood Pressure Approach: Midline Location: L2-L3 Injection Technique: Single-Shot Placement Technique: Kunkle Technique Placement Technique: not ultrasound guided not ultrasound guided Local Infiltration: Lidocaine 1% Dose: 2 mL Needle: Needle Type: Shiloh Needle Gauge: 24 G Anesthesia Block Medication Given: zdmzpxovkyt-mvnmslwd-pqjdd(PF) (MARCAINE SPINAL) 0.75 % (7.5 mg/mL) injection - intrathecal 1.6 mL - 09/02/2024 2:50:00 PM morphine PF (DURAMORPH) injection - intrathecal 0.1 mg - 09/02/2024 2:50:00 PM fentaNYL (SUBLIMAZE) injection - intrathecal 10 mcg - 09/02/2024 2:50:00 PM Number of Attempts: 2 CSF Comment: Clear Free-Flowing CSF Assessment: Sensory Level: T4 * Anesthesia Preprocedure Evaluation - ITALIA Craig - 09/02/2024 2:18 PM EDT Images from the original note were not included. ANESTHESIA PRE-PROCEDURE EVALUATION [facility] Procedure(s): REPEAT ANESTHESIA PHYSICAL EXAM Patient summary reviewed Airway Mallampati: II TM distance: >3 FB Neck ROM: full Patient is not intubated Patient does not have tracheostomy Dental : exam normal Pulmonary : exam normal Cardiovascular : exam normal Abdominal : exam normal Other Findings ANESTHESIA PLAN ASA 3 Anesthesia Type: spinal Anesthetic risks, plan and alternatives discussed with Patient. Plan discussed with Attending and TAP AND DIE MAKER TECHNICIAN. Specialty Monitors: Monitor Airway Management: Awake/Sedated Post op Pain Management: Intrathecal Narcotics Transfer to OB PONV: Low Risk Total Score: 1 Female patient Criteria that do not apply: Non-smoker History of PONV and/or Motion Sickness Intended opioid administration RCRI: Low Risk: Score of 0 = 3.9% (2.8-5.4%) Risk of major cardiac event Score of 1 = 6.0% (4.9-7.4%) Risk of major cardiac event Total Score: 0 Criteria that do not apply: Cerebrovascular Disease Ischemic Heart Disease Congestive Heart Failure Elevated Risk Surgery Pre-operative Treatment with Insulin Pre-operative Creatinine >2 mg/dL / 176.8 mol/L Patient Active Problem List Diagnosis Bilateral pulmonary infiltrates on CXR Elevated blood pressure reading documented in this encounter Plan of Treatment Upcoming Encounters Date Type Department Care Team (Late st Contact Info) Description 09/02/2025 10:20 AM EDT Office Visit [facility] [address] [facility] [address] [place] [address] Catarino Fonseca MD [address], [address] [place] [address] documented as of this encounter Goals Goal Patient Goal Type Associated Problems Recent Progress Patient-Stated? Author Discharge to home General Yes Hedy Hess, RN Note: Evaluation of progress towards goal: Discharge to home with and self care documented as of this encounter Procedures Procedure Name Priority Date/Time Associated Diagnosis Comments ANESTHESIA SPINAL BLOCK Routine 09/02/2024 3:06 PM EDT documented in this encounter Results * Spinal Block (09/02/2024 3:06 PM EDT) Duglas Becerril SRNA - 09/02/2024 3:06 PM EDT ITALIA Craig 09/02/2024 3:07 PM Spinal Block Patient Location: OR Start Time: 09/02/2024 2:46 PM End Time: 09/02/2024 2:50 PM Reason for Block: Primary Anesthetic IV In situ: Peripheral General Information and Staff: Service Provider: Gil Garnica MD TAP AND DIE MAKER TECHNICIAN: RC Hardy Student: ITALIA Craig Placed by: RC Hardy Checklist: Patient Identified, IV Checked, Site Marked, Risks and Benefits Discussed, Surgical Consent, Monitors and Equipment Checked, Pre-op Evaluation and Timeout Performed Fire Risk Assessment Score: 0 Patient Positioning and Technique: Patient Position: Sitting Prep: Chlorhexidine Monitoring: Heart Rate, Continuous Pulse Ox and Blood Pressure Approach: Midline Location: L2-L3 Injection Technique: Single-Shot Placement Technique: Kunkle Technique Placement Technique: not ultrasound guided not ultrasound guided Local Infiltration: Lidocaine 1% Dose: 2 mL Needle: Needle Type: Shiloh Needle Gauge: 24 G Anesthesia Block Medication Given: vlqsazsxcoi-mnanqfvc-rmriq(PF) (MARCAINE SPINAL) 0.75 % (7.5 mg/mL) injection - intrathecal 1.6 mL - 09/02/2024 2:50:00 PM morphine PF (DURAMORPH) injection - intrathecal 0.1 mg - 09/02/2024 2:50:00 PM fentaNYL (SUBLIMAZE) injection - intrathecal 10 mcg - 09/02/2024 2:50:00 PM Number of Attempts: 2 CSF Comment: Clear Free-Flowing CSF Assessment: Sensory Level: T4 us Gil Garnica MD ANESTHESIA ORDERABLES Drea l Result documented in this encounter Visit Diagnoses Not on filedocumented in this encounter Administered Medications Inactive Administered Medications - up to 3 most recent administrations Medication Order MAR Action Action Date Dose Rate Site TATzscypxcm-ypomlymj-yyzca(PF) (MARCAINE SPINAL) 0.75 % (7.5 mg/mL) injection intrathecal, One-Time Injection, Starting on Sat09/02/24 at 1450, For 1 dose, Anesthesia Intra-op Given 09/02/2024 2:50 PM EDT 1.6 mL dexAMETHasone (DECADRON) injection intravenous, As needed, Starting on Sat09/02/24 at 1459, Anesthesia Intra-op Given 09/02/2024 2:59 PM EDT 5 mg dexmedeTOMIDine in 0.9 % NaCL (PRECEDEX) injection intravenous, As needed, Starting on Sat09/02/24 at 1501, Anesthesia Intra-op Given 09/02/2024 3:01 PM EDT 8 mcg famotidine (PF) (PEPCID) injection intravenous, As needed, Starting on Sat09/02/24 at 1450, Anesthesia Intra-op Given 09/02/2024 2:50 PM EDT 20 mg fentaNYL (SUBLIMAZE) injection intrathecal, One-Time Injection, Starting on Sat09/02/24 at 1450, For 1 dose, Anesthesia Intra-op Given 09/02/2024 2:50 PM EDT 10 mcg ketorolac (TORADOL) injection intravenous, As needed, Starting on Sat09/02/24 at 1544, Anesthesia Intra-op Given 09/02/2024 3:44 PM EDT 30 mg lactated ringers infusion intravenous, Continuous PRN, Starting on Sat09/02/24 at 1438, Anesthesia Intra-op New Bag 09/02/2024 3:09 PM EDT New Bag 09/02/2024 2:38 PM EDT morphine PF (DURAMORPH) injection intrathecal, One-Time Injection, Starting on Sat09/02/24 at 1450, For 1 dose, Anesthesia Intra-op Given 09/02/2024 2:50 PM EDT 0.1 mg ondansetron (PF) (ZOFRAN) injection intravenous, As needed, Starting on Sat09/02/24 at 1450, Anesthesia Intra-op Given 09/02/2024 2:50 PM EDT 8 mg oxytocin (PITOCIN) infusion 30 units/500 mL in lactated ringers (0.06 units/mL premix) intravenous, Continuous PRN, Starting on Sat09/02/24 at 1513, Anesthesia Intra-op Rate/Dose Change 09/02/2024 3:43 PM EDT 42 mL/hr 42 mL/hr New Bag 09/02/2024 3:13 PM EDT 333 mL/hr 333 mL/hr phenylephrine (TALIA-SYNEPHRINE) 4 mg in sodium chloride 0.9 % 20 mL (0.2 mg/mL) infusion intravenous, Continuous PRN, Starting on Sat09/02/24 at 1451, Anesthesia Intra-op Rate/Dose Change 09/02/2024 3:22 PM EDT 20 mcg/min 6 mL/hr Restarted 09/02/2024 3:17 PM EDT 30 mcg/min 9 mL/hr Rate/Dose Change 09/02/2024 3:05 PM EDT 20 mcg/min 6 mL/hr documented in this encounter Additional Health Concerns Assessment Noted Time PHQ-9 Depression Total Score: 0 04/25/19 21 12:36 PM EST documented as of this encounter Care Teams Drum Drier Operator Relationship Specialty Start Date End Date No Pcp, [place] [address] PCP - General Family Medicine 02/03/24 documented as of this encounter
[2024-09-09] VITALS (65 sets, daily range): BP systolic 136–185; BP diastolic 81–108; PULSE 67–94; TEMP 36.9
--- OUTSIDE RECORDS SUMMARY | 2024-09-09 13:45 | XMS_ITS | Encounter Summary ---
Author Organization [facility] Address [address] [place] [address] Care Team Providers Care C Software Engineer Name Role Phone Marika Gudino MD Primary Care Provider [phone] Reason for Visit * Reason Comments Care Encounter Details Date Type Department Care Team (Late st Contact Info) Description 09/09/2024 1:45 PM EDT Visit [facility] [address] [place] [address] Joanie Cee, CNM [address] [place] [address] Arrived Social History Tobacco Use Types Packs/Day Years [...] often do you attend chur ch or nondenominational services? Never 07/08/2023 Do you belong to any clubs o r organizations such as jew groups, unions, fraternal or athletic groups, or [...] Recorded Patient Health Questionnaire-2 Score 1 12/24/2023 [facility]at [facility] - Occupational Stress Questionnaire Answer Date [...] place to sleep or slept in a mcfp (including now)? No 07/08/2023 Comments No Sex and Gender Information Value Date Recorded Sex Assigned at Female 07/08/2023 2:48 PM EDT Legal Sex Female 7:39 PM EDT Gender Identity Female 07/08/2023 2:48 PM EDT Sexual Orientation Straight 07/08/2023 2: 48 PM EDT documented as of this encounter Last Filed Vital Signs Vital Sign Reading Time Taken Comments Blood Pressure 170/110 09/09/2024 2:10 PM EDT Pulse - - Temperature - - Respiratory Rate - - Oxygen Saturation - - Inhaled Oxygen Concentration - - Weight 116 kg (255 lb) 09/09/2024 2:10 PM EDT Height - - Body Mass Index 43.77 12/24/2023 5:32 PM EDT documented in this encounter Plan of Treatment Upcoming Encounters Date Type Department Care Team (Late st Contact Info) Description 09/14/2024 12:30 PM EDT Office Visit [facility] [address] [place] [address] Maria Arellano NP [address] [place] [address] documented as of this encounter Goals Goal [...] documented as of this encounter Care Teams C Software Engineer Relationship Specialty Start Date End Date Marika Gudino MD [address] [place] [address] PCP - General Family Medicine 07/08/23 documented as of this encounter
--- OUTSIDE RECORDS SUMMARY | 2024-09-09 16:20 | XMS_ITS | Encounter Summary ---
Author Organization [facility] Address [address] [place] [address] Care Team Providers Care Schedule Supervisor Name Role Phone Marika Gudino MD Primary Care Provider [phone] Encounter Details Date Type Department Care Team (Late st Contact Info) Description 07/08/2024 Results Follow-Up [facility] [address] [place] [address] Joanie Cee, CNM [address] [place] [address] Social History Tobacco Use Types [...] often do you attend chur ch or sikhism services? Never 07/08/2023 Do you belong to any clubs o r organizations such as adventism groups, unions, fraternal or athletic groups, or [...] Recorded Patient Health Questionnaire-2 Score 1 12/24/2023 [facility] of Occupat ional Health - [...] a fpc (including now)? No 07/08/2023 Comments Yes Sex [...] EDT Office Visit [facility] [address] [place] [address] Maria Arellano NP [address] [place], [place] [phone] documented as of this encounter Visit Diagnoses Not on filedocumented in this encounter Additional Health Concerns Assessment Noted Time PHQ-9 Depression Total Score: 16 024 5:00 PM EDT documented as of this encounter Care Teams Schedule Supervisor Relationship Specialty Start Date End Date Markia Gudino MD [address] [place], [place] [phone] PCP - General Family Medicine 07/08/23 documented as of this encounter
--- OUTSIDE RECORDS SUMMARY | 2024-09-09 16:20 | XMS_ITS | Encounter Summary ---
Author Organization [facility] Address [address] [place] [address] Care Team Providers Care 2Nd Grade Teacher Name Role Phone Marika Gudino MD Primary Care Provider [phone] Encounter Details Date Type Department Care Team (Late st Contact Info) Description 07/08/2024 Results Follow-Up [facility] [address] [place] [address] Joanie Cee, CNM [address] [place] [address] Social History Tobacco Use Types [...] Recorded Patient Health Questionnaire-2 Score 1 12/24/2023 [facility] of Occupat ional Health - [...] place to sleep or slept in a prison (including now)? No 07/08/2023 Comments Yes Sex [...] EDT Office Visit [facility] [address] [place] [address] Maria Arellano NP [address] [place], [place] [id number] documented as of this encounter Visit Diagnoses Not on filedocumented in this encounter Additional Health Concerns Assessment Noted Time PHQ-9 Depression Total Score: 16 024 5:00 PM EDT documented as of this encounter Care Teams 2Nd Grade Teacher Relationship Specialty Start Date End Date Marika Gudino MD [address] [place], [place] [phone] PCP - General Family Medicine 07/08/23 documented as of this encounter
--- OUTSIDE RECORDS SUMMARY | 2024-09-09 16:20 | XMS_ITS | Encounter Summary ---
Author Organization [facility] Address [address] [place] [address] Care Team Providers Care Sulphate Tester Name Role Phone Marika Gudino MD Primary Care Provider [phone] Encounter Details Date Type Department Care Team (Late st Contact Info) Description 06/29/2024 Results Follow-Up [facility] [address] [place] [address] Marika Malloy MA Social History [...] often do you attend chur ch or temple services? Never 07/08/2023 Do you belong to [...] Recorded Patient Health Questionnaire-2 Score 1 12/24/2023 [facility] of Occupat ional Health - Occupational Stress [...] in a custodial (including now)? No 07/08/2023 Comments Yes Sex [...] 09/14/2024 12:30 PM EDT Office Visit [facility] [address] [place] [address] Maria Arellano NP [address] [place], [place] [phone] documented as of this encounter Visit Diagnoses Not on filedocumented in this encounter Additional Health Concerns Assessment Noted Time PHQ-9 Depression Total Score: 16 024 5:00 PM EDT documented as of this encounter Care Teams Sulphate Tester Relationship Specialty Start Date End Date Marika Gudino MD [address] [place], [place] [phone] PCP - General Family Medicine 07/08/23 documented as of this encounter
--- OUTSIDE RECORDS SUMMARY | 2024-09-09 16:20 | XMS_ITS | Encounter Summary ---
Author Organization [facility] Address [address] [place] [address] Care Team Providers Care Market Gardener Name Role Phone Marika Gudino MD Primary Care Provider [phone] Encounter Details Date Type Department Care Team (Late st Contact Info) Description 07/20/2024 Results Follow-Up [facility] [address] [place] [address] Joanie Cee, CNM [address] [place] [address] Social History Tobacco Use Types [...] often do you attend chur ch or religion services? Never 07/08/2023 Do you belong to any clubs o r organizations such as methodist groups, unions, fraternal or athletic groups, or [...] Recorded Patient Health Questionnaire-2 Score 1 12/24/2023 [facility] of Occupat ional Health - Occupational [...] a half-way (including now)? No 07/08/2023 Comments Yes Sex [...] EDT Office Visit [facility] [address] [place] [address] Maria Arellano NP [address] [place], [place] [phone] documented as of this encounter Goals Goal [...] documented as of this encounter Care Teams Market Gardener Relationship Specialty Start Date End Date Marika Gudino MD [address] [place], [place] [phone] PCP - General Family Medicine 07/08/23 documented as of this encounter
--- OUTSIDE RECORDS SUMMARY | 2024-09-09 16:20 | XMS_ITS | Encounter Summary ---
Author Organization [facility] Address [address] [place] [address] Care Team Providers Care Nuclear Fuels Reclamation Engineer Name Role Phone Marika Gudino MD Primary Care Provider [phone] Encounter Details Date Type Department Care Team (Late st Contact Info) Description 09/01/2024 Dannyo flowsheet [facility] [address] [place] [address] Joanie Cee, CNM [address] [place] [address] Social History Tobacco Use Types [...] often do you attend chur ch or adventism services? Never 07/08/2023 Do you belong to any clubs o r organizations such as congregation groups, unions, fraternal or athletic groups, or [...] Recorded Patient Health Questionnaire-2 Score 1 12/24/2023 [facility] of Occupat ional Health - Occupational [...] place to sleep or slept in a assisted (including now)? No 07/08/2023 Comments Yes Sex [...] EDT Office Visit [facility] [address] [place] [address] Maria Arellano NP [address] [place] [address] documented as of this encounter Goals Goal [...] documented as of this encounter Care Teams Nuclear Fuels Reclamation Engineer Relationship Specialty Start Date End Date Marika Gudino MD [address] [place], [place] [phone] PCP - General Family Medicine 07/08/23 documented as of this encounter
--- OUTSIDE RECORDS SUMMARY | 2024-09-09 16:20 | XMS_ITS | Encounter Summary ---
Author Organization [facility] Address [address] [place] [address] Care Team Providers Care Label Paster Name Role Phone Marika Gudino MD Primary Care Provider [phone] Encounter Details Date Type Department Care Team (Late st Contact Info) Description 07/20/2024 Results Follow-Up [facility] [address] [place] [address] Joanie Cee, CNM [address] [place] [address] Social History Tobacco Use Types [...] often do you attend chur ch or baptist services? Never 07/08/2023 Do you belong to any clubs o r organizations such as jehovah's witness groups, unions, fraternal or athletic groups, or [...] Recorded Patient Health Questionnaire-2 Score 1 12/24/2023 [facility] of Occupat ional Health - Occupational [...] in a fci (including now)? No 07/08/2023 Comments Yes Sex [...] EDT Office Visit [facility] [address] [place] [address] Maria Arellano NP [address] [place], [place] [phone] documented as of this encounter Goals Goal [...] documented as of this encounter Care Teams Label Paster Relationship Specialty Start Date End Date Marika Gudino MD [address] [place], [place] [phone] PCP - General Family Medicine 07/08/23 documented as of this encounter
--- OUTSIDE RECORDS SUMMARY | 2024-09-09 16:20 | XMS_ITS | Encounter Summary ---
Author Organization [facility] Address [address] [place] [address] Care Team Providers Care Stem Lead Former Name Role Phone Marika Gudino MD Primary Care Provider [phone] Encounter Details Date Type Department Care Team (Late st Contact Info) Description 07/16/2024 Orders Only [facility] [address] [place] [address] Unallocated, Noms Provider, [address] [place], [place] [id number] Social History Tobacco Use Types Packs/Day Years [...] often do you attend chur ch or rastafari services? Never 07/08/2023 Do you belong to any clubs o r organizations such as jewish groups, unions, fraternal or athletic groups, or [...] Recorded Patient Health Questionnaire-2 Score 1 12/24/2023 [facility] of Occupat ional [facility] - Occupational Stress Questionnaire Answer Date Recorded [...] EDT Office Visit [facility] [address] [place] [address] Maria Arellano NP [address] [place], [place] [id number] documented as of this encounter Goals Goal [...] documented as of this encounter Care Teams Stem Lead Former Relationship Specialty Start Date End Date Marika Gudino MD [address] [place], [place] [id number] PCP - General Family Medicine 07/08/23 documented as of this encounter
--- OUTSIDE RECORDS SUMMARY | 2024-09-09 16:20 | XMS_ITS | Encounter Summary ---
Author Organization [facility] Address [address] [place] [address] Care Team Providers Care Planning Analyst Name Role Phone Marika Gudino MD Primary Care Provider [phone] Encounter Details Date Type Department Care Team (Late st Contact Info) Description 07/08/2024 Orders Only [facility] [address] [place] [address] Joanie Cee, CNM [address] [place] [address] Social History Tobacco Use Types [...] any clubs o r organizations such as confucianism groups, unions, fraternal or athletic groups, or [...] Recorded Patient Health Questionnaire-2 Score 1 12/24/2023 [facility] Occupat ional [facility] [...] EDT Office Visit [facility] [address] [place] [address] Maria Arellano NP [address] [place], [place] [id number] documented as of this encounter Visit Diagnoses Not on filedocumented in this encounter Additional Health Concerns Assessment Noted Time PHQ-9 Depression Total Score: 16 024 5:00 PM EDT documented as of this encounter Care Teams Planning Analyst Relationship Specialty Start Date End Date Marika Gudino MD [address] [place], [place] [id number] PCP - General Family Medicine 07/08/23 documented as of this encounter
--- OUTSIDE RECORDS SUMMARY | 2024-09-09 16:20 | XMS_ITS | Encounter Summary ---
Author Organization [facility] Address [address] [place] [address] Care Team Providers Care Electrotyper Name Role Phone Marika Gudino MD Primary Care Provider [phone] Encounter Details Date Type Department Care Team (Late st Contact Info) Description 08/25/2024 Results Follow-Up [facility] [address] [place] [address] Joanie Cee, CNM [address] [place] [address] Social History Tobacco Use Types [...] often do you attend chur ch or uatsdin services? Never 07/08/2023 Do you belong to any clubs o r organizations such as mormonism groups, unions, fraternal or athletic groups, or [...] Recorded Patient Health Questionnaire-2 Score 1 12/24/2023 [facility] of Occupat ional Health - Occupational [...] place to sleep or slept in a intermediate (including now)? No 07/08/2023 Comments Yes Sex [...] EDT Office Visit [facility] [address] [place] [address] Maria Arellano NP [address] [place], [place] [id number] documented as of this encounter Goals Goal [...] documented as of this encounter Care Teams Electrotyper Relationship Specialty Start Date End Date Marika Gudino MD [address] [place], [place] [id number] PCP - General Family Medicine 07/08/23 documented as of this encounter
--- OUTSIDE RECORDS SUMMARY | 2024-09-09 16:21 | XMS_ITS | Encounter Summary ---
Author Organization [facility] Address [address] [place] [address] Care Team Providers Care Certified Adapted Physical Educator Name Role Phone Marika Gudino MD Primary Care Provider [phone] Encounter Details Date Type Department Care Team (Late st Contact Info) Description 07/08/2024 Results Follow-Up [facility] OB [address] [place] [address] Joanie Cee, CNM [address] [place] [address] Social History Tobacco Use Types [...] often do you attend chur ch or episcopal services? Never 07/08/2023 Do you [...] Recorded Patient Health Questionnaire-2 Score 1 12/24/2023 [facility] of Occupat ional Health - Occupational [...] EDT Office Visit [facility] [address] [place] [address] Maria Arellano NP [address] [place], [place] [address] documented as of this encounter Visit Diagnoses Not on filedocumented in this encounter Additional Health Concerns Assessment Noted Time PHQ-9 Depression Total Score: 16 024 5:00 PM EDT documented as of this encounter Care Teams Certified Adapted Physical Educator Relationship Specialty Start Date End Date Marika Gudino MD [address] [place], [place] [phone] PCP - General Family Medicine 07/08/23 documented as of this encounter
--- OUTSIDE RECORDS SUMMARY | 2024-09-09 16:21 | XMS_ITS | Encounter Summary ---
Author Organization [employer] Address [id number] [address] [place] [address] Care Team Providers Care Stenographer Secretary Name Role Phone No Pcp, No Pcp Primary Care Provider Unavailabl e Encounter Details Date Type Department Care Team (Latest Contact Info) Description 09/01/2024 Travel Social History Tobacco Use Types Packs/Day Years [...] often do you attend chur ch or protestant services? More than 4 times per year [...] Answer Date Recorded Total Score 0 04/25/2020 [facility] of Occupat ional Health - Occupational Stress [...] my life. Stron gly Agree 04/25/2020 Comments Yes Sex and Gender Information Value Date Recorded Sex Assigned at Not on file Legal Sex Female 11:51 AM EDT Gender Identity Not on file Sexual Orientation Not on file documented as of this encounter Plan of Treatment Upcoming Encounters Date Type Department Care Team (Late st Contact Info) Description 09/02/2025 10:20 AM EDT Office Visit [facility] [address] [place] [address] Catarino Fonseca MD [address], [address] [place] [address] documented as of this encounter Goals Goal [...] documented as of this encounter Care Teams Stenographer Secretary Relationship Specialty Start Date End Date No Pcp, [place] [address] PCP - General Family Medicine 02/03/24 documented as of this encounter
--- OUTSIDE RECORDS SUMMARY | 2024-09-09 16:22 | XMS_ITS | Encounter Summary ---
Author Organization [facility] Address [address] [facility] [place] [address] Care Team Providers Care Counseling Services Director Name Role Phone Hedy Reyna DO Unavailable [phone] Marika Gudino MD Primary Care Provider [phone] Maria Arellano NP Unavailable [phone] Encounter Details Date Type Department Care Team (Late st Contact Info) Description 07/17/2023 Abstract [facility] [address] [place] [address] Maria Arellano NP [address] [place] [address] Social History Tobacco Use Types [...] How often do you attend chur or orthodox services? Never 07/08/2023 Do you [...] Recorded Patient Health Questionnaire-2 Score 3 07/16/2023 [facility] of Occupat ional [facility] - Occupational Stress Questionnaire Answer [...] place to sleep or slept in a fdc (including now)? No 07/08/2023 Comments Unknown Sex [...] 12:30 PM EDT Office Visit [facility] [address] [place] [address] Maria Arellano NP [address] [place], [place] [address] documented as of this encounter Visit Diagnoses Not on filedocumented in this encounter Additional Health Concerns Assessment Noted Time PHQ-9 Depression Total Score: 14 024 6:00 PM EDT documented as of this encounter Care Teams Counseling Services Director Relationship Specialty Start Date End Date Hedy Reyna DO [address] [address] PCP - [place] [employer] 04/18/21 Marika Gudino MD [address] [place], [place] [address] PCP - General Family Medicine 07/08/23 Maria Arellano NP [address] [place], [place] [address] PCP - [place] [employer] 12/17/2303/17 documented as of this encounter
--- OUTSIDE RECORDS SUMMARY | 2024-09-09 16:22 | XMS_ITS | Encounter Summary ---
Author Organization [facility] Address [address] [facility] [place] [address] Care Team Providers Care Operations Asst Name Role Phone Hedy Reyna DO Unavailable [phone] Marika Gudino MD Primary Care Provider [phone] Maria Arellano NP Unavailable [phone] Encounter Details Date Type Department Care Team (Late st Contact Info) Description 08/05/2023 Abstract [facility] [address] [place] [address] Maria Arellano NP [address] [place] [address] Social History Tobacco Use Types [...] How often do you attend chur or jehovah's witness services? Never 07/08/2023 Do you belong to any clubs o r organizations such as cheondoism groups, unions, fraternal or athletic groups, or [...] Recorded Patient Health Questionnaire-2 Score 3 07/16/2023 [facility] of Occupat ional [facility] - Occupational Stress Questionnaire Answer Date [...] in a alf (including now)? No 07/08/2023 Comments Unknown Sex [...] PM EDT Office Visit [facility] [address] [place] [address] Maria Arellano NP [address] [place], [place] [address] documented as of this encounter Visit Diagnoses Not on filedocumented in this encounter Additional Health Concerns Assessment Noted Time PHQ-9 Depression Total Score: 14 024 6:00 PM EDT documented as of this encounter Care Teams Operations Asst Relationship Specialty Start Date End Date Hedy Reyna DO [address] [address] PCP - [place] [employer] 04/18/21 Marika Gudino MD [address] [place], [place] [address] PCP - General Family Medicine 07/08/23 Maria Arellano NP [address] [place], [place] [address] PCP - [place] [employer] 12/17/2303/17 documented as of this encounter
--- OUTSIDE RECORDS SUMMARY | 2024-09-09 16:22 | XMS_ITS | Encounter Summary ---
Author Organization [facility] Address [address] [place] [address] Care Team Providers Care Bag Machine Operator Name Role Phone Marika Gudino MD Primary Care Provider [phone] Encounter Details Date Type Department Care Team (Late st Contact Info) Description 09/04/2024 Abstract [facility] [address] [place] [address] Sedrick [place], DO [address] Rosemary Caceres, [facility] Social History Tobacco Use Types Packs/Day Years [...] often do you attend chur ch or restorationism services? Never 07/08/2023 Do you belong to any clubs o r organizations such as temple groups, unions, fraternal or athletic groups, or [...] Recorded Patient Health Questionnaire-2 Score 1 12/24/2023 [facility] of Occupat ional [facility] - Occupational Stress Questionnaire Answer Date Recorded [...] place to sleep or slept in a care home (including now)? No 07/08/2023 Comments Yes Sex [...] EDT Office Visit [facility] [address] [place] [address] Maria Arellano NP [address] [place], [place] [phone] documented as of this encounter Goals Goal [...] documented as of this encounter Care Teams Bag Machine Operator Relationship Specialty Start Date End Date Marika Gudino MD [address] [place], [place] [address] PCP - General Family Medicine 07/08/23 documented as of this encounter
--- OUTSIDE RECORDS SUMMARY | 2024-09-09 16:22 | XMS_ITS | Encounter Summary ---
Author Organization [facility] Address [address] [place] [address] Care Team Providers Care Construction Materials Tester Name Role Phone Marika Gudino MD Primary Care Provider [phone] Encounter Details Date Type Department Care Team (Late st Contact Info) Description 09/01/2024 Clinisync Result Encounter [facility] External Department Unsolicited Joanie Cee, CNM [address] [place] [address] Social History Tobacco Use Types Packs/Day Years [...] often do you attend chur ch or amish services? Never 07/08/2023 Do you belong to any clubs o r organizations such as episcopal groups, unions, fraternal or athletic groups, or [...] Recorded Patient Health Questionnaire-2 Score 1 12/24/2023 [facility] of Occupat ional [facility] - Occupational Stress Questionnaire Answer [...] 12:30 PM EDT Office Visit [facility] [address] [place] [address] Maria Arellano NP [address] [place], [place] [address] documented as of this encounter Goals Goal Patient Goal Type Associated Problems Recent Progress Patient-Stated? Author Reminders Care Plan OB Reminders No Open Scheduling, Background documented as of this encounter Procedures Procedure Name Priority Date/Time Associated Diagnosis Comments [facility] PROTHROMBIN TIME INR W/O COUM Routine 09/01/2024 3:51 PM EDT [facility] CMP (CMP) (FOR REMOTE [facility] USE) Routine 09/01/2024 3:51 PM EDT [facility] APTT Routine 09/01/2024 3:51 PM EDT ALL URIC ACID Routine 09/01/2024 3:51 PM EDT ALL LDH Routine 09/01/2024 3:51 PM EDT ALL CBC WITH AUTO DIFF Routine 09/01/2024 3:51 PM EDT documented in this encounter Results * [facility] APTT (09/01/2024 3:51 PM EDT) PARTIAL THROMBOPLASTIN TIME 24.9 22.3 - 36.2 sec [facility] 09/01/2024 3:51 PM EDT 09/01/2024 3:56 PM EDT Narrative CL[facility]IS[facility] - 09/01/2024 4:25 PM EDT Joanie LAZARO CL[facility]IS[facility] Final Result RAS [facility] * [facility] PROTHROMBIN TIME INR W/O COUM (09/01/2024 3:51 PM EDT) PROTHROMBIN TIME 9.7 9.0 - 11.6 sec TBH TBH INR <0.93 [facility] Comment: DESIRED INR: 2.0-3.0 CONDITIONS NOT LISTED BELOW 2.5-3.5 FOR PROSTHETIC HEART VALVE REPLACEMENT 2.5-3.5 RECURRENT THROMBOSIS 09/01/2024 3:51 PM EDT 09/01/2024 3:56 PM EDT Narrative CLINISYNC - 09/01/2024 4:25 PM EDT Joanie Polly Cee [facility] CLINISYNC Final Result Performing Organization Address [facility] Co de Phone Number RAS [facility] * (ABNORMAL) [facility] CMP (CMP) (FOR REMOTE [facility] USE) (09/01/2024 3:51 PM EDT) SODIUM 136 136 - 145 mmol/L TBH POTASSIUM 4.1 3.5 - 5.1 mmol/L [facility] CHLORIDE 101 98 - 107 mmol/L TBH CARBON DIOXIDE 23.4 21.0 - 32.0 mmol/L [facility] ANION GAP 15.7 TBH GLUCOSE 85 74 - 106 mg/dL [facility] BLOOD UREA NITROGEN 9.0 7.0 - 18.0 mg/dL [facility] CREATININE 0.54(L) 0.55 - 1.02 mg/dL TBH TBH EGFR-AF RUSSIAN >60 >=60 mL/min/1. 73m 2 TBH TBH EGFR-NON AF RUSSIAN >60 >=60 mL/min/1. 73m 2 TBH BUN CREATININE RATIO 16.7 TBH CALCIUM 8.3(L) 8.5 - 10.1 mg/dL [facility] BILIRUBIN TOTAL 0.2 0.2 - 1.0 mg/dL [facility]H ASPARTATE AMINO TRANSFERASE 27 15 - 37 U/L TBH ALANINE AMINOTRANSFERASE 30 14 - 59 U/L TBH ALKALINE PHOSPHATASE 202(H) 46 - 116 U/L TBH TOTAL PROTEIN 5.9(L) 6.4 - 8.2 g/dL [facility]H ALBUMIN LEVEL 2.2(L) 3.4 - 5.0 g/dL [facility] GLOBULIN 3.7 g/dL TBH ALBUMIN GLOBULIN RATIO 0.6 [facility] 09/01/2024 3:51 PM EDT 09/01/2024 3:56 PM EDT Narrative CLINISYNC - 09/01/2024 4:22 PM EDT us Joanie L Floro CNM CLINIS[facility]NC Final Result Performing Organization Address [facility] Co de Phone Number CLINISYNC TB * ALL LDH (09/01/2024 3:51 PM EDT) LACTATE DEHYDROGENASE 189 81 - 234 U/L TB 09/01/2024 3:51 PM EDT 09/01/2024 3:56 PM EDT Narrative CLINISYNC - 09/01/2024 4:21 PM EDT us Joanie L Floro CNM CL[facility] Final Result Performing Organization Address [facility] Co de Phone Number CLINISYNC TB * ALL URIC ACID (09/01/2024 3:51 PM EDT) URIC ACID 5.2 2.6 - 6.0 mg/dL TB 09/01/2024 3:51 PM EDT 09/01/2024 3:56 PM EDT Narrative CLINISYNC - 09/01/2024 4:21 PM EDT us Joanie L Floro CNM CL[facility] Final Result Performing Organization Address [facility]/ZIP Co de Phone Number CLINISYNC TBH * (ABNORMAL) ALL CBC WITH AUTO DIFF (09/01/2024 3:51 PM EDT) [facility] TB WBC 7.1 4.0 - 11.0 10 3/uL TBH TBH RBC 3.23(L) 4.20 - 5.40 10 6/uL TBH TBH HGB 8.8(L) 12.0 - 16.0 g/dL TBH TBH HCT 27.7(L) 36.0 - 48.0 % TBH TBH MCV 85.8 81.0 - 99.0 fL TBH TBH MCH 27.2 26.7 - 34.0 pg TBH TBH MCHC 31.8 29.9 - 35.2 g/dL TBH TBH RDW 16.4(H) 11.0 - 15.0 % TBH TBH PLT 143(L) 150 - 450 10 3/uL TBH TBH MPV 12.6 9.5 - 13.5 fL TBH NEUTROPHILS PERCENT AUTO 73.6 43.0 - 75.0 % TBH LYMPHOCYTES PERCENT AUTO 13.8(L) 20.5 - 60.0 % TBH MONOCYTES PERCENT AUTO 10.6 1.7 - 12.0 % TBH TBH EO % 0.3(L) 0.9 - 7.0 % TBH BASOPHILS PERCENT AUTO 0.3 0.2 - 2.0 % TBH IMMATURE GRANULOCYTES PCT AUTO 1.4(H) 0.0 - 0.5 % TBH NEUTROPHILS ABSOLUTE AUTO 5.2 1.4 - 6.5 10 3/uL TBH LYMPHOCYTES ABSOLUTE AUTO 1.0(L) 1.2 - 3.8 10 3/uL TBH MONOCYTES ABSOLUTE AUTO 0.8 0.3 - 0.8 10 3/uL TBH TBH EO # 0.0 0.0 - 0.7 10 3/uL TBH BASOPHILS ABSOLUTE AUTO 0.0 0.0 - 0.1 10 3/uL TBH IMMATURE GRANULOCYTES ABS AUTO 0.10(H) 0.00 - 0.03 10 3/uL TBH 09/01/2024 3:51 PM EDT 09/01/2024 3:56 PM EDT Narrative CLINISYNC - 09/01/2024 4:06 PM EDT us Joanie Cee CNJustine CLINISYNC Final Result [facility] documented in this encounter Visit Diagnoses Not on filedocumented in this encounter Additional Health Concerns Active Problems Noted Date Diagnosed Date OB Reminders 07/14/2024 Assessment Noted Time PHQ-9 Depression Total Score: 16 024 5:00 PM EDT documented as of this encounter Care Teams Construction Materials Tester Relationship Specialty Start Date End Date Marika Gudino MD [address] [place] [address] PCP - General Family Medicine 07/08/23 documented as of this encounter
--- OUTSIDE RECORDS SUMMARY | 2024-09-09 16:22 | XMS_ITS | Encounter Summary ---
Author Organization [employer] Address [id number] [address] [place] [address] Care Team Providers Care Vice President Pharmacy Name Role Phone No Pcp, No Pcp Primary Care Provider Unavailabl e Encounter Details Date Type Department Care Team (Late st Contact Info) Description 06/28/2020 Orders Only [facility] [address] [place] [address] Franchesca Kelly MA Social History Tobacco Use [...] Answer Date Recorded Total Score 0 04/25/2020 [facility] of Occupat ional Health - Occupational Stress [...] Visit [facility] [address] [place] [address] Catarino Fonseca MD [address], [address] [place] [address] documented as of this encounter Goals Goal [...] documented as of this encounter Care Teams Vice President Pharmacy Relationship Specialty Start Date End Date No Pcp, [place] [address] PCP - General Family Medicine 02/03/24 documented as of this encounter
--- OUTSIDE RECORDS SUMMARY | 2024-09-09 16:22 | XMS_ITS | Encounter Summary ---
Author Organization [facility] Address [address] [place] [address] Care Team Providers Care Pulmonology Technician Name Role Phone Marika Gudino MD Primary Care Provider [phone] Encounter Details Date Type Department Care Team (Late st Contact Info) Description 09/01/2024 Clinisync Result Encounter [facility] External Department Unsolicited Juliet Cee, CNM [address] [place] [address] Social History Tobacco Use Types Packs/Day Years [...] often do you attend chur ch or spiritism services? Never 07/08/2023 Do you belong to [...] 1 12/24/2023 [facility] of Occupat ional [facility] - Occupational Stress Questionnaire Answer [...] place to sleep or slept in a longterm (including now)? No 07/08/2023 Comments Yes Sex [...] EDT Office Visit [facility] [address] [place] [address] Maria Arellano NP [address] [place], [place] [address] documented as of this encounter Goals Goal Patient Goal Type Associated Problems Recent Progress Patient-Stated? Author Reminders Care Plan OB Reminders No Open Scheduling, Background documented as of this encounter Procedures Procedure Name Priority Date/Time Associated Diagnosis Comments US OB BPP W NON-STRESS 09/01/2024 5:26 PM EDT documented in this encounter Results * US OB BPP W NON-STRESS (09/01/2024 5:26 PM EDT) Anatomical Region Laterality Modality Other 09/01/2024 5:26 PM EDT Narrative 09/01/2024 5:28 PM EDT The [address] [address] Ultrasound Report Signed Patient: NICHO DOHERTY MR#: [id number] : 1995 Acct:[id number] Age/Sex: 29 / F ADM Date: Loc: [facility] [address]: JULIET CEE APRN, CNM Ordering Physician: JULIET CEE APRN, CNM Date of Service: 09/01/24 Procedure(s): US OB BPP w non-stress Accession Number(s): [id number] cc: JULIET CEE APRN, CNM; Maria Arellano NP The [place] [address] Patient Name: NICHO DOHERTY MRN: [id number] date: 1995 Sex: F Assigned Patient Location: [facility] Current Patient Location: [facility] Accession/Order Number: [id number] Exam Date: 09/01/2024 17:24 Report Date: 09/01/2024 17:26 At the request of: JULIET CEE APRN, CNM Procedure: US OB BPP w non-stress US OB BPP w non-stress 09/01/2024 5:17 PM SIGNS AND SYMPTOMS: 12/10/23 elevated BP S.br PROTOCOL: Transabdominal sonographic images of the gravid uterus COMPARISON: 08/25/2024 FINDINGS: Estimated gestational age is 38 weeks and 0 days. heart rate is at 141 bpm. Amniotic fluid index is 22.7 cm with the deepest vertical pocket measuring 6.3 cm. Biophysical profile: movement: 2/2 tone: 2/2 breathing movements: 2/2 Amniotic fluid volume: 2/2 US/US OB BPP w non-stress IMPRESSION: Biophysical profile: 8/8 heart rate is at 141 bpm. Amniotic fluid index is 22.7 cm with the deepest vertical pocket measuring 6.3 cm. Impression dictated by: Obey James M.D. 09/01/2024 5:26 PM Dictation Location: [place] [address] Electronically authenticated by: [id number] Y Date: 09/01/2024 17:26 Dictated By: Obey James M.D. Signed By: 09/01/241727 DD/ 25 TD/TT: Loss Prevention Officer: Procedure Note Radiology, Radiologist, - 09/01/2024 [place] [address] Ultrasound Report Signed Patient: NICHO DOHERTY JMR#: [id number] : 1995Acct:[id number] Age/Sex: 29 / FADM Date: Loc: [facility] 254-[address]: JULIET CEE APRN, CNM Ordering Physician: JULIET CEE APRN, CNM Date of Service: 09/01/24 Procedure(s): US OB BPP w non-stress Accession Number(s): [id number] cc: JULIET CEE APRN, CNM; Maria Arellano NP [place] [id number] Patient Name: NICHO DOHERTY MRN: [id number] date: 1995 Sex: F Assigned Patient Location: [facility] Current Patient Location: [facility] Accession/Order Number: [id number] Exam Date: 09/01/2024 17:24 Report Date: 09/01/2024 17:26 At the request of: JULIET CEE APRN, CNM Procedure: US OB BPP w non-stress US OB BPP w non-stress 09/01/2024 5:17 PM SIGNS AND SYMPTOMS: 12/10/23 elevated BP S.br PROTOCOL: Transabdominal sonographic images of the gravid uterus COMPARISON: 08/25/2024 FINDINGS: Estimated gestational age is 38 weeks and 0 days. heart rate is at 141 bpm. Amniotic fluid index is 22.7 cm with the deepest vertical pocket measuring6.3 cm. Biophysical profile: movement: 2/2 tone: 2/2 breathing movements: 2/2 Amniotic fluid volume: 2/2 US/US OB BPP w non-stress IMPRESSION: Biophysical profile: 10/23 heart rate is at 141 bpm. Amniotic fluid index is 22.7 cm with the deepest vertical pocket measuring6.3 cm. Impression dictated by: Obey James M.D. 09/01/2024 5:26 PM Dictation Location: [place] [address] Electronically authenticated by: [id number] Y Date: 7:26 Dictated By: Obey James M.D. Signed By:09/01/248 DD/ 1726 TD/TT: Loss Prevention Officer: us Juliet L Coleman CNM [facility] Final Resu lt documented in this encounter Visit Diagnoses Not on filedocumented in this encounter Additional Health Concerns Active Problems Noted Date Diagnosed Date OB Reminders 07/14/2024 Assessment Noted Time PHQ-9 Depression Total Score: 16 024 5:00 PM EDT documented as of this encounter Care Teams Pulmonology Technician Relationship Specialty Start Date End Date Marika Gudino MD [address] [place] [address] PCP - General Family Medicine 07/08/23 documented as of this encounter
--- OUTSIDE RECORDS SUMMARY | 2024-09-09 16:22 | XMS_ITS | Encounter Summary ---
Author Organization [facility] Address [address] [place] [address] Care Team Providers Care Dye Boarding Machine Operator Name Role Phone Hedy Reyna DO Unavailable [phone] Marika Gudino MD Primary Care Provider [phone] Maria Arellano NP Unavailable [phone] Encounter Details Date Type Department Care Team (Late st Contact Info) Description 07/19/2023 Abstract [facility] [address] [place] [address] Maria Arellano NP [address] [place] [address] Social History Tobacco Use Types [...] How often do you attend chur or zoroastrian services? Never 07/08/2023 Do you belong to [...] Recorded Patient Health Questionnaire-2 Score 3 07/16/2023 [facility] - Occupational Stress Questionnaire Answer [...] PM EDT Office Visit [facility] [address] [place] [id number] Maria Arellano NP [address] [place], [place] [id number] documented as of this encounter Visit Diagnoses Not on filedocumented in this encounter Additional Health Concerns Assessment Noted Time PHQ-9 Depression Total Score: 14 024 6:00 PM EDT documented as of this encounter Care Teams Dye Boarding Machine Operator Relationship Specialty Start Date End Date Hedy Reyna DO [address] [address] PCP - [facility] 04/18/21 Marika Gudino MD [address] [place], [place] [id number] PCP - General Family Medicine 07/08/23 Maria Arellano NP [address] [place], [place] [phone] PCP - [facility] 12/17/2303/17 documented as of this encounter
--- OUTSIDE RECORDS SUMMARY | 2024-09-09 16:22 | XMS_ITS | Clinical Summary ---
Author Organization [place] Address [id number] [address] [place] [address] Care Team Providers Care Overseamer Name Role Phone No Pcp, No Pcp Primary Care Provider Unavailabl e Allergies Active Allergy Reactions Criticality Noted Date Comments Penicillins Hives Medium 06/11/2017 Sulfa (Sulfonamide Antibiotics) Hives Medium 05/17 Medications citalopram (CeleXA) 20 mg tablet Take 20 mg by mouth daily as needed (anxiety). Active 21-iron fu-folic acid ( COMPLETE) 14 mg iron- 400 mcg tablet Take 1 tablet by mouth in the morning. 30 tablet 4 Active acetaminophen (TYLENOL EXTRA STRENGTH) 500 mg tablet Take 2 tablets (1,000 mg total) by mouth every 8 (eight) hours. 60 tablet 5 Active docusate sodium (COLACE) 100 mg capsule Take 1 capsule (100 mg total) by mouth in the morning and 1 capsule (100 mg total) before bedtime. 60 capsule 5 Active ibuprofen (MOTRIN) 800 mg tabletIndicatio ns:Acute post-operative pain Take 1 tablet (800 mg total) by mouth every 8 (eight) hours. 30 tablet 5 Active oxyCODONE (ROXICODONE) 5 mg immediate release tabletIndicatio ns:Acute post-operative pain Take 1 tablet (5 mg total) by mouth every 6 (six) hours as needed for pain for up to 5 days. Max Daily Amount: 20 mg 20 tablet 5 09/10/19 25 Active ferrous sulfate 325 (65 FE) mg EC tablet Take 1 tablet (325 mg total) by mouth in the morning and 1 tablet (325 mg total) at noon and 1 tablet (325 mg total) in the evening. Take with meals. 30 tablet 1 5 Active promethazine (PHENERGAN) 25 mg tablet Take 1 tablet (25 mg total) by mouth every 6 (six) hours as needed for nausea or vomiting. 15 tablet 1 09/05/19 25 Discontinu ed(Stop Taking at Discharge) promethazine (PHENERGAN) 25 mg tablet Take 1 tablet (25 mg total) by mouth every 6 (six) hours as needed for nausea or vomiting. 10 tablet 4 09/05/19 25 Discontinu ed(Stop Taking at Discharge) Active Problems Problem Noted Date Diagnosed Date Elevated blood pressure reading 09/01/2024 Bilateral pulmonary infiltrates on CXR 1 Overview (04/25/2020): Added automatically from request for surgery [id number] Resolved Problems Problem Noted Date Diagnosed Date Resolved Date Atypical pneumonia 04/24/2020 1 02/04/2018 06/02/2020 Hyperemesis gravidarum 06/11/201706/02 Encounters Date Type Department Care Team Description 09/02/2024 2:38 PM EDT Anesthesia Event [facility] [address] [place] [address] Gil Garnica MD Kleinhans, Kyle, SRNA 09/02/2024 2:00 PM EDT - 09/02/2024 3:00 PM EDT Surgery [facility] [address] [place] [address] Cindy Soto MD REPEAT 09/01/2024 10:48 PM EDT - 09/04/2024 6:05 PM EDT Hospital Encounter [facility] GEN [address] [place] [address] Regulo Jain MD Acute post-operative pain (Primary Dx) Discharge Disposition: Home 09/01/2024 Travel from Last 3 Months Immunizations Immunization Administration Dates Next Due Rho [...] often do you attend chur ch or congregation services? More than 4 times per year [...] Answer Date Recorded Total Score 0 04/25/2020 [facility] Occupat ional Health - Occupational Stress [...] Mass Index 43.27 09/01/2024 11:02 PM EDT Plan of Treatment Upcoming Encounters Date Type Department Care Team (Late st Contact Info) Description 09/02/2025 10:20 AM EDT Office Visit [facility] [address] [place] [address] Catarino Fonseca MD [address] [place] [address] Health Maintenance Due Date Last Done Comments Tobacco Counseling 1995 Depression Screening 2007 Adult BMI Follow Up Plan 06/14/2013 Pap Smear 06/14/2016 COVID-19 Vaccine (2 2023-2 5 season) 2023 08/08/2020 Influenza Vaccine 11/16/2024 02/29/2012 Adult BMI Screening 09/04/2025 09/04/2024 Tobacco Screening 09/04/2025 09/04/2024 DTaP,Tdap and Td Vaccines (7 - Td or Tdap) 01/25/2028 01/24/2018, 06/21/2000, 09/21/1996, Additional history exists Goals Goal Patient Goal Type Associated Problems Recent Progress Patient-Stated? Author Discharge to home General Yes Hedy Hess, RN Note: Evaluation of progress towards goal: Discharge to home with and self care Medical Devices Not on file Procedures Procedure Name Priority Date/Time Associated Diagnosis Comments CBC WITH AUTO DIFFERENTIAL Routine 09/04/2024 6:30 AM EDT EXTRA TUBES PST TOP Routine 09/04/2024 6 :28 AM EDT EXTRA TUBES Routine 09/04/2024 6:28 AM EDT EXTRA TUBES PST TOP Routine 09/03/2024 6 :22 AM EDT COMPREHENSIVE METABOLIC PANEL STAT Add-on 09/03/2024 6:22 AM EDT EXTRA TUBES Routine 09/03/2024 6:22 AM EDT CBC WITH AUTO DIFFERENTIAL Routine 09/03/2024 6:22 AM EDT RHOGAM NOT ELIGIBLE Routine 09/02/2024 7 :31 PM EDT ANESTHESIA SPINAL BLOCK Routine 09/02/2024 3:06 PM EDT REPEAT 09/02/2024 2:38 PM EDT S/P COMPREHENSIVE METABOLIC PANEL Routine 09/02/2024 12:37 PM EDT CBC WITH AUTO DIFFERENTIAL Routine 09/02/2024 12:37 PM EDT URIC ACID STAT Add-on 09/02/2024 6:02 AM EDT LDH STAT Add-on 09/02/2024 6:02 AM EDT COMPREHENSIVE METABOLIC PANEL Routine 09/02/2024 6:02 AM EDT CBC WITH AUTO DIFFERENTIAL Routine 09/02/2024 6:[address] CTA CHEST STAT 09/02/2024 5:16 AM EDT PROTEIN CREAT RATIO STAT 09/02/2024 1 :23 AM EDT URINALYSIS STAT 09/02/2024 1:23 AM EDT FENTANYL, URINE QUALITATIVE STAT 09/02/2024 1:23 AM EDT DRUG SCREEN, URINE STAT 09/02/2024 1: 23 AM EDT URINE CULTURE STAT 09/02/2024 1:23 AM EDT CLINICAL PATHOLOGY REVIEW Routine 09/01/2024 11:13 PM EDT ANTIBODY ID Routine 09/01/2024 11:13 PM EDT TYPE AND SCREEN Routine 09/01/2024 11:13 PM EDT FOLATE Add-On 09/01/2024 11:13 PM EDT VITAMIN B12 Add-On 09/01/2024 11:13 PM EDT FERRITIN Add-On 09/01/2024 11:13 PM EDT SYPHILIS TOTAL(UNKNOWN SYPHILIS STATUS) STAT 09/01/2024 11:13 PM EDT URIC ACID STAT 09/01/2024 11:13 PM EDT LDH STAT 09/01/2024 11:13 PM EDT COMPREHENSIVE METABOLIC PANEL STAT 09/01/2024 11:13 PM EDT CBC WITH AUTO DIFFERENTIAL STAT 09/01/2024 11:13 PM EDT EXTRA TUBES PST TOP Routine 09/01/2024 1 1:11 PM EDT EXTRA TUBES Routine 09/01/2024 11:11 PM EDT CROSSMATCH RBC Routine 09/01/2024 11:00 PM EDT from Last 3 Months Results * (ABNORMAL) CBC auto differential (09/04/2024 6:30 AM EDT) Only the most recent of5 resultswithin the time period is included. WBC 6.8 4 - 11 x10E9/L 09/04/2024 8:23 AM EDT [facility] RBC Count 2.55(L) 3.8 - 5.2 X10E12/L 09/04/2024 8:23 AM EDT [facility] Hemoglobin 7.0(L) 11.7 - 15.5 g/dL 09/04/2024 8:23 AM EDT [facility] Hematocrit 21.4(L) 35 - 47 % 09/04/2024 8:23 AM EDT [facility] MCV 84 80 - 100 fL 09/04/2024 8:23 AM EDT [facility] MCH 27.6 27 - 34 pg 09/04/2024 8:23 AM EDT [facility] MCHC 32.9 32 - 36 g/dL 09/04/2024 8:23 AM [facility] RDW 18.6(H) 11.5 - 15 % 09/04/2024 8:23 AM [facility] Platelet Count 96(L) 150 - 450 X10E9/L 09/04/2024 8:23 AM T [facility] MPV 9.8 7 - 12 fL 09/04/2024 8:23 AM T [facility] Neutrophils % 82 % 09/04/2024 8:23 AM [facility] Comment:This is an appended report. These results have been appended to a previously preliminary verified report. Lymphocytes % 12 % 09/04/2024 8:23 AM [facility] Comment:This is an appended report. These results have been appended to a previously preliminary verified report. Monocytes % 6 % 09/04/2024 8:23 AM [facility] Comment:This is an appended report. These results have been appended to a previously preliminary verified report. Neutrophils Absolute (M) 5.6 1.5 - 6.6 10*3/uL 09/04/2024 8:23 AM [facility] Comment:This is an appended report. These results have been appended to a previously preliminary verified report. Lymphocytes Absolute 0.8(L) 1.0 - 3.5 10*3/uL 09/04/2024 8:23 AM [facility] Comment:This is an appended report. These results have been appended to a previously preliminary verified report. Monocytes Absolute 0.4 0.0 - 0.9 10*3/uL 09/04/2024 8:23 AM [facility] Comment:This is an appended report. These results have been appended to a previously preliminary verified report. Polychromasia 1+ 09/04/2024 8:23 AM [facility] Comment:This is an appended report. These results have been appended to a previously preliminary verified report. Differential Type MANUAL DIFFERENTIAL 09/04/2024 8:23 AM EDT [facility] Comment:This is an appended report. These results have been appended to a previously preliminary verified report. Blood Venous blood / Unknown Venipuncture / Unknown 09/04/2024 6:30 AM EDT 09/04/2024 6:31 AM EDT us Amena Joy MD LAB BLOOD ORDERABLES Final Resul t [facility] [address] [place] [address], [place] [phone] * PST TOP (09/04/2024 6:28 AM EDT) Only the most recent of3 resultswithin the time period is included. Extra Tube Auto Resulted 09/04/2024 8:02 AM EDT [facility] Blood Venous blood / Unknown 09/04/2024 6:28 AM EDT 09/04/2024 6:50 AM EDT Regulo Jain MD LAB BLOOD ORDERABLES Final Res ult Performing Organization Address City/[facility]/ZIP Co de Phone Number [facility] [address] [place] [address], [place] [phone] * (ABNORMAL) Comprehensive metabolic panel (09/03/2024 6:22 AM EDT) Only the most recent of4 resultswithin the time period is included. SODIUM 133(L) 134 - 146 mmol/L 09/03/2024 8:43 AM EDT [facility] POTASSIUM 4.1 3.5 - 5.0 mmol/L 09/03/2024 8:43 AM EDT [facility] CHLORIDE 101 98 - 109 mmol/L 09/03/2024 8:43 AM EDT [facility] CARBON DIOXIDE 26 22 - 32 mmol/L 09/03/2024 8:43 AM EDT [facility] ANION GAP 6 5 - 15 mmol/L 09/03/2024 8:43 AM EDT [facility] BLOOD UREA NITROGEN 10 5 - 23 mg/dL 09/03/2024 8:43 AM EDT [facility] CREATININE 0.67 0.40 - 1.00 mg/dL 09/03/2024 8:43 AM EDT [facility] Comment:METHOD TRACEABLE TO [facility] STANDARD GLUCOSE 106(H) 65 - 99 mg/dL 09/03/2024 8:43 AM EDT [facility] CALCIUM 8.0(L) 8.5 - 10.5 mg/dL 09/03/2024 8:43 AM EDT [facility] TOTAL PROTEIN 5.2(L) 6.0 - 8.0 g/dL 09/03/2024 8:43 AM EDT [facility] ALBUMIN 2.8(L) 3.2 - 5.3 g/dL 09/03/2024 8:43 AM EDT [facility] ALKALINE PHOSPHATASE 156(H) 39 - 130 U/L 09/03/2024 8:43 AM EDT [facility] AST 23 <=41 U/L 09/03/2024 8:43 AM EDT [facility] ALT 18 <=31 U/L 09/03/2024 8:43 AM EDT [facility] BILIRUBIN,TOTAL 0.3 0.3 - 1.2 mg/dL 09/03/2024 8:43 AM EDT [facility] EGFR Non-Race Dependent >90 >=60 ml/min/1.7 3sq.m 09/03/2024 8:43 AM EDT [facility] Comment: Reported eGFR is based on the CKD-EPI 2020 equation that does not use a race coefficient. Blood Venous blood / Unknown 09/03/2024 6:22 AM EDT 09/03/2024 6:40 AM EDT us Carla Q Vinh TODD LAB BLOOD ORDERABLES Final Resul t [facility] [address] [place] [address], [place] [phone] * Rhogam Not Eligible (09/02/2024 7:31 PM EDT) [id number] Not eligible for RhoGAM 09/02/2024 7:31 PM EDT [facility] 09/02/2024 7:31 PM EDT us Amena Joy MD LAB ORDERABLES Final Result [facility] [address] [place] [address], [place] * Spinal Block (09/02/2024 3:06 PM EDT) Narrative Duglas Longoria SRNA - 09/02/2024 3:06 PM EDT ITALIA Craig 09/02/2024 3:07 PM Spinal Block Patient Location: OR Start Time: 09/02/2024 2:46 PM End Time: 09/02/2024 2:50 PM Reason for Block: Primary Anesthetic IV In situ: Peripheral General Information and Staff: Service Provider: Gil Garnica MD CRUTCHER HELPER: RC Hardy Student: ITALIA Craig Placed by: RC Hardy Checklist: Patient Identified, IV Checked, Site Marked, Risks and Benefits Discussed, Surgical Consent, Monitors and Equipment Checked, Pre-op Evaluation and Timeout Performed Fire Risk Assessment Score: 0 Patient Positioning and Technique: Patient Position: Sitting Prep: Chlorhexidine Monitoring: Heart Rate, Continuous Pulse Ox and Blood Pressure Approach: Midline Location: L2-L3 Injection Technique: Single-Shot Placement Technique: [place] Technique Placement Technique: not ultrasound guided not ultrasound guided Local Infiltration: Lidocaine 1% Dose: 2 mL Needle: Needle Type: [place] Needle Gauge: 24 G Anesthesia Block Medication Given: mayapasrvet-iqsimvos-mkarh(PF) (MARCAINE SPINAL) 0.75 % (7.5 mg/mL) injection - intrathecal 1.6 mL - 09/02/2024 2:50:00 PM morphine PF (DURAMORPH) injection - intrathecal 0.1 mg - 09/02/2024 2:50:00 PM fentaNYL (SUBLIMAZE) injection - intrathecal 10 mcg - 09/02/2024 2:50:00 PM Number of Attempts: 2 CSF Comment: Clear Free-Flowing CSF Assessment: Sensory Level: T4 Gil Garnica MD ANESTHESIA ORDERABLES Drea l Result * LDH (09/02/2024 6:02 AM EDT) Only the most recent of2 resultswithin the time period is included. LDH 185 100 - 235 U/L 09/02/2024 8:40 AM EDT [facility] Blood Venous blood / Unknown Venipuncture / Unknown 09/02/2024 6:02 AM EDT 09/02/2024 6:02 AM EDT [facility] Jazmine Justice MD LAB BLOOD ORDERABLES Final Resul t Performing Organization Address City/[facility]/ZIP Co de Phone Number [facility] [address] [place] [address], * Uric acid (09/02/2024 6:02 AM EDT) Only the most recent of2 resultswithin the time period is included. URIC ACID 5.8 2.6 - 7.2 mg/dL 09/02/2024 8:40 AM EDT [facility] Blood Venous blood / Unknown Venipuncture / Unknown 09/02/2024 6:02 AM EDT 09/02/2024 6:02 AM EDT [facility] Jazmine Justice MD LAB BLOOD ORDERABLES Final Resul t Performing Organization Address City/[facility]/ZIP Co de Phone Number [facility] [address] [place] [address], * CT angiogram chest (09/02/2024 5:16 AM [...] Enrico Patterson MD on 09/02/2024 5:20 AM Giuseppe Robin MD have personally reviewed the image(s) and [...] MD on 09/02/2024 5:[address] [facility] Q Vu IMG CT ORDERABLES Final Result * (ABNORMAL) Protein creat ratio (09/02/2024 1:23 AM EDT) URINE PROTEIN, RANDOM (MG/L) 640(HH) <120 mg/L 09/02/2024 2:40 AM EDT [facility] URINE CREATININE,RDM 125.69 mg/dL 09/02/2024 2:40 AM EDT [facility] U/PRO/PRINTED FORMS PROOFREADER RATIO CALC 0.51(H) <=0.20 09/02/2024 2:40 AM EDT [facility] Urine Urine specimen collection, clean catch / Unknown 09/02/2024 1:23 AM EDT 09/02/2024 1:43 AM EDT [facility] - 09/02/2024 2:40 AM EDT Nephrotic Syndrome is associated with ratios >3.5 Carla Justice MD URINE ORDERABLES Final Result [facility] [address] [place] [address], [place] [phone] * Fentanyl, Urine Qualitative (09/02/2024 1:23 AM EDT) FENTANYL, URINE QUAL. Negative Negative 09/02/2024 2:36 AM EDT [facility] Urine Urine / Unknown 09/02/2024 1 :23 AM EDT 09/02/2024 1:43 AM EDT [facility] - 09/02/2024 2:36 AM EDT Fentanyl screening cutoff = 5ng/ml This report is intended for use in clinical monitoring or management of patients. Carla Justice MD URINE ORDERABLES Final Result [facility] [address] [place] [address], [place] [phone] * Drug Screen, Urine (09/02/2024 1:23 AM EDT) AMPHETAMINE/METHAMP Negative Negative 09/02 2:37 AM EDT [facility] Comment:AMPH/METH screening cut off = 1000 ng/mL COCAINE METABOLITE Negative Negative 2024 2:37 AM EDT [facility] Comment:Cocaine screening cu t off value = 300 ng/mL ECSTASY Negative Negative 09/02/2024 2:37 AM EDT [facility] Comment:Ecstasy screening cu t off value = 500 ng/mL METHADONE Negative Negative 09/02/2024 2:37 AM EDT [facility] Comment:Methadone screening cut off value = 300 ng/mL. OPIATES Negative Negative 09/02/2024 2:37 AM EDT [facility] Comment: Opiates screening cut off value = 300 ng/mL This test is used for the detection of codeine, hydrocodone (>1000 ng/mL), morphine and hydromorphone (>900 ng/mL) in urine. OXYCODONE Negative Negative 09/02/2024 2:37 AM EDT [facility] Comment: Oxycodone screening cut off value = 300 ng/mL This test is used for the detection of oxycodone and oxymorphone in urine. PHENCYCLIDINE Negative Negative 09/02/2024 2:37 AM EDT [facility] Comment:Phencyclidine screen ing cut off value = 25 ng/mL CANNABINOIDS Negative Negative 09/02/2024 2:37 AM EDT [facility] Comment:Cannabinoids/THC scr eening cut off value = 50 ng/mL Urine Barbiturates Negative Negative 2024 2:37 AM EDT [facility] Comment:Barbiturates screeni ng cut off value = 200 ng/mL BENZODIAZEPINES Negative Negative 2:37 AM EDT [facility] Comment:Benzodiazepines scre ening cut off value = 200 ng/mL Urine Urine / Unknown 09/02/2024 1 :23 AM EDT 09/02/2024 1:43 AM EDT us Carla Q Vinh TODD URINE ORDERABLES Final Result [facility] [address] [place] [address], * (ABNORMAL) Urinalysis (09/02/2024 1:23 AM EDT) COLOR Yellow Yellow, Colorless 09/02/2024 2:39 AM EDT [facility] TURBIDITY Hazy(A) Clear 09/02/2024 2:39 AM EDT [facility] SPECIFIC GRAVITY 1.019 1.003 - 1.035 09/02/2024 2:39 AM EDT [facility] NITRITE Negative Negative 09/02/2024 2:39 AM EDT [facility] PH,URINE 6.5 5.0 - 8.5 09/02/2024 2:39 AM EDT [facility] LEUKOCYTE ESTERASE Large(A) Negative 09/02/2024 2:39 AM EDT [facility] PROTEIN 50 mg/dL(A) Negative 09/02/2024 2:39 AM EDT [facility] KETONES (URINE) 60 mg/dL(A) Negative 09/03/19 25 2:39 AM EDT [facility] UROBILINOGEN <1.1 eu/dL <1.1 eu/dL 09/02/2024 2:39 AM EDT [facility] BILIRUBIN (URINE) Negative Negative 09/02/2024 2:39 AM EDT [facility] BLOOD/HGB Negative Negative 09/02/2024 2:39 AM EDT [facility] MUCOUS Present(A) None 09/02/2024 2:39 AM EDT [facility] R.B.CELLS 1 0 - 5 09/02/2024 2:39 AM EDT [facility] SQUAMOUS EPITHELIUM 7(H) 0 - 5 09/02/2024 2:39 AM EDT [facility] TRANSITIONAL EPITH <1(H) <=0 09/02/2024 2:39 AM EDT [facility] W.B.CELLS 5 0 - 5 09/02/2024 2:39 AM EDT [facility] GLUCOSE (URINE) Negative Negative 2:39 AM EDT [facility] Urine 09/02/2024 1:23 AM EDT 09/02/2024 1:48 AM EDT Narrative [facility] - 09/02/2024 2:39 AM EDT Urine received without preservative. Delays in transport may affect results. Interpret with caution. A clinical correlation is recommended. [facility] Vu MD URINE ORDERABLES Final Result Performing Organization Address City/[facility]/ZIP Co de Phone Number [facility] [address] [place] [address], * Urine Culture Urine, Clean Catch Midstream (09/02/2024 1:23 AM EDT) CULTURE RESULTS 10-50,000 ORGANISMS/mL NORMAL UROGENITAL ASHLEY 09/03/2024 8:06 AM EDT [facility] Urine Urine specimen collection, clean catch / Unknown 09/02/2024 1:23 AM EDT 09/02/2024 1:48 AM EDT [facility] Jazmine Justice MD MICROBIOLOGY - GENERAL ORDERABLE S Final Result Performing Organization Address City/[facility]/ZIP Co de Phone Number [facility] [address] [place] [address], * Clinical Pathology Review (09/01/2024 11:13 PM EDT) Case Report Clinical Pathology Report Case: [id number] Authorizing Provider: Regulo Jain MD Collected: 09/01/2024 2313 Ordering Location: [facility] Received: 09/02/2024 0731 - Labor Pathologist: Sol Vides MD Specimen: Blood, Venous 09/08/2024 11:37 AM EDT [facility] Blood [facility] Observations Anti-D is present, directed against the major antigen of the Rh blood group system. It is a clinically significant antibody that can cause hemolytic transfusion reaction and hemolytic disease of the fetus and . Per [facility], [place], the patient received Rh immunoglobulin (RhIG) on 07/16/2024. Per [facility], her last negative antibody screen was on [...] after 6 months. 09/08/2024 11:37 AM EDT [facility] Alena COLLINS Blood Venous blood / Unknown 09/01/2024 11:13 PM EDT 09/02/2024 7:31 AM EDT Regulo Jain MD PATHOLOGY/CYTOLOGY ORDERABLES [facility] [address] [place] [address], * Syphilis Total (Unknown Syphilis Status) (09/01/2024 11:13 PM EDT) SYPHILIS TOTAL <0.2 <=0.8 AI 09/02/2024 6:23 AM EDT [facility] Blood Venous blood / Unknown Venipuncture / Unknown 09/01/2024 11:13 PM EDT 09/01/2024 11:13 PM EDT Narrative [facility] - 09/02/2024 6:23 AM EDT NON REACTIVE No serologic evidence of infection to Treponema pallidum. Repeat testing may be considered in patients with suspected acute or primary syphilis in 2 to 4 weeks. Carla Justice MD LAB BLOOD ORDERABLES Final Resul t [facility] [address] [place] [address], * Antibody ID (09/01/2024 11:13 PM EDT) Antibody ID Passive D Antibody, Patient Received RHIG Passive D Antibody, Patient Received RHIG 09/02/2024 7:29 AM EDT [facility] Comment:See Clinical Patholo gy Review Blood Venous blood / Unknown Venipuncture / Unknown 09/01/2024 11:13 PM EDT 09/01/2024 11:13 PM EDT Carla Justice MD BLOOD BANK TEST ORDERABLES Edite d Result - Final [facility] [address] [place] [address], [facility] [address] [place] [address], [place] * Type and screen(includes indirect trupti) (09/01/2024 11:13 PM EDT) ABO B 09/02/2024 2:07 AM EDT [facility] RH Negative 09/02/2024 2:07 AM EDT [facility] Antibody Screen Positive 09/02/2024 2:07 AM EDT [facility] Blood Venous blood / Unknown Venipuncture / Unknown 09/01/2024 11:13 PM EDT 09/01/2024 11:13 PM EDT Carla Justice MD BLOOD BANK TEST ORDERABLES Edite d Result - Final Performing Organization Address [facility]/ZIP Co de Phone Number [facility] [address] [place] [address], [facility] [address] [place], [place] [address], [place] * Folate (09/01/2024 11:13 PM EDT) FOLIC ACID 8.4 >5.8 ng/mL 09/02/2024 5:43 AM EDT [facility] Blood Venous blood / Unknown Venipuncture / Unknown 09/01/2024 11:13 PM EDT 09/01/2024 11:13 PM EDT Carla Justice MD LAB BLOOD ORDERABLES Final Resul t [facility] [address] [place] [address], [place] [phone] * (ABNORMAL) Ferritin (09/01/2024 11:13 PM EDT) FERRITIN 4(L) 11 - 307 ng/mL 09/02/2024 5:39 AM EDT [facility] Blood Venous blood / Unknown Venipuncture / Unknown 09/01/2024 11:13 PM EDT 09/01/2024 11:13 PM EDT [facility] Q Vinh TODD LAB BLOOD ORDERABLES Final Resul t [facility] [address] [place] [address], * (ABNORMAL) Vitamin B12 (09/01/2024 11:13 PM EDT) VITAMIN B12 165(L) 180 - 914 pg/mL 09/02/2024 5:44 AM EDT [facility] Blood Venous blood / Unknown Venipuncture / Unknown 09/01/2024 11:13 PM EDT 09/01/2024 11:13 PM EDT [facility] Jazmine Justice MD LAB BLOOD ORDERABLES Final Resul t [facility] [address] [place] [address], [place] [phone] * Crossmatch RBC:Number of Units: 2 (09/01/2024 11:00 PM EDT) Blood component type [id number] [facility] Unit number [id number] TO [facility] Unit ABO B [facility] Unit RH NEG [facility] Crossmatch Compatible [facility] Status of unit /RELEASED [facility] Expiration Date [id number] [facility] BB Type Barcode 1700 [facility] Blood component type [id number] [facility] Unit number [id number] TO [facility] Unit ABO B [facility] Unit RH NEG [facility] Crossmatch Compatible [facility] Status of unit /RELEASED [facility] Expiration Date [id number] [facility] BB Type Barcode 1700 [facility] Blood 09/01/2024 11:0 0 PM EDT 09/02/2024 12:17 AM EDT us Suze Haddad DO BLOOD BANK PRODUCT ORDERABLE S Edited Result - Final [facility] [address] [place] [address], [place] from Last 3 Months Insurance [facility] MEDICAID Advance Directives * Full Code (Latest Code Status on File) Date Activated Date Inactivated Comments 09/01/2024 10:59 PM 09/04/2024 9:13 PM * Full Code Date Activated Date Inactivated Comments 04/25/2020 2:02 AM 04/28/2020 3:34 PM * Full Code Date Activated Date Inactivated Comments 02/05/2018 9:54 AM 02/07/2018 7:02 PM * Full Code Date Activated Date Inactivated Comments 02/04/2018 8:48 PM 02/05/2018 9:54 AM * Full Code Date Activated Date Inactivated Comments 02/04/2018 8:20 PM 02/04/2018 8:48 PM Care Teams Overseamer Relationship Specialty Start Date End Date No Pcp, [place] [address] PCP - General Family Medicine 02/03/24
--- OUTSIDE RECORDS SUMMARY | 2024-09-09 16:22 | XMS_ITS | Encounter Summary ---
Author Organization [facility] Address [address] [place] [address] Care Team Providers Care Material Controller Name Role Phone Marika Gudino MD Primary Care Provider Maria Arellano NP Unavailable [phone] Encounter Details Date Type Department Care Team (Late st Contact Info) Description 02/07/2024 Clinisync Result Encounter [facility] Unsolicited Juliet Cee, CNM [address] [place] [address] Social History Tobacco Use Types Packs/Day Years [...] Recorded Patient Health Questionnaire-2 Score 1 12/24/2023 [facility] - Occupational Stress [...] place to sleep or slept in a [place] facility (including now)? No 07/08/2023 Comments Yes Sex [...] PM EDT Office Visit [facility] [address] [place] [address] Maria Arellano NP [address] [place], [place] [id number] documented as of this encounter Procedures Procedure Name Priority Date/Time Associated Diagnosis Comments US OB TRANSVAGINAL 02/07/2024 5: 15 AM EST documented in this encounter Results * US OB TRANSVAGINAL (02/07/2024 5:15 AM EST) Anatomical Region Laterality Modality Other 02/07/2024 5:15 AM EST Narrative 02/07/2024 5:18 [place] [address] Ultrasound Report Signed Patient: NICHO DOHERTY MR#: [id number] : 1995 Acct:[id number] Age/Sex: 28 / F ADM Date: 02/06/24 Loc: US Attending Dr: JULIET CEE APRN, CNM Ordering Physician: JULIET CEE APRN, CNM Date of Service: 02/06/24 Procedure(s): US OB transvaginal Accession Number(s): [id number] cc: JULIET CEE APRN, CNM; Physician,Non-Staff Rama The [address] [id number] Patient Name: NICHO DOHERTY MRN: [id number] date: 1995 Sex: F Assigned Patient Location: [place] Current Patient Location: Accession/Order Number: [id number] Exam Date: 02/06/2024 15:00 Report Date: 02/07/2024 [...] M.D. Signed By: 02/07/24517 DD/ 4 TD/TT: Stores Despatch Hand: Procedure Note Radiology, Radiologist, MD - 02/07/2024 [place] [address] Ultrasound Report Signed Patient: NICHO DOHERTY JMR#: [id number] : 1995Acct:[id number] Age/Sex: 28 / FADM Date: 02/06/24 Loc: US Attending Dr: JULIET CEE APRN, CNM Ordering Physician: JULIET CEE APRN, CNM Date of Service: 02/06/24 Procedure(s): US OB transvaginal Accession Number(s): [id number] cc: JULIET CEE APRN, CNM; Physician,Non-Staff Rama The [place] [address] Patient Name: NICHO DOHERTY MRN: [id number] date: 1995 Sex: F Assigned Patient Location: Current Patient Location: Accession/Order Number: [id number] Exam Date: 02/06/2024 15:00 Report Date: 02/07/2024 [...] Duran M.D. Signed By:02/07/24517 DD/ 4 TD/TT: Stores Despatch Hand: Juliet Cee CNM [facility] Final Resu lt documented in this encounter Visit Diagnoses Not on filedocumented in this encounter Additional Health Concerns Assessment Noted Time PHQ-9 Depression Total Score: 16 024 5:00 PM EDT documented as of this encounter Care Teams Material Controller Relationship Specialty Start Date End Date Marika Gudino MD [address] [place] [address] PCP - General Family Medicine 07/08/23 Maria Arellano NP [address] [place] [address] PCP - [place] [employer] 12/17/2303/17 documented as of this encounter
[2024-09-09] MEDS: LABETALOL HCL 20 MG/4 ML SYRINGE IVP ×2 (16:53→17:46)
[2024-09-09] MEDS: MAGNESIUM-BOLUS FROM THE BAG- 40 GM/1,000 ML IV.SOLN IV (16:54)
[2024-09-09] MEDS: 0.9 % SODIUM CHLORIDE 1,000 ML 75 ML IV (16:54)
[2024-09-09 16:57] LABS: Hematocrit 26.9 % (36.0-48.0); Hemoglobin 7.9 g/dL (12.0-16.0); Mean Corpuscular HGB Conc 29.4 g/dL (29.9-35.2); Mean Corpuscular Volume 91.8 fL (81.0-99.0); Mean Platelet Volume 12.2 fL (9.5-13.5); Platelet Count 184 10^3/uL (150-450); Red Blood Count 2.93 10^6/uL (4.20-5.40); Red Cell Distribution Width 17.8 % (11.0-15.0); White Blood Count 7.6 10^3/uL (4.0-11.0)
[2024-09-09 17:17] LABS: Alanine Aminotransferase 84 U/L (14-59); Aspartate Amino Transferase 42 U/L (15-37)
[2024-09-09 17:18] LABS: Alanine Aminotransferase 86 U/L (14-59); Albumin Globulin Ratio 0.6; Albumin Level 2.5 g/dL (3.4-5.0); Alkaline Phosphatase 176 U/L (46-116); Anion Gap 9.1; Aspartate Amino Transferase 43 U/L (15-37); Bilirubin Total 0.2 mg/dL (0.2-1.0); Calcium 8.5 mg/dL (8.5-10.1); Carbon Dioxide 29.2 mmol/L (21.0-32.0); Chloride 106 mmol/L (98-107); Estimated GFR (African America >60 (>=60 mL/min/1.73m^2); Estimated GFR (Non-African Ame >60 (>=60 mL/min/1.73m^2); Globulin 4.1 g/dL; Glucose 79 mg/dL (74-106); Potassium 4.3 mmol/L (3.5-5.1); Sodium 140 mmol/L (136-145); Total Protein 6.6 g/dL (6.4-8.2)
[2024-09-09 17:19] LABS: INR 0.95; Partial Thromboplastin Time 26.5 sec (22.3-36.2); Prothrombin Time 10.1 sec (9.0-11.6)
[2024-09-09] MEDS: MAGNESIUM SULFATE IN WATER 40 GM/1,000 ML IV.SOLN IV (17:20)
[2024-09-09 17:21] LABS: Fibrinogen 350 mg/dL (200-400)
[2024-09-09 17:25] LABS: Band Neutrophils Absolute 0.2 10^3/uL (0.0-0.3); Basophils Abs Manual 0.07 10^3/uL (0.00-0.10); Eosinophils Absolute Manual 0.07 10^3/uL (0.00-0.70); Lymphocytes Absolute Manual 1.36 10^3/uL (1.20-3.80); Metamyelocytes Absolute Manual 0.07; Monocytes Absolute Manual 0.68 10^3/uL (0.30-0.80); Segmented Neut Absolute Manual 5.16 10^3/uL (1.4-6.5)
--- NOTE | 2024-09-09 17:55 | PC.NURSE ---
bp 163/101 patient continues to deny symptoms. Labetalol 20 mg IVP given slowly
--- NOTE | 2024-09-09 19:01 | P.OBHP_ITS ---
OB - H&P: HPI History of Present Illness Chief complaint: preeclampsia : 4 Para: 4 Date of last menstrual period: 12/10/2023 Gestational age based on last menstrual period: Patient is 1 week postop repeat Indications for induction: other (Not applicable) History of Present care: good care Ultrasounds: normal 1st trimester US and normal mid trimester US (Status post repeat 1 week ago) complications: preeclampsia complications comment: Patient is 1 week status post repeat complicated by preeclampsia. Medical complications OB: cardiovascular ( preeclampsia.) Narrative: Patient presents after being evaluated by her nurse youth officer and was found to have grossly elevated blood pressures 174/100. At that time she admitted to some occasional blurred vision denied any right upper quadrant pain or headaches. Labs Blood type: B (-) negative Rubella: immune RPR/VDLR: nonreactive GBS status: unknown HBsAG: negative Review of Systems ROS Status of ROS: 10 or more systems reviewed and unremarkable except as noted in history and below Meds Home Medications and Allergies Home Medications ?Medication ?Instructions ?Recorded ?Confirmed ?Type docusate sodium 100 mg capsule mg PO 09/09/24 History (Stool Softener) ferrous sulfate 325 mg (65 mg mg 09/09/24 History iron) tablet ibuprofen 800 mg tablet mg 09/09/24 History Allergies Allergy/AdvReac Type Severity Reaction Status Date / Time Penicillins Allergy Hives Verified 09/09/24 16:42 Sulfa (Sulfonamide Allergy Hives Verified 09/09/24 16:42 Antibiotics) Exam Constitutional Vital Signs, click to edit/add: Last Vital Signs Pulse 84 09/09/24 18:57 BP 174/100 H 09/09/24 18:57 Documenting provider has reviewed patient's vital signs: yes Common normals: no apparent distress, oriented x3, no limitations, healthy appearing, alert and well nourished General appearance: cooperative, comfortable, well kempt and well developed Nutritional appearance: overweight Orientation/consciousness: Yes awake, Yes oriented to person, Yes oriented to place and Yes oriented to time Respiratory Common normals: normal respiratory effort, no retractions, no use of accessory muscles and clear to auscultation bilaterally Effort & inspection: able to speak in complete sentences and symmetric chest movement Cardio Common normals: regular rate, regular rhythm and no murmurs Rate: regular rate Rhythm: regular rhythm Heart sounds: S1 normal and S2 normal GI Common normals: Normal to inspection, nondistended, normoactive bowel sounds present, soft to palpation and non-tender Inspection: other (Incision is dry and clear without drainage.) Back & Pelvis Pelvis: other (Normal female external genitalia.) Extremity Common normals: normal to inspection and no calf tenderness (+3 pedal edema) Results Labs Labs: Short CBC 09/09/24 Range/Units 16:51 WBC 7.6 (4.0-11.0) 10^3/uL Hgb 7.9 L (12.0-16.0) g/dL Hct 26.9 L (36.0-48.0) % Plt Count 184 (150-450) 10^3/uL BMP 09/09/24 16:51 Sodium 140 Potassium 4.3 Chloride 106 Carbon Dioxide 29.2 BUN 13.0 Creatinine 0.65 Glucose 79 Calcium 8.5 Liver Function 09/09/24 09/09/24 09/09/24 Range/Units 16:51 16:51 16:51 Total Bilirubin 0.2 (0.2-1.0) mg/dL AST 43 H 42 H (15-37) U/L ALT 86 H 84 H (14-59) U/L Alkaline Phosphatase 176 H (46-116) U/L Albumin 2.5 L (3.4-5.0) g/dL OB - A/P Assessment and Plan (1) Preeclampsia in period: Assessment and Plan: preeclampsia. Will admit patient and start on magnesium sulfate 4 gm loading dose and then 2 gm an hour Plan Patient is 1 week status post repeat with preeclampsia. Will admit patient and give 4 g loading dose of magnesium sulfate to be followed by 2 g an hour. Also will monitor in and outs and order preeclamptic labs. Also internal medicine and cardiology consult obtained.
[2024-09-09] MEDS: LABETALOL HCL 100 MG/20 ML MDV 40 MG IV ×2 (19:05→19:36)
--- NOTE | 2024-09-09 20:02 | PC.NURSE ---
pt. arrives from Mary Cee CNM office with complaints of hypertension. Plan of care reviewed and patient changed into gown.
[2024-09-09] MEDS: SERTRALINE HCL 50 MG TABLET PO (20:24)
[2024-09-09] MEDS: LABETALOL HCL 20 MG/4 ML SYRINGE 80 MG IVP (20:43)
[2024-09-09] MEDS: LABETALOL HCL 100 MG/20 ML MDV 40 MG IVP ×2 (21:54→23:27)
[2024-09-09] MEDS: ACETAMINOPHEN 500 MG TABLET 1000 MG PO (23:41)
[2024-09-10] VITALS (142 sets, daily range): BP systolic 116–176; BP diastolic 64–115; PULSE 62–98; TEMP 36.5–36.7
[2024-09-10] MEDS: LABETALOL HCL 100 MG TABLET PO ×4 (01:47→22:04)
--- NOTE | 2024-09-10 03:54 | PC.NURSE ---
At this time patient was up to bedside commode.
[2024-09-10] MEDS: HYDRALAZINE HCL 20 MG/ML VIAL 10 MG IVP (05:23)
[2024-09-10] MEDS: ACETAMINOPHEN 500 MG TABLET 1000 MG PO ×3 (06:01→18:04)
[2024-09-10] MEDS: 0.9 % SODIUM CHLORIDE 1,000 ML 75 ML IV (06:56)
--- NOTE | 2024-09-10 07:02 | P.PN_ITS ---
Progress Note: Subjective Subjective Interval history: Asked to see patient for a consult for preeclampsia, difficult to control blood pressure, labetalol ineffective, patient with headache When I saw patient up in the obstetrical unit, only complaint was a mild headache, no shortness of breath and no chest pain Exam Constitutional Vital Signs, click to edit/add: Last Vital Signs Temp 97.8 F 09/10/24 05:00 Pulse 72 09/10/24 06:54 Resp 18 09/10/24 05:50 BP 162/91 H 09/10/24 06:54 Documenting provider has reviewed patient's vital signs: yes Common normals: no apparent distress Chest Common normals: inspection of chest normal Respiratory Common normals: normal respiratory effort and no retractions Cardio Common normals: regular rate and regular rhythm GI Common normals: Normal to inspection, nondistended, normoactive bowel sounds present Progress Note: Objective Labs Labs: Short CBC 09/09/24 Range/Units 16:51 WBC 7.6 (4.0-11.0) 10^3/uL Hgb 7.9 L (12.0-16.0) g/dL Hct 26.9 L (36.0-48.0) % Plt Count 184 (150-450) 10^3/uL BMP 09/09/24 16:51 Sodium 140 Potassium 4.3 Chloride 106 Carbon Dioxide 29.2 BUN 13.0 Creatinine 0.65 Glucose 79 Calcium 8.5 Liver Function 09/09/24 09/09/24 09/09/24 Range/Units 16:51 16:51 16:51 Total Bilirubin 0.2 (0.2-1.0) mg/dL AST 43 H 42 H (15-37) U/L ALT 86 H 84 H (14-59) U/L Alkaline Phosphatase 176 H (46-116) U/L Albumin 2.5 L (3.4-5.0) g/dL Progress Note: A&P Assessment and Plan (1) Preeclampsia in period: Plan Admission findings: Uncontrolled hypertension, elevated liver function test and anemia Preeclampsia with uncontrolled blood pressure-patient currently on magnesium we will follow their protocol, added Procardia 10 mg 4 times a day in addition to the labetalol, she did get 1 dose of hydralazine, that combination so far has been effective, hydralazine likely still in her system though likely increase labetalol later today, maintain the Procardia 4 times a day, can discharge to home tomorrow on long-acting Procardia and labetalol as long as heart rate tolerates Elevated liver function test-likely related to the preeclampsia-repeat today Anemia likely related to -repeat
[2024-09-10] MEDS: ONDANSETRON PF 4 MG/2 ML VIAL IV (07:27)
[2024-09-10] MEDS: NIFEdipine 10 MG CAPSULE PO ×3 (07:42→19:33)
--- NOTE | 2024-09-10 09:18 | PC.NURSE ---
0840 up to void on BSC, no dyspnea or dizziness noted. Dr Michael to dept and reviews plan of care with RN. Pt dozing on side
--- NOTE | 2024-09-10 09:25 | PC.NURSE ---
pt awake, tearful with need to stay again tonight but understands plan of care, lab in to draw bloodwork
[2024-09-10 09:46] LABS: Hematocrit 26.3 % (36.0-48.0); Hemoglobin 7.9 g/dL (12.0-16.0); Mean Corpuscular Hemoglobin 27.3 pg (26.7-34.0); Mean Platelet Volume 12.3 fL (9.5-13.5); Platelet Count 176 10^3/uL (150-450); Red Blood Count 2.89 10^6/uL (4.20-5.40); Red Cell Distribution Width 18.5 % (11.0-15.0); White Blood Count 7.7 10^3/uL (4.0-11.0)
[2024-09-10 10:00] LABS: Ammonia 12 umol/L (11-32)
[2024-09-10 10:13] LABS: Alanine Aminotransferase 70 U/L (14-59); Albumin Globulin Ratio 0.6; Albumin Level 2.4 g/dL (3.4-5.0); Alkaline Phosphatase 160 U/L (46-116); Anion Gap 12.4; Aspartate Amino Transferase 34 U/L (15-37); BUN Creatinine Ratio 21.6; Bilirubin Total 0.3 mg/dL (0.2-1.0); Calcium 7.3 mg/dL (8.5-10.1); Carbon Dioxide 25.9 mmol/L (21.0-32.0); Chloride 105 mmol/L (98-107); Estimated GFR (African America >60 (>=60 mL/min/1.73m^2); Estimated GFR (Non-African Ame >60 (>=60 mL/min/1.73m^2); Globulin 3.7 g/dL; Glucose 147 mg/dL (74-106); INR 0.95; Partial Thromboplastin Time 27.6 sec (22.3-36.2); Potassium 4.3 mmol/L (3.5-5.1); Prothrombin Time 10.1 sec (9.0-11.6); Sodium 139 mmol/L (136-145); Thyroid Stimulating Hormone 3.763 uIU/mL (0.358-3.740); Total Protein 6.1 g/dL (6.4-8.2)
[2024-09-10 10:14] LABS: Band Neutrophils Absolute 0.3 10^3/uL (0.0-0.3); Lymphocytes Absolute Manual 0.53 10^3/uL (1.20-3.80); Metamyelocytes Absolute Manual 0.15; Segmented Neut Absolute Manual 6.39 10^3/uL (1.4-6.5)
--- NOTE | 2024-09-10 11:19 | PM.OBPN ---
OB - PN: Subj Subjective Interval history: Asked to see patient for a consult for preeclampsia, difficult to control blood pressure, labetalol ineffective, patient with headache When I saw patient up in the obstetrical unit, only complaint was a mild headache, no shortness of breath and no chest pain Patient comments: pain well controlled, tolerating diet and flatus present (Patient admits occasional headache but denies blurred vision or right upper quadrant pain.) status: doing well feeding status: breast and bottle feeding Exam Constitutional Vital Signs, click to edit/add: Last Vital Signs Temp 98.0 F 09/10/24 07:46 Pulse 81 09/10/24 10:21 Resp 14 09/10/24 07:46 BP 129/72 09/10/24 10:21 Documenting provider has reviewed patient's vital signs: yes Common normals: no apparent distress, average body habitus, oriented x3, no limitations, healthy appearing, alert and well nourished General appearance: cooperative, comfortable, well kempt and well developed Orientation/consciousness: Yes awake, Yes oriented to person, Yes oriented to place and Yes oriented to time Respiratory Common normals: normal respiratory effort and clear to auscultation bilaterally GI Common normals: Normal to inspection, nondistended, normoactive bowel sounds present, soft to palpation and non-tender Auscultation: normoactive bowel sounds Palpation: soft Extremity Common normals: normal to inspection and no calf tenderness (+2 pedal edema) Results Labs Labs: Short CBC 09/09/24 09/10/24 Range/Units 16:51 09:38 WBC 7.6 7.7 (4.0-11.0) 10^3/uL Hgb 7.9 L 7.9 L (12.0-16.0) g/dL Hct 26.9 L 26.3 L (36.0-48.0) % Plt Count 184 176 (150-450) 10^3/uL BMP 09/09/24 09/10/24 16:51 09:38 Sodium 140 139 Potassium 4.3 4.3 Chloride 106 105 Carbon Dioxide 29.2 25.9 BUN 13.0 11.0 Creatinine 0.65 0.51 L Glucose 79 147 H Calcium 8.5 7.3 L Liver Function 06/25/25 06/25/25 06/25/25 Range/Units 16:51 16:51 16:51 Total Bilirubin 0.2 (0.2-1.0) mg/dL AST 43 H 42 H (15-37) U/L ALT 86 H 84 H (14-59) U/L Alkaline Phosphatase 176 H (46-116) U/L Albumin 2.5 L (3.4-5.0) g/dL 09/10/24 Range/Units 09:38 Total Bilirubin 0.3 (0.2-1.0) mg/dL AST 34 (15-37) U/L ALT 70 H (14-59) U/L Alkaline Phosphatase 160 H (46-116) U/L Albumin 2.4 L (3.4-5.0) g/dL OB - PN: A/P Assessment and Plan (1) Preeclampsia in period: Assessment and Plan: Patient is hospital day #1 with a diagnosis of preeclampsia blood pressure currently stable. Will continue magnesium sulfate for a total of 24 hours. Also internal medicine consulted for blood pressure management and will manage blood pressure as per internal medicine. Plan As per above. Time Spent with Patient Time: Total time spent is greater than 50% in coordination of care (as documented) at patient's floor/unit and/or counseling patient: Total time spent with greater than 50% in coordination of care (as documented) at patient's floor/unit and/or counseling patient: less than 15 minutes
[2024-09-10] MEDS: MAGNESIUM SULFATE IN WATER 40 GM/1,000 ML IV.SOLN IV (11:48)
--- NOTE | 2024-09-10 12:48 | PC.NURSE ---
1220 C/o mild headache related to magnesium sulfate, medicated with tylenol and given am labetalol dose along with new magnesium bag hung and verified
--- NOTE | 2024-09-10 14:29 | PC.NURSE ---
Up to BSC and voids, bp taken directly after moving.
--- NOTE | 2024-09-10 17:16 | PC.NURSE ---
Magnesium sulfate and NS stopped, iv to saline lock. continues with dull headache
--- NOTE | 2024-09-10 18:11 | PC.NURSE ---
Addendum entered by Julia Galloway 09/10/24 18:52: reflexes 2+ upper and lower Original Note: up to BSC to void and bp taken after- 176/115, pt asymptomatic, encouraged to rest and RN will be back in 20 minutes to retake. This is approx 50 minutes after discontinuing magnesium sulfate
--- NOTE | 2024-09-10 18:41 | PC.NURSE ---
Dr Michael updated and orders additional dose of labetalol 100 mg po now
[2024-09-10] MEDS: SERTRALINE HCL 50 MG TABLET PO (19:33)
[2024-09-11] VITALS (13 sets, daily range): BP systolic 135–186; BP diastolic 72–99; PULSE 62–83; TEMP 36.9
[2024-09-11] MEDS: NIFEdipine 10 MG CAPSULE PO (01:48)
[2024-09-11] MEDS: ACETAMINOPHEN 325 MG TABLET 650 MG PO (01:57)
[2024-09-11 06:30] LABS: Basophils Percent Auto 0.3 % (0.2-2.0); Eosinophils Percent Auto 0.4 % (0.9-7.0); Hematocrit 25.4 % (36.0-48.0); Hemoglobin 7.5 g/dL (12.0-16.0); Immature Granulocytes Abs Auto 0.17 10^3/uL (0.00-0.03); Immature Granulocytes Pct Auto 2.5 % (0.0-0.5); Lymphocytes Absolute Auto 1.2 10^3/uL (1.2-3.8); Lymphocytes Percent Auto 17.8 % (20.5-60.0); Mean Corpuscular HGB Conc 29.5 g/dL (29.9-35.2); Mean Corpuscular Hemoglobin 26.6 pg (26.7-34.0); Mean Corpuscular Volume 90.1 fL (81.0-99.0); Mean Platelet Volume 11.2 fL (9.5-13.5); Monocytes Absolute Auto 0.6 10^3/uL (0.3-0.8); Monocytes Percent Auto 9.4 % (1.7-12.0); Neutrophils Absolute Auto 4.6 10^3/uL (1.4-6.5); Neutrophils Percent Auto 69.6 % (43.0-75.0); Platelet Count 205 10^3/uL (150-450); Red Blood Count 2.82 10^6/uL (4.20-5.40); Red Cell Distribution Width 18.8 % (11.0-15.0); White Blood Count 6.7 10^3/uL (4.0-11.0)
[2024-09-11] MEDS: NIFEdipine 30 MG TAB.ER.24 60 MG PO (06:37)
--- NOTE | 2024-09-11 06:56 | P.PN_ITS ---
Progress Note: Subjective Subjective Interval history: Patient feels much better this morning, no headache, denies chest pain or shortness of breath and edema in legs is improving Exam Constitutional Vital Signs, click to edit/add: Last Vital Signs Temp 97.7 F 09/10/24 16:32 Pulse 73 09/11/24 06:34 Resp 16 09/10/24 17:00 BP 135/76 09/11/24 06:34 Documenting provider has reviewed patient's vital signs: yes Common normals: no apparent distress Chest Common normals: inspection of chest normal Respiratory Common normals: normal respiratory effort, no retractions and clear to auscultation bilaterally Cardio Common normals: regular rate and regular rhythm GI Common normals: Normal to inspection, nondistended, normoactive bowel sounds present Extremity Common normals: abnormal to inspection Progress Note: Objective Labs Labs: Short CBC 09/10/24 09/11/24 Range/Units 09:38 06:23 WBC 7.7 6.7 (4.0-11.0) 10^3/uL Hgb 7.9 L 7.5 L (12.0-16.0) g/dL Hct 26.3 L 25.4 L (36.0-48.0) % Plt Count 176 205 (150-450) 10^3/uL BMP 09/10/24 09:38 Sodium 139 Potassium 4.3 Chloride 105 Carbon Dioxide 25.9 BUN 11.0 Creatinine 0.51 L Glucose 147 H Calcium 7.3 L Liver Function 09/10/24 Range/Units 09:38 Total Bilirubin 0.3 (0.2-1.0) mg/dL AST 34 (15-37) U/L ALT 70 H (14-59) U/L Alkaline Phosphatase 160 H (46-116) U/L Albumin 2.4 L (3.4-5.0) g/dL Progress Note: A&P Assessment and Plan (1) Preeclampsia in period: Plan Admission findings: Uncontrolled hypertension, elevated liver function test and anemia Preeclampsia with uncontrolled blood pressure-so far it looks like the combination will be Procardia 60 mg once a day and labetalol 200 g twice a day, follow-up with PCP on Saturday, that that she remained stable this morning. Medically stable for discharge. Medication status. Follow-up with PCP again on Saturday Elevated liver function test-likely related to the preeclampsia-improving Anemia likely related to -stable
[2024-09-11 06:58] LABS: Alanine Aminotransferase 57 U/L (14-59); Albumin Globulin Ratio 0.6; Albumin Level 2.2 g/dL (3.4-5.0); Alkaline Phosphatase 154 U/L (46-116); Anion Gap 9.7; Aspartate Amino Transferase 24 U/L (15-37); BUN Creatinine Ratio 15.4; Bilirubin Total 0.4 mg/dL (0.2-1.0); Calcium 7.5 mg/dL (8.5-10.1); Carbon Dioxide 30.4 mmol/L (21.0-32.0); Chloride 103 mmol/L (98-107); Estimated GFR (African America >60 (>=60 mL/min/1.73m^2); Estimated GFR (Non-African Ame >60 (>=60 mL/min/1.73m^2); Globulin 3.7 g/dL; Glucose 97 mg/dL (74-106); Potassium 4.1 mmol/L (3.5-5.1); Sodium 139 mmol/L (136-145); Total Protein 5.9 g/dL (6.4-8.2)
[2024-09-11] MEDS: LABETALOL HCL 100 MG TABLET 200 MG PO (08:19)
--- NOTE | 2024-09-11 10:40 | P.DS_ITS ---
DS: Providers Provider Date of admission: 09/09/24 16:17 Primary care physician: Maria Arellano NP Admitting clinician: Adolfo Lawson Attending physician on admission: Adolfo Lawson Consults: 09/09/24 Consult to Cardiology Routine Reason for consultation: pre-eclampsia 09/10/24 Consult to Hospitalist Routine Consulting Provider: Kirit Michael Reason for consultation: pre-eclampsia Attending physician on discharge: Adolfo Lawson Discharging clinician: Adolfo Lawson Anticipated date of discharge: 09/11/24 DS: Diagnosis Discharge Diagnosis (1) Preeclampsia in period: Assessment and plan: Patient is hospital day #2 stable and doing well. Patient for discharge to home today. (2) Preeclampsia in period: Plan Patient is hospital day #2 doing well. Patient for discharge home today with follow-up with her nurse railroad car loader on 09/14/2024 for blood pressure follow-up. OB - DS: Summary Hospital Course Hospital Course: Complicated by preeclampsia requiring 2-day hospital admission 1 week status post repeat . Time spent discussing smoking cessation with patient: 3 to 10 minutes Complications complications: other ( preeclampsia.) Infant Delivery method: elective section Discharge plan: home Status at Discharge Functional status at discharge: independent ambulation Overall status at discharge: patient is back to baseline Time Spent with Patient Time attestation: Total time spent providing and/or coordinating discharge services: Time spent: less than 30 minutes Exam Narrative Exam Narrative: Patient denies headaches, blurry vision, right upper quadrant pain. Constitutional Vital Signs, click to edit/add: Last Vital Signs Temp 98.5 F 09/11/24 07:45 Pulse 83 09/11/24 09:45 Resp 16 09/11/24 07:45 BP 157/98 H 09/11/24 09:45 O2 Del Method Room Air 09/11/24 07:45 Documenting provider has reviewed patient's vital signs: yes Common normals: no apparent distress, oriented x3, no limitations, healthy appearing, alert and well nourished General appearance: cooperative, comfortable, well kempt and well developed Orientation/consciousness: Yes awake, Yes oriented to person, Yes oriented to place and Yes oriented to time Chest Common normals: inspection of breasts normal GI Common normals: Normal to inspection, nondistended, normoactive bowel sounds present, soft to palpation and non-tender Extremity Common normals: normal to inspection and no calf tenderness (+1 pedal edema) DS: Data Data Completed and Pending Labs on day of discharge: Labs from last 24 hours 09/11/24 06:23 WBC 6.7 RBC 2.82 L Hgb 7.5 L Hct 25.4 L MCV 90.1 MCH 26.6 L MCHC 29.5 L RDW 18.8 H Plt Count 205 MPV 11.2 Neut % (Auto) 69.6 Lymph % (Auto) 17.8 L [place] % (Auto) 9.4 Eos % (Auto) 0.4 L Baso % (Auto) 0.3 Neut # (Auto) 4.6 Lymph # (Auto) 1.2 [place] # (Auto) 0.6 Eos # (Auto) 0.0 Baso # (Auto) 0.0 Abs Immat Gran (auto) 0.17 H Imm/Tot Granulo (auto) 2.5 H Sodium 139 Potassium 4.1 Chloride 103 Carbon Dioxide 30.4 Anion Gap 9.7 BUN 10.0 Creatinine 0.65 Est GFR ( Amer) >60 Est GFR (Non-Af Amer) >60 BUN/Creatinine Ratio 15.4 Glucose 97 Calcium 7.5 L Total Bilirubin 0.4 AST 24 ALT 57 Alkaline Phosphatase 154 H Total Protein 5.9 L Albumin 2.2 L Globulin 3.7 Albumin/Globulin Ratio 0.6 Discharge Plan Discharge Disposition: ([facility]) Home, Self-Care Condition: Good Assessment: Patient has bili #2 with preeclampsia currently doing well. Care Plan Goals: Resume normal activity. Health Concerns: None Plan of Treatment: Patient discharged to home on blood pressure medications. Discharge Medications: New nifedipine [Procardia XL] 60 mg tablet extended release 24hr 60 mg PO DAILY Qty: 30 11RF labetalol 200 mg tablet 200 mg PO BID Qty: 60 11RF Continued ibuprofen 800 mg tablet ferrous sulfate 325 mg (65 mg iron) tablet docusate sodium [Stool Softener] 100 mg capsule PO Print Language: Singaporean Patient Instructions: Preeclampsia and Eclampsia After Delivery (GEN) Activity Restrictions/Additional Instructions: Take Labetalol PO 200mg 3x daily per instructions. Sugar House Supervisor/Hydraulic Dredge Operator Instructions: Maria Arellano NP on SaturdaySeptember 14 for follow up appointment Forms: Delivery - Discharge
== END 2024-09-11 10:55 | disposition home or self-care (01) ==
PROVIDERS: Family Medicine; Admitting Provider Family Medicine Addiction Medicine; PCP Nurse Practitioner Family; Visit Provider Family Medicine Addiction Medicine
DX: O14.95 Unspecified pre-eclampsia, complicating the puerperium (principal); O90.81 Anemia of the puerperium; D64.9 Anemia, unspecified
CPT/HCPCS: 36415; 80053; 82140; 84436; 84443; 84450; 84460; 84550; 85007; 85025; 85027; 85384; 85610; 85730; 96365; 96366; 96375; 96376; G0378; G0379; J0360; J1290; J1920; J2405; J3475